=== PATIENT | female | born 1960 | race Caucasian/White ===

== ENCOUNTER 2019-02-13 13:19 | Outpatient (RCR) | payer MEDICARE, OTHER, SELFPAY ==
[2019-01-12 16:43] LABS: INR 2.1; Prothrombin Time 21.8 Seconds (9.64-11.0)
[2019-02-13 13:44] LABS: INR 2.6; Prothrombin Time 27.1 Seconds (9.64-11.0)
== END 2019-04-12 23:59 | disposition home or self-care (01) ==
LOC: CHSLAB 13:19
PROVIDERS: Visit Provider Family Medicine
DX: Z79.01 Long term (current) use of anticoagulants (principal)
CPT/HCPCS: 36415; 85610

== ENCOUNTER 2019-05-28 13:31 | Outpatient (RCR) | payer MEDICARE, SELFPAY ==
[2019-05-18 13:29] LABS: INR 1.9; Prothrombin Time 19.6 Seconds (9.64-11.0)
[2019-05-28 13:50] LABS: INR 2.2; Prothrombin Time 22.1 Seconds (9.64-11.0)
== END 2019-08-16 23:59 | disposition home or self-care (01) ==
LOC: CHSLAB 13:31
PROVIDERS: PCP Family Medicine; Visit Provider Family Medicine
DX: D68.69 Other thrombophilia (principal); Z79.01 Long term (current) use of anticoagulants
CPT/HCPCS: 36415; 85610

== ENCOUNTER 2019-07-31 11:07 | Outpatient (CLI) | payer MEDICARE, SELFPAY ==
[2019-07-31 11:19] LABS: Basophils Absolute Auto 0.07 K/mm3 (0.00-0.10); Eosinophils Absolute Auto 0.15 K/mm3 (0.02-0.50); Hematocrit 40.5 % (35.0-49.0); Hemoglobin 13.4 g/dL (12.0-15.0); Immature Granulocyte Absolute 0.02 K/mm3 (0.00-0.00); Immature Granulocyte Percent A 0.3 % (0.0-0.0); Lymphocytes Absolute Auto 2.46 K/mm3 (1.10-4.50); Lymphocytes Percent Auto 33.5 % (18.0-42.0); Mean Corpuscular HGB Conc 33.1 g/dL (32.0-36.0); Mean Corpuscular Hemoglobin 30.4 pg (27.0-31.0); Mean Corpuscular Volume 91.8 fL (78.0-102.0); Mean Platelet Volume 10.1 fl (9.2-11.8); Monocytes Absolute Auto 0.57 K/mm3 (0.10-0.90); Monocytes Percent Auto 7.8 % (2.0-11.0); Neutrophils Absolute Auto 4.1 K/mm3 (1.7-7.2); Neutrophils Percent Auto 55.4 % (50.0-70.0); Platelet Count Result 238 K/mm3 (150-420); Red Blood Count 4.41 M/mm3 (4.20-5.40); Red Cell Distribution Width 13.3 % (11.6-14.4); White Blood Count 7.4 K/mm3 (4.8-10.8)
[2019-07-31 11:30] LABS: INR 2.8; Prothrombin Time 28.2 Seconds (9.64-11.0)
[2019-07-31 13:11] LABS: Alanine Aminotransferase 43 U/L (14-59); Albumin Level 3.6 g/dL (3.4-5.0); Alkaline Phosphatase 58 U/L (46-116); Anion Gap 11.5 mmol/L (7-16); Aspartate Amino Transferase 24 U/L (15-37); Bilirubin,Total 0.4 mg/dL (0.00-1.00); Blood Urea Nitrogen 21 mg/dL (7-18); Calcium 8.9 mg/dL (8.5-10.1); Carbon Dioxide 31 mmol/L (21-32); Chloride 105 mmol/L (98-108); Estimated Glomerular Filt Rate 55; Glucose 110 mg/dL (70-99); Osmolality Calculated 300 mOsm/kg (285-295); Potassium 4.5 mmol/L (3.5-5.1); Sodium 143 mmol/L (136-145); Thyroid Stimulating Hormone 1.53 uIU/mL (0.36-3.74)
== END 2019-07-31 11:08 | disposition home or self-care (01) ==
PROVIDERS: PCP Family Medicine; Visit Provider Family Medicine
DX: I25.10 Atherosclerotic heart disease of native coronary artery without angina pectoris (principal); E11.9 Type 2 diabetes mellitus without complications; D68.69 Other thrombophilia; Z79.01 Long term (current) use of anticoagulants
CPT/HCPCS: 36415; 80053; 83036; 84443; 85025; 85610

== ENCOUNTER 2019-08-23 10:43 | Outpatient (CLI) | payer MEDICARE, MEDICAID, SELFPAY | END 2019-08-23 10:44 | disposition home or self-care (01) | PROVIDERS: PCP Family Medicine; Visit Provider Specialist | DX: I51.9 Heart disease, unspecified (principal) | CPT/HCPCS: 93306 ==

== ENCOUNTER 2020-01-04 14:53 | Outpatient (RCR) | payer MEDICARE, SELFPAY ==
[2019-10-09 08:03] LABS: INR 2.2; Prothrombin Time 22.1 Seconds (9.64-11.0)
[2019-11-27 15:28] LABS: Basophils Absolute Auto 0.08 K/mm3 (0.00-0.10); Eosinophils Absolute Auto 0.18 K/mm3 (0.02-0.50); Eosinophils Percent Auto 2.2 % (1.0-6.0); Hematocrit 44.2 % (35.0-49.0); Hemoglobin 13.8 g/dL (12.0-15.0); Immature Granulocyte Absolute 0.02 K/mm3 (0.00-0.00); Immature Granulocyte Percent A 0.2 % (0.0-0.0); Lymphocytes Absolute Auto 3.17 K/mm3 (1.10-4.50); Lymphocytes Percent Auto 38.6 % (18.0-42.0); Mean Corpuscular HGB Conc 31.2 g/dL (32.0-36.0); Mean Corpuscular Hemoglobin 29.1 pg (27.0-31.0); Mean Corpuscular Volume 93.1 fL (78.0-102.0); Mean Platelet Volume 10.1 fl (9.2-11.8); Monocytes Percent Auto 8.5 % (2.0-11.0); Neutrophils Absolute Auto 4.1 K/mm3 (1.7-7.2); Neutrophils Percent Auto 49.5 % (50.0-70.0); Platelet Count Result 284 K/mm3 (150-420); Red Blood Count 4.75 M/mm3 (4.20-5.40); Red Cell Distribution Width 13.3 % (11.6-14.4); White Blood Count 8.2 K/mm3 (4.8-10.8)
[2019-11-27 15:38] LABS: INR 1.9; Prothrombin Time 19.4 Seconds (9.64-11.0)
[2019-11-27 16:02] LABS: Hemoglobin A1C 6.3 % (<5.7)
[2019-11-27 16:11] LABS: Anion Gap 5 mmol/L (8-16); Blood Urea Nitrogen 28 mg/dL (7-18); Calcium 9.3 mg/dL (8.5-10.1); Carbon Dioxide 32 mmol/L (21-32); Chloride 104 mmol/L (98-108); Estimated Glomerular Filt Rate 58; Glucose 106 mg/dL (70-99); Osmolality Calculated 297 mOsm/kg (285-295); Potassium 4.3 mmol/L (3.5-5.1); Sodium 141 mmol/L (136-145)
[2019-12-19 11:20] LABS: INR 1.9; Prothrombin Time 19.5 Seconds (9.64-11.0)
[2020-01-04 15:32] LABS: INR 2.1; Prothrombin Time 20.7 Seconds (9.64-11.0)
== END 2020-01-07 23:59 | disposition home or self-care (01) ==
LOC: CHSLAB 14:53
PROVIDERS: PCP Family Medicine; Visit Provider Family Medicine
DX: D68.69 Other thrombophilia (principal); Z79.01 Long term (current) use of anticoagulants; E11.9 Type 2 diabetes mellitus without complications
CPT/HCPCS: 36415; 80048; 83036; 85025; 85610

== ENCOUNTER 2020-03-08 11:52 | Outpatient (CLI) | payer MEDICARE, SELFPAY ==
[2020-03-08 12:13] LABS: Basophils Absolute Auto 0.07 K/mm3 (0.00-0.10); Eosinophils Absolute Auto 0.17 K/mm3 (0.02-0.50); Eosinophils Percent Auto 2.3 % (1.0-6.0); Hematocrit 43.5 % (35.0-49.0); Hemoglobin 13.8 g/dL (12.0-15.0); Immature Granulocyte Absolute 0.03 K/mm3 (0.00-0.00); Immature Granulocyte Percent A 0.4 % (0.0-0.0); Lymphocytes Absolute Auto 2.63 K/mm3 (1.10-4.50); Lymphocytes Percent Auto 36.2 % (18.0-42.0); Mean Corpuscular HGB Conc 31.7 g/dL (32.0-36.0); Mean Corpuscular Hemoglobin 29.3 pg (27.0-31.0); Mean Corpuscular Volume 92.4 fL (78.0-102.0); Mean Platelet Volume 10.1 fl (9.2-11.8); Monocytes Absolute Auto 0.61 K/mm3 (0.10-0.90); Monocytes Percent Auto 8.4 % (2.0-11.0); Neutrophils Absolute Auto 3.8 K/mm3 (1.7-7.2); Neutrophils Percent Auto 51.7 % (50.0-70.0); Platelet Count Result 255 K/mm3 (150-420); Red Blood Count 4.71 M/mm3 (4.20-5.40); Red Cell Distribution Width 13.1 % (11.6-14.4); White Blood Count 7.3 K/mm3 (4.8-10.8)
[2020-03-08 12:31] LABS: Hemoglobin A1C 6.7 % (<5.7); INR 1.8; Prothrombin Time 18.8 Seconds (9.50-12.10)
[2020-03-08 13:22] LABS: Anion Gap 7 mmol/L (8-16); Blood Urea Nitrogen 27 mg/dL (7-18); Calcium 9.3 mg/dL (8.5-10.1); Carbon Dioxide 30 mmol/L (21-32); Chloride 100 mmol/L (98-108); Estimated Glomerular Filt Rate 43; Glucose 154 mg/dL (70-99); Osmolality Calculated 292 mOsm/kg (285-295); Potassium 4.3 mmol/L (3.5-5.1); Sodium 137 mmol/L (136-145)
== END 2020-03-08 11:53 | disposition home or self-care (01) ==
LOC: CHSLAB 11:54
PROVIDERS: PCP Family Medicine; Visit Provider Family Medicine
DX: Z79.01 Long term (current) use of anticoagulants (principal); E11.9 Type 2 diabetes mellitus without complications
CPT/HCPCS: 36415; 80048; 83036; 85025; 85610

== ENCOUNTER 2020-05-07 14:37 | Outpatient (CLI) | payer MEDICARE, SELFPAY ==
[2020-05-07 15:31] LABS: Influenza Control Valid (Valid); SARS-CoV-2 Ag Negative (Negative)
[2020-05-08 00:45] LABS: SARS-CoV-2 RNA PCR Negative
== END 2020-05-07 14:38 | disposition home or self-care (01) ==
LOC: CHSLAB 14:39
PROVIDERS: PCP Family Medicine; Visit Provider Family Medicine
DX: J00 Acute nasopharyngitis [common cold] (principal); Z20.822 Contact with and (suspected) exposure to COVID-19
CPT/HCPCS: 87081; 87426; 87804; 87880; C9803; U0003; U0005

== ENCOUNTER 2020-05-15 09:19 | Outpatient (RCR) | payer MEDICARE, SELFPAY ==
[2020-03-25 11:16] LABS: Prothrombin Time 21.2 Seconds (9.50-12.10)
[2020-05-15 09:59] LABS: INR 1.7; Prothrombin Time 17.3 Seconds (9.50-12.10)
== END 2020-06-23 23:59 | disposition home or self-care (01) ==
LOC: CHSLAB 09:19
PROVIDERS: PCP Family Medicine; Visit Provider Family Medicine
DX: Z79.01 Long term (current) use of anticoagulants (principal)
CPT/HCPCS: 36415; 85610

== ENCOUNTER 2020-05-31 09:52 | Outpatient (CLI) | payer MEDICARE, SELFPAY ==
[2020-05-31 10:21] LABS: INR 1.8; Prothrombin Time 19.1 Seconds (9.50-12.10)
== END 2020-05-31 09:53 | disposition home or self-care (01) ==
LOC: CHSLAB 09:55
PROVIDERS: PCP Family Medicine; Visit Provider Family Medicine
DX: Z79.01 Long term (current) use of anticoagulants (principal)
CPT/HCPCS: 36415; 85610

== ENCOUNTER 2020-06-23 08:39 | Outpatient (CLI) | payer MEDICARE, SELFPAY ==
[2020-06-23 08:54] LABS: Basophils Absolute Auto 0.07 K/mm3 (0.00-0.10); Basophils Percent Auto 0.9 % (0.0-1.0); Eosinophils Absolute Auto 0.16 K/mm3 (0.02-0.50); Eosinophils Percent Auto 2.2 % (1.0-6.0); Hematocrit 42.2 % (35.0-49.0); Hemoglobin 13.7 g/dL (12.0-15.0); Immature Granulocyte Absolute 0.03 K/mm3 (0.00-0.00); Immature Granulocyte Percent A 0.4 % (0.0-0.0); Lymphocytes Absolute Auto 2.46 K/mm3 (1.10-4.50); Lymphocytes Percent Auto 33.2 % (18.0-42.0); Mean Corpuscular HGB Conc 32.5 g/dL (32.0-36.0); Mean Corpuscular Hemoglobin 29.5 pg (27.0-31.0); Mean Corpuscular Volume 90.9 fL (78.0-102.0); Mean Platelet Volume 9.8 fl (9.2-11.8); Monocytes Absolute Auto 0.57 K/mm3 (0.10-0.90); Monocytes Percent Auto 7.7 % (2.0-11.0); Neutrophils Absolute Auto 4.1 K/mm3 (1.7-7.2); Neutrophils Percent Auto 55.6 % (50.0-70.0); Platelet Count Result 271 K/mm3 (150-420); Red Blood Count 4.64 M/mm3 (4.20-5.40); Red Cell Distribution Width 13.5 % (11.6-14.4); White Blood Count 7.4 K/mm3 (4.8-10.8)
[2020-06-23 09:07] LABS: INR 2.8; Prothrombin Time 28.5 Seconds (9.50-12.10)
[2020-06-23 09:41] LABS: Hemoglobin A1C 6.6 % (<5.7)
[2020-06-23 09:42] LABS: Creatinine Urine 88.38 mg/dL (40-278); MALB Creatinine Ratio 25.9 mg/g (0-30); Microalbumin Urine Random 22.9 mg/L
[2020-06-23 10:23] LABS: Anion Gap 8 mmol/L (8-16); Blood Urea Nitrogen 32 mg/dL (7-18); Calcium 8.9 mg/dL (8.5-10.1); Carbon Dioxide 27 mmol/L (21-32); Chloride 101 mmol/L (98-108); Estimated Glomerular Filt Rate 47; Glucose 157 mg/dL (70-99); Osmolality Calculated 291 mOsm/kg (285-295); Potassium 4.9 mmol/L (3.5-5.1); Sodium 136 mmol/L (136-145)
[2020-06-23 10:44] LABS: Thyroid Stimulating Hormone 1.36 uIU/mL (0.36-3.74)
== END 2020-06-23 08:40 | disposition home or self-care (01) ==
LOC: CHSLAB 08:41
PROVIDERS: PCP Family Medicine; Visit Provider Family Medicine
DX: E11.9 Type 2 diabetes mellitus without complications (principal); Z79.01 Long term (current) use of anticoagulants
CPT/HCPCS: 36415; 80048; 82043; 83036; 84443; 85025; 85610

== ENCOUNTER 2020-07-11 10:50 | Outpatient (CLI) | payer MEDICARE, SELFPAY ==
--- NOTE | ~2020-07-11 | XR_ITS ---
EXAMINATION: XR abdomen obstructive series DATE: 07/11/2020 11:27 INDICATION: Right upper quadrant abdominal pain TECHNIQUE: Upright and supine views of the abdomen were obtained. COMPARISON: None. FINDINGS: There is no free intraperitoneal gas or evidence of bowel obstruction. The bowel gas patter n is nonspecific. The lung bases are clear. Cardiomegaly is noted. There is a partially imaged single pacemaker lead in the right ventricle. Lumbar levoscoliosis is noted. There is also moderate lumbar spondylosis. IMPRESSION: 1. Nonobstructive bowel gas pattern. Reviewed, dictated and finalized at location A.
[2020-07-11 11:05] LABS: Basophils Absolute Auto 0.07 K/mm3 (0.00-0.10); Basophils Percent Auto 0.8 % (0.0-1.0); Eosinophils Absolute Auto 0.16 K/mm3 (0.02-0.50); Eosinophils Percent Auto 1.8 % (1.0-6.0); Hematocrit 43.5 % (35.0-49.0); Hemoglobin 14.2 g/dL (12.0-15.0); Immature Granulocyte Absolute 0.02 K/mm3 (0.00-0.00); Immature Granulocyte Percent A 0.2 % (0.0-0.0); Lymphocytes Absolute Auto 2.87 K/mm3 (1.10-4.50); Mean Corpuscular HGB Conc 32.6 g/dL (32.0-36.0); Mean Corpuscular Hemoglobin 29.5 pg (27.0-31.0); Mean Corpuscular Volume 90.4 fL (78.0-102.0); Mean Platelet Volume 10.2 fl (9.2-11.8); Monocytes Absolute Auto 0.58 K/mm3 (0.10-0.90); Monocytes Percent Auto 6.7 % (2.0-11.0); Neutrophils Percent Auto 57.5 % (50.0-70.0); Platelet Count Result 257 K/mm3 (150-420); Red Blood Count 4.81 M/mm3 (4.20-5.40); Red Cell Distribution Width 13.2 % (11.6-14.4); White Blood Count 8.7 K/mm3 (4.8-10.8)
[2020-07-11 11:09] LABS: Add Urine Microscopic? YES; Appearance Urine Clear (Clear); Bilirubin Urine Negative (Negative); Blood Urine 1+ (Negative); Color Urine Yellow (Yellow); Glucose Urine UA Negative (Negative); Ketones Urine Negative (Negative); Leukocyte Esterase Ur Negative LEU/UL (Negative); Nitrate Urine Negative (Negative); Protein Urine Negative (Negative); Specific Grav Ur >= 1.030 (1.010-1.020); Urobilinogen Urine 0.2 mg/dL (0.2-1.0); pH Urine 5.5 (5.0-8.0)
[2020-07-11 11:21] LABS: Bacteria Urine Trace /hpf; RBC Urine 0-2 /hpf (0-2); Squamous Epithelial Cell Urine Few /hpf (Few); WBC Urine 0-3 /hpf (0-3)
[2020-07-11 11:44] LABS: Alanine Aminotransferase 32 U/L (14-59); Albumin Level 3.6 g/dL (3.4-5.0); Alkaline Phosphatase 85 U/L (46-116); Amylase 81 U/L (25-115); Anion Gap 10 mmol/L (8-16); Aspartate Amino Transferase 14 U/L (15-37); Bilirubin,Total 0.4 mg/dL (0.00-1.00); Blood Urea Nitrogen 24 mg/dL (7-18); Carbon Dioxide 27 mmol/L (21-32); Chloride 102 mmol/L (98-108); Estimated Glomerular Filt Rate 48; Glucose 115 mg/dL (70-99); Lipase 668 U/L (73-393); Osmolality Calculated 293 mOsm/kg (285-295); Potassium 4.7 mmol/L (3.5-5.1); Sodium 139 mmol/L (136-145); Total Protein 7.3 g/dL (6.4-8.2)
[2020-07-11 12:00] LABS: Calcium 8.9 mg/dL (8.5-10.1)
== END 2020-07-11 10:51 | disposition home or self-care (01) ==
LOC: CHSLAB 10:54
PROVIDERS: PCP Family Medicine; Visit Provider Family Medicine
DX: R10.9 Unspecified abdominal pain (principal)
CPT/HCPCS: 36415; 74019; 80053; 81001; 82150; 83690; 85025

== ENCOUNTER 2020-07-14 09:59 | Outpatient (CLI) | payer MEDICARE, MEDICAID, SELFPAY ==
--- NOTE | ~2020-07-14 | CT_ITS ---
EXAMINATION: CT abdomen pelvis wo con DATE: 07/14/2020 10:23 INDICATION: Right abdominal pain. TECHNIQUE: Computed tomography (CT) of the abdomen and pelvis was performed without intravenous contr ast. Automated exposure control and iterative reconstruction technique were employed. The dose-length product was 1319.76 mGy-cm. COMPARISON: Chest CT 12/15/2018 FINDINGS: The visualized portions of the lung bases demonstrate mild atelectasis. No pleural effusion . The heart size is normal. There is a pacer wire in right ventricle. There are coronary artery calci fications. No pericardial effusion. The liver, gallbladder, spleen, and adrenal glands are normal. Th ere is mild fat stranding adjacent to the body of the pancreas, consistent with acute interstitial pa ncreatitis. The kidneys are normal. There are no dilated loops of bowel. The appendix is normal. Ther e are no pathologically enlarged lymph nodes. There is no free intraperitoneal fluid. There is a 3.2 cm cyst in left ovary. There is lumbar levoscoliosis and mild spondylosis. IMPRESSION: 1. Mild acute interstitial pancreatitis. 2. 3.2 cm cyst in left ovary, likely benign. Pelvis ultrasound is recommended. Reviewed, dictated and finalized at location B.
== END 2020-07-14 10:00 | disposition home or self-care (01) ==
LOC: CHSIMG 10:01
PROVIDERS: PCP Family Medicine; Visit Provider Family Medicine
DX: R10.9 Unspecified abdominal pain (principal); R74.8 Abnormal levels of other serum enzymes; R19.5 Other fecal abnormalities
CPT/HCPCS: 74176

== ENCOUNTER 2020-07-15 10:14 | Outpatient (CLI) | payer MEDICARE, SELFPAY ==
[2020-07-15 10:30] LABS: Basophils Absolute Auto 0.06 K/mm3 (0.00-0.10); Basophils Percent Auto 0.8 % (0.0-1.0); Eosinophils Absolute Auto 0.17 K/mm3 (0.02-0.50); Eosinophils Percent Auto 2.2 % (1.0-6.0); Hematocrit 44.8 % (35.0-49.0); Hemoglobin 14.7 g/dL (12.0-15.0); Immature Granulocyte Absolute 0.02 K/mm3 (0.00-0.00); Immature Granulocyte Percent A 0.3 % (0.0-0.0); Lymphocytes Absolute Auto 2.46 K/mm3 (1.10-4.50); Lymphocytes Percent Auto 32.3 % (18.0-42.0); Mean Corpuscular HGB Conc 32.8 g/dL (32.0-36.0); Mean Corpuscular Hemoglobin 29.5 pg (27.0-31.0); Mean Corpuscular Volume 89.8 fL (78.0-102.0); Mean Platelet Volume 10.1 fl (9.2-11.8); Monocytes Absolute Auto 0.52 K/mm3 (0.10-0.90); Monocytes Percent Auto 6.8 % (2.0-11.0); Neutrophils Absolute Auto 4.4 K/mm3 (1.7-7.2); Neutrophils Percent Auto 57.6 % (50.0-70.0); Platelet Count Result 256 K/mm3 (150-420); Red Blood Count 4.99 M/mm3 (4.20-5.40); Red Cell Distribution Width 13.3 % (11.6-14.4); White Blood Count 7.6 K/mm3 (4.8-10.8)
[2020-07-15 10:43] LABS: INR 2.6
[2020-07-15 10:49] LABS: Occult Blood Negative (Negative)
[2020-07-15 10:49] LABS: Occult Blood Negative (Negative)
[2020-07-15 11:08] LABS: Alanine Aminotransferase 28 U/L (14-59); Albumin Level 3.7 g/dL (3.4-5.0); Alkaline Phosphatase 89 U/L (46-116); Amylase 90 U/L (25-115); Anion Gap 8 mmol/L (8-16); Aspartate Amino Transferase 12 U/L (15-37); Bilirubin,Total 0.4 mg/dL (0.00-1.00); Blood Urea Nitrogen 25 mg/dL (7-18); Calcium 9.3 mg/dL (8.5-10.1); Carbon Dioxide 30 mmol/L (21-32); Chloride 100 mmol/L (98-108); Estimated Glomerular Filt Rate 48; Glucose 180 mg/dL (70-99); Lipase 638 U/L (73-393); Osmolality Calculated 295 mOsm/kg (285-295); Potassium 4.8 mmol/L (3.5-5.1); Sodium 138 mmol/L (136-145); Total Protein 7.6 g/dL (6.4-8.2)
== END 2020-07-15 10:15 | disposition home or self-care (01) ==
LOC: CHSLAB 10:18
PROVIDERS: PCP Family Medicine; Visit Provider Family Medicine
DX: R10.9 Unspecified abdominal pain (principal); R74.8 Abnormal levels of other serum enzymes; R19.5 Other fecal abnormalities; K85.90 Acute pancreatitis without necrosis or infection, unspecified; Z79.01 Long term (current) use of anticoagulants
CPT/HCPCS: 36415; 80053; 82150; 82272; 83690; 85025; 85610

== ENCOUNTER 2020-07-17 10:07 | Outpatient (CLI) | payer MEDICARE, MEDICAID, SELFPAY ==
--- NOTE | ~2020-07-17 | US_ITS ---
EXAMINATION: US pelvic complete w TV EXAM DATE: 07/17/2020 12:00 INDICATION: Ovarian cyst. TECHNIQUE: Pelvic transabdominal and transvaginal sonogram was performed. There are multiple graysca le and Doppler images available for interpretation. Correlation was made with CT abdomen pelvis 2020. FINDINGS: Reportedly patient has had hysterectomy. The vaginal cuff is unremarkable. There is no free pelvic fluid. Right adnexa: The ovary measures 1.0 x 1.6 x 1.5 cm and is morphologically normal. Ovarian vascular f low confirmed. Left adnexa: The ovary measures 3.7 x 2.8 x 2.4 cm, with a simple cystic lesion measuring 2.7 x 2.3 x 2.6 cm. Ovarian vascular flow confirmed. IMPRESSION: Left ovarian simple cystic lesion, could be cystic ovarian neoplasm in this postmenopausal patient, b ut would certainly favor benign histology. Consider 6-12 month follow-up pelvic sonogram. Reviewed, dictated and finalized at location A. IMPRESSION: Left ovarian simple cystic lesion, could be cystic ovarian neoplasm in this pos tmenopausal patient, but would certainly favor benign histology. Consider 6-12 month follow-up pelvic sonogram.
[2020-07-17 10:19] LABS: Eosinophils Absolute Auto 0.15 K/mm3 (0.02-0.50); Eosinophils Percent Auto 1.6 % (1.0-6.0); Hematocrit 42.6 % (35.0-49.0); Hemoglobin 13.9 g/dL (12.0-15.0); Immature Granulocyte Absolute 0.02 K/mm3 (0.00-0.00); Immature Granulocyte Percent A 0.2 % (0.0-0.0); Lymphocytes Absolute Auto 3.64 K/mm3 (1.10-4.50); Lymphocytes Percent Auto 37.7 % (18.0-42.0); Mean Corpuscular HGB Conc 32.6 g/dL (32.0-36.0); Mean Corpuscular Hemoglobin 29.6 pg (27.0-31.0); Mean Corpuscular Volume 90.8 fL (78.0-102.0); Mean Platelet Volume 9.9 fl (9.2-11.8); Monocytes Percent Auto 6.2 % (2.0-11.0); Neutrophils Absolute Auto 5.1 K/mm3 (1.7-7.2); Neutrophils Percent Auto 53.3 % (50.0-70.0); Platelet Count Result 249 K/mm3 (150-420); Red Blood Count 4.69 M/mm3 (4.20-5.40); Red Cell Distribution Width 13.2 % (11.6-14.4); White Blood Count 9.7 K/mm3 (4.8-10.8)
[2020-07-17 10:49] LABS: Alanine Aminotransferase 32 U/L (14-59); Albumin Level 3.5 g/dL (3.4-5.0); Alkaline Phosphatase 83 U/L (46-116); Amylase 101 U/L (25-115); Anion Gap 8 mmol/L (8-16); Aspartate Amino Transferase 17 U/L (15-37); Bilirubin,Total 0.3 mg/dL (0.00-1.00); Blood Urea Nitrogen 27 mg/dL (7-18); Calcium 8.8 mg/dL (8.5-10.1); Carbon Dioxide 26 mmol/L (21-32); Chloride 98 mmol/L (98-108); Estimated Glomerular Filt Rate 55; Glucose 168 mg/dL (70-99); Lipase 922 U/L (73-393); Osmolality Calculated 283 mOsm/kg (285-295); Potassium 4.5 mmol/L (3.5-5.1); Sodium 132 mmol/L (136-145); Total Protein 7.3 g/dL (6.4-8.2)
== END 2020-07-17 10:08 | disposition home or self-care (01) ==
PROVIDERS: PCP Family Medicine; Visit Provider Family Medicine
DX: N83.202 Unspecified ovarian cyst, left side (principal); K85.90 Acute pancreatitis without necrosis or infection, unspecified
CPT/HCPCS: 36415; 76830; 76856; 80053; 82150; 83690; 85025

== ENCOUNTER 2020-07-18 11:41 | Outpatient (CLI) | payer MEDICARE, MEDICAID, SELFPAY ==
--- NOTE | ~2020-07-18 | CT_ITS ---
EXAMINATION: CT pelvis wo con DATE: 07/18/2020 12:55 INDICATION: Pelvic pain. TECHNIQUE: Computed tomography (CT) of the pelvis was performed without intravenous contrast. Automat ed exposure control and iterative reconstruction technique were employed. The dose-length product was 816.38 mGy-cm. COMPARISON: CT abdomen and pelvis 07/14/2020, pelvis ultrasound 07/17/2020 FINDINGS: There are no dilated loops of bowel. The appendix is normal. There is a 3.0 cm cyst in left ovary. There is mild bilateral external iliac lymphadenopathy. For example, a left external iliac no de measures 1.2 x 1.7 cm. There is no free intraperitoneal fluid. There is moderate lumbar spondylosi s. IMPRESSION: 1. 3.0 cm left ovarian cyst, likely benign. Pelvis ultrasound is recommended in one year. 2. Mild bilateral external iliac lymphadenopathy, likely reactive. Reviewed, dictated and finalized at location B.
== END 2020-07-18 11:42 | disposition home or self-care (01) ==
LOC: CHSIMG 11:43
PROVIDERS: PCP Family Medicine; Visit Provider Family Medicine
DX: N83.202 Unspecified ovarian cyst, left side (principal)
CPT/HCPCS: 72192

== ENCOUNTER 2020-07-23 11:58 | Outpatient (CLI) | payer MEDICARE, MEDICAID, SELFPAY ==
[2020-07-23 12:13] LABS: Basophils Absolute Auto 0.08 K/mm3 (0.00-0.10); Basophils Percent Auto 0.8 % (0.0-1.0); Eosinophils Absolute Auto 0.18 K/mm3 (0.02-0.50); Eosinophils Percent Auto 1.8 % (1.0-6.0); Hematocrit 44.6 % (35.0-49.0); Hemoglobin 14.5 g/dL (12.0-15.0); Immature Granulocyte Absolute 0.03 K/mm3 (0.00-0.00); Immature Granulocyte Percent A 0.3 % (0.0-0.0); Lymphocytes Absolute Auto 3.11 K/mm3 (1.10-4.50); Lymphocytes Percent Auto 31.3 % (18.0-42.0); Mean Corpuscular HGB Conc 32.5 g/dL (32.0-36.0); Mean Corpuscular Hemoglobin 29.1 pg (27.0-31.0); Mean Corpuscular Volume 89.4 fL (78.0-102.0); Mean Platelet Volume 10.2 fl (9.2-11.8); Neutrophils Percent Auto 59.8 % (50.0-70.0); Platelet Count Result 278 K/mm3 (150-420); Red Blood Count 4.99 M/mm3 (4.20-5.40); Red Cell Distribution Width 13.1 % (11.6-14.4)
[2020-07-23 12:28] LABS: Alanine Aminotransferase 32 U/L (14-59); Albumin Level 3.7 g/dL (3.4-5.0); Alkaline Phosphatase 82 U/L (46-116); Amylase 72 U/L (25-115); Anion Gap 9 mmol/L (8-16); Aspartate Amino Transferase 15 U/L (15-37); Bilirubin,Total 0.4 mg/dL (0.00-1.00); Blood Urea Nitrogen 25 mg/dL (7-18); Carbon Dioxide 28 mmol/L (21-32); Chloride 99 mmol/L (98-108); Estimated Glomerular Filt Rate 45; Glucose 148 mg/dL (70-99); Lipase 441 U/L (73-393); Osmolality Calculated 289 mOsm/kg (285-295); Potassium 4.8 mmol/L (3.5-5.1); Sodium 136 mmol/L (136-145)
== END 2020-07-23 11:59 | disposition home or self-care (01) ==
LOC: CHSLAB 12:01
PROVIDERS: PCP Family Medicine; Visit Provider Family Medicine
DX: K85.00 Idiopathic acute pancreatitis without necrosis or infection (principal)
CPT/HCPCS: 36415; 80053; 82150; 83690; 85025

== ENCOUNTER 2020-07-31 13:25 | Outpatient (CLI) | payer MEDICARE, MEDICAID, SELFPAY ==
[2020-07-31 14:43] LABS: Amylase 60 U/L (25-115); Anion Gap 8 mmol/L (8-16); Blood Urea Nitrogen 23 mg/dL (7-18); Calcium 9.5 mg/dL (8.5-10.1); Carbon Dioxide 30 mmol/L (21-32); Chloride 100 mmol/L (98-108); Estimated Glomerular Filt Rate 46; Glucose 119 mg/dL (70-99); Lipase 360 U/L (73-393); Osmolality Calculated 290 mOsm/kg (285-295); Potassium 4.7 mmol/L (3.5-5.1); Sodium 138 mmol/L (136-145)
== END 2020-07-31 13:26 | disposition home or self-care (01) ==
LOC: CHSLAB 13:26
PROVIDERS: PCP Family Medicine; Visit Provider Family Medicine
DX: K85.00 Idiopathic acute pancreatitis without necrosis or infection (principal)
CPT/HCPCS: 36415; 80048; 82150; 83690

== ENCOUNTER 2020-08-25 09:42 | Outpatient (CLI) | payer MEDICARE, MEDICAID, SELFPAY ==
--- NOTE | ~2020-08-25 | XR_ITS ---
EXAMINATION: XR foot RT min 3V DATE: 08/25/2020 10:15 INDICATION: Right foot pain TECHNIQUE: Dorsoplantar, lateral, and 2 oblique views of the right foot were obtained. COMPARISON: 06/25/2014 FINDINGS: There is no fracture, dislocation, or subluxation. There is mild osteoarthritis of several interphalangeal joints. The soft tissues are unremarkable. IMPRESSION: 1. No acute osseous abnormality. Reviewed, dictated and finalized at location A.
[2020-08-25 09:53] LABS: Basophils Absolute Auto 0.06 K/mm3 (0.00-0.10); Basophils Percent Auto 0.5 % (0.0-1.0); Eosinophils Absolute Auto 0.17 K/mm3 (0.02-0.50); Eosinophils Percent Auto 1.5 % (1.0-6.0); Hematocrit 41.5 % (35.0-49.0); Hemoglobin 13.6 g/dL (12.0-15.0); Immature Granulocyte Absolute 0.04 K/mm3 (0.00-0.00); Immature Granulocyte Percent A 0.4 % (0.0-0.0); Lymphocytes Absolute Auto 2.75 K/mm3 (1.10-4.50); Lymphocytes Percent Auto 24.3 % (18.0-42.0); Mean Corpuscular HGB Conc 32.8 g/dL (32.0-36.0); Mean Corpuscular Hemoglobin 29.6 pg (27.0-31.0); Mean Corpuscular Volume 90.2 fL (78.0-102.0); Mean Platelet Volume 9.6 fl (9.2-11.8); Monocytes Absolute Auto 0.72 K/mm3 (0.10-0.90); Monocytes Percent Auto 6.4 % (2.0-11.0); Neutrophils Absolute Auto 7.6 K/mm3 (1.7-7.2); Neutrophils Percent Auto 66.9 % (50.0-70.0); Platelet Count Result 241 K/mm3 (150-420); Red Cell Distribution Width 13.8 % (11.6-14.4); White Blood Count 11.3 K/mm3 (4.8-10.8)
[2020-08-25 10:06] LABS: INR 2.5; Prothrombin Time 25.4 Seconds (9.50-12.10)
[2020-08-25 10:36] LABS: Anion Gap 11 mmol/L (8-16); Blood Urea Nitrogen 28 mg/dL (7-18); Calcium 9.1 mg/dL (8.5-10.1); Carbon Dioxide 26 mmol/L (21-32); Chloride 102 mmol/L (98-108); Estimated Glomerular Filt Rate 48; Glucose 178 mg/dL (70-99); Osmolality Calculated 297 mOsm/kg (285-295); Potassium 4.4 mmol/L (3.5-5.1); Sodium 139 mmol/L (136-145)
== END 2020-08-25 09:43 | disposition home or self-care (01) ==
LOC: CHSLAB 09:44
PROVIDERS: PCP Family Medicine; Visit Provider Family Medicine
DX: M79.671 Pain in right foot (principal); Z79.01 Long term (current) use of anticoagulants
CPT/HCPCS: 36415; 73630; 80048; 85025; 85610

== ENCOUNTER 2020-09-23 15:39 | Outpatient (CLI) | payer MEDICARE, SELFPAY ==
[2020-09-23 15:55] LABS: Basophils Absolute Auto 0.06 K/mm3 (0.00-0.10); Basophils Percent Auto 0.8 % (0.0-1.0); Eosinophils Absolute Auto 0.13 K/mm3 (0.02-0.50); Eosinophils Percent Auto 1.6 % (1.0-6.0); Hematocrit 39.2 % (35.0-49.0); Hemoglobin 12.5 g/dL (12.0-15.0); Immature Granulocyte Absolute 0.03 K/mm3 (0.00-0.00); Immature Granulocyte Percent A 0.4 % (0.0-0.0); Lymphocytes Absolute Auto 2.64 K/mm3 (1.10-4.50); Lymphocytes Percent Auto 33.2 % (18.0-42.0); Mean Corpuscular HGB Conc 31.9 g/dL (32.0-36.0); Mean Corpuscular Hemoglobin 28.8 pg (27.0-31.0); Mean Corpuscular Volume 90.3 fL (78.0-102.0); Monocytes Absolute Auto 0.59 K/mm3 (0.10-0.90); Monocytes Percent Auto 7.4 % (2.0-11.0); Neutrophils Absolute Auto 4.5 K/mm3 (1.7-7.2); Neutrophils Percent Auto 56.6 % (50.0-70.0); Platelet Count Result 236 K/mm3 (150-420); Red Blood Count 4.34 M/mm3 (4.20-5.40); Red Cell Distribution Width 14.2 % (11.6-14.4)
[2020-09-23 16:07] LABS: Hemoglobin A1C 7.7 % (<5.7)
[2020-09-23 16:08] LABS: INR 2.2; Prothrombin Time 22.8 Seconds (9.50-12.10)
[2020-09-23 16:40] LABS: Anion Gap 10 mmol/L (8-16); Blood Urea Nitrogen 30 mg/dL (7-18); Carbon Dioxide 28 mmol/L (21-32); Chloride 104 mmol/L (98-108); Estimated Glomerular Filt Rate 49; Glucose 167 mg/dL (70-99); Osmolality Calculated 304 mOsm/kg (285-295); Potassium 4.3 mmol/L (3.5-5.1); Sodium 142 mmol/L (136-145)
== END 2020-09-23 15:40 | disposition home or self-care (01) ==
PROVIDERS: PCP Family Medicine; Visit Provider Family Medicine
DX: E11.9 Type 2 diabetes mellitus without complications (principal); Z79.01 Long term (current) use of anticoagulants
CPT/HCPCS: 36415; 80048; 83036; 85025; 85610

== ENCOUNTER 2020-10-04 10:26 | Emergency (ER) | payer MEDICARE, MEDICAID, SELFPAY ==
--- NOTE | ~2020-10-04 | XR_ITS ---
EXAMINATION: XR foot RT 2V DATE: 10/04/2020 10:57 INDICATION: Pain and swelling at the medial left foot TECHNIQUE: Dorsoplantar, two oblique and lateral views of the left foot were obtained. COMPARISON: None. FINDINGS: Alignment is normal. No fracture. Minimal to mild osteoarthritis at a few tarsal metatarsal and proba genny distal interphalangeal joints. Moderate-sized plantar calcaneal spur. Small heterotopic ossicle n ear the tip of the medial malleolus. Anterior and medial predominant soft tissue swelling at the left mid and hindfoot. IMPRESSION: 1. No acute osseous abnormality. Reviewed, dictated and finalized at location A.
--- NOTE | 2020-10-04 10:51 | ED.WOUNDLAC ---
HPI - Wound/Laceration General Chief Complaint: Extremity Injury, Lower Stated Complaint: L foot injury Time Seen by Provider: 10/04/20 10:52 Source: patient Mode of arrival: ambulatory Limitations: no limitations History of Present Illness HPI narrative: Patient comes in after having a stick hit her right foot somewhat forcefully a 3 days ago. This caused a small laceration to the right lateral foot. She washed the wound and pulled the small flap back into place. Over the past 3 days the area has been getting increasingly red, and warm. this is now causing mild pain. no fever or chills or other associated signs of symptoms Onset (ago): day(s) Place: home Patient tetanus UTD: Yes Context: accidental Associated symptoms: pain Related Data Home Medications Medication Instructions Recorded Confirmed albuterol sulfate 2 inh INHALATION BID-TID PRN 10/04/20 10/04/20 aspirin [Baby Aspirin] 81 mg PO DAILY 10/04/20 10/04/20 fluticasone furoate [Arnuity 1 mcg INHALATION DAILY 10/04/20 10/04/20 Ellipta] furosemide 40 mg PO DAILY 10/04/20 10/04/20 lisinopril 10 mg PO DAILY 10/04/20 10/04/20 magnesium oxide 400 mg PO BID 10/04/20 10/04/20 metformin 1,000 mg PO BID 10/04/20 10/04/20 metoprolol succinate 50 mg PO BID 10/04/20 10/04/20 nitroglycerin See Rx Instructions .ROUTE .COMPLEX 10/04/20 10/04/20 omega 4-mgx-mhr-fish oil [Fish Oil] 1 cap PO DAILY 10/04/20 10/04/20 pravastatin 80 mg PO DAILY 10/04/20 10/04/20 Allergies Allergy/AdvReac Type Severity Reaction Status Date / Time No Known Allergies Allergy Verified 10/04/20 12:37 Review of Systems Constitutional: Constitutional: Reports no additional constitutional complaints Eyes: Eyes: Reports no additional eye complaints ENT: Reports system reviewed and no additional complaints, except as documented Cardiovascular: Cardiovascular: Reports no additional cardiovascular complaints Respiratory: Respiratory: Reports no additional respiratory complaints Gastrointestinal: Gastrointestinal: Reports no additional gastrointestinal complaints Genitourinary: Genitourinary: Reports no additional female genitourinary complaints Musculoskeletal: Musculoskeletal: Reports no additional musculoskeletal complaints Integumentary/Breasts: Skin/Breast: Reports system reviewed and no additional complaints, except as docu Neurologic: Reports system reviewed and no additional complaints, except as documented Psychiatric: Psychiatric: Reports no additional psychiatric complaints Endocrine: Endocrine: Reports no additional endocrine complaints Hematologic/Lymphatic: Hematologic/Lymphatic: Reports no additional hematologic/lymphatic complaints Allergic/Immunologic: Allergic/Immunologic: Reports no additional allergic/immunologic complaints PMFSH Past Medical History Medical History Cardiac defibrillator in place COPD (chronic obstructive pulmonary disease) Diabetes DVT (deep vein thrombosis) in HTN (hypertension) Hyperlipidemia Surgical History Surgical History H/O: hysterectomy Family History Family History (Updated 10/04/20 @ 12:52 by Oswaldo Morel MD) Father Heart disease Hypertension Mother Hypertension Heart disease Social History Social History (Updated 10/04/20 @ 12:53 by Oswaldo Morel MD) Smoking packs per day: 0.75 Smoking cigarettes per day: 15.0 Smoking status: Current every day smoker Tobacco type: cigarettes Alcohol intake: never Substance use: never Gender identity (if verbalized by the patient): Female Sexual Orientation (if Verbalized by the Patient): Straight or Heterosexual Exam Const: General: no acute distress Orientation/consciousness: patient oriented x3 HENMT: Head: normal to inspection Ears: external ears normal and TM's normal bilaterally General nose exam: Normal external nose present Mouth: Yes Normal
[2020-10-04 10:58] VITALS: BP 132/84; PULSE 73; RESP 20; TEMP 36.5; O2SAT 97
[2020-10-04 12:20] VITALS: BP 137/82; PULSE 72; RESP 20; TEMP 36.3; O2SAT 98
== END 2020-10-04 12:20 | disposition home or self-care (01) ==
PROVIDERS: Emergency Provider Emergency Medicine; PCP Family Medicine
DX: L03.115 Cellulitis of right lower limb (principal)
CPT/HCPCS: 73620; 96365; 99283; 99284; J0696

== ENCOUNTER 2020-10-14 11:41 | Outpatient (RCR) | payer MEDICARE, MEDICAID, SELFPAY ==
[2020-10-14 12:06] LABS: INR 2.4; Prothrombin Time 24.6 Seconds (9.50-12.10)
== END 2021-01-12 23:59 | disposition home or self-care (01) ==
LOC: CHSLAB 11:41
PROVIDERS: PCP Family Medicine; Visit Provider Family Medicine
DX: Z79.01 Long term (current) use of anticoagulants (principal)
CPT/HCPCS: 36415; 85610

== ENCOUNTER 2020-11-04 09:07 | Outpatient (CLI) | payer MEDICARE, SELFPAY ==
[2020-11-04 09:41] LABS: INR 1.7; Prothrombin Time 17.8 Seconds (9.50-12.10)
[2020-11-04 10:00] LABS: Anion Gap 8 mmol/L (8-16); Blood Urea Nitrogen 26 mg/dL (7-18); Carbon Dioxide 28 mmol/L (21-32); Chloride 105 mmol/L (98-108); Estimated Glomerular Filt Rate 56; Glucose 133 mg/dL (70-99); Osmolality Calculated 298 mOsm/kg (285-295); Potassium 4.7 mmol/L (3.5-5.1); Sodium 141 mmol/L (136-145)
== END 2020-11-04 09:08 | disposition home or self-care (01) ==
PROVIDERS: PCP Family Medicine; Visit Provider Family Medicine
DX: Z79.01 Long term (current) use of anticoagulants (principal)
CPT/HCPCS: 36415; 80048; 85610

== ENCOUNTER 2020-12-18 14:53 | Outpatient (CLI) | payer MEDICARE, MEDICAID, SELFPAY ==
--- NOTE | ~2020-12-18 | XR_ITS ---
EXAMINATION: XR lumbar spine 2-3V DATE: 12/18/2020 15:45 INDICATION: Low back pain. TECHNIQUE: 3 views of lumbar spine were obtained. COMPARISON: Lumbar spine radiographs 06/25/2014, CT abdomen and pelvis 07/14/2020 FINDINGS: There is 17 degrees levoscoliosis of thoracolumbar spine. Vertebral body heights are normal . There is mildly decreased disc height from L1-L2 through L4-L5. There is multilevel facet joint ost eoarthritis, severe bilaterally at L4-L5 and L5-S1 and on the right at L3-L4. IMPRESSION: 1. Mild lumbar spondylosis. 2. Thoracolumbar levoscoliosis. Reviewed, dictated and finalized at location A.
--- NOTE | ~2020-12-18 | XR_ITS ---
EXAMINATION: XR hip LT min 2V DATE: 12/18/2020 15:44 INDICATION: Left hip pain. TECHNIQUE: 2 views of left hip were obtained. COMPARISON: Pelvis radiograph 06/25/2014 FINDINGS: Bone alignment is normal. No fracture. There is mild left hip osteoarthritis. IMPRESSION: 1. Mild left hip osteoarthritis. Reviewed, dictated and finalized at location A.
[2020-12-18 15:13] LABS: Basophils Absolute Auto 0.07 K/mm3 (0.00-0.10); Basophils Percent Auto 0.8 % (0.0-1.0); Eosinophils Absolute Auto 0.11 K/mm3 (0.02-0.50); Eosinophils Percent Auto 1.3 % (1.0-6.0); Hematocrit 42.1 % (35.0-49.0); Immature Granulocyte Absolute 0.03 K/mm3 (0.00-0.00); Immature Granulocyte Percent A 0.4 % (0.0-0.0); Lymphocytes Percent Auto 28.6 % (18.0-42.0); Mean Corpuscular HGB Conc 33.3 g/dL (32.0-36.0); Mean Corpuscular Hemoglobin 30.2 pg (27.0-31.0); Mean Corpuscular Volume 90.7 fL (78.0-102.0); Monocytes Absolute Auto 0.56 K/mm3 (0.10-0.90); Monocytes Percent Auto 6.7 % (2.0-11.0); Neutrophils Absolute Auto 5.2 K/mm3 (1.7-7.2); Neutrophils Percent Auto 62.2 % (50.0-70.0); Platelet Count Result 250 K/mm3 (150-420); Red Blood Count 4.64 M/mm3 (4.20-5.40); Red Cell Distribution Width 13.5 % (11.6-14.4); White Blood Count 8.4 K/mm3 (4.8-10.8)
[2020-12-18 15:22] LABS: INR 2.2; Prothrombin Time 22.6 Seconds (9.50-12.10)
[2020-12-18 15:48] LABS: CRP < 0.5 mg/dL (0.0-0.9)
[2020-12-18 16:16] LABS: Erythrocyte Sedimentation Rate 16 mm/hr (0-20)
== END 2020-12-18 14:54 | disposition home or self-care (01) ==
PROVIDERS: PCP Family Medicine; Visit Provider Family Medicine
DX: M54.50 Low back pain, unspecified (principal); M25.552 Pain in left hip; Z79.01 Long term (current) use of anticoagulants
CPT/HCPCS: 36415; 72100; 73502; 85025; 85610; 85652; 86140

== ENCOUNTER 2021-01-20 09:37 | Outpatient (CLI) | payer MEDICARE, MEDICAID, SELFPAY ==
[2021-01-20 10:01] LABS: Basophils Absolute Auto 0.07 K/mm3 (0.00-0.10); Eosinophils Absolute Auto 0.15 K/mm3 (0.02-0.50); Eosinophils Percent Auto 2.1 % (1.0-6.0); Hematocrit 43.3 % (35.0-49.0); Immature Granulocyte Absolute 0.02 K/mm3 (0.00-0.00); Immature Granulocyte Percent A 0.3 % (0.0-0.0); Lymphocytes Absolute Auto 2.31 K/mm3 (1.10-4.50); Lymphocytes Percent Auto 31.8 % (18.0-42.0); Mean Corpuscular HGB Conc 32.3 g/dL (32.0-36.0); Mean Corpuscular Hemoglobin 29.6 pg (27.0-31.0); Mean Corpuscular Volume 91.5 fL (78.0-102.0); Mean Platelet Volume 9.9 fl (9.2-11.8); Monocytes Absolute Auto 0.61 K/mm3 (0.10-0.90); Monocytes Percent Auto 8.4 % (2.0-11.0); Neutrophils Absolute Auto 4.1 K/mm3 (1.7-7.2); Neutrophils Percent Auto 56.4 % (50.0-70.0); Platelet Count Result 244 K/mm3 (150-420); Red Blood Count 4.73 M/mm3 (4.20-5.40); Red Cell Distribution Width 13.3 % (11.6-14.4); White Blood Count 7.3 K/mm3 (4.8-10.8)
[2021-01-20 10:05] LABS: Appearance Urine Clear (Clear); Bilirubin Urine Negative (Negative); Color Urine Light Yellow (Yellow); Glucose Urine UA Negative (Negative); Ketones Urine Negative (Negative); Leukocyte Esterase Ur Negative (Negative); Nitrate Urine Negative (Negative); Protein Urine Negative (Negative); Specific Grav Ur 1.015 (1.010-1.020); Urobilinogen Urine 0.2 mg/dL (0.2-1.0); pH Urine 5.5 (5.0-8.0)
[2021-01-20 10:12] LABS: Add Urine Microscopic? YES; Bacteria Urine Trace /hpf; Blood Urine Trace-Intact (Negative); RBC Urine 0-2 /hpf (0-2); Squamous Epithelial Cell Urine Few /hpf (Few); WBC Urine None seen /hpf (0-3)
[2021-01-20 10:14] LABS: INR 3.1; Prothrombin Time 31.5 Seconds (9.50-12.10)
[2021-01-20 10:49] LABS: Creatinine Urine 17.95 mg/dL (40-278)
[2021-01-20 10:54] LABS: Anion Gap 10 mmol/L (8-16); Blood Urea Nitrogen 27 mg/dL (7-18); Calcium 8.9 mg/dL (8.5-10.1); Carbon Dioxide 27 mmol/L (21-32); Chloride 101 mmol/L (98-108); Estimated Glomerular Filt Rate 46; Glucose 161 mg/dL (70-99); Osmolality Calculated 294 mOsm/kg (285-295); Potassium 4.6 mmol/L (3.5-5.1); Sodium 138 mmol/L (136-145)
[2021-01-20 10:59] LABS: MALB Creatinine Ratio 72.4 mg/g (0-30); Microalbumin Urine Random < 13.0 mg/L
== END 2021-01-20 09:38 | disposition home or self-care (01) ==
LOC: CHSLAB 09:39
PROVIDERS: PCP Family Medicine; Visit Provider Family Medicine
DX: E11.9 Type 2 diabetes mellitus without complications (principal); Z79.01 Long term (current) use of anticoagulants
CPT/HCPCS: 36415; 80048; 81001; 82043; 83036; 85025; 85610

== ENCOUNTER 2021-04-17 11:49 | Outpatient (RCR) | payer MEDICARE, MEDICAID, SELFPAY ==
[2021-02-06 10:28] LABS: INR 2.8; Prothrombin Time 28.8 Seconds (9.50-12.10)
[2021-03-09 15:52] LABS: INR 1.9; Prothrombin Time 19.8 Seconds (9.50-12.10)
[2021-04-17 12:15] LABS: INR 2.5; Prothrombin Time 25.9 Seconds (9.50-12.10)
== END 2021-05-07 23:59 | disposition home or self-care (01) ==
LOC: CHSLAB 11:49
PROVIDERS: PCP Family Medicine; Visit Provider Family Medicine
DX: Z79.01 Long term (current) use of anticoagulants (principal)
CPT/HCPCS: 36415; 85610

== ENCOUNTER 2021-05-11 08:05 | Outpatient (CLI) | payer MEDICARE, SELFPAY ==
[2021-05-11 08:31] LABS: Basophils Absolute Auto 0.06 K/mm3 (0.00-0.10); Basophils Percent Auto 0.8 % (0.0-1.0); Eosinophils Absolute Auto 0.12 K/mm3 (0.02-0.50); Eosinophils Percent Auto 1.6 % (1.0-6.0); Hematocrit 42.5 % (35.0-49.0); Hemoglobin 13.6 g/dL (12.0-15.0); Immature Granulocyte Absolute 0.02 K/mm3 (0.00-0.00); Immature Granulocyte Percent A 0.3 % (0.0-0.0); Lymphocytes Absolute Auto 2.44 K/mm3 (1.10-4.50); Lymphocytes Percent Auto 31.9 % (18.0-42.0); Mean Corpuscular Hemoglobin 29.6 pg (27.0-31.0); Mean Corpuscular Volume 92.6 fL (78.0-102.0); Monocytes Absolute Auto 0.64 K/mm3 (0.10-0.90); Monocytes Percent Auto 8.4 % (2.0-11.0); Neutrophils Absolute Auto 4.4 K/mm3 (1.7-7.2); Platelet Count Result 251 K/mm3 (150-420); Red Blood Count 4.59 M/mm3 (4.20-5.40); Red Cell Distribution Width 13.7 % (11.6-14.4); White Blood Count 7.6 K/mm3 (4.8-10.8)
[2021-05-11 08:39] LABS: INR 2.5; Prothrombin Time 25.5 Seconds (9.50-12.10)
[2021-05-11 08:40] LABS: Hemoglobin A1C 6.6 % (<5.7)
[2021-05-11 09:38] LABS: Alanine Aminotransferase 25 U/L (14-59); Albumin Level 3.6 g/dL (3.4-5.0); Alkaline Phosphatase 70 U/L (46-116); Anion Gap 10 mmol/L (8-16); Aspartate Amino Transferase 15 U/L (15-37); Bilirubin,Total 0.3 mg/dL (0.00-1.00); Blood Urea Nitrogen 24 mg/dL (7-18); Calcium 8.9 mg/dL (8.5-10.1); Carbon Dioxide 28 mmol/L (21-32); Chloride 106 mmol/L (98-108); Cholesterol 156 mg/dL (0-200); Estimated Glomerular Filt Rate 52; Glucose 138 mg/dL (70-99); HDL Direct 49 mg/dL (40-60); LDL Cholesterol Calculated 71 mg/dL (<130); Osmolality Calculated 304 mOsm/kg (285-295); Potassium 5.3 mmol/L (3.5-5.1); Sodium 144 mmol/L (136-145); Thyroid Stimulating Hormone 1.06 uIU/mL (0.36-3.74); Total Protein 7.1 g/dL (6.4-8.2); Triglycerides 182 mg/dL (0-150)
== END 2021-05-11 08:06 | disposition home or self-care (01) ==
LOC: CHSLAB 08:07
PROVIDERS: PCP Family Medicine; Visit Provider Family Medicine
DX: E11.9 Type 2 diabetes mellitus without complications (principal); Z79.01 Long term (current) use of anticoagulants
CPT/HCPCS: 36415; 80053; 80061; 83036; 84443; 85025; 85610

== ENCOUNTER 2021-05-20 16:13 | Emergency (ER) | payer MEDICARE, MEDICAID, SELFPAY ==
--- NOTE | ~2021-05-20 | XR_ITS ---
EXAMINATION: XR foot RT 2V DATE: 05/20/2021 17:04 INDICATION: Right foot injury and pain. TECHNIQUE: 2 views of right foot were obtained. COMPARISON: Right foot radiographs 08/25/20 FINDINGS: Bone alignment is normal. No fracture. There is mild osteoarthritis of some of the midfoot joints and interphalangeal joints. There are enthesophytes at the posterior and plantar aspects of ca lcaneal tuberosity. IMPRESSION: 1. Mild polyarticular osteoarthritis. Reviewed, dictated and finalized at location A.
[2021-05-20 16:20] VITALS: BP 124/87; PULSE 67; RESP 20; TEMP 36.9; O2SAT 100
--- NOTE | 2021-05-20 16:46 | ED.LOWEXIN ---
HPI - Extremity Injury (Lower) General Chief Complaint: Extremity Injury, Lower Stated Complaint: FOOT INJURY Time Seen by Provider: 05/20/21 16:47 Source: patient History of Present Illness HPI Narrative: 60-year-old female a history of, COPD, diabetes mellitus, dyslipidemia, cardiomyopathy with an EF of 30-35% status post ICD presents to the ER with -- right forefoot pain and redness after she kicked furniture. complaint: foot injury Onset (ago): hour(s) ( 15 hours ago) Injury: Right: foot Type of Injury: blunt Place: home Severity: severe Severity scale (1-10): 7 Relieving factors: nothing Exacerbating factors: movement Context: direct blow Other symptoms: none Related Data Home Medications Medication Instructions Recorded Confirmed albuterol sulfate 2 inh INHALATION BID-TID PRN 10/04/20 05/20/21 aspirin [Baby Aspirin] 81 mg PO DAILY 10/04/20 05/20/21 fluticasone furoate [Arnuity 1 mcg INHALATION DAILY 10/04/20 05/20/21 Ellipta] furosemide 40 mg PO DAILY 10/04/20 05/20/21 lisinopril 10 mg PO DAILY 10/04/20 05/20/21 magnesium oxide 400 mg PO BID 10/04/20 05/20/21 metformin 1,000 mg PO BID 10/04/20 05/20/21 metoprolol succinate 50 mg PO BID 10/04/20 05/20/21 nitroglycerin See Rx Instructions .ROUTE .COMPLEX 10/04/20 05/20/21 omega 0-rgs-tao-fish oil [Fish Oil] 1 cap PO DAILY 10/04/20 05/20/21 pravastatin 80 mg PO DAILY 10/04/20 05/20/21 warfarin 3 mg PO DAILY 05/20/21 05/20/21 Allergies Allergy/AdvReac Type Severity Reaction Status Date / Time No Known Allergies Allergy Verified 10/04/20 12:37 Review of Systems Review of Systems: All systems reviewed & are unremarkable except as noted in HPI and below Constitutional: Constitutional: Reports as per HPI and Reports no additional constitutional complaints Eyes: Eyes: Reports as per HPI and Reports no additional eye complaints ENT: Reports system reviewed and no additional complaints, except as documented and Reports as per HPI Cardiovascular: Cardiovascular: Reports as per HPI and Reports no additional cardiovascular complaints Respiratory: Respiratory: Reports cough and Reports dyspnea on exertion Gastrointestinal: Gastrointestinal: Reports as per HPI, Reports no additional gastrointestinal complaints and Reports abdominal pain Genitourinary: Genitourinary: Reports no additional female genitourinary complaints and Reports as per HPI Musculoskeletal: Musculoskeletal: Reports no additional musculoskeletal complaints and Reports as per HPI Integumentary/Breasts: Skin/Breast: Reports system reviewed and no additional complaints, except as docu and Reports as per HPI Comments: the right foot does and the distal forefoot are red and swollen Neurologic: Reports system reviewed and no additional complaints, except as documented Psychiatric: Psychiatric: Reports no additional psychiatric complaints Endocrine: Endocrine: Reports no additional endocrine complaints Hematologic/Lymphatic: Hematologic/Lymphatic: Reports no additional hematologic/lymphatic complaints Allergic/Immunologic: Allergic/Immunologic: Reports no additional allergic/immunologic complaints [facility] Past Medical History Medical History Cardiac defibrillator in place COPD (chronic obstructive pulmonary disease) Diabetes DVT (deep vein thrombosis) in HTN (hypertension) Hyperlipidemia Surgical History Surgical History H/O: hysterectomy Family History Family History Father Heart disease Hypertension Mother Hypertension Heart disease Social History Social History Smoking packs per day: 0.75 Smoking cigarettes per day: 15.0 Smoking status: Current every day smoker Tobacco type: cigarettes Alcohol intake: never Substance use: never [place]
[2021-05-20 17:44] VITALS: BP 124/87; PULSE 67; RESP 20; TEMP 36.9; O2SAT 100
[2021-05-20] MEDS: HYDROcodone/acetaminophen (*CRX) 5-325 MG TABLET 1 TAB PO (17:45)
== END 2021-05-20 17:59 | disposition home or self-care (01) ==
PROVIDERS: Emergency Provider Internal Medicine Critical Care Medicine; PCP Family Medicine
DX: M79.671 Pain in right foot (principal); S90.31XA Contusion of right foot, initial encounter; W22.03XA Walked into furniture, initial encounter
CPT/HCPCS: 73620; 99283; A9270

== ENCOUNTER 2021-05-26 15:07 | Outpatient (CLI) | payer MEDICARE, MEDICAID, SELFPAY ==
[2021-05-26 15:24] LABS: Basophils Absolute Auto 0.05 K/mm3 (0.00-0.10); Basophils Percent Auto 0.7 % (0.0-1.0); Eosinophils Absolute Auto 0.14 K/mm3 (0.02-0.50); Hematocrit 40.2 % (35.0-49.0); Hemoglobin 12.8 g/dL (12.0-15.0); Immature Granulocyte Absolute 0.03 K/mm3 (0.00-0.00); Immature Granulocyte Percent A 0.4 % (0.0-0.0); Lymphocytes Absolute Auto 2.41 K/mm3 (1.10-4.50); Lymphocytes Percent Auto 33.8 % (18.0-42.0); Mean Corpuscular HGB Conc 31.8 g/dL (32.0-36.0); Mean Corpuscular Hemoglobin 29.8 pg (27.0-31.0); Mean Corpuscular Volume 93.7 fL (78.0-102.0); Mean Platelet Volume 9.7 fl (9.2-11.8); Monocytes Absolute Auto 0.61 K/mm3 (0.10-0.90); Monocytes Percent Auto 8.6 % (2.0-11.0); Neutrophils Absolute Auto 3.9 K/mm3 (1.7-7.2); Neutrophils Percent Auto 54.5 % (50.0-70.0); Platelet Count Result 257 K/mm3 (150-420); Red Blood Count 4.29 M/mm3 (4.20-5.40); Red Cell Distribution Width 13.5 % (11.6-14.4); White Blood Count 7.1 K/mm3 (4.8-10.8)
[2021-05-26 16:03] LABS: Alanine Aminotransferase 26 U/L (14-59); Albumin Level 3.7 g/dL (3.4-5.0); Alkaline Phosphatase 70 U/L (46-116); Anion Gap 6 mmol/L (8-16); Aspartate Amino Transferase 15 U/L (15-37); Bilirubin,Total 0.3 mg/dL (0.00-1.00); Blood Urea Nitrogen 26 mg/dL (7-18); CRP < 0.5 mg/dL (0.0-0.9); Calcium 9.4 mg/dL (8.5-10.1); Carbon Dioxide 31 mmol/L (21-32); Chloride 101 mmol/L (98-108); Estimated Glomerular Filt Rate 49; Glucose 115 mg/dL (70-99); Osmolality Calculated 291 mOsm/kg (285-295); Potassium 4.7 mmol/L (3.5-5.1); Sodium 138 mmol/L (136-145); Total Protein 7.2 g/dL (6.4-8.2); Uric Acid 8.2 mg/dL (2.6-6.0)
== END 2021-05-26 15:08 | disposition home or self-care (01) ==
LOC: CHSLAB 15:11
PROVIDERS: PCP Family Medicine; Visit Provider Nurse Practitioner Family
DX: M79.671 Pain in right foot (principal)
CPT/HCPCS: 36415; 80053; 84550; 85025; 86140

== ENCOUNTER 2021-06-12 10:49 | Outpatient (CLI) | payer MEDICARE, SELFPAY ==
[2021-06-12 11:22] LABS: Basophils Absolute Auto 0.08 K/mm3 (0.00-0.10); Eosinophils Absolute Auto 0.19 K/mm3 (0.02-0.50); Eosinophils Percent Auto 2.4 % (1.0-6.0); Hematocrit 43.5 % (35.0-49.0); Hemoglobin 13.9 g/dL (12.0-15.0); Immature Granulocyte Absolute 0.02 K/mm3 (0.00-0.00); Immature Granulocyte Percent A 0.2 % (0.0-0.0); Lymphocytes Absolute Auto 3.04 K/mm3 (1.10-4.50); Mean Corpuscular Hemoglobin 29.6 pg (27.0-31.0); Mean Corpuscular Volume 92.8 fL (78.0-102.0); Mean Platelet Volume 10.7 fl (9.2-11.8); Monocytes Absolute Auto 0.62 K/mm3 (0.10-0.90); Monocytes Percent Auto 7.7 % (2.0-11.0); Neutrophils Absolute Auto 4.1 K/mm3 (1.7-7.2); Neutrophils Percent Auto 50.7 % (50.0-70.0); Platelet Count Result 242 K/mm3 (150-420); Red Blood Count 4.69 M/mm3 (4.20-5.40); Red Cell Distribution Width 13.4 % (11.6-14.4)
[2021-06-12 12:02] LABS: Alanine Aminotransferase 44 U/L (14-59); Albumin Level 3.9 g/dL (3.4-5.0); Alkaline Phosphatase 77 U/L (46-116); Anion Gap 5 mmol/L (8-16); Aspartate Amino Transferase 23 U/L (15-37); Bilirubin,Total 0.4 mg/dL (0.00-1.00); Blood Urea Nitrogen 22 mg/dL (7-18); Calcium 9.3 mg/dL (8.5-10.1); Carbon Dioxide 30 mmol/L (21-32); Chloride 103 mmol/L (98-108); Estimated Glomerular Filt Rate 49; Glucose 124 mg/dL (70-99); Osmolality Calculated 290 mOsm/kg (285-295); Potassium 4.9 mmol/L (3.5-5.1); Sodium 138 mmol/L (136-145); Total Protein 7.3 g/dL (6.4-8.2); Uric Acid 7.4 mg/dL (2.6-6.0)
[2021-06-16 12:44] LABS: CRP, High Sensitivity 1.2 mg/L (***)
== END 2021-06-12 10:50 | disposition home or self-care (01) ==
PROVIDERS: PCP Family Medicine; Visit Provider Nurse Practitioner Family
DX: M79.671 Pain in right foot (principal)
CPT/HCPCS: 36415; 80053; 84550; 85025; 86141

== ENCOUNTER 2021-06-22 09:54 | Outpatient (CLI) | payer MEDICARE, MEDICAID, SELFPAY ==
--- NOTE | ~2021-06-22 | NM_ITS ---
EXAMINATION: NM bone 3 phase DATE: 06/22/2021 13:42 INDICATION: Right foot pain. TECHNIQUE: 25.6 mCi Tc-99m HDP was administered intravenously. Scintigrams of the feet and ankles wer e obtained in angiographic, blood pool, and delayed phases. COMPARISON: Right foot radiographs 05/20/2021 FINDINGS: On delayed images, there is focal increased activity in the right forefoot in the area of s econd proximal phalanx. IMPRESSION: 1. Focal increased activity in right forefoot in the area of second proximal phalanx without abnorma l correlate on radiographs. This finding could be from a fracture or arthritis. Consider repeat foot radiographs if this is the area of the patient's symptoms. Reviewed, dictated and finalized at location B. IMPRESSION: 1. Focal increased activity in right forefoot in the area of second proximal p halanx without abnormal correlate on radiographs. This finding could be from a fracture or arthritis. Consider repeat foot radiographs if this is the area of the patient's symptoms.
== END 2021-06-22 09:55 | disposition home or self-care (01) ==
LOC: CHSIMG 09:54
PROVIDERS: PCP Family Medicine; Visit Provider Family Medicine
DX: M79.671 Pain in right foot (principal)
CPT/HCPCS: 78315; A9561

== ENCOUNTER 2021-06-23 10:38 | Outpatient (CLI) | payer MEDICARE, MEDICAID, SELFPAY ==
--- NOTE | ~2021-06-23 | XR_ITS ---
EXAMINATION: XR foot RT min 3V DATE: 06/23/2021 10:59 INDICATION: Pain, swelling and bruising at the dorsum of the right foot. Abnormal bone scan. TECHNIQUE: Dorsoplantar, two oblique and lateral views of the right foot were obtained. COMPARISON: 05/20/2021 and 08/25/2020 FINDINGS: Bone alignment is normal. No fracture. Again seen is minimal to mild polyarticular osteoarthritis at the first metatarsophalangeal and a few of the tarsometatarsal and interphalangeal joints. Unchanged small chronic heterotopic ossicle along the lateral aspect of the second metatarsophalangeal joint wh ich could represent sequela of old trauma. No erosions or periosteal reaction. Small Achilles and getachew ntar calcaneal spurs. Soft tissues are unremarkable. IMPRESSION: 1. Minimal to mild polyarticular osteoarthritis in the mid and forefoot. Reviewed, dictated and finalized at location A.
== END 2021-06-23 10:39 | disposition home or self-care (01) ==
LOC: CHSIMG 10:43
PROVIDERS: PCP Family Medicine; Visit Provider Family Medicine
DX: R94.8 Abnormal results of function studies of other organs and systems (principal)
CPT/HCPCS: 73630

== ENCOUNTER 2021-07-28 10:38 | Outpatient (CLI) | payer MEDICARE, MEDICAID, SELFPAY ==
[2021-07-28 11:17] LABS: INR 1.8; Prothrombin Time 18.5 Seconds (9.50-12.10)
[2021-07-28 11:22] LABS: Anion Gap 7 mmol/L (8-16); Blood Urea Nitrogen 30 mg/dL (7-18); Calcium 9.3 mg/dL (8.5-10.1); Carbon Dioxide 27 mmol/L (21-32); Chloride 101 mmol/L (98-108); Cholesterol 157 mg/dL (0-200); Estimated Glomerular Filt Rate 44; Glucose 130 mg/dL (70-99); HDL Direct 46 mg/dL (40-60); LDL Cholesterol Calculated 72 mg/dL (<130); Osmolality Calculated 288 mOsm/kg (285-295); Sodium 135 mmol/L (136-145); Triglycerides 197 mg/dL (0-150); Uric Acid 6.8 mg/dL (2.6-6.0)
== END 2021-07-28 10:39 | disposition home or self-care (01) ==
LOC: CHSLAB 10:43
PROVIDERS: PCP Family Medicine; Visit Provider Internal Medicine Cardiovascular Disease
DX: E78.5 Hyperlipidemia, unspecified (principal); M25.562 Pain in left knee; Z79.01 Long term (current) use of anticoagulants
CPT/HCPCS: 36415; 80048; 80061; 84550; 85610

== ENCOUNTER 2021-08-22 07:06 | Outpatient (CLI) | payer MEDICARE, SELFPAY ==
[2021-08-22 07:22] LABS: Basophils Absolute Auto 0.09 K/mm3 (0.00-0.10); Basophils Percent Auto 0.9 % (0.0-1.0); Eosinophils Absolute Auto 0.21 K/mm3 (0.02-0.50); Eosinophils Percent Auto 2.1 % (1.0-6.0); Hematocrit 38.6 % (35.0-49.0); Hemoglobin 12.5 g/dL (12.0-15.0); Immature Granulocyte Absolute 0.04 K/mm3 (0.00-0.00); Immature Granulocyte Percent A 0.4 % (0.0-0.0); Lymphocytes Absolute Auto 2.99 K/mm3 (1.10-4.50); Lymphocytes Percent Auto 29.4 % (18.0-42.0); Mean Corpuscular HGB Conc 32.4 g/dL (32.0-36.0); Mean Corpuscular Hemoglobin 29.9 pg (27.0-31.0); Mean Corpuscular Volume 92.3 fL (78.0-102.0); Mean Platelet Volume 10.2 fl (9.2-11.8); Monocytes Absolute Auto 0.77 K/mm3 (0.10-0.90); Monocytes Percent Auto 7.6 % (2.0-11.0); Neutrophils Absolute Auto 6.1 K/mm3 (1.7-7.2); Neutrophils Percent Auto 59.6 % (50.0-70.0); Platelet Count Result 238 K/mm3 (150-420); Red Blood Count 4.18 M/mm3 (4.20-5.40); Red Cell Distribution Width 14.6 % (11.6-14.4); White Blood Count 10.2 K/mm3 (4.8-10.8)
[2021-08-22 07:36] LABS: Alanine Aminotransferase 29 U/L (14-59); Albumin Level 3.5 g/dL (3.4-5.0); Alkaline Phosphatase 77 U/L (46-116); Anion Gap 6 mmol/L (8-16); Aspartate Amino Transferase 25 U/L (15-37); Bilirubin,Total 0.3 mg/dL (0.00-1.00); Blood Urea Nitrogen 29 mg/dL (7-18); Calcium 8.6 mg/dL (8.5-10.1); Carbon Dioxide 28 mmol/L (21-32); Chloride 105 mmol/L (98-108); Estimated Glomerular Filt Rate 43; Glucose 146 mg/dL (70-99); Osmolality Calculated 296 mOsm/kg (285-295); Potassium 4.2 mmol/L (3.5-5.1); Sodium 139 mmol/L (136-145); Total Protein 7.3 g/dL (6.4-8.2)
== END 2021-08-22 07:07 | disposition home or self-care (01) ==
LOC: CHSLAB 07:07
PROVIDERS: PCP Family Medicine; Visit Provider Family Medicine
DX: E11.9 Type 2 diabetes mellitus without complications (principal)
CPT/HCPCS: 80053; 83036; 85025

== ENCOUNTER 2021-09-02 19:57 | Outpatient (CLI) | payer MEDICARE, MEDICAID, SELFPAY ==
--- NOTE | 2021-09-16 10:18 | WPDSLEEPSTUD ---
Sleep Study Date of Study: 09/02/21 Ordering Provider: Rei Alcaraz MD Interpreting Physician: Sharonda Montejo MD Sleep Study Type: Split Polysomnogram Height: 1.57 m Weight: 88.451 kg Body Mass Index: 35.6 Neck Circumference (inches): 16 [place]: 17 Reason for Sleep Study Hypersomnolence; poor sleep, waking during the night Sleep History Maria Alejandra Hein is a 61-year-old female with complaints of not being able to sleep well at night. She wakes up and tries to go back to sleep multiple times. She is tired during the day. She falls asleep inadvertently during the day. She has family members who use CPAP so there is a family history of sleep disorders. She rarely awakens from sleep feeling short of breath. She rarely awakens at night with heartburn, belching or coughing. She constantly snores loudly enough that others complain about it. She constantly has trouble sleeping with a cold. She does not wake up gasping for breath at night or have breathing problems at night observed by others. She frequently sweats excessively at night. She occasionally notices her heart pounding or beating irregularly at night. She frequently falls asleep during the day, involuntarily, but never falls asleep while driving. She does not have loss of muscle tone with strong emotion. She does not have daytime difficulties due to excessive sleepiness. She does not feel paralyzed on waking or falling asleep and does not have vivid dreamlike scenes upon awakening or falling asleep. She does not feel afraid to go to sleep. She denies having nightmares. She rarely remembers her dreams. She rarely has racing thoughts. She does not feel sad or depressed. She denies having anxiety. She does not have muscular tension. She occasionally notices parts of her body jerking. She does not kick at night. She occasionally has crawling and aching feelings in her legs. She occasionally has leg pain at night. She does not have morning jaw pain. She does not grind her teeth during sleep. She occasionally is bothered by pain during the day and occasionally is awakened by pain during the night. She occasionally wakes up feeling stiff in the morning. She does not wake up with sore achy muscles. She occasionally wakes up with pain in the neck and spine. She has fatigue and tremors. Normal bedtime is midnight to 1:00 a.m. taking 1/2 hour to an hour to fall asleep. She wakes up 3 or 4 times during the night to go to the bathroom. She may be able to return to sleep within 30 minutes. She wakes in the morning between 5 and 6:00 a.m.. Her weekend schedule is the same. She takes naps in the afternoon or evening. A short nap is not refreshing. She is drowsy in the morning for 3 hours or longer. Habits: Tobacco 1 pack per day. Caffeine 2 cups per day. No alcohol or recreational drugs. [facility] Past Medical History Medical History (Updated 09/16/21 @ 11:10 by Sharonda Montejo MD) Cardiac defibrillator in place COPD (chronic obstructive pulmonary disease) Diabetes DVT (deep vein thrombosis) in HTN (hypertension) Hyperlipidemia Mixed hyperlipidemia Surgical History Surgical History H/O: hysterectomy Family History Family History Father Heart disease Hypertension Mother Hypertension Heart disease Social History Social History Smoking packs per day: 0.75 Smoking cigarettes per day: 15.0 Smoking status: Current every day smoker Tobacco type: cigarettes Alcohol intake: never Substance use: never Gender identity (if verbalized by the patient): Female Sexual Orientation (if Verbalized by the Patient): Straight or Heterosexual Medications Home Medications Medication Instructions Recorded Confirmed Type albuterol sulfate 90 mcg/actuation 2 inh inhalation
[2021-09-16 11:11] VITALS: BMI 35.6
== END 2021-09-03 05:16 | disposition home or self-care (01) ==
LOC: CHSCSM 19:59
PROVIDERS: PCP Family Medicine; Visit Provider Family Medicine
DX: G47.30 Sleep apnea, unspecified (principal)
CPT/HCPCS: 95811

== ENCOUNTER 2021-09-09 14:20 | Outpatient (RCR) | payer MEDICARE, SELFPAY ==
[2021-06-30 11:08] LABS: INR 3.3; Prothrombin Time 33.1 Seconds (9.50-12.10)
[2021-07-14 08:29] LABS: INR 1.8; Prothrombin Time 18.2 Seconds (9.50-12.10)
[2021-08-22 07:37] LABS: INR 1.8; Prothrombin Time 18.6 Seconds (9.50-12.10)
[2021-09-09 14:42] LABS: INR 2.3
== END 2021-09-28 23:59 | disposition home or self-care (01) ==
LOC: CHSLAB 14:20
PROVIDERS: PCP Family Medicine; Visit Provider Family Medicine
DX: Z79.01 Long term (current) use of anticoagulants (principal)
CPT/HCPCS: 36415; 85610

== ENCOUNTER 2021-09-22 08:11 | Outpatient (CLI) | payer MEDICARE, MEDICAID, SELFPAY ==
--- NOTE | ~2021-09-22 | DEXA_ITS ---
Bone Density Report Name: MIKE ESCOBAR Age: 61 Sex: Female Ethnicity: White Date of : 1960 Indication: postmenopausal; screening for osteoporosis; hysterectomy; rheumatoid arthritis; Referring Provider: Rei Alcaraz Study: Bone densitometry was performed. Exam Date: September 22, 2021 Accession number: [id number] Bone Density: Region BMD T-score Z-score Classification AP Spine(L1, L2, L3) 0.987 -0.3 1.0 Normal Femoral Neck (Left) 0.597 -2.3 -1.0 Osteopenia Total Hip (Left) 0.888 -0.4 0.5 Normal Femoral Neck (Right) 0.619 -2.1 -0.8 Osteopenia Total Hip (Right) 0.925 -0.1 0.8 Normal Femoral Neck Mean 0.608 -2.2 -0.9 Osteopenia Total Hip Mean 0.907 -0.3 0.6 Normal World Health Organization criteria for BMD impression classify patients as: Normal (T-score at or above -1.0), Osteopenia (T-score between -1.0 and -2.5), or Osteoporosis (T-score at or below -2.5). 10-year Fracture Risk(1): Major Osteoporotic Fracture 13% Hip Fracture 3.1% Reported Risk Factors: [place] (), Neck BMD=0.597, BMI=36.4, smoking, rheumatoid arthritis (1) FRAX(R) Version 3.08. Fracture probability calculated for an untreated patient. Fracture probability may be lower if the patient has received treatment. Clinical Information Provided by Patient: Smokes Has rheumatoid arthritis Has the following medical conditions: Hysterectomy Patient maximum height was 62 Menopause Age: 52 No regular weight bearing exercise Drinks caffeinated beverages Onset of menses at age 15 Number of children 3 Impression: The patient has low bone mass, based on the Left Femoral Neck T-score. The patient has risk factors, including: smoking. Discussion: BONE DENSITY IS LOW AT ONE OR MORE SKELETAL SITES. This patient's lowest T-score is low at one or more skeletal sites. It meets the World Health Organization's (WHO) criteria for ?low bone mass? (T-score between -1.0 and -2.5). The patient's 10-year risk of fracture as calculated by FRAX is less than the threshold where pharmacological therapy is recommended by the National Osteoporosis Foundation (NOF). However, all treatment decisions require clinical judgment and consideration of individual patient factors, including patient preferences, comorbidities, previous drug use, risk factors not captured in the FRAX model (e.g., frailty, falls, vitamin D deficiency, increased bone turnover, interval significant decline in bone density) and possible under or overestimation of fracture risk by FRAX. The patient should follow a healthful lifestyle (good nutrition with adequate calcium and vitamin D, and appropriate weight-bearing exercise). Follow-Up: Consider repeating this study in 2 to 3 years to reassess this patient's status, or sooner if there is
--- NOTE | ~2021-09-22 | MM_ITS ---
EXAMINATION: MM screening [facility] BI w ricki HISTORY: Screening TECHNIQUE: Craniocaudal and mediolateral oblique 3-D tomosynthesis images were obtained and synthetic 2-D images were generated. CAD analysis was submitted and interpreted. COMPARISON: Comparison to multiple prior studies sequentially, with oldest reviewed study dated 04/2013. BREAST PARENCHYMAL COMPOSITION: There are scattered areas of fibroglandular density. FINDINGS: There is no evidence of suspicious mass, calcification, or architectural distortion to sugg est malignancy in either breast. There has been no suspicious interval change. IMPRESSION: 1. No mammographic evidence of malignancy. 2. Recommend routine screening mammography in one year. BI-RADS Category 1: Negative Reviewed, dictated and finalized at location A.
--- NOTE | ~2021-09-22 | US_ITS ---
EXAMINATION: US arterial ankle brachial ind DATE: 09/22/2021 09:58 INDICATION: Peripheral vascular disease TECHNIQUE: Segmental pressures and plethysmographic and Doppler waveforms of the brachial and lower e xtremity arteries were obtained. COMPARISON: 09/26/2018 ultrasound ankle brachial indices FINDINGS: Right and left brachial artery pressures of 121 mm Hg and 118 mm Hg, respectively, are concordant (no rmal difference <= 30 mmHg). The right ankle-brachial index (TOMMY) is 1.08 (normal >= 0.9-1.0). The right great toe-brachial index (TBI) is 0.58 (normal >= 0.65). Arterial Doppler waveforms are biphasic. The left TOMMY is 1.09. The left TBI is 0.65. Arterial Doppler waveforms are triphasic at the left femo ral artery and biphasic distally.. IMPRESSION: Bilateral normal TOMMY Normal left TBI of 0.65 Diminished right TBI of 0.58 Reviewed, dictated and finalized at Location [facility]. Reviewed, dictated and finalized at location B.
[2021-09-22 08:59] LABS: Ferritin 157 ng/mL (8-252)
== END 2021-09-22 08:12 | disposition home or self-care (01) ==
PROVIDERS: PCP Family Medicine; Visit Provider Family Medicine
DX: I73.9 Peripheral vascular disease, unspecified (principal); E11.9 Type 2 diabetes mellitus without complications; G25.81 Restless legs syndrome; Z78.0 Asymptomatic menopausal state; Z12.31 Encounter for screening mammogram for malignant neoplasm of breast
CPT/HCPCS: 36415; 77063; 77067; 77080; 82728; 93922

== ENCOUNTER 2021-10-30 13:46 | Outpatient (CLI) | payer MEDICARE, SELFPAY ==
[2021-10-30 14:40] LABS: SARS-CoV-2 RNA PCR Negative (Negative)
== END 2021-10-30 13:47 | disposition home or self-care (01) ==
LOC: CHSLAB 13:48
PROVIDERS: PCP Family Medicine; Visit Provider Family Medicine
DX: R05.1 Acute cough (principal)
CPT/HCPCS: C9803; U0003; U0005

== ENCOUNTER 2021-12-04 07:32 | Outpatient (CLI) | payer MEDICARE, MEDICAID, SELFPAY ==
[2021-12-04 07:50] LABS: Basophils Absolute Auto 0.04 K/mm3 (0.00-0.10); Basophils Percent Auto 0.6 % (0.0-1.0); Eosinophils Absolute Auto 0.18 K/mm3 (0.02-0.50); Eosinophils Percent Auto 2.7 % (1.0-6.0); Hematocrit 39.4 % (35.0-49.0); Hemoglobin 12.7 g/dL (12.0-15.0); Immature Granulocyte Absolute 0.03 K/mm3 (0.00-0.00); Immature Granulocyte Percent A 0.4 % (0.0-0.0); Lymphocytes Absolute Auto 2.57 K/mm3 (1.10-4.50); Lymphocytes Percent Auto 37.8 % (18.0-42.0); Mean Corpuscular HGB Conc 32.2 g/dL (32.0-36.0); Mean Corpuscular Hemoglobin 29.8 pg (27.0-31.0); Mean Corpuscular Volume 92.5 fL (78.0-102.0); Mean Platelet Volume 10.2 fl (9.2-11.8); Monocytes Percent Auto 7.4 % (2.0-11.0); Neutrophils Absolute Auto 3.5 K/mm3 (1.7-7.2); Neutrophils Percent Auto 51.1 % (50.0-70.0); Platelet Count Result 230 K/mm3 (150-420); Red Blood Count 4.26 M/mm3 (4.20-5.40); Red Cell Distribution Width 13.5 % (11.6-14.4); White Blood Count 6.8 K/mm3 (4.8-10.8)
[2021-12-04 08:00] LABS: Hemoglobin A1C 6.6 % (<5.7)
[2021-12-04 08:19] LABS: Alanine Aminotransferase 31 U/L (14-59); Albumin Level 3.6 g/dL (3.4-5.0); Alkaline Phosphatase 70 U/L (46-116); Anion Gap 6 mmol/L (8-16); Aspartate Amino Transferase 17 U/L (15-37); Bilirubin,Total 0.2 mg/dL (0.00-1.00); Blood Urea Nitrogen 32 mg/dL (7-18); Calcium 8.6 mg/dL (8.5-10.1); Carbon Dioxide 29 mmol/L (21-32); Chloride 106 mmol/L (98-108); Estimated Glomerular Filt Rate 45; Glucose 140 mg/dL (70-99); Osmolality Calculated 300 mOsm/kg (285-295); Potassium 4.8 mmol/L (3.5-5.1); Sodium 141 mmol/L (136-145); Total Protein 7.3 g/dL (6.4-8.2); Uric Acid 5.9 mg/dL (2.6-6.0)
== END 2021-12-04 07:33 | disposition home or self-care (01) ==
LOC: CHSLAB 07:35
PROVIDERS: PCP Family Medicine; Visit Provider Family Medicine
DX: M10.00 Idiopathic gout, unspecified site (principal); E11.9 Type 2 diabetes mellitus without complications
CPT/HCPCS: 36415; 80053; 83036; 84550; 85025

== ENCOUNTER 2021-12-15 09:40 | Outpatient (RCR) | payer MEDICARE, SELFPAY ==
[2021-10-12 11:33] LABS: INR 2.6
[2021-11-21 10:53] LABS: INR 3.7; Prothrombin Time 36.1 Seconds (9.50-12.10)
[2021-11-25 13:59] LABS: INR 1.9; Prothrombin Time 19.9 Seconds (9.50-12.10)
[2021-12-15 10:04] LABS: INR 2.4; Prothrombin Time 24.4 Seconds (9.50-12.10)
== END 2022-01-10 23:59 | disposition home or self-care (01) ==
LOC: CHSLAB 09:40
PROVIDERS: PCP Family Medicine; Visit Provider Family Medicine
DX: Z79.01 Long term (current) use of anticoagulants (principal)
CPT/HCPCS: 36415; 85610

== ENCOUNTER 2022-02-03 13:27 | Outpatient (CLI) | payer MEDICARE, MEDICAID, SELFPAY ==
[2022-02-03 14:23] LABS: Influenza A QL RT-PCR Positive (Negative); Influenza B QL RT-PCR Negative (Negative); SARS-CoV-2 RNA PCR Negative (Negative)
== END 2022-02-03 13:28 | disposition home or self-care (01) ==
LOC: CHSLAB 13:30
PROVIDERS: PCP Family Medicine; Visit Provider Family Medicine
DX: J01.90 Acute sinusitis, unspecified (principal); Z20.822 Contact with and (suspected) exposure to COVID-19
CPT/HCPCS: 87636

== ENCOUNTER 2022-03-17 07:41 | Outpatient (CLI) | payer MEDICARE, MEDICAID, SELFPAY ==
[2022-03-17 08:13] LABS: Basophils Absolute Auto 0.06 K/mm3 (0.00-0.10); Basophils Percent Auto 0.7 % (0.0-1.0); Eosinophils Absolute Auto 0.21 K/mm3 (0.02-0.50); Eosinophils Percent Auto 2.4 % (1.0-6.0); Hematocrit 38.1 % (35.0-49.0); Hemoglobin 12.3 g/dL (12.0-15.0); Immature Granulocyte Absolute 0.02 K/mm3 (0.00-0.00); Immature Granulocyte Percent A 0.2 % (0.0-0.0); Lymphocytes Absolute Auto 3.12 K/mm3 (1.10-4.50); Lymphocytes Percent Auto 35.6 % (18.0-42.0); Mean Corpuscular HGB Conc 32.3 g/dL (32.0-36.0); Mean Corpuscular Hemoglobin 29.7 pg (27.0-31.0); Mean Platelet Volume 10.2 fl (9.2-11.8); Monocytes Absolute Auto 0.63 K/mm3 (0.10-0.90); Monocytes Percent Auto 7.2 % (2.0-11.0); Neutrophils Absolute Auto 4.7 K/mm3 (1.7-7.2); Neutrophils Percent Auto 53.9 % (50.0-70.0); Platelet Count Result 255 K/mm3 (150-420); Red Blood Count 4.14 M/mm3 (4.20-5.40); Red Cell Distribution Width 14.1 % (11.6-14.4); White Blood Count 8.8 K/mm3 (4.8-10.8)
[2022-03-17 08:18] LABS: Hemoglobin A1C 7.1 % (<5.7)
[2022-03-17 08:50] LABS: Anion Gap 7 mmol/L (8-16); Blood Urea Nitrogen 35 mg/dL (7-18); Calcium 8.5 mg/dL (8.5-10.1); Carbon Dioxide 28 mmol/L (21-32); Chloride 101 mmol/L (98-108); Estimated Glomerular Filt Rate 38; Glucose 167 mg/dL (70-99); Osmolality Calculated 294 mOsm/kg (285-295); Potassium 4.9 mmol/L (3.5-5.1); Sodium 136 mmol/L (136-145)
== END 2022-03-17 07:42 | disposition home or self-care (01) ==
LOC: CHSLAB 07:44
PROVIDERS: PCP Family Medicine; Visit Provider Family Medicine
DX: E11.9 Type 2 diabetes mellitus without complications (principal)
CPT/HCPCS: 36415; 80048; 83036; 85025

== ENCOUNTER 2022-06-01 08:56 | Outpatient (RCR) | payer MEDICARE, MEDICAID, SELFPAY ==
[2022-03-10 11:40] LABS: INR 2.5; Prothrombin Time 25.8 Seconds (9.50-12.10)
[2022-04-19 10:09] LABS: INR 1.8
[2022-06-01 09:18] LABS: Prothrombin Time 30.1 Seconds (9.50-12.10)
== END 2022-06-08 23:59 | disposition home or self-care (01) ==
LOC: CHSLAB 08:56
PROVIDERS: PCP Family Medicine; Visit Provider Family Medicine
DX: Z51.81 Encounter for therapeutic drug level monitoring (principal); Z79.01 Long term (current) use of anticoagulants
CPT/HCPCS: 36415; 85610

== ENCOUNTER 2022-06-21 10:27 | Outpatient (CLI) | payer MEDICARE, MEDICAID, SELFPAY ==
[2022-06-21 10:46] LABS: Basophils Absolute Auto 0.06 K/mm3 (0.00-0.10); Basophils Percent Auto 0.8 % (0.0-1.0); Eosinophils Absolute Auto 0.18 K/mm3 (0.02-0.50); Eosinophils Percent Auto 2.3 % (1.0-6.0); Hematocrit 38.6 % (35.0-49.0); Hemoglobin 12.7 g/dL (12.0-15.0); Immature Granulocyte Absolute 0.02 K/mm3 (0.00-0.00); Immature Granulocyte Percent A 0.3 % (0.0-0.0); Lymphocytes Absolute Auto 2.51 K/mm3 (1.10-4.50); Lymphocytes Percent Auto 31.5 % (18.0-42.0); Mean Corpuscular HGB Conc 32.9 g/dL (32.0-36.0); Mean Corpuscular Volume 94.1 fL (78.0-102.0); Mean Platelet Volume 10.1 fl (9.2-11.8); Monocytes Absolute Auto 0.61 K/mm3 (0.10-0.90); Monocytes Percent Auto 7.7 % (2.0-11.0); Neutrophils Absolute Auto 4.6 K/mm3 (1.7-7.2); Neutrophils Percent Auto 57.4 % (50.0-70.0); Platelet Count Result 225 K/mm3 (150-420); Red Cell Distribution Width 13.7 % (11.6-14.4)
[2022-06-21 11:18] LABS: Hemoglobin A1C 7.3 % (<5.7)
[2022-06-21 11:20] LABS: Anion Gap 7 mmol/L (8-16); Blood Urea Nitrogen 29 mg/dL (7-18); Calcium 8.8 mg/dL (8.5-10.1); Carbon Dioxide 30 mmol/L (21-32); Chloride 102 mmol/L (98-108); Estimated Glomerular Filt Rate 42; Glucose 181 mg/dL (70-99); Osmolality Calculated 298 mOsm/kg (285-295); Potassium 4.8 mmol/L (3.5-5.1); Sodium 139 mmol/L (136-145); Thyroid Stimulating Hormone 1.87 uIU/mL (0.36-3.74)
== END 2022-06-21 10:28 | disposition home or self-care (01) ==
LOC: CHSLAB 10:28
PROVIDERS: PCP Family Medicine; Visit Provider Family Medicine
DX: E11.9 Type 2 diabetes mellitus without complications (principal)
CPT/HCPCS: 36415; 80048; 83036; 84443; 85025

== ENCOUNTER 2022-09-13 10:57 | Outpatient (RCR) | payer MEDICARE, MEDICAID, SELFPAY ==
[2022-06-17 10:36] LABS: INR 4.1; Prothrombin Time 39.8 Seconds (9.50-12.10)
[2022-06-28 08:56] LABS: INR 1.7; Prothrombin Time 17.7 Seconds (9.50-12.10)
[2022-07-12 11:56] LABS: INR 1.4; Prothrombin Time 15.2 Seconds (9.50-12.10)
[2022-07-23 10:28] LABS: INR 2.3; Prothrombin Time 24.2 Seconds (9.50-12.10)
[2022-08-24 09:42] LABS: INR 1.6; Prothrombin Time 16.8 Seconds (9.50-12.10)
[2022-09-13 11:35] LABS: INR 4.1; Prothrombin Time 40.5 Seconds (9.50-12.10)
== END 2022-09-15 23:59 | disposition home or self-care (01) ==
LOC: CHSLAB 10:57
PROVIDERS: PCP Family Medicine; Visit Provider Family Medicine
DX: Z51.81 Encounter for therapeutic drug level monitoring (principal); Z79.01 Long term (current) use of anticoagulants
CPT/HCPCS: 36415; 85610

== ENCOUNTER 2022-09-28 08:20 | Outpatient (CLI) | payer MEDICARE, MEDICAID, SELFPAY ==
[2022-09-28 08:39] LABS: Basophils Absolute Auto 0.06 K/mm3 (0.00-0.10); Basophils Percent Auto 0.8 % (0.0-1.0); Eosinophils Absolute Auto 0.13 K/mm3 (0.02-0.50); Eosinophils Percent Auto 1.8 % (1.0-6.0); Hematocrit 40.1 % (35.0-49.0); Hemoglobin 12.9 g/dL (12.0-15.0); Immature Granulocyte Absolute 0.02 K/mm3 (0.00-0.00); Immature Granulocyte Percent A 0.3 % (0.0-0.0); Lymphocytes Absolute Auto 2.28 K/mm3 (1.10-4.50); Lymphocytes Percent Auto 31.9 % (18.0-42.0); Mean Corpuscular HGB Conc 32.2 g/dL (32.0-36.0); Mean Corpuscular Hemoglobin 30.2 pg (27.0-31.0); Mean Corpuscular Volume 93.9 fL (78.0-102.0); Mean Platelet Volume 10.1 fl (9.2-11.8); Monocytes Absolute Auto 0.56 K/mm3 (0.10-0.90); Monocytes Percent Auto 7.8 % (2.0-11.0); Neutrophils Absolute Auto 4.1 K/mm3 (1.7-7.2); Neutrophils Percent Auto 57.4 % (50.0-70.0); Platelet Count Result 215 K/mm3 (150-420); Red Blood Count 4.27 M/mm3 (4.20-5.40); Red Cell Distribution Width 13.7 % (11.6-14.4); White Blood Count 7.1 K/mm3 (4.8-10.8)
[2022-09-28 08:41] LABS: Appearance Urine Clear (Clear); Bilirubin Urine Negative (Negative); Blood Urine 1+ (Negative); Color Urine Light Yellow (Yellow); Glucose Urine UA Negative (Negative); Ketones Urine Negative (Negative); Leukocyte Esterase Ur Negative (Negative); Nitrate Urine Negative (Negative); Protein Urine Negative (Negative); Specific Grav Ur 1.015 (1.010-1.020); Urobilinogen Urine 0.2 mg/dL (0.2-1.0)
[2022-09-28 08:44] LABS: Add Urine Microscopic? YES; Bacteria Urine Rare /hpf; RBC Urine 0-2 /hpf (0-2); Squamous Epithelial Cell Urine Rare /hpf (Few); WBC Urine None seen /hpf (0-3)
[2022-09-28 08:46] LABS: INR 3.7; Prothrombin Time 37.1 Seconds (9.50-12.10)
[2022-09-28 08:54] LABS: Creatinine Urine 90.54 mg/dL (40-278); MALB Creatinine Ratio 17.2 mg/g (0-30); Microalbumin Urine Random 15.6 mg/L
[2022-09-28 08:57] LABS: Hemoglobin A1C 6.9 % (<5.7)
[2022-09-28 09:26] LABS: Alanine Aminotransferase 31 U/L (14-59); Albumin Level 3.6 g/dL (3.4-5.0); Alkaline Phosphatase 78 U/L (46-116); Anion Gap 8 mmol/L (8-16); Aspartate Amino Transferase 16 U/L (15-37); Bilirubin,Total 0.2 mg/dL (0.00-1.00); Blood Urea Nitrogen 34 mg/dL (7-18); Calcium 8.7 mg/dL (8.5-10.1); Carbon Dioxide 27 mmol/L (21-32); Chloride 106 mmol/L (98-108); Cholesterol 162 mg/dL (0-200); Estimated Glomerular Filt Rate 33; Glucose 129 mg/dL (70-99); HDL Direct 47 mg/dL (40-60); LDL Cholesterol Calculated 59 mg/dL (<130); Osmolality Calculated 301 mOsm/kg (285-295); Potassium 4.9 mmol/L (3.5-5.1); Sodium 141 mmol/L (136-145); Total Protein 6.8 g/dL (6.4-8.2); Triglycerides 281 mg/dL (0-150); Uric Acid 6.6 mg/dL (2.6-6.0)
== END 2022-09-28 08:21 | disposition home or self-care (01) ==
LOC: CHSLAB 08:23
PROVIDERS: PCP Family Medicine; Visit Provider Family Medicine
DX: E11.9 Type 2 diabetes mellitus without complications (principal); I10 Essential (primary) hypertension; E78.2 Mixed hyperlipidemia; M10.00 Idiopathic gout, unspecified site; Z79.01 Long term (current) use of anticoagulants
CPT/HCPCS: 36415; 80053; 80061; 81001; 82043; 83036; 84550; 85025; 85610

== ENCOUNTER 2022-11-18 10:02 | Outpatient (RCR) | payer MEDICARE, MEDICAID, SELFPAY ==
[2022-10-08 11:45] LABS: INR 2.2; Prothrombin Time 22.9 Seconds (9.50-12.10)
[2022-11-09 10:24] LABS: INR 3.1; Prothrombin Time 31.4 Seconds (9.50-12.10)
[2022-11-18 10:25] LABS: INR 2.2; Prothrombin Time 23.2 Seconds (9.50-12.10)
== END 2023-01-06 23:59 | disposition home or self-care (01) ==
LOC: CHSLAB 10:02
PROVIDERS: PCP Family Medicine; Visit Provider Family Medicine
DX: Z51.81 Encounter for therapeutic drug level monitoring (principal); Z79.01 Long term (current) use of anticoagulants
CPT/HCPCS: 36415; 85610

== ENCOUNTER 2022-12-31 08:14 | Outpatient (CLI) | payer MEDICARE, SELFPAY ==
[2022-12-31 08:48] LABS: Basophils Absolute Auto 0.07 K/mm3 (0.00-0.10); Basophils Percent Auto 0.9 % (0.0-1.0); Eosinophils Absolute Auto 0.21 K/mm3 (0.02-0.50); Eosinophils Percent Auto 2.8 % (1.0-6.0); Hematocrit 40.6 % (35.0-49.0); Hemoglobin 13.2 g/dL (12.0-15.0); Immature Granulocyte Absolute 0.02 K/mm3 (0.00-0.00); Immature Granulocyte Percent A 0.3 % (0.0-0.0); Lymphocytes Absolute Auto 2.26 K/mm3 (1.10-4.50); Lymphocytes Percent Auto 29.6 % (18.0-42.0); Mean Corpuscular HGB Conc 32.5 g/dL (32.0-36.0); Mean Corpuscular Hemoglobin 31.1 pg (27.0-31.0); Mean Corpuscular Volume 95.5 fL (78.0-102.0); Monocytes Absolute Auto 0.64 K/mm3 (0.10-0.90); Monocytes Percent Auto 8.4 % (2.0-11.0); Neutrophils Absolute Auto 4.4 K/mm3 (1.7-7.2); Platelet Count Result 237 K/mm3 (150-420); Red Blood Count 4.25 M/mm3 (4.20-5.40); Red Cell Distribution Width 13.3 % (11.6-14.4); White Blood Count 7.6 K/mm3 (4.8-10.8)
[2022-12-31 09:00] LABS: INR 2.4; Prothrombin Time 24.5 Seconds (9.50-12.10)
[2022-12-31 09:10] LABS: Hemoglobin A1C 6.9 % (<5.7)
[2022-12-31 09:38] LABS: Alanine Aminotransferase 33 U/L (14-59); Albumin Level 3.5 g/dL (3.4-5.0); Alkaline Phosphatase 83 U/L (46-116); Anion Gap 9 mmol/L (8-16); Aspartate Amino Transferase 16 U/L (15-37); Bilirubin,Total 0.4 mg/dL (0.00-1.00); Blood Urea Nitrogen 28 mg/dL (7-18); Calcium 9.2 mg/dL (8.5-10.1); Carbon Dioxide 28 mmol/L (21-32); Chloride 104 mmol/L (98-108); Estimated Glomerular Filt Rate 45; Glucose 141 mg/dL (70-99); Osmolality Calculated 299 mOsm/kg (285-295); Potassium 5.1 mmol/L (3.5-5.1); Sodium 141 mmol/L (136-145); Total Protein 6.9 g/dL (6.4-8.2)
== END 2022-12-31 08:15 | disposition home or self-care (01) ==
PROVIDERS: PCP Family Medicine; Visit Provider Family Medicine
DX: E11.9 Type 2 diabetes mellitus without complications (principal); Z79.01 Long term (current) use of anticoagulants
CPT/HCPCS: 36415; 80053; 83036; 85025; 85610

== ENCOUNTER 2023-03-05 12:07 | Outpatient (RCR) | payer MEDICARE, SELFPAY ==
[2022-12-06 12:08] LABS: INR 2.6; Prothrombin Time 26.4 Seconds (9.50-12.10)
[2023-01-24 12:04] LABS: INR 2.2
[2023-03-05 12:32] LABS: INR 3.4; Prothrombin Time 34.3 Seconds (9.50-12.10)
== END 2023-03-06 23:59 | disposition home or self-care (01) ==
LOC: CHSLAB 12:07
PROVIDERS: PCP Family Medicine; Visit Provider Family Medicine
DX: Z51.81 Encounter for therapeutic drug level monitoring (principal); Z79.01 Long term (current) use of anticoagulants
CPT/HCPCS: 36415; 85610

== ENCOUNTER 2023-04-08 09:47 | Outpatient (RCR) | payer MEDICARE, SELFPAY ==
[2023-03-15 11:25] LABS: INR 2.5; Prothrombin Time 26.1 Seconds (9.50-12.10)
[2023-04-08 10:19] LABS: INR 2.4; Prothrombin Time 25.1 Seconds (9.50-12.10)
== END 2023-06-13 23:59 | disposition home or self-care (01) ==
LOC: CHSLAB 09:47
PROVIDERS: PCP Family Medicine; Visit Provider Family Medicine
DX: Z51.81 Encounter for therapeutic drug level monitoring (principal); Z79.01 Long term (current) use of anticoagulants
CPT/HCPCS: 36415; 85610

== ENCOUNTER 2023-04-28 14:01 | Outpatient (CLI) | payer MEDICARE, SELFPAY ==
[2023-04-28 14:57] LABS: SARS-CoV-2 RNA PCR Negative (Negative)
[2023-04-28 15:07] LABS: Influenza A QL RT-PCR Negative (Negative); Influenza B QL RT-PCR Negative (Negative); Strep Group A RT-PCR NOT DETECTED (Negative)
== END 2023-04-28 14:02 | disposition home or self-care (01) ==
LOC: CHSLAB 14:02
PROVIDERS: PCP Family Medicine; Visit Provider Family Medicine
DX: J06.9 Acute upper respiratory infection, unspecified (principal); Z20.822 Contact with and (suspected) exposure to COVID-19
CPT/HCPCS: 87636; 87651

== ENCOUNTER 2023-05-10 08:18 | Outpatient (CLI) | payer MEDICARE, SELFPAY ==
[2023-05-10 08:39] LABS: Basophils Absolute Auto 0.08 K/mm3 (0.00-0.10); Basophils Percent Auto 1.2 % (0.0-1.0); Eosinophils Absolute Auto 0.17 K/mm3 (0.02-0.50); Eosinophils Percent Auto 2.5 % (1.0-6.0); Hematocrit 39.2 % (35.0-49.0); Hemoglobin 12.8 g/dL (12.0-15.0); Immature Granulocyte Absolute 0.03 K/mm3 (0.00-0.00); Immature Granulocyte Percent A 0.4 % (0.0-0.0); Lymphocytes Absolute Auto 1.98 K/mm3 (1.10-4.50); Lymphocytes Percent Auto 28.9 % (18.0-42.0); Mean Corpuscular HGB Conc 32.7 g/dL (32.0-36.0); Mean Corpuscular Hemoglobin 29.9 pg (27.0-31.0); Mean Corpuscular Volume 91.6 fL (78.0-102.0); Mean Platelet Volume 10.1 fl (9.2-11.8); Monocytes Absolute Auto 0.59 K/mm3 (0.10-0.90); Monocytes Percent Auto 8.6 % (2.0-11.0); Neutrophils Percent Auto 58.4 % (50.0-70.0); Platelet Count Result 221 K/mm3 (150-420); Red Blood Count 4.28 M/mm3 (4.20-5.40); Red Cell Distribution Width 13.9 % (11.6-14.4); White Blood Count 6.8 K/mm3 (4.8-10.8)
[2023-05-10 08:51] LABS: INR 1.8; Prothrombin Time 19.1 Seconds (9.50-12.10)
[2023-05-10 08:52] LABS: Hemoglobin A1C 7.5 % (<5.7)
[2023-05-10 09:25] LABS: Alanine Aminotransferase 36 U/L (14-59); Albumin Level 3.7 g/dL (3.4-5.0); Alkaline Phosphatase 69 U/L (46-116); Anion Gap 7 mmol/L (8-16); Aspartate Amino Transferase 20 U/L (15-37); Bilirubin,Total 0.3 mg/dL (0.00-1.00); Blood Urea Nitrogen 39 mg/dL (7-18); Calcium 8.7 mg/dL (8.5-10.1); Carbon Dioxide 30 mmol/L (21-32); Chloride 100 mmol/L (98-108); Estimated Glomerular Filt Rate 41; Glucose 199 mg/dL (70-99); Osmolality Calculated 299 mOsm/kg (285-295); Potassium 5.2 mmol/L (3.5-5.1); Sodium 137 mmol/L (136-145); Thyroid Stimulating Hormone 1.32 uIU/mL (0.36-3.74); Total Protein 6.9 g/dL (6.4-8.2)
== END 2023-05-10 08:19 | disposition home or self-care (01) ==
LOC: CHSLAB 08:20
PROVIDERS: PCP Family Medicine; Visit Provider Family Medicine
DX: E11.9 Type 2 diabetes mellitus without complications (principal); Z79.01 Long term (current) use of anticoagulants
CPT/HCPCS: 36415; 80053; 83036; 84443; 85025; 85610

== ENCOUNTER 2023-08-04 13:53 | Outpatient (CLI) | payer MEDICARE, MEDICAID, SELFPAY ==
[2023-08-04 14:45] LABS: Anion Gap 8 mmol/L (4-12); Blood Urea Nitrogen 39 mg/dL (7-18); Calcium 8.9 mg/dL (8.5-10.1); Carbon Dioxide 31 mmol/L (21-32); Chloride 103 mmol/L (98-108); Estimated Glomerular Filt Rate 36; Osmolality Calculated 305 mOsm/kg (285-295); Potassium 4.9 mmol/L (3.5-5.1); Sodium 142 mmol/L (136-145)
[2023-08-04 14:53] LABS: Glucose 142 mg/dL (70-99)
== END 2023-08-04 13:54 | disposition home or self-care (01) ==
LOC: CHSLAB 13:58
PROVIDERS: PCP Family Medicine
DX: I25.5 Ischemic cardiomyopathy (principal); I50.22 Chronic systolic (congestive) heart failure
CPT/HCPCS: 36415; 80048

== ENCOUNTER 2023-08-25 16:45 | Outpatient (CLI) | payer MEDICARE, MEDICAID, SELFPAY ==
[2023-08-25 17:06] LABS: Basophils Absolute Auto 0.08 K/mm3 (0.00-0.10); Basophils Percent Auto 0.9 % (0.0-1.0); Eosinophils Absolute Auto 0.18 K/mm3 (0.02-0.50); Eosinophils Percent Auto 2.1 % (1.0-6.0); Hematocrit 39.8 % (35.0-49.0); Hemoglobin 13.2 g/dL (12.0-15.0); Immature Granulocyte Absolute 0.03 K/mm3 (0.00-0.00); Immature Granulocyte Percent A 0.3 % (0.0-0.0); Lymphocytes Absolute Auto 2.81 K/mm3 (1.10-4.50); Lymphocytes Percent Auto 32.5 % (18.0-42.0); Mean Corpuscular HGB Conc 33.2 g/dL (32-36); Mean Corpuscular Hemoglobin 30.1 pg (27.0-31.0); Mean Corpuscular Volume 90.9 fL (78.0-102.0); Mean Platelet Volume 10.1 fl (9.2-11.8); Monocytes Absolute Auto 0.66 K/mm3 (0.10-0.90); Monocytes Percent Auto 7.6 % (2.0-11.0); Neutrophils Absolute Auto 4.89 K/mm3 (1.70-7.20); Neutrophils Percent Auto 56.6 % (50.0-70.0); Platelet Count Result 221 K/mm3 (150-420); Red Blood Count 4.38 M/mm3 (4.20-5.40); Red Cell Distribution Width 13.5 % (11.6-14.4); White Blood Count 8.7 K/mm3 (4.8-10.8)
[2023-08-25 17:18] LABS: INR 1.7; Prothrombin Time 17.8 Seconds (9.50-12.1)
[2023-08-25 17:27] LABS: Hemoglobin A1C 7.8 % (<5.7)
[2023-08-25 17:33] LABS: Alanine Aminotransferase 50 U/L (14-59); Albumin Level 3.6 g/dL (3.4-5.0); Alkaline Phosphatase 70 U/L (46-116); Anion Gap 6 mmol/L (4-12); Aspartate Amino Transferase 31 U/L (15-37); Bilirubin,Total 0.4 mg/dL (0.00-1.00); Blood Urea Nitrogen 26 mg/dL (7-18); Calcium 9.1 mg/dL (8.5-10.1); Carbon Dioxide 30 mmol/L (21-32); Chloride 102 mmol/L (98-108); Estimated Glomerular Filt Rate 39; Glucose 132 mg/dL (70-99); Osmolality Calculated 292 mOsm/kg (285-295); Potassium 4.3 mmol/L (3.5-5.1); Sodium 138 mmol/L (136-145); Total Protein 6.8 g/dL (6.4-8.2)
== END 2023-08-25 16:46 | disposition home or self-care (01) ==
LOC: CHSLAB 16:49
PROVIDERS: PCP Family Medicine; Visit Provider Family Medicine
DX: E11.9 Type 2 diabetes mellitus without complications (principal); Z79.01 Long term (current) use of anticoagulants
CPT/HCPCS: 36415; 80053; 83036; 85025; 85610

== ENCOUNTER 2023-09-02 10:12 | Outpatient (CLI) | payer MEDICARE, MEDICAID, SELFPAY ==
[2023-09-02 10:43] LABS: INR 1.8
== END 2023-09-02 10:13 | disposition home or self-care (01) ==
LOC: CHSLAB 10:15
PROVIDERS: PCP Family Medicine; Visit Provider Family Medicine
DX: Z79.01 Long term (current) use of anticoagulants (principal)
CPT/HCPCS: 36415; 85610

== ENCOUNTER 2023-09-22 09:29 | Outpatient (RCR) | payer MEDICARE, MEDICAID, SELFPAY ==
[2023-07-12 09:16] LABS: INR 2.5; Prothrombin Time 26.1 Seconds (9.50-12.1)
[2023-09-22 10:32] LABS: INR 2.8; Prothrombin Time 28.5 Seconds (9.50-12.1)
== END 2023-10-10 23:59 | disposition home or self-care (01) ==
LOC: CHSLAB 09:29
PROVIDERS: PCP Family Medicine; Visit Provider Family Medicine
DX: Z51.81 Encounter for therapeutic drug level monitoring (principal); Z79.01 Long term (current) use of anticoagulants
CPT/HCPCS: 36415; 85610

== ENCOUNTER 2023-11-26 14:44 | Outpatient (CLI) | payer MEDICARE, MEDICAID, SELFPAY ==
[2023-11-26 15:52] LABS: Basophils Absolute Auto 0.06 K/mm3 (0.00-0.10); Basophils Percent Auto 0.7 % (0.0-1.0); Eosinophils Absolute Auto 0.17 K/mm3 (0.02-0.50); Eosinophils Percent Auto 2.1 % (1.0-6.0); Hematocrit 38.6 % (35.0-49.0); Hemoglobin 12.7 g/dL (12.0-15.0); Immature Granulocyte Absolute 0.03 K/mm3 (0.00-0.00); Immature Granulocyte Percent A 0.4 % (0.0-0.0); Lymphocytes Absolute Auto 2.69 K/mm3 (1.10-4.50); Lymphocytes Percent Auto 32.5 % (18.0-42.0); Mean Corpuscular HGB Conc 32.9 g/dL (32-36); Mean Corpuscular Hemoglobin 29.9 pg (27.0-31.0); Mean Corpuscular Volume 90.8 fL (78.0-102.0); Mean Platelet Volume 10.5 fl (9.2-11.8); Monocytes Absolute Auto 0.59 K/mm3 (0.10-0.90); Monocytes Percent Auto 7.1 % (2.0-11.0); Neutrophils Absolute Auto 4.73 K/mm3 (1.70-7.20); Neutrophils Percent Auto 57.2 % (50.0-70.0); Platelet Count Result 225 K/mm3 (150-420); Red Blood Count 4.25 M/mm3 (4.20-5.40); Red Cell Distribution Width 13.6 % (11.6-14.4); White Blood Count 8.3 K/mm3 (4.8-10.8)
[2023-11-26 15:58] LABS: INR 3.1; Prothrombin Time 31.6 Seconds (9.50-12.1)
[2023-11-26 16:01] LABS: Add Urine Microscopic? YES; Bilirubin Urine Negative (Negative); Blood Urine 2+ (Negative); Color Urine Light Yellow (Yellow); Glucose Urine UA Negative (Negative); Ketones Urine Negative (Negative); Leukocyte Esterase Ur Negative (Negative); Nitrate Urine Negative (Negative); Protein Urine 2+ (Negative); Specific Grav Ur 1.025 (1.010-1.020); Urobilinogen Urine 0.2 mg/dL (0.2-1.0); pH Urine 5.5 (5.0-8.0)
[2023-11-26 16:02] LABS: Anion Gap 8 mmol/L (4-12); Blood Urea Nitrogen 40 mg/dL (7-18); Calcium 8.8 mg/dL (8.5-10.1); Carbon Dioxide 27 mmol/L (21-32); Chloride 100 mmol/L (98-108); Estimated Glomerular Filt Rate 25; Glucose 131 mg/dL (70-99); Osmolality Calculated 291 mOsm/kg (285-295); Potassium 4.3 mmol/L (3.5-5.1); Sodium 135 mmol/L (136-145); Uric Acid 5.4 mg/dL (2.6-6.0)
[2023-11-26 16:06] LABS: Hemoglobin A1C 7.4 % (<5.7)
[2023-11-26 16:10] LABS: Creatinine Urine 113.05 mg/dL (40-278)
[2023-11-26 18:08] LABS: MALB Creatinine Ratio 260.8 mg/g (0-30); Microalbumin Urine Random 294.9 mg/L
[2023-11-26 18:14] LABS: Appearance Urine Sl Cloudy (Clear); RBC Urine 0-2 /hpf (0-2); Squamous Epithelial Cell Urine Few /hpf (Few)
[2023-11-26 18:15] LABS: Amorphous Sediment Urine Moderate; Granular Casts Urine 15-19 /lpf
== END 2023-11-26 14:45 | disposition home or self-care (01) ==
PROVIDERS: PCP Family Medicine; Visit Provider Family Medicine
DX: E11.9 Type 2 diabetes mellitus without complications (principal); M10.00 Idiopathic gout, unspecified site; Z79.01 Long term (current) use of anticoagulants
CPT/HCPCS: 36415; 80048; 81001; 82043; 83036; 84550; 85025; 85610

== ENCOUNTER 2023-12-22 08:09 | Outpatient (CLI) | payer MEDICARE, MEDICAID, SELFPAY ==
[2023-12-22 09:08] LABS: Anion Gap 6 mmol/L (4-12); Blood Urea Nitrogen 39 mg/dL (7-18); Calcium 9.4 mg/dL (8.5-10.1); Carbon Dioxide 31 mmol/L (21-32); Chloride 101 mmol/L (98-108); Estimated Glomerular Filt Rate 29; Glucose 231 mg/dL (70-99); Osmolality Calculated 302 mOsm/kg (285-295); Potassium 4.8 mmol/L (3.5-5.1); Sodium 138 mmol/L (136-145)
== END 2023-12-22 08:10 | disposition home or self-care (01) ==
LOC: CHSLAB 08:13
PROVIDERS: PCP Family Medicine; Visit Provider Family Medicine
DX: R79.89 Other specified abnormal findings of blood chemistry (principal)
CPT/HCPCS: 36415; 80048

== ENCOUNTER 2023-12-29 11:14 | Emergency (ER) | payer MEDICARE, MEDICAID, SELFPAY ==
[2023-12-29 11:25] VITALS: BP 120/63; PULSE 70; RESP 18; TEMP 36.4; O2SAT 99
--- NOTE | 2023-12-29 11:31 | PC.NURSE ---
antiseptic soap and water mixture placed to soak wound
--- NOTE | 2023-12-29 11:55 | ED.WOUNDLAC ---
HPI - Wound/Laceration General Chief Complaint: Wound/Laceration Stated Complaint: finger injury Time Seen by Provider: 12/29/23 11:16 Source: patient Mode of arrival: ambulatory Limitations: no limitations History of Present Illness HPI narrative: this is a 63-year-old female presents with a laceration to the webbing of her left hand between her 3rd and 4th digit well-approximated non gaping no numbness or tingling normal sensation in her fingers cut it on a clean metal surface and will update patient with her tetanus otherwise no other injuries noted. Onset (ago): hour(s) Extremity Location: Left: hand ( laceration between 3rd and 4th digit the webbing) Place: home Patient tetanus UTD: No Context: accidental Associated symptoms: none Related Data Home Medications Medication Instructions Recorded Confirmed albuterol sulfate 90 mcg/actuation 2 inh inhalation BID-TID PRN 10/04/20 12/29/23 aerosol inhaler Shortness Of Breath aspirin 81 mg chewable tablet 81 mg PO DAILY 10/04/20 12/29/23 fluticasone furoate 100 1 mcg inhalation DAILY 10/04/20 12/29/23 mcg/actuation blister powder for inhalation (Arnuity Ellipta) lisinopril 10 mg tablet 10 mg PO DAILY 10/04/20 12/29/23 magnesium oxide 400 mg PO BID 10/04/20 12/29/23 metformin 1,000 mg tablet 1,000 mg PO BID 10/04/20 12/29/23 metoprolol succinate 50 mg 50 mg PO BID 10/04/20 12/29/23 tablet,extended release 24 hr nitroglycerin 0.4 mg sublingual See Rx Instructions .Route .COMPLEX 10/04/20 12/29/23 tablet omega 9-luy-ada-fish oil 1,000 mg 1 cap PO DAILY 10/04/20 12/29/23 (120 mg-180 mg) capsule (Fish Oil) pravastatin 80 mg tablet 80 mg PO DAILY 10/04/20 12/29/23 allopurinol 100 mg tablet 100 mg PO DAILY 12/29/23 12/29/23 ropinirole 0.25 mg tablet 0.25 mg PO DAILY 12/29/23 12/29/23 rosuvastatin 40 mg tablet 40 mg PO DAILY 12/29/23 12/29/23 sitagliptin phosphate 25 mg tablet 25 mg PO DAILY 12/29/23 12/29/23 (Januvia) warfarin 3 mg tablet 3 mg PO DAILY 12/29/23 12/29/23 Allergies Allergy/AdvReac Type Severity Reaction Status Date / Time No Known Allergies Allergy Verified 12/29/23 11:26 Review of Systems Review of Systems: All systems reviewed & are unremarkable except as noted in HPI and below PMFSH Past Medical History Medical History Cardiac defibrillator in place COPD (chronic obstructive pulmonary disease) Diabetes DVT (deep vein thrombosis) in HTN (hypertension) Hyperlipidemia Mixed hyperlipidemia Surgical History Surgical History H/O: hysterectomy Family History Family History Father Heart disease Hypertension Mother Hypertension Heart disease Social History Social History Smoking packs per day: 0.75 Smoking cigarettes per day: 15.0 Smoking status: Current every day smoker Tobacco type: cigarettes Alcohol intake: never Substance use: never Gender identity (if verbalized by the patient): Female Sexual Orientation (if Verbalized by the Patient): Straight or Heterosexual Exam Const: General: healthy appearing and no acute distress Nutritional Appearance: well nourished Orientation/consciousness: patient oriented x3 Limitations: no limitations Neck: Neck: normal visual inspection Chest: Chest palpation & inspection: normal inspection of the chest Cardio: Rate: regular rate Rhythm: regular rhythm GI: GI Palp: Yes Soft to palpation Auscultation: normal bowel sounds Urinary Catheter: Urinary Catheter: patent and draining Skin: Wounds: wounds noted Neuro: General: patient oriented x3, moves all extremities and no meningeal signs Extrem: General: normal to inspection Course Course Emergency Course: Dermabond applied to laceration and patient was updated with her te
[2023-12-29] MEDS: TETANUS,DIPHTHERIA,AC PERTUSSIS ADULT 0.5 ML (ADACEL) IM (12:00)
== END 2023-12-29 12:11 | disposition home or self-care (01) ==
PROVIDERS: Emergency Provider Emergency Medicine; PCP Family Medicine
DX: S61.412A Laceration without foreign body of left hand, initial encounter (principal); J44.9 Chronic obstructive pulmonary disease, unspecified; E11.9 Type 2 diabetes mellitus without complications; E78.5 Hyperlipidemia, unspecified; I10 Essential (primary) hypertension; Z79.899 Other long term (current) drug therapy; Z79.84 Long term (current) use of oral hypoglycemic drugs; Z79.01 Long term (current) use of anticoagulants; Z23 Encounter for immunization; W45.8XXA Other foreign body or object entering through skin, initial encounter
CPT/HCPCS: 12001; 90471; 90715; 99282

== ENCOUNTER 2024-03-09 09:32 | Outpatient (RCR) | payer MEDICARE, MEDICAID, SELFPAY ==
[2023-12-12 08:05] LABS: INR 2.9; Prothrombin Time 29.8 Seconds (9.50-12.1)
[2024-01-19 10:51] LABS: INR 1.6; Prothrombin Time 16.9 Seconds (9.50-12.1)
[2024-02-01 14:03] LABS: INR 2.9; Prothrombin Time 28.8 Seconds (9.50-12.1)
[2024-03-09 10:10] LABS: INR 4.3; Prothrombin Time 41.3 Seconds (9.50-12.1)
== END 2024-03-11 23:59 | disposition home or self-care (01) ==
LOC: CHSLAB 09:32
PROVIDERS: PCP Family Medicine; Visit Provider Family Medicine
DX: Z51.81 Encounter for therapeutic drug level monitoring (principal); Z79.01 Long term (current) use of anticoagulants
CPT/HCPCS: 36415; 85610

== ENCOUNTER 2024-04-19 12:46 | Outpatient (CLI) | payer MEDICARE, MEDICAID, SELFPAY ==
--- NOTE | ~2024-04-19 | DEXA_ITS ---
Bone Density Report Name: MIKE ESCOBAR Age: 63 Sex: Female Ethnicity: White Date of : 1960 Indication: postmenopausal; screening for osteoporosis; hysterectomy; Referring Provider: Rei Alcaraz Study: Bone densitometry was performed. Exam Date: April 19, 2024 Accession number: [id number] Bone Density: Region BMD T-score Z-score Classification AP Spine(L1, L2, L3) 0.984 -0.3 1.2 Normal Femoral Neck (Left) 0.493 -3.2 -1.8 Osteoporosis Total Hip (Left) 0.911 -0.3 0.8 Normal Femoral Neck (Right) 0.599 -2.3 -0.9 Osteopenia Total Hip (Right) 1.050 0.9 1.9 Normal Femoral Neck Mean 0.546 -2.7 -1.4 Osteoporosis Total Hip Mean 0.981 0.3 1.4 Normal World Health Organization criteria for BMD impression classify patients as: Normal (T-score at or above -1.0), Osteopenia (T-score between -1.0 and -2.5), or Osteoporosis (T-score at or below -2.5). 10-year Fracture Risk: FRAX not reported because: Some T-score for Spine Total or Hip Total or Femoral Neck at or below -2.5 Previous Exams: Region Exam Age BMD T-score BMD Change BMD Change Date g/cm2 vs Baseline vs Previous AP Spine (L1-L3) 04/19/2024 63 0.984 -0.3 -0.002 (-0.2%) -0.002 (-0.2%) 09/22/2021 61 0.987 -0.3 Total Hip(Left) 04/19/2024 63 0.911 -0.3 0.023 (2.6%)# 0.023 (2.6%)# 09/22/2021 61 0.888 -0.4 Total Hip(Right) 04/19/2024 63 1.050 0.9 0.125 (13.5%)# 0.125 (13.5%)# 09/22/2021 61 0.925 -0.1 *Denotes significance at 95% confidence level, LSC for AP Spine = 0.022 g/cm2, LSC for Total Hip = 0.027 g/cm2 # Denotes dissimilar scan types or analysis methods Clinical Information Provided by Patient: Smokes Has the following medical conditions: Hysterectomy Patient maximum height was 62 Menopause Age: 52 No regular weight bearing exercise Does not regularly consume dairy products Drinks caffeinated beverages Onset of menses at age 16 Number of children 2 Impression: The patient has osteoporosis, based on the Left Femoral Neck T-score. The patient has risk factors, including: smoking. No significant bone loss was observed. Discussion: INCREASED RISK OF FRACTURE. BONE DENSITY IS UNDESIRABLY LOW AT ONE OR MORE SKELETAL SITES, CONSISTENT WITH POSTMENOPAUSAL OSTEOPOROSIS. This patient's lowest T-score meets the World Health Organization's (WHO) criteria for osteoporosis at one or more sites (T-score -2.5 or below). In untreated patients, the risk of osteoporotic fracture increases approximately two-fold for each 1.0 SD decrease in T-score. Low bone density is not the only risk factor for fracture; also consider factors such as patient's age, frailty or poor health, risk of falling, risk of injury, previous osteoporotic fracture, family history of osteoporosis, cigarette smoking, low body weight, etc. Not everyone with low bone mineral density has osteoporosis; osteomalacia and other metabolic bone disorders should also be considered. Patients who have osteoporosis should be evaluated for specific diseases and conditions (secondary causes) that may cause or contribute to bone loss. The [place] [employer] Clinical Endocrinologists (AACE) and National Osteoporosis Foundation (NOF) recommend pharmacologic intervention for all postmenopausal women whose T-score is in this range. The patient should follow a healthful lifestyle (good nutrition with adequate calcium and vitamin D, and appropriate weight-bearing exercise). Follow-Up: Consider a repeat BMD and Vertebral Fracture Assessment (VFA) exam in 2 years or sooner if medically necessary, to reassess this patient's status. Reported by: KARTIK on 04/19/2024 1:23:00 PM. Reviewed, dictated and finalized at location A.
--- NOTE | ~2024-04-19 | MM_ITS ---
EXAMINATION: MM screening dragan BI w ricki HISTORY: Screening TECHNIQUE: Craniocaudal and mediolateral oblique 3-D tomosynthesis images were obtained and synthetic 2-D images were generated. CAD analysis was submitted and interpreted. COMPARISON: Comparison to multiple prior studies sequentially, with oldest reviewed study dated 07/26. BREAST PARENCHYMAL COMPOSITION: Not Dense: The breasts are almost entirely fatty. FINDINGS: There is no evidence of suspicious mass, calcification, or architectural distortion to sugg est malignancy in either breast. There has been no suspicious interval change. IMPRESSION: 1. No mammographic evidence of malignancy. 2. Recommend routine screening mammography in one year. BI-RADS Category 1: Negative Reviewed, dictated and finalized at location B. SSRS DEVELOPER
--- OUTSIDE RECORDS SUMMARY | 2024-04-19 12:50 | XMS_ITS | Encounter Summary ---
Author Organization [facility] Address [facility] [place] [address] Care Team Providers Care Asset Liability Analyst Name Role Phone Rei Alcaraz MD Primary Care Provider [phone] Edgar Schilling MD Unavailable UnavailJim Zuniga MD Unavailable Unavailable Dominguez Locke PA-C Unavailable [phone] Consuelo Boland MD Unavailable Encounter Details Date Type Department Care Team (Late st Contact Info) Description 01/11/2018 Abstract [facility] [address] [place] [phone] Abstract, Doc [facility] Social History Tobacco Use Types Packs/Day Years Used Date Smoking Tobacco: Every Day Cigarettes 0.5 44.1 Started: 1980 Smokeless Tobacco: Never Alcohol Use Standard Drinks/Week Comments Yes 0 (1 standard drink = 0.6 oz pur e alcohol) Comments Unknown Sex and Gender Information Value Date Recorded Sex Assigned at Female 03/30/2024 9:49 AM HOUSE CARPENTER Legal Sex Female 1:02 PM CDT Gender Identity Not on file Sexual Orientation Not on file 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 Not on file documented as of this encounter Plan of Treatment Upcoming Encounters Date Type Department Care Team (Latest Contact Info) Description 05/09/2024 1:30 AM HOUSE CARPENTER [facility] [address] [place] [phone] Carlos Wright MD [address] [place] [address] 07/13/2024 11:00 AM CDT Office Visit [facility] [address] [place] [address] Carlos Wright MD [address] [place] [address] 07/13/2024 11:00 AM CDT Allied Health/Nurse Visit [facility] [address] [place] [phone] Carlos Wright MD [address] [place] [address] 09/04/2024 12:30 PM CDT Appointment [facility] [address] [place] [address] Consuelo Boland MD [address] [place] [address] 09/17/2024 11:45 AM CDT Office Visit [facility] [address] [place] [address] Consuelo Boland MD [address] [place] [address] documented as of this encounter Procedures Procedure Name Priority Date/Time Associated Diagnosis Comments PROTIME (OUTSIDE LAB) Routine 01/09/2018 documented in this encounter Results * PROTIME (OUTSIDE LAB) (01/09/2018) PROTIME 37 INR 3.53 01/09/2018 us Doc [facility] Abstract LAB-OUTSIDE/ABSTRACTED Final Result documented in this encounter Visit Diagnoses Not on filedocumented in this encounter Additional Health Concerns Infection Onset Date Last Indicated Resolved Time COVID-19 Rule Out 11/03/2019 11/03/2019 11/04/2019 3:36 PM CDT documented as of this encounter Care Teams Asset Liability Analyst Relationship Specialty Start Date End Date Rei Alcaraz MD [address] [place] [address] PCP - General FAMILY PRACTICE 08/25/16 Edgar Schilling MD [address] [place] [address] Gladwin Ribbon Cutter CARDIOVASCULAR DISEASE 08/25/16 09/03/23 Jim Lugo MD [address] [place] [address] Consulting Physician CLINICAL CARDIAC ELECTROPHYSIOLOGY 05/27/22 09/03/23 Dominguez Locke PA-C [address] [place] [address] PHYSICIAN SQL PROGRAMMER ANALYST 05/27/22 Consuelo Boland MD [address] [place] [address] Consulting Physician CARDIOVASCULAR DISEASE 09/04/23 documented as of this encounter
--- OUTSIDE RECORDS SUMMARY | 2024-04-19 12:50 | XMS_ITS | Encounter Summary ---
Author Organization [facility] Address [facility] [place] [address] Care Team Providers Care Metal Expediter Name Role Phone Rei Alcaraz MD Primary Care Provider [phone] Edgar Schilling MD Unavailable Unavailabl Jim Morales MD Unavailable Unavailable Dominguez Locke PA-C Unavailable [phone] Consuelo Boland MD Unavailable Encounter Details Date Type Department Care Team (Late st Contact Info) Description 12/29/2017 Abstract [facility] [address] [place] [phone] Edgar Schilling MD Social History Tobacco Use Types Packs/Day Years Used Date Smoking Tobacco: Every Day Cigarettes 0.5 44.1 Started: 1980 Smokeless Tobacco: Never Alcohol Use Standard Drinks/Week Comments Yes 0 (1 standard drink = 0.6 oz pur e alcohol) Comments Unknown Sex and Gender Information Value Date Recorded Sex Assigned at Female 03/30/2024 9:49 AM CURRICULUM ADVISORY TEACHER Legal Sex Female 1:02 PM CDT Gender Identity Not on file Sexual Orientation Not on file 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 Not on file documented as of this encounter Plan of Treatment Upcoming Encounters Date Type Department Care Team (Latest Contact Info) Description 05/09/2024 1:30 AM CURRICULUM ADVISORY TEACHER [facility] [address] [place] [address] Carlos Wright MD [address] [place] [address] 07/13/2024 11:00 AM CDT Office Visit [facility] [address] [place] [address] Carlos Wright MD [address] [place] [address] 07/13/2024 11:00 AM CDT Allied Health/Nurse Visit [address] [address] Carlos Wright MD [address] [place] [address] 09/04/2024 12:30 PM CDT Appointment [facility] [address] [place] [address] Consuelo Boland MD [address] [place] [address] 09/17/2024 11:45 AM CDT Office Visit [facility] [address] [place] [address] Consuelo Boland MD [address] [place] [address] documented as of this encounter Procedures Procedure Name Priority Date/Time Associated Diagnosis Comments PROTHROMBIN TIME, VENOUS Routine 12/28/2017 BASIC METABOLIC PANEL Routine 12/28/2017 documented in this encounter Results * PROTIME/INR, VENOUS (12/28/2017) PROTIME WHOLE BLOOD 18.7 INR WHOLE BLOOD 1.70 12/28/2017 us Doc [facility] Abstract LABORATORY Final Result * (ABNORMAL) BASIC METABOLIC PANEL (12/28/2017) Pathologist [facility] SODIUM S/P/B 139 POTASSIUM S/P/B 4.4 CO2 28 CHLORIDE S/P/B 104 GLUCOSE 112 mg/dL CALCIUM S/P/B 8.5 BUN 30 CREATININE S/P/B 1.06(A) 0.5 - 1.0 12/28/2017 us Doc [facility] Abstract LABORATORY Final Result documented in this encounter Visit Diagnoses Not on filedocumented in this encounter Additional Health Concerns Infection Onset Date Last Indicated Resolved Time COVID-19 Rule Out 11/03/2019 11/03/2019 11/04/2019 3:36 PM CDT documented as of this encounter Care Teams Metal Expediter Relationship Specialty Start Date End Date Rei Alcaraz MD [address] [place] [phone] PCP - General FAMILY PRACTICE 08/25/16 Edgar Schilling MD [address] Analysis Evaluator CARDIOVASCULAR DISEASE 08/25/16 09/03/23 Jim Lugo MD [address] [place] [address] Consulting Physician CLINICAL CARDIAC ELECTROPHYSIOLOGY 05/27/22 09/03/23 Dominguez Locke PA-C [address] [place] [phone] PHYSICIAN SPLITTER OPERATOR 05/27/22 Consuelo Boland MD [address] [place] [address] Consulting Physician CARDIOVASCULAR DISEASE 09/04/23 documented as of this encounter
--- OUTSIDE RECORDS SUMMARY | 2024-04-19 12:50 | XMS_ITS | Encounter Summary ---
Author Organization [facility] Address [facility] [place] [address] Care Team Providers Care Continuous Mining Machine Company Miner Name Role Phone Rei Alcaraz MD Primary Care Provider [phone] Edgar Schilling MD Unavailable Unavailabl Jim Morales MD Unavailable Unavailable Dominguez Locke PA-C Unavailable [phone] Consuelo Boland MD Unavailable Encounter Details Date Type Department Care Team (Late st Contact Info) Description 04/28/2017 Abstract [facility] [address] [place] [phone] Edgar Schilling MD Social History Tobacco Use Types Packs/Day Years Used Date Smoking Tobacco: Every Day Cigarettes 0.5 44.1 Started: 1980 Smokeless Tobacco: Never Alcohol Use Standard Drinks/Week Comments Yes 0 (1 standard drink = 0.6 oz pur e alcohol) Comments Unknown Sex and Gender Information Value Date Recorded Sex Assigned at Female 03/30/2024 9:49 AM GREASE PACKER Legal Sex Female 1:02 PM CDT Gender Identity Not on file Sexual Orientation Not on file 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 Not on file documented as of this encounter Plan of Treatment Upcoming Encounters Date Type Department Care Team (Latest Contact Info) Description 05/09/2024 1:30 AM GREASE PACKER [facility] [address] [place] [address] Carlos Wright MD [address] [place] [address] 07/13/2024 11:00 AM CDT [facility] [address] [place] [address] Carlos Wright MD [address] [place] [address] 07/13/2024 11:00 AM CDT Allied Health/Nurse Visit [address] [address] Carlos Wright MD [address] [place] [address] 09/04/2024 12:30 PM CDT Appointment [facility] [address] [place] [address] Consuelo Boland MD [address] [place] [address] 09/17/2024 11:45 AM CDT Office Visit [facility] [address] [place] [address] Consuelo Boland MD [address] [place] [address] documented as of this encounter Procedures Procedure Name Priority Date/Time Associated Diagnosis Comments LIPID PANEL Routine 04/20/2017 documented in this encounter Results * LIPID PANEL (04/20/2017) CHOLESTEROL 186 HDL 57 TRIGLYCERIDES 261 CHOL/HDL RATIO 3.3 LDL (CALCULATED) 77 GPT/ALT 35 04/20/2017 us Doc [facility] Abstract LABORATORY Final Result documented in this encounter Visit Diagnoses Not on filedocumented in this encounter Additional Health Concerns Infection Onset Date Last Indicated Resolved Time COVID-19 Rule Out 11/03/2019 11/03/2019 11/04/2019 3:36 PM CDT documented as of this encounter Care Teams Continuous Mining Machine Company Miner Relationship Specialty Start Date End Date Rei Alcaraz MD [address] [place] [address] PCP - General FAMILY PRACTICE 08/25/16 Edgar Schilling MD [address] [place] [address] Vandemere Meterman CARDIOVASCULAR DISEASE 08/25/16 09/03/23 Jim Lugo MD [address] [place] [address] Consulting Physician CLINICAL CARDIAC ELECTROPHYSIOLOGY 05/27/22 09/03/23 Dominguez Locke PA-C [address] [place] [address] PHYSICIAN CREAM SEPARATOR OPERATOR 05/27/22 Consuelo Boland MD [address] [place] [address] Consulting Physician CARDIOVASCULAR DISEASE 09/04/23 documented as of this encounter
--- OUTSIDE RECORDS SUMMARY | 2024-04-19 12:50 | XMS_ITS | Encounter Summary ---
Author Organization [facility] Address [facility] [place] [address] Care Team Providers Care Librarian Special Collections Name Role Phone Rei Alcaraz MD Primary Care Provider [phone] Edgar Schilling MD Unavailable Unavailabl Jim Morales MD Unavailable Unavailable Dominguez Locke PA-C Unavailable [phone] Consuelo Boland MD Unavailable Encounter Details Date Type Department Care Team (Late st Contact Info) Description 11/08/2017 Abstract [facility] [address] [place] [address] Sahra Bradley APRN, PANTOGRAPH MACHINE OPERATOR-C [address] [facility] [address] [place] [address] Social History Tobacco Use Types Packs/Day Years Used Date Smoking Tobacco: Every Day Cigarettes 0.5 44.1 Started: 1980 Smokeless Tobacco: Never Alcohol Use Standard Drinks/Week Comments Yes 0 (1 standard drink = 0.6 oz pur e alcohol) Comments Unknown Sex and Gender Information Value Date Recorded Sex Assigned at Female 03/30/2024 9:49 AM CHAIN MAKER LOOM CONTROL Legal Sex Female 1:02 PM CDT Gender Identity Not on file Sexual Orientation Not on file 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 Not on file documented as of this encounter Plan of Treatment Upcoming Encounters Date Type Department Care Team (Latest Contact Info) Description 05/09/2024 1:30 AM CHAIN MAKER LOOM CONTROL Allied Health/Nurse Visit [facility] [address] [place] [address] Carlos Wright MD [address] [place] [address] 07/13/2024 11:00 AM CDT Office Visit [facility] [address] [place] [address] Carlos Wright MD [address] [place] [address] 07/13/2024 11:00 AM CDT Allied Health/Nurse Visit [facility] [address] [place] [address] Carlos Wright MD [address] [place] [address] 09/04/2024 12:30 PM CDT Appointment [facility] [address] [place] [address] Consuelo Boland MD [address] [place] [address] 09/17/2024 11:45 AM CDT Office Visit [facility] [address] [place] [address] Consuelo Boland MD [address] [place] [address] documented as of this encounter Procedures Procedure Name Priority Date/Time Associated Diagnosis Comments BASIC METABOLIC PANEL Routine 11/03/2017 documented in this encounter Results * (ABNORMAL) BASIC METABOLIC PANEL (11/03/2017) SODIUM S/P/B 138 POTASSIUM S/P/B 5.1 CO2 28 CHLORIDE S/P/B 102 GLUCOSE 106 mg/dL CALCIUM S/P/B 9.4 BUN 27 CREATININE S/P/B 1.3(A) 0.5 - 1.0 EGFR NON-AFR. AMER. 45 <=90 11/03/2017 us Doc [facility] Abstract LABORATORY Final Result documented in this encounter Visit Diagnoses Not on filedocumented in this encounter Additional Health Concerns Infection Onset Date Last Indicated Resolved Time COVID-19 Rule Out 11/03/2019 11/03/2019 11/04/2019 3:36 PM CDT documented as of this encounter Care Teams Librarian Special Collections Relationship Specialty Start Date End Date Rei Alcaraz MD [address] [phone] PCP - General FAMILY PRACTICE 08/25/16 Edgar Schilling MD [address] [place] [place] [phone] [place] Battery Filler CARDIOVASCULAR DISEASE 08/25/16 09/03/23 Jim Lugo MD [address] [place] [address] Consulting Physician CLINICAL CARDIAC ELECTROPHYSIOLOGY 05/27/22 09/03/23 Dominguez Locke PA-C [address] [place] [phone] PHYSICIAN DIGITAL DESIGNER 05/27/22 Consuelo Boland MD [address] [place] [address] Consulting Physician CARDIOVASCULAR DISEASE 09/04/23 documented as of this encounter
--- OUTSIDE RECORDS SUMMARY | 2024-04-19 12:51 | XMS_ITS | Encounter Summary ---
Author Organization [facility] Address [facility] [place] [address] Care Team Providers Care Geosciences Faculty Member Name Role Phone Rei Alcaraz MD Primary Care Provider [phone] Edgar Schilling MD Unavailable Unavailabl Jim Morales MD Unavailable Unavailable Dominguez Locke PA-C Unavailable [phone] Consuelo Boland MD Unavailable Encounter Details Date Type Department Care Team (Late st Contact Info) Description 10/04/2016 Abstract [facility] [address] [place] [phone] Edgar Schilling MD Social History Tobacco Use Types Packs/Day Years Used Date Smoking Tobacco: Every Day Cigarettes 0.5 44.1 Started: 1980 Comments Unknown Sex and Gender Information Value Date Recorded Sex Assigned at Female 03/30/2024 9:49 AM AUTO AIR CONDITIONING MECHANIC Legal Sex Female 1:02 PM CDT Gender Identity Not on file Sexual Orientation Not on file documented as of this encounter Plan of Treatment Upcoming Encounters Date Type Department Care Team (Latest Contact Info) Description 05/09/2024 1:30 AM AUTO AIR CONDITIONING MECHANIC [facility] [address] [place] [phone] Carlos Wright MD [address] [facility] [address] [address] 07/13/2024 11:00 AM CDT Office Visit [facility] [address] [place] [address] Carlos Wright MD [address] [address] 07/13/2024 11:00 AM CDT Allied Health/Nurse Visit [facility] [address] [place] [address] Carlos Wright MD [address] [address] 09/04/2024 12:30 PM CDT Appointment [address] [place] [address] Consuelo Boland MD [address] [place] [address] 09/17/2024 11:45 AM CDT Office Visit [facility] [place] [address] Consuelo Boland MD [address] [place] [address] documented as of this encounter Visit Diagnoses Not on filedocumented in this encounter Additional Health Concerns Infection Onset Date Last Indicated Resolved Time COVID-19 Rule Out 11/03/2019 11/03/2019 11/04/2019 3:36 PM CDT documented as of this encounter Care Teams Geosciences Faculty Member Relationship Specialty Start Date End Date Rei Alcaraz MD [address] [place] [address] PCP - General FAMILY PRACTICE 08/25/16 Edgar Schilling MD [address] [place] [address] [place] Paper Novelty Maker CARDIOVASCULAR DISEASE 08/25/16 09/03/23 Jim Lugo MD [address] [place] [address] Consulting Physician CLINICAL CARDIAC ELECTROPHYSIOLOGY 05/27/22 09/03/23 Dominguez Locke PA-C [address] [place] [address] PHYSICIAN DIRECTOR OF EDUCATION AND TRAINING 05/27/22 Consuelo Boland MD [address] [place] [address] Consulting Physician CARDIOVASCULAR DISEASE 09/04/23 documented as of this encounter
--- OUTSIDE RECORDS SUMMARY | 2024-04-19 12:51 | XMS_ITS | Encounter Summary ---
Author Organization [facility] Address [facility] [place] [address] Care Team Providers Care Cook Italian Style Food Name Role Phone Rei Alcaraz MD Primary Care Provider [phone] Edgar Schilling MD Unavailable Unavailabl Jim Morales MD Unavailable Unavailable Dominguez Locke PA-C Unavailable [phone] Consuelo Boland MD Unavailable Encounter Details Date Type Department Care Team (Late st Contact Info) Description 09/24/2016 [facility] [address] [place] [address] Edgar Schilling MD Social History Tobacco Use Types Packs/Day Years Used Date Smoking Tobacco: Every Day Comments Unknown Sex and Gender Information Value Date Recorded Sex Assigned at Female 03/30/2024 9:49 AM LIABILITY CLAIMS EXAMINER Legal Sex Female 1:02 PM CDT Gender Identity Not on file Sexual Orientation Not on file documented as of this encounter Plan of Treatment Upcoming Encounters Date Type Department Care Team (Latest Contact Info) Description 05/09/2024 1:30 AM LIABILITY CLAIMS EXAMINER [facility] [address] [place] [address] Carlos Wright MD [address] [facility] [address] [address] 07/13/2024 11:00 AM CDT Office Visit [facility] [address] [place] [address] [phone] Carlos Wright MD [address] [place] [address] 07/13/2024 11:00 AM CDT Allied Health/Nurse Visit [facility] [address] [place] [address] Carlos Wright MD [address] [place] [phone] 09/04/2024 12:30 PM CDT Appointment [address] [place] [address] Consuelo Boland MD [address] [place] [phone] 09/17/2024 11:45 AM CDT Office Visit [place] [facility] [address] [place] [id number] Consuelo Boland MD [address] [place] [phone] documented as of this encounter Visit Diagnoses Not on filedocumented in this encounter Additional Health Concerns Infection Onset Date Last Indicated Resolved Time COVID-19 Rule Out 11/03/2019 11/03/2019 11/04/2019 3:36 PM CDT documented as of this encounter Care Teams Cook Italian Style Food Relationship Specialty Start Date End Date Rei Alcaraz MD [address] [place] [id number] PCP - General FAMILY PRACTICE 08/25/16 Edgar Schilling MD [address] [place] [address] [address] Loading Machine Operator CARDIOVASCULAR DISEASE 08/25/16 09/03/23 Jim Lugo MD [address] [place] [address] Consulting Physician CLINICAL CARDIAC ELECTROPHYSIOLOGY 05/27/22 09/03/23 Dominguez Locke PA-C [address] [place] [address] PHYSICIAN DIRECTOR OF RESEARCH CENTER 05/27/22 Consuelo Boland MD [address] [place] [address] Consulting Physician CARDIOVASCULAR DISEASE 09/04/23 documented as of this encounter
--- OUTSIDE RECORDS SUMMARY | 2024-04-19 12:51 | XMS_ITS | Encounter Summary ---
Author Organization [facility] Address [facility] [place] [address] Care Team Providers Care Certified Phlebotomy Technician Name Role Phone Rie Alcaraz MD Primary Care Provider [phone] Edgar Schilling MD Unavailable Unavailabl Jim Morales MD Unavailable Unavailable Dominguez Locke PA-C Unavailable [phone] Consuelo Boland MD Unavailable Encounter Details Date Type Department Care Team (Late st Contact Info) Description 09/03/2016 Abstract [facility] [address] [place] [address] Edgar Schilling MD Social History Tobacco Use Types Packs/Day Years Used Date Smoking Tobacco: Every Day Comments Unknown Sex and Gender Information Value Date Recorded Sex Assigned at Female 03/30/2024 9:49 AM 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 [address] [address] 07/13/2024 11:00 AM CDT Office Visit [facility] [address] [place] [address] [phone] Carlos Wright MD [address] [place] [phone] 07/13/2024 11:00 AM CDT Allied Health/Nurse Visit [facility] [address] [place] [address] Carlos Wright MD [address] [place] [phone] 09/04/2024 12:30 PM CDT Appointment [facility] [address] [place] [address] Consuelo Boland MD [address] [place] [phone] 09/17/2024 11:45 AM CDT Office Visit [place] [facility] [address] [place] [phone] Consuelo Boland MD [address] [place] [phone] documented as of this encounter Procedures Procedure Name Priority Date/Time Associated Diagnosis Comments PROTHROMBIN TIME, VENOUS Routine 09/03/2016 documented in this encounter Results * PROTIME/INR, VENOUS (09/03/2016) PROTIME WHOLE BLOOD 25.6 INR WHOLE BLOOD 2.20 09/03/2016 us [facility] Final Result documented in this encounter Visit Diagnoses Not on filedocumented in this encounter Additional Health Concerns Infection Onset Date Last Indicated Resolved Time COVID-19 Rule Out 11/03/2019 11/03/2019 11/04/2019 3:36 PM CDT documented as of this encounter Care Teams Certified Phlebotomy Technician Relationship Specialty Start Date End Date Rei Alcaraz MD [address] [place] [address] PCP - General FAMILY PRACTICE 08/25/16 Edgar Schilling MD [address] [place] [address] [place] Machine Stoppage Frequency Checker CARDIOVASCULAR DISEASE 08/25/16 09/03/23 Jim Lugo MD [address] [place] [address] Consulting Physician CLINICAL CARDIAC ELECTROPHYSIOLOGY 05/27/22 09/03/23 Dominguez Locke PA-C [address] [place] [address] PHYSICIAN MANAGER CATH LAB 05/27/22 Consuelo Boland MD [address] [place] [address] Consulting Physician CARDIOVASCULAR DISEASE 09/04/23 documented as of this encounter
--- OUTSIDE RECORDS SUMMARY | 2024-04-19 12:51 | XMS_ITS | Data Portability ---
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 -Social history-Patient is disabled, Continues to smoke-1 pack/day for more than 20 years, , Denies smoking alcohol, lives at home. -Chronic kidney disease stage IV with a baseline serum creatinine ranging between 1.7-2.0 likely secondary to chronic NSAID usage Serum creatinine trend 10 10/07/2023 serum creatinine level of 2.0 12/22/2023 serum creatinine level of 1.79 01/20/2024 serum creatinine level of 2.0 She denies having any nausea, vomiting or diarrhea Denies having any lightheadedness or dizziness Etiology of CKD likely secondary to chronic NSAID usage Patient was advised to stop taking NSAIDs She is currently off metformin as well as Entresto which were discontinued in December 2023 The patient was started on Jardiance in January 2024 Denies having any nausea, vomiting or diarrhea -CKD/MBD-calcium and phosphorus levels Will be checked today -Hypertension Blood pressure in the office today is at 140/86 however home blood pressure readings have been ranging between 120-130 systolic, denies having any nausea, vomiting or diarrhea Denies having any lightheadedness or dizziness We will continue patient on current medications She is currently on metoprolol 50 mg p.o. twice daily along with the Jardiance and furosemide KDIGO recommendations to prevent CKD progression -Advised to undertake moderate-intensity physical activity for a cumulative duration of at least 150 minutes per week, or to a level compatible with their cardiovascular and physical tolerance -Patients should consume a balanced, healthy diet that is high in vegetables, , plant-based proteins, unsaturated fats, and lower in processed meats, refined carbohydrates, and sweetened beverages. -Sodium (<2 g/day) and protein intake (0.8 g/kg/day) in accordance with recommendations for the general population. - Suggest NOT to prescribe bisphosphonate treatment in people with GFR <30 ml/min/1.73 m2 (GFR categories G4-G5) without a strong clinical rationale. -Individualize Hba1c target goal of 6.5 to 8 % based on underlying comorbidities -Cessation of tobacco -Avoid Nephrotoxic agents -such as NSAIDS -renal dosage of all medications to the appropriate GFR james Not available 02/20/2024 11:35:19 Plan of Treatment Reminders Order Date Submit Date Provider Last Modified By Organization Details Last Modified Time Details Appointments Establish ed Patient 15.EST 2024 10:45A M Yamile Mike Not available Not available Not available Lab None recorded. Referral None recorded. Procedures None recorded. Surgeries None recorded. Imaging None recorded. Medication Orders None recorded. Patient TargetsNo targets recorded. Patient InstructionsNo instructions recorded. Reason for Referral None Reported. Results Created Date Observation Date Name Description Value Unit Range Abnormal Flag Note LastModifiedBy Organization Detail LastModifiedTime 02/20/2002/20/2024 CBC CBC Not Available [facility] [address], [id number], 02/20/2024 17:13:57 02/20/20 24 02/20/2024 CBC WBC 8.2 K/uL 3.8-11 .2 Not Available [facility] [address], [id number], 02/20/2024 17:13:57 02/20/20 24 02/20/2024 CBC RBC 5.22 M/uL 3.92-5 .10 high Not Available [facility] [address] [place] [address], [id number], 02/20/2024 17:13:57 02/20/20 24 02/20/2024 CBC HGB 15.5 g/dL 11.8-1 5.3 high Not Available [facility] [address] [place] [address], [id number], 02/20/2024 17:13:57 02/20/20 24 02/20/2024 CBC HCT 45.9 % 36.5-4 4.8 high Not Available [facility] [address] [place] [address], [id number], 02/20/2024 17:13:57 02/20/20 24 02/20/2024 CBC MCV 87.9 fL 80.0-9 9.0 Not Available [facility] [address] [place] [address], [id number], 02/20/2024 17:13:57 02/20/20 24 02/20/2024 CBC MCH 29.7 pg 25.5-3 3.6 Not Available [facility] [address] [place] [address], [id number], 02/20/2024 17:13:57 02/20/20 24 02/20/2024 CBC MCHC 33.8 g/dL 32.0-3 6.0 Not Available [facility] [address] [place] [address], [id number], 02/20/2024 17:13:57 02/20/20 24 02/20/2024 CBC RDW-SD 41.9 fL 35.1 - 46.3 Not Available [facility] [address] [place] [address], [id number], 02/20/2024 17:13:57 02/20/20 24 02/20/2024 CBC plt 264 K/uL 130-40 0 Not Available [facility] [address] [place] [address], [id number], 02/20/2024 17:13:57 02/20/20 24 02/20/2024 CBC MPV 10.7 fL 9.3-12 .8 Not Available [facility] [address] [place] [address], [id number], 02/20/2024 17:13:57 02/20/20 24 02/20/2024 urina lysis , compl ete urinalysis, complete LOW LEVEL S OF HEMOG LOBIN IN ABSEN CE OF HEMAT URIA MAY NOT BE CLINI LUIS SIGNI FICAN T. Not Available [facility] [address] [place] [address], [id number], 02/20/2024 17:23:09 02/20/20 24 02/20/2024 urina lysis , compl ete color YELLOW Not Available [facility] [address] [place] [address], [id number], 02/20/2024 17:23:09 02/20/20 24 02/20/2024 urina lysis , compl ete clarity CLEAR Not Available [facility] [address] [place] [address], [id number], 02/20/2024 17:23:09 02/20/20 24 02/20/2024 urina lysis , compl ete pH 5.5 5.0-7. 5 Not Available [facility] [address] [place] [address], [id number], 02/20/2024 17:23:09 02/20/20 24 02/20/2024 urina lysis , compl ete specific gravity 1.019 1.000- 1.030 Not Available [facility] [address] [place] [address], [id number], 02/20/2024 17:23:09 02/20/20 24 02/20/2024 urina lysis , compl ete blood NEGATI VE negati ve Not Available [facility] [address] [place] [address], [id number], 02/20/2024 17:23:09 02/20/20 24 02/20/2024 urina lysis , compl ete bilirubin NEGATI VE negati ve Not Available [facility] [address] [place] [address], [id number], 02/20/2024 17:23:09 02/20/20 24 02/20/2024 urina lysis , compl ete urobilinogen 0.2 0.2-1. 0 Not Available [facility] [address] [place] [address], [id number], 02/20/2024 17:23:09 02/20/20 24 02/20/2024 urina lysis , compl ete ketone NEGATI VE negati ve Not Available [facility] [address] [place] [address], [id number], 02/20/2024 17:23:09 02/20/20 24 02/20/2024 urina lysis , compl ete glucose 3+ negati ve abnormal Not Available [facility] [address] [place] [address], [id number], 02/20/2024 17:23:09 02/20/20 24 02/20/2024 urina lysis , compl ete protein TRACE negati ve abnormal Not Available [facility] [address] [place] [address], [id number], 02/20/2024 17:23:09 02/20/20 24 02/20/2024 urina lysis , compl ete nitrite NEGATI VE negati ve Not Available [facility] [address] [place] [address], [id number], 02/20/2024 17:23:09 02/20/20 24 02/20/2024 urina lysis , compl ete leukocytes NEGATI VE negati ve Not Available [facility] [address] [place] [address], [id number], 02/20/2024 17:23:09 02/20/20 24 02/20/2024 urina lysis , compl ete RBC 0-2 0-2/hp f Not Available [facility] [address] [place] [address], [id number], 02/20/2024 17:23:09 02/20/20 24 02/20/2024 urina lysis , compl ete WBC 0-5 0-5/hp f Not Available [facility] [address] [place] [address], [id number], 02/20/2024 17:23:09 02/20/20 24 02/20/2024 urina lysis , compl ete squamous epithelial 0-2 0-10/h pf Not Available [facility] [address] [place] [address], [id number], 02/20/2024 17:23:09 02/20/20 24 02/20/2024 urina lysis , compl ete bacteria NONE SEEN none Not Available [facility] [address] [place] [address], [id number], 02/20/2024 17:23:09 02/20/20 24 02/20/2024 urina lysis , compl ete hyaline cast 0-2 0-2/lp f Not Available [facility] [address] [place] [address], [id number], 02/20/2024 17:23:09 02/20/20 24 02/20/2024 renal funct ion panel , serum renal function panel Not Available [facility] [address] [place] [address], [id number], 02/20/2024 18:05:49 02/20/20 24 02/20/2024 renal funct ion panel , serum sodium 136 mmol/ L 136-14 6 Not Available [facility] [address] [place] [address], [id number], 02/20/2024 18:05:49 02/20/20 24 02/20/2024 renal funct ion panel , serum potassium 4.2 mmol/ L 3.5-5. 1 Not Available [facility] [address] [place] [address], [id number], 02/20/2024 18:05:49 02/20/20 24 02/20/2024 renal funct ion panel , serum chloride 101 mmol/ L 98-110 Not Available [facility] [address] [place] [address], [id number], 02/20/2024 18:05:49 02/20/20 24 02/20/2024 renal funct ion panel , serum CO2 29 mEq/L 20-32 Not Available [facility] [address] [place] [address], [id number], 02/20/2024 18:05:49 02/20/20 24 02/20/2024 renal funct ion panel , serum anion gap 10 mmol/ L 10-22 Not Available [facility] [address] [place] [address], [id number], 02/20/2024 18:05:49 02/20/20 24 02/20/2024 renal funct ion panel , serum glucose 294 mg/dL 70-100 high Not Available [facility] [address] [place] [address], [id number], 02/20/2024 18:05:49 02/20/20 24 02/20/2024 renal funct ion panel , serum calcium 10.1 mg/dL 8.4-10 .4 Not Available [facility] [address] [place] [address], [id number], 02/20/2024 18:05:49 02/20/20 24 02/20/2024 renal funct ion panel , serum albumin 4.9 g/dL 3.5-5. 3 Not Available [facility] [address] [place] [address], [id number], 02/20/2024 18:05:49 12/16/20 24 02/20/2024 renal funct ion panel , serum phosphorus 3.4 mg/dL 2.7-4. 5 Not Available [facility] [address] [place] [address], [id number], 02/20/2024 18:05:49 02/20/20 24 02/20/2024 renal funct ion panel , serum BUN 30 mg/dL 7-21 high Not Available [facility] [address] [place] [address], [id number], 02/20/2024 18:05:49 02/20/20 24 02/20/2024 renal funct ion panel , serum creatinine 1.9 mg/dL 0.7-1. 3 high Not Available [facility] [address] [place] [address], [id number], 02/20/2024 18:05:49 02/20/20 24 02/20/2024 renal funct ion panel , serum GFR(non-afri can angolan) 29 Not Available [facility] [address] [place] [address], [id number], 02/20/2024 18:05:49 02/20/20 24 02/20/2024 renal funct ion panel , serum GFR() 35 (POULTRY FARM[employer] MEAT DARIA KIDNE Y DISEA SE HAS A GFR LESS THAN 60 ML/FL N/1.7 3 MM FOR A PERIO D OF THREE MONTH S OR MORE. ) Not Available [facility] [address] [place] [address], [id number], 02/20/2024 18:05:49 02/20/20 24 02/20/2024 micro album in, urine microalbumin ,random panel Not Available [facility] [address] [place] [address], [id number], 02/20/2024 18:26:56 02/20/20 24 02/20/2024 micro album in, urine microalbumin random 5.1 mg/dL Not Available [facility] [address] [place] [address], [id number], 02/20/2024 18:26:56 02/20/20 24 02/20/2024 micro album in, urine creatinine, urine random 30 mg/dL Refer ence range not estab lishe d for other than 24 hour colle ction . Not Available [facility] [address] [place] [address], [id number], 02/20/2024 18:26:56 02/20/20 24 02/20/2024 micro album in, urine microalb/cre at ratio 170 ug/mg (Micr oalbu min/C reati nine Ratio : Shruti l: <30 UG/MG Creat Micro album inuri a: 30-30 0 UG/MG Creat Clini sandra Album inuri a: >300 UG/MG Creat The class ifica tion of a patie nt's prote inuri a shoul d be based upon at least 2 or 3 abnor mal resul ts colle cted withi n a 3 to 6 month time frame . *No shruti l range s have been estab lishe d for rando m Micro album in or Creat inine .) Not Available [facility] [address] [place] [address], [id number], 02/20/2024 18:26:56 02/20/20 24 02/21/2024 C3 (comp lemen t), serum or plasm a complement C3 173 mg/dL 82-167 high Not Available [facility] [address] [place] [address], [id number], 02/21/2024 07:40:50 02/20/20 24 02/21/2024 C4 (comp lemen t), serum or plasm a complement C4 28 mg/dL 12-38 Not Available [facility] [address] [place] [address], [id number], 02/21/2024 07:40:51 02/20/20 24 02/22/2024 immun ofixa tion, serum immunofixati on, serum No monoc lonal ity detec christina. Not Available [facility] [address] [place] [address], [id number], 02/22/2024 15:38:07 02/20/20 24 02/22/2024 immun ofixa tion, serum IgG quantitative 1473 mg/dL 586-16 02 Not Available [facility] [address] [place] [address], [id number], 02/22/2024 15:38:07 02/20/20 24 02/22/2024 immun ofixa tion, serum IgA quantitative 252 mg/dL 87-352 Not Available [facility] [address] [place] [address], [id number], 02/22/2024 15:38:07 02/20/20 24 02/22/2024 immun ofixa tion, serum IgM quantitative 65 mg/dL 26-217 Not Available [facility] [address] [place] [address], [id number], 02/22/2024 15:38:07 02/20/20 24 02/22/2024 anca panel , serum anca, complete Not Available [facility] [address] [place] [address], [id number], 02/22/2024 19:37:12 02/20/20 24 02/22/2024 anca panel , serum myeloperoxid ase Ab <0.2 units 0.0-0. 9 Not Available [facility] [address] [place] [address], [id number], 02/22/2024 19:37:12 02/20/20 24 02/22/2024 anca panel , serum proteinase-3 Ab, anca <0.2 units 0.0-0. 9 Not Available [facility] [address] [place] [address], [id number], 02/22/2024 19:37:12 02/20/20 24 02/22/2024 anca panel , serum C-anca titer <1:20 titer neg:<1 :20 Not Available [facility] [address] [place] [address], [id number], 02/22/2024 19:37:12 02/20/20 24 02/22/2024 anca panel , serum P-anca titer <1:20 titer neg:<1 :20 The prese nce of posit justina fluor escen ce exhib iting P-ANC A or C-ANC A patte rns alone is not speci fic for the diagn osis of Wegen er's Granu lomat osis (WG) or micro scopi c polya ngiit is. Decis ions about treat ment shoul d not be based solel y on ANCA IFA resul ts. The Inter natio nal [employer] nsus recom mends follo w up testi ng of posit justina sera with both ME-3 and MPO-A NCA enzym e immun oassa ys. As many as 5% serum sampl es are posit justina only by EIA. Ref. AM J Clin Patho l 1999; 111:5 07-51 3. Not Available [facility] [address] [place] [address], [id number], 02/22/2024 19:37:12 02/20/20 24 02/22/2024 anca panel , serum atypical P anca titer <1:20 titer neg:<1 :20 The atypi sandra pANCA patte rn has been obser reyna in a signi fican t perce ntage of patie nts with ulcer ative colit is, prima ry scler osing chola ngiti s and autoi mmune hepat itis. Not Available [facility] [address] [place] [address], [id number], 02/22/2024 19:37:12 02/20/20 24 02/23/2024 CHACHA (anti nucle ar antib odies ) scree n, serum CHACHA screen POSITI VE negati ve abnormal Titer to follo w Perfo rmed by Bio-R ad enzym e immun oassa y Not Available [facility] [address], [address], 02/23/2024 12:03:06 02/20/20 24 02/23/2024 CHACHA (anti nucle ar antib odies ) titer + robyn rn, ifa, serum CHACHA titer <1:80 <=1:16 0 (CHACHA INTER PRETA TION: <1:16 0 PROBA JACEK NOT SIGNI FICAN T. 1:160 BORDE RLINE ;POSS IBLY SIGNI FIC. REPEA T IN 30 DAYS IF CLINI LUIS INDIC ATED. 1:320 - 1:640 PROBA JACEK SIGNI FICAN T. CORRE LATIO N W/ CHACHA SEROL OGIC PROFI LE AND CLINI SANDRA FINDI NGS ORDER RENETTA AND DNA.) Perfo rmed by indir ect fluor escen t antib rosa using HEp-2 cell line Not Available [facility] [address] [place] [address], [id number], 02/23/2024 15:30:51 02/20/20 24 02/20/2024 UE urine eosinophils NEGATI VE Not Available [facility] [address] [facility], [place], [address], 02/20/2024 23:05:20 03/09/19 25 03/06/2024 US, gisele y No observ ation record ed. [email or web address] Not Available 2024 13:05:28 Result Notes None recorded. Problems Name Problem SNOMED Code Status Onset Date Resolution Date Notes Provider Name and Address Organization Details Recorded Time Chronic kidney disease stage 4 787381534 Active 2023 Yisel castillo, [facility] 4 16:12:35 Coronary arteriosclero sis 50705520 Active 2023 Yisel castillo, [facility] 4 16:13:14 Chronic systolic heart failure 572432436 Active 2023 Yisel castillo, [facility] 4 16:13:49 Chronic obstructive pulmonary disease 10759608 Active 2023 Yisel Flavio [facility] 4 16:14:05 Benign essential hypertension 4206908 Active 2023 Yisel Muniz [facility] 4 16:14:12 Hyperkalemia 11787978 Active 2023 Yisel Muniz [facility] 4 16:14:21 Type 2 diabetes mellitus 48801439 Active 2023 Yisel Muniz [facility] 4 16:15:09 History of pulmonary embolus 479949434 Active 2023 Yisel Muniz [facility] 4 16:15:55 Proteinuria 95301544 Active 2023 Ana Cristina Griffith [facility] 14:57:56 Urinary incontinence 885250313 Active 2024 Yisel Muniz [facility] 5 13:03:26 Problem Notes None recorded. Procedures Surgical History None recorded. Imaging Results Imaging Date Name Status LastModified by Organiz ation Details LastModified Time 03/06/2024 US, kidney completed [email or web address] Information no t available 03/12/2024 13:05:28 Procedure Notes None recorded. Medical Equipment None Reported. Allergies No known drug allergies Medications Name Sig Start Date Stop Date Status Note LastModified by Organization Details LastModified Time furosemide 40 mg tablet Take 1 tablet every day by oral route. active Not Available Not Available No t Available allopurinol 100 mg tablet Take 1 tablet every day by oral route. active Not Available Not Available No t Available aspirin 81 mg tablet,tommie yed release Take 1 tablet every day by oral route. active Not Available Not Available No t Available ropinirole 0.25 mg tablet Take 2 tablets every day by oral route at bedtime. active Not Available Not Available No t Available metoprolol tartrate 50 mg tablet Take 1 tablet twice a day by oral route. active Not Available Not Available No t Available nitroglycer in 0.[address] by sublingua l route as directed. active Not Available Not Available No t Available oxybutynin chloride ER 5 mg tablet,exte nded release 24 hr Take 1 tablet every day by oral route. 2024 active Not Available Not Available Not Avai lable oxybutynin chloride 5 mg tablet Take 1 tablet every day by oral route for 30 days. 03/12 completed Not Available Not Available Not Available rosuvastati n 40 mg tablet Take 1 tablet every day by oral route. active Not Available Not Available No t Available warfarin PT/INR DEPENDANT active Not Available Not Available No t Available Januvia 100 mg tablet Take 1 tablet every day by oral route. 02/19 completed Not Available Not Available Not Available CoQ-10 DIRECTED active Not Available Not Available No t Available magnesium 400 mg (as magnesium oxide) capsule Take 1 mg by oral route. active Not Available Not Available No t Available Jardiance 10 mg tablet Take 1 tablet every day by oral route. active Not Available Not Available No t Available Jardiance 25 mg tablet Take 1 tablet every day by oral route for 90 days. 2023 active Not Available Not Available Not Avai lable Arnuity Ellipta 100 mcg/actuati on powder for inhalation Inhale 1 puff every day by inhalatio n route. active Not Available Not Available No t Available Flonase Allergy Relief 50 mcg/actuati on nasal spray,suspe nsion [place] 1 spray every day by intranasa l route as needed. active Not Available Not Available No t Available albuterol 90 mcg-budeson allan 80 mcg/actuati on HFA aerosol inhaler Inhale by inhalatio n route as directed. active Not Available Not Available No t Available Vitals Date Recorded Body weight Systolic blood pressure Diastolic blood pressure Provider Name and Address Organization Details Last Updated DateTime 02/20/2024 04079.66 g 140 mm[Hg] 86 mm[Hg] Ana Cristina Griffith [facility] 02/20/2024 10:32:57 Social History Question Answer Notes LastModified by Organizat ion Details LastModified Time Tobacco Smoking Status Current Every Day Smoker Yisel castillo, [facility] 02/13/2024 16:29:11 Do You Use Any Illicit Or Recreational Drugs? No [email or web address] Information not available 02/13/2024 Sex: Unknown Functional Status None recorded. Mental Status None recorded. Family History Nothing Reported. Medical History Condition Response Anemia N Cancer N Gynecological HistoryNo gynecological history recorded. Obstetrics History GPAL:G 0 P 0 0 0 0 Past Encounters Encounter ID Performer Location Encounter Start Date Encounter Closed Date Diagnosis/Indication Diagnosis SNOMED-CT Code Diagnosis ICD10 Code Diagnosis Note [id number] Yuli Montez MD [facility] ([place]) [address] [place] [address] 02/20/2024 10:16:52 02/20/2024 11:24:02 Chronic kidney disease stage 4 996978990 N18.4 Benign ess ential hypertension 6337160 I10 Hyperkalemia 50114191 E8 7.5 Health Concerns Section Related Observation LastModified by Organization Detai ls LastModified Time None Recorded Concern Status LastModified by Organization Details LastModified Time None Recorded Advance Directives Directive None Recorded Payers Encounter Date Sequence Insurance Name Policy Number Policy Mclean Covered Member ID Mclean Member ID Guarantor Name 02/20/2024 1 [facility] (MEDICARE REPLACEMENT/A DVANTAGE - PPO) [id number] Maria Alejandra Hein [id number] Maria Alejandra Hein Notes Date Note Type Note Provider Name and Address Organization Details Recorded Time 02/20/2024 text/html 63-year-old fema daniel with a past medical history significant for HTN, HLD, DM type II with microvascular and macrovascular complications since 2016, history of pancreatitis ,right osteoarthritis of the right shoulder, history of CHF, history of defibrillator placement in 2020 is here for further evaluation of chronic kidney disease She denies having any chest pain, shortness breath or palpitation Denies having any dysuria, hematuria or symptoms of UTI Blood pressure in the office today is under good control She has been compliant with her medications as well as low-sodium dietDenies having any lightheadedness or dizziness no worsening lower extremity edema Yuli Montez MD [address] [place] [address], [id number], [facility] 02/20/2024 11:36:34 OBGyn Episode No OBEpisode recorded.
--- OUTSIDE RECORDS SUMMARY | 2024-04-19 12:51 | XMS_ITS | Encounter Summary ---
Author Organization [facility] Address Formerly [facility] [place] [address] Care Team Providers Care Anatomy And Physiology Instructor Name Role Phone Rei Alcaraz MD Primary Care Provider [phone] Edgar Schilling MD Unavailable Unavailabl Jim Morales MD Unavailable Unavailable Dominguez Locke PA-C Unavailable [phone] Consuelo Boland MD Unavailable Encounter Details Date Type Department Care Team (Late st Contact Info) Description 10/19/2017 Abstract [facility] [address] [place] [phone] Edgar Schilling MD Social History Tobacco Use Types Packs/Day Years Used Date Smoking Tobacco: Every Day Cigarettes 0.5 44.1 Started: 1980 Smokeless Tobacco: Never Alcohol Use Standard Drinks/Week Comments Yes 0 (1 standard drink = 0.6 oz pur e alcohol) Comments Unknown Sex and Gender Information Value Date Recorded Sex Assigned at Female 03/30/2024 9:49 AM 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 OPERATOR Legal Sex Female 1:02 PM CDT Gender Identity Not on file Sexual Orientation Not on file 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 Not on file documented as of this encounter Plan of Treatment Upcoming Encounters Date Type Department Care Team (Latest Contact Info) Description 05/09/2024 1:30 AM 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 OPERATOR [facility] Health[facility] [address] [place] [address] Carlos Wright MD [address] [place] [address] 07/13/2024 11:00 AM CDT Office Visit [address] [address] Carlos Wright MD [address] [place] [address] 07/13/2024 11:00 AM CDT Allied Health/Nurse Visit [address] [address] Carlos Wright MD [address] [place] [address] 09/04/2024 12:30 PM CDT Appointment [facility] [address] [place] [address] Consuelo Boland MD [address] [place] [address] 09/17/2024 11:45 AM CDT Office Visit [facility] [address] [place] [address] Consuelo Boland MD [address] [place] [address] documented as of this encounter Procedures Procedure Name Priority Date/Time Associated Diagnosis Comments BASIC METABOLIC PANEL Routine 10/18/2017 documented in this encounter Results * (ABNORMAL) BASIC METABOLIC PANEL (10/18/2017) SODIUM S/P/B 138 POTASSIUM S/P/B 5.0 CO2 28 CHLORIDE S/P/B 102 GLUCOSE 111 mg/dL CALCIUM S/P/B 9.4 BUN 32 CREATININE S/P/B 1.3(A) 0.5 - 1.0 10/18/2017 us Doc [facility]ORATORY Final Result documented in this encounter Visit Diagnoses Not on filedocumented in this encounter Additional Health Concerns Infection Onset Date Last Indicated Resolved Time COVID-19 Rule Out 11/03/2019 11/03/2019 11/04/2019 3:36 PM CDT documented as of this encounter Care Teams Anatomy And Physiology Instructor Relationship Specialty Start Date End Date Rei Alcaraz MD [address] [place] [address] PCP - General FAMILY PRACTICE 08/25/16 Edgar Schilling MD [address] [phone] [place] Pow[employer] Carrier CARDIOVASCULAR DISEASE 08/25/16 09/03/23 Jim Lugo MD [address] [place] [address] Consulting Physician CLINICAL CARDIAC ELECTROPHYSIOLOGY 05/27/22 09/03/23 Domniguez Locke PA-C [address] [place] [address] PHYSICIAN FRUIT THINNER 05/27/22 Consuelo Boland MD [address] [place] [address] Consulting Physician CARDIOVASCULAR DISEASE 09/04/23 documented as of this encounter
--- OUTSIDE RECORDS SUMMARY | 2024-04-19 12:51 | XMS_ITS | Encounter Summary ---
Author Organization [facility] Address [facility] access hospital[address] [place] [address] Care Team Providers Care Consumer Loan Underwriter Name Role Phone Rei Alcaraz MD Primary Care Provider [phone] Edgar Schilling MD Unavailable Unavailabl Jim Morales MD Unavailable Unavailable Dominguez Locke PA-C Unavailable [phone] Consuelo Boland MD Unavailable Encounter Details Date Type Department Care Team (Late st Contact Info) Description 09/22/2017 Abstract [facility] [address] [place] [phone] Edgar Schilling MD Social History Tobacco Use Types Packs/Day Years Used Date Smoking Tobacco: Every Day Cigarettes 0.5 44.1 Started: 1980 Smokeless Tobacco: Never Alcohol Use Standard Drinks/Week Comments Yes 0 (1 standard drink = 0.6 oz pur e alcohol) Comments Unknown Sex and Gender Information Value Date Recorded Sex Assigned at Female 03/30/2024 9:49 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 Legal Sex Female 1:02 PM CDT Gender Identity Not on file Sexual Orientation Not on file 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 Not on file documented as of this encounter Plan of Treatment Upcoming Encounters Date Type Department Care Team (Latest Contact Info) Description 05/09/2024 1:30 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 [facility] [address] [place] [address] Carlos Wright MD [address] [place] [address] 07/13/2024 11:00 AM CDT Office Visit [address] [address] Carlos Wright MD [address] [place] [address] 07/13/2024 11:00 AM CDT Allied Health/Nurse Visit [address] [address] Carlos Wright MD [address] [place] [address] 09/04/2024 12:30 PM CDT Appointment [facility] [address] [place] [address] Consuelo Boland MD [address] [place] [address] 09/17/2024 11:45 AM CDT Office Visit [facility] [address] [place] [address] Consuelo Boland MD [address] [place] [address] documented as of this encounter Procedures Procedure Name Priority Date/Time Associated Diagnosis Comments BASIC METABOLIC PANEL Routine 09/20/2017 documented in this encounter Results * (ABNORMAL) BASIC METABOLIC PANEL (09/20/2017) SODIUM S/P/B 136 POTASSIUM S/P/B 4.7 CO2 30 CHLORIDE S/P/B 101 GLUCOSE 110 mg/dL CALCIUM S/P/B 9.6 BUN 19 CREATININE S/P/B 1.24(A) 0.5 - 1.0 MAGNESIUM 1.9 B TYPE NATRIURETIC PEPTIDE 187 09/20/2017 us Doc [facility] Abstract LABORATORY Final Result documented in this encounter Visit Diagnoses Not on filedocumented in this encounter Additional Health Concerns Infection Onset Date Last Indicated Resolved Time COVID-19 Rule Out 11/03/2019 11/03/2019 11/04/2019 3:36 PM CDT documented as of this encounter Care Teams Consumer Loan Underwriter Relationship Specialty Start Date End Date Rei Alcaraz MD [address] [place] [address] PCP - General FAMILY PRACTICE 08/25/16 Edgar Schilling MD [address] [phone] [place] Completions Manager CARDIOVASCULAR DISEASE 08/25/16 09/03/23 Jim Lugo MD [address] [place] [address] Consulting Physician CLINICAL CARDIAC ELECTROPHYSIOLOGY 05/27/22 09/03/23 Dominguez Locke PA-C [address] [place] [address] PHYSICIAN SPD TECH 05/27/22 Consuelo Boland MD [address] [place] [address] Consulting Physician CARDIOVASCULAR DISEASE 09/04/23 documented as of this encounter
--- OUTSIDE RECORDS SUMMARY | 2024-04-19 12:51 | XMS_ITS | Encounter Summary ---
Author Organization [facility] Address [facility] [place] [address] Care Team Providers Care Tobacco Feeder Catcher Name Role Phone Rei Alcaraz MD Primary Care Provider [phone] Edgar Schilling MD Unavailable Unavailabl Jim Morales MD Unavailable Unavailable Dominguez Locke PA-C Unavailable [phone] Consuelo Boland MD Unavailable Encounter Details Date Type Department Care Team (Late st Contact Info) Description 09/24/2016 Abstract [facility] [address] [place] [address] Edgar Schilling MD Social History Tobacco Use Types Packs/Day Years Used Date Smoking Tobacco: Every Day Comments Unknown Sex and Gender Information Value Date Recorded Sex Assigned at Female 03/30/2024 9:49 AM DIRECTOR 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 Legal Sex Female 1:02 PM CDT Gender Identity Not on file Sexual Orientation Not on file documented as of this encounter Plan of Treatment Upcoming Encounters Date Type Department Care Team (Latest Contact Info) Description 05/09/2024 1:30 AM DIRECTOR PEOPLESOFT Allied Health[facility] [address] [place] [address] Carlos Wright MD [address] [facility] [address] [address] 07/13/2024 11:00 AM CDT Office Visit [facility] [address] [place] [address] [phone] Carlos Wright MD [address] [place] [address] 07/13/2024 11:00 AM CDT Allied Health/Nurse Visit [facility] [address] [place] [address] Carlos Wright MD [address] [place] [address] 09/04/2024 12:30 PM CDT Appointment [address] [place] [address] Consuelo Boland MD [address] [place] [phone] 09/17/2024 11:45 AM CDT Office Visit [place] [facility] [address] [place] [phone] Consuelo Boland MD [address] [place] [phone] documented as of this encounter Visit Diagnoses Not on filedocumented in this encounter Additional Health Concerns Infection Onset Date Last Indicated Resolved Time COVID-19 Rule Out 11/03/2019 11/03/2019 11/04/2019 3:36 PM CDT documented as of this encounter Care Teams Tobacco Feeder Catcher Relationship Specialty Start Date End Date Rei Alcaraz MD [address] [place] [address] PCP - General FAMILY PRACTICE 08/25/16 Edgar Schilling MD [address] [place] [address] [place] Coupon Collection Clerk CARDIOVASCULAR DISEASE 08/25/16 09/03/23 Jim Lugo MD [address] [place] [address] Consulting Physician CLINICAL CARDIAC ELECTROPHYSIOLOGY 05/27/22 09/03/23 Dominguez Locke PA-C [address] [place] [address] PHYSICIAN SENIOR PLANNING MANAGER 05/27/22 Consuelo Boland MD [address] [place] [address] Consulting Physician CARDIOVASCULAR DISEASE 09/04/23 documented as of this encounter
--- OUTSIDE RECORDS SUMMARY | 2024-04-19 12:51 | XMS_ITS | Clinical Summary ---
Author Organization [facility] Address [address] [place] [address] Care Team Providers Care Insurance Healthcare Representative Name Role Phone Rei Alcaraz MD Primary Care Provider [phone] Dominguez Locke PA-C Unavailable [phone] Melisas Regan MD Unavailable Allergies No known active allergies Medications magnesium oxide 400 MG tablet Take 1 tablet (400 mg total) by mouth daily. Active aspirin EC (ECOTRIN) 81 MG tablet Take 1 tablet (81 mg total) by mouth daily. Active Co-Enzyme Q-10 100 MG Cap Take 100 mg by mouth daily. 90 capsule 3 09/22/19 19 Active albuterol sulfate HFA 108 (90 Base) MCG/ACT inhaler Inhale 2 puffs into the lungs every 6 (six) hours as needed. 06/14/19 20 Active ARNUITY ELLIPTA 100 MCG/ACT AEROSOL POWDER, BREATH ACTIVATED Inhale 1 puff into the lungs daily. 07/13/19 20 Active allopurinol (ZYLOPRIM) 100 MG tablet Take 1 tablet (100 mg total) by mouth daily. 05/20/19 23 Active rOPINIRole (REQUIP) 0.25 MG tablet Take 2 tablets (0.5 mg total) by mouth nightly at bedtime. 04/12/19 23 Active Krill Oil 1000 MG Cap Active warfarin (COUMADIN) 2.5 MG tablet see administration instructions. 04/30/19 24 Active furosemide (LASIX) 40 MG tablet Take 1 tablet (40 mg total) by mouth daily. Active rosuvastatin (CRESTOR) 40 MG tablet Take 1 tablet (40 mg total) by mouth nightly at bedtime. 90 tablet 3 01/18/20 24 Active metoprolol succinate ER (TOPROL-XL) 50 MG 24 hr tablet TAKE 1 TABLET BY MOUTH TWICE DAILY 200 tablet 2 02/13/20 24 Active tirzepatide (MOUNJARO) 10 MG/0.5ML injection Active nitroglycerin (NITROSTAT) 0.4 MG SL tabletIndicati ons:Coronary artery disease involving kotlik coronary artery of kotlik heart without angina pectoris Place 1 tablet (0.4 mg total) under the tongue every 5 (five) minutes as needed for Chest Pain. 25 tablet 03/30/19 25 Active JANUVIA 25 MG Tab Take 1 tablet (25 mg total) by mouth daily. 05/20/19 22 025 Discontinu ed(Discont inued by another clinician) nitroglycerin 0.4 MG SL tabletIndicati ons:Coronary artery disease involving kotlik coronary artery of kotlik heart without angina pectoris Place 1 tablet (0.4 mg total) under the tongue every 5 (five) minutes as needed for Chest Pain. 25 tablet 06/17/19 22 025 Discontinu ed(Reorder ) Active Problems Problem Noted Date Diagnosed Date Presence of cardioverter defibrillator 4 Contusion of right ankle 08/05/2021 Mixed hyperlipidemia 09/21/2019 Ischemic cardiomyopathy 02/20/2017 Other pulmonary embolism wit hout acute cor pulmonale ([facility]) 02/20/2017 LV dysfunction 01/26/2017 Pulmonary hypertension ([facility]) 017 LV (left ventricular) mural thrombus without NC ([facility]) Dyspnea Tobacco abuse Chronic systolic heart failure ([facility] COPD (chronic obstructive pu lmonary disease) ([facility]) Diabetes ([facility]) CAD (coronary artery disease) Encounters Date Type Department Care Team Description 03/30/2024 10:15 AM CYBER REVERSE ENGINEER Office Visit [facility] [place] [address] Melissa Regan MD Heart Problem 03/30/2024 9:49 AM CYBER REVERSE ENGINEER - 03/30/2024 11:59 PM CYBER REVERSE ENGINEER Hospital Encounter [facility] [address] [place] [address] Melissa Regan MD Discharge Disposition: Home or Self Care (Routine Discharge) 03/30/2024 Travel 03/28/2024 Orders Only [facility] [address] [place] [address] Melissa Regan MD 02/28/2024 9:23 AM CYBER REVERSE ENGINEER - 02/28/2024 11:59 PM CYBER REVERSE ENGINEER Hospital Encounter [facility] [address] [place] [address] Yuli Lin MD Discharge Disposition: Home or Self Care (Routine Discharge) 02/28/2024 Travel 01/26/2024 Telephone [facility] [address] [place] [address] Melissa Regan MD Lab Results 01/20/2024 12:00 PM CYBER REVERSE ENGINEER Allied Health/Nurse Visit [facility] [address] [place] [address] Carlos Wright MD 01/20/2024 11:44 AM CYBER REVERSE ENGINEER - 01/20/2024 11:59 PM CYBER REVERSE ENGINEER Hospital Encounter [facility] [address] [place] [address] Melissa Regan MD Discharge Disposition: Home or Self Care (Routine Discharge) 01/20/2024 Travel 01/18/2024 Orders Only [facility] [address] [place] [address] Melissa Regan MD from Last 3 Months Family History Medical History Relation Comments Hypertension Brother Miscarriages / Stillbirths Daughter Cancer Father Prostate,skin Heart Disease Father Hypertension Father NC Father Heart Disease Maternal Aunt Heart Disease Maternal Grandfather Arthritis Maternal Grandmother In her hand s Heart Disease Maternal Uncle Stroke Maternal Uncle Heart Disease Mother Hypertension Mother NC Mother Heart Disease Paternal Grandfather Heart Disease Paternal Grandmother Atherosclerosis Sister Heart Disease Sister Hypertension Sister Relation Status Comments Brother Daughter Father Maternal Aunt Maternal Grandfather Maternal Grandmother Maternal Uncle Mother Paternal Grandfather Paternal Grandmother Sister Alive Social History Tobacco Use Types Packs/Day Years Used Date Smoking Tobacco: Every Day Cigarettes 1 44.1 Started: 1980 Smokeless Tobacco: Never Comments:Smoked since 1980 Alcohol Use Standard Drinks/Week Comments Not Currently 0 (1 standard drink = 0.6 oz pur e alcohol) Comments Unknown Sex and Gender Information Value Date Recorded Sex Assigned at Female 03/30/2024 9:49 AM CYBER REVERSE ENGINEER Legal Sex Female 1:02 PM CDT Gender Identity Not on file Sexual Orientation Not on file 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 Not on file Last Filed Vital Signs Vital Sign Reading Time Taken Comments Blood Pressure 114/64 03/30/2024 1:49 PM CYBER REVERSE ENGINEER Pulse 74 03/30/2024 1:49 PM CYBER REVERSE ENGINEER Temperature 36.2 C (97.2 F) 11/06/2019 11:00 AM CDT Respiratory Rate 20 03/30/2024 1:49 PM CYBER REVERSE ENGINEER Oxygen Saturation 97% 03/30/2024 1:49 PM CYBER REVERSE ENGINEER Inhaled Oxygen Concentration - - Weight 87.1 kg (192 lb) 03/30/2024 1:49 PM CYBER REVERSE ENGINEER Height 157.5 cm (5' 2 ) 03/30/2024 1:49 PM CYBER REVERSE ENGINEER Body Mass Index 35.12 03/30/2024 1:49 PM CYBER REVERSE ENGINEER Plan of Treatment Upcoming Encounters Date Type Department Care Team (Latest Contact Info) Description 05/09/2024 1:30 AM CYBER REVERSE ENGINEER [facility] [address] [place] [address] Carlos Wright MD [address] [place] [phone] 07/13/2024 11:00 AM CDT [facility] [address] [place] [address] Carlos Wright MD [address] [place] [address] [phone] 07/13/2024 11:00 AM CDT Allied Health/Nurse Visit [facility] [address] [place] [address] Carlos Wright MD [address] [facility] [address] [place], [place] [address] 09/04/2024 12:30 PM CDT Appointment [address] [place] [address] Melissa Regan MD [address] [place] [address] [phone] 09/17/2024 11:45 AM CDT Office Visit [facility] [place] [address] Melissa Regan MD [address] [place] [address] [phone] Health Maintenance Due Date Last Done Comments Colorectal Cancer Screening Colonoscopy (10 Years) 1960 Kidney Health Evaluation 1962 Annual Physical 1965 Pneumococcal Vaccine: Pediatrics (0 to 5 Years) and At-Risk Patients (6 to 64 Years) (1 of 2 - PCV) 1968 Diabetes: Retinopathy Eye Exam 1980 Hepatitis C 1980 DTaP, Tdap and Td Vaccines (1 - Tdap) 1981 Mammogram Screening 2002 Lung Cancer Screening 2012 Zoster Vaccines (1 of 2) 2012 Hemoglobin A1C 03/03/2017 09/01/2016 RSV Immunization or 60+ Years (1 - Risk 60-74 years 1-dose series) 2022 COVID-19 Vaccine (1 - season) 2023 Influenza Adult (#1) 2023 Lipid Panel 12/12/2024 12/13/2023, 05/2 06/2021, 05/11/2021, Additional history exists Meningococcal B Vaccine Aged Out No l onger eligible based on patient's age to complete this topic Meningococcal Vaccine Aged Out No ying rosalino eligible based on patient's age to complete this topic RSV Immunizations Under 20 Months Aged Out No longer eligible based on patient's age to complete this topic Medical Devices Implanted Type Area Sole Dyer Device Identifier Shelf Expiration Date Model / Serial / Lot Ep-Sjm Ellipse Vr Icd-11/06/2019 Implanted:Qt y: 1 on 11/06/2019 by Jim Lugo MD ICD [facility] 04/06/2021 [id number] / [id number] / Description:SJM Ellipse VR I CD Ep-Optisure Icd Lead- 0 Implanted:Qt y: 1 on 11/06/2019 by Jim Lugo MD Lead Implant Right: Ventricle [facility] [facility] 07/04/2021 [id number] / [id number] / Description:SJM Optisure 58c m Lead Procedures Procedure Name Priority Date/Time Associated Diagnosis Comments ECG 12-LEAD Routine 03/30/2024 10:01 AM CYBER REVERSE ENGINEER Coronary artery disease involving kotlik coronary artery of kotlik heart without angina pectoris US RETROPERITONEAL COMP Routine 02/28/20 10:15 AM CYBER REVERSE ENGINEER CKD (chronic kidney disease) stage 4, GFR 15-29 ml/min ([facility]) COMPREHENSIVE METABOLIC PANEL Routine 01/20/2024 11:54 AM CYBER REVERSE ENGINEER Encounter for long-term current use of medication LIPID PANEL Routine 12/13/2023 11:10 AM CDT Hyperlipidemia, mixed Essential (primary) hypertension HEMOGLOBIN, GLYCOSYLATED TIMED 09/01/2016 4:36 AM CDT from Last 3 Months or Most Recently Relevant to Health Maintenance Results * ECG 12 lead (HOSPITAL PERFORMED ONLY) (03/30/2024 10:01 AM CYBER REVERSE ENGINEER) 03/30/2024 10:0 1 AM CYBER REVERSE ENGINEER Narrative [facility] - 03/30/2024 6:24 PM CYBER REVERSE ENGINEER [address] [place] [address] Test Date: 2024-03-30 Pat Name: MIKE ESCOBAR Department: 3 Room: Gender: Female Logistics Solution Manager: : 1960 Requested By: MELISSA REGAN Order Number: [id number] Reading MD: Melissa Regan Measurements Intervals [place] Rate: 73 P: 46 TN: 146 QRS: 105 QRSD: 93 T: 100 QT: 393 QTc: 435 Interpretive Statements SINUS RHYTHM LOW QRS VOLTAGE IN PRECORDIAL LEADS [QRS DEFLECTION < 1.0 mV IN CHEST LEADS] LATERAL MYOCARDIAL INFARCTION , OF INDETERMINATE AGE [40+ ms Q WAVE AND/OR ST/T ABNORMALITY IN I/aVL/V5/V6] R REVERSE ENGINEER Procedure Note Melissa Regan MD - 03/30/[address] [place] [address] Test Date: 2024-03-30 Pat Name: MIKE ESCOBAR Department: 3 Room: Gender: Female Logistics Solution Manager: : 1960 Requested By: MELISSA REGAN Order Number: [id number] Reading MD: Melissa Regan Measurements Intervals [place] Rate: 73 P: 46 TN: 146 QRS: 105 QRSD: 93 T: 100 QT: 393 QTc: 435 Interpretive Statements SINUS RHYTHM LOW QRS VOLTAGE IN PRECORDIAL LEADS [QRS DEFLECTION < 1.0 mV IN CHESTLEADS] LATERAL MYOCARDIAL INFARCTION , OF INDETERMINATE AGE [40+ ms Q WAVEAND/OR ST/T ABNORMALITY IN I/aVL/V5/V6] R REVERSE ENGINEER us Melissa Regan MD ECG ORDERABLES Final Result [facility] * US RETROPERITONEAL COMP (02/28/2024 10:15 AM CYBER REVERSE ENGINEER) Anatomical Region Laterality Modality Abdomen Ultrasound 02/28/2024 3:55 PM CYBER REVERSE ENGINEER Impressions 02/28/2024 3:58 PM CYBER REVERSE ENGINEER IMPRESSION: 1. Unremarkable sonographic appearance of each kidney and urinary bladder. 2. 3.3 cm left adnexal cyst most likely of left ovarian origin. Ordered By: YULI LIN Interpreted By: Bull Brady MD, 02/28/2024 3:55 PM Narrative 02/28/2024 3:58 PM CYBER REVERSE ENGINEER [address] [place] [address] Examination: US RETROPERITONEAL COMP Exam time: 02/28/2024 9:30 AM Clinical history: Chronic kidney disease Comparison: No prior exam Findings: Right kidney measures 9.2 cm in length and the left measures 10.7 cm. No evidence of focal renal parenchymal defects or scarring bilaterally. Renal parenchymal echogenicity is within normal limits bilaterally. No sonographic evidence of focal cystic or solid renal lesions. No evidence of hydronephrosis. No evidence of focal or diffuse urinary bladder wall thickening. No evidence of abnormal intraluminal echogenicity. Left urine Doppler jet was visualized. Right urine Doppler jet was not visualized. No evidence of postvoid residual volume. 3.3 cm left adnexal cyst visualized most likely of left ovarian origin. Follow- up pelvic ultrasound could be considered in 6-8 weeks to evaluate stability. Procedure Note Bull Brady MD - 02/28/[address] [place] [address] Examination: US RETROPERITONEAL COMP Exam time: 02/28/2024 9:30 AM Clinical history: Chronic kidney disease Comparison: No prior exam Findings: Right kidney measures 9.2 cm in length and the left zmoqxupd07.7 cm. No evidence of focal renal parenchymal defects or scarringbilaterally. Renal parenchymal echogenicity is within normal limitsbilaterally. No sonographic evidence of focal cystic or solid renallesions. No evidence of hydronephrosis. No evidence of focal or diffuse urinary bladder wall thickening. Noevidence of abnormal intraluminal echogenicity. Left urine Doppler jet wasvisualized. Right urine Doppler jet was not visualized. No evidence ofpostvoid residual volume. 3.3 cm left adnexal cyst visualized most likely of left ovarian origin.Follow-up pelvic ultrasound could be considered in 6-8 weeks to evaluatestability. IMPRESSION: 1. Unremarkable sonographic appearance of each kidney and urinarybladder. 2. 3.3 cm left adnexal cyst most likely of left ovarian origin. Ordered By: YULI LIN Interpreted By: Bull Brady MD, 02/28/2024 3:55 PM us Yuli Lin MD ULTRASOUND Final Resu lt * (ABNORMAL) COMPREHENSIVE METABOLIC PANEL (01/20/2024 11:54 AM CYBER REVERSE ENGINEER) SODIUM S/P/B 134(L) 136 - 145 MMOL/L 01/20/2024 12:18 PM [facility] POTASSIUM S/P/B 4.3 3.5 - 5.1 MMOL/L 01/20/2024 12:18 PM [facility] CHLORIDE S/P/B 98 98 - 107 MMOL/L 01/20/2024 12:18 PM [facility] CO2 27.6 21.0 - 32.0 MMOL/L 01/20/2024 12:18 PM [facility] GLUCOSE 428(H) 70 - 99 MG/DL 01/20/2024 12:18 PM [facility] Comment: FASTING GLUCOSE 100 TO 125 MG/DL IS CONSISTENT WITH IMPAIRED FASTING GLUCOSE. FASTING GLUCOSE >125 MG/DL IS CONSISTENT WITH DIABETES. RANDOM GLUCOSE >200 MG/DL WITH HYPERGLYCEMIC SYMPTOMS IS CONSISTENT WITH DIABETES. PER ADA GUIDELINES BUN 35(H) 6 - 24 MG/DL 01/20/2024 12:18 PM [facility] CREATININE S/P/B 2.01(H) 0.55 - 1.02 MG/DL 01/20/2024 12:18 PM [facility] CALCIUM S/P/B 9.1 8.4 - 10.5 MG/DL 01/20/2024 12:18 PM [facility] BILIRUBIN TOTAL S/P/B 0.5 0.2 - 1.0 MG/DL 01/20/2024 12:18 PM [facility] Comment: THIS ASSAY IS NOT RECOMMENDED FOR PATIENTS UNDERGOING TREATMENT WITH ELTROMBOPAG DUE TO THE POTENTIAL FOR FALSELY ELEVATED RESULTS. ALKALINE PHOSPHATASE S/P/B 101 50 - 130 U/L 01/20/2024 12:18 PM [facility] AST 18 15 - 37 U/L 01/20/2024 12:18 PM [facility] ALT 34 14 - 59 U/L 01/20/2024 12:18 PM [facility] TOTAL PROTEIN S/P/B 7.7 6.4 - 8.2 G/DL 01/20/2024 12:18 PM [facility] ALBUMIN S/P/B 3.6 3.4 - 5.0 G/DL 01/20/2024 12:18 PM [facility] ANION GAP 8.4 5.0 - 15.0 MMOL/L 01/20/2024 12:18 PM [facility] OSMOLALITY (CALC) 304 MOSM/KG 024 12:18 PM [facility] Comment:REFERENCE RANGE NOT ESTABLISHED GFR ESTIMATE 28(L) >89 ML/MIN/1. 73 M2 01/20/2024 12:18 PM [facility] GFR NOTES GFR REFERENCE S: 01/20/2024 12:18 PM [facility] Comment: THE ESTIMATED GFR IS CALCULATED USING THE 2020 CKD-EPI EQUATION. THE FOLLOWING CATEGORIES FOR GRADING RENAL FUNCTION ARE RECOMMENDED BY THE INTERNATIONAL SOCIETY OF NEPHROLOGY (KDIGO 2012 CLINICAL PRACTICE GUIDELINE). G1,NORMAL OR HIGH: >89 ml/min/1.73 m2 G2,MILDLY DECREASED: 60-89 ml/min/1.73 m2 G3A,MILDLY TO MODERATELY DECREASED: 45-59 ml/min/1.73 m2 G3B,MODERATELY TO SEVERELY DECREASED: 30-44 ml/min/1.73 m2 G4,SEVERELY DECREASED: 15-29 ml/min/1.73 m2 G5,KIDNEY FAILURE: <15 ml/min/1.73 m2 01/20/2024 11:5 4 AM CYBER REVERSE ENGINEER Melissa Regan MD LABORATORY Final Result [facility] [address] [place] [address], * LIPID PANEL (12/13/2023 11:10 AM CDT) CHOLESTEROL 141 MG/DL 12/14/2023 12:55 PM CDT [facility] Comment:DESIRABLE: <200 TRIGLYCERIDES 316 MG/DL 12/14/2023 12:55 PM CDT [facility] Comment:200-499 HIGH HDL 53 >49 MG/DL 12/14/2023 12:55 PM CDT [facility] LDL-C 25 MG/DL 12/14/2023 12:55 PM CDT [facility] Comment:<100 OPTIMAL VLDL CALCULATION 63 MG/DL 12/14/19 12:55 PM CDT [facility] Comment:REFERENCE RANGE NOT ESTABLISHED CHOL/HDL RATIO 2.7 12/14/2023 12:55 PM CDT [facility] Comment:REFERENCE RANGE NOT ESTABLISHED LDL/HDL 0.5 12/14/2023 12:55 PM CDT [facility] Comment:REFERENCE RANGE NOT ESTABLISHED NON HDL CHOLESTEROL 88 MG/DL 12/14/2023 12:55 PM CDT [facility] Comment:REFERENCE RANGE NOT ESTABLISHED 12/13/2023 11:1 0 AM CDT Melissa Regan MD LABORATORY Final Result [facility] [address] [place] [address], [id number] * (ABNORMAL) HEMOGLOBIN, GLYCOSYLATED (09/01/2016 4:36 AM CDT) HGB A1C 6.5(H) 4.5 - 6.0 % 09/01/2016 4:01 AM CDT [facility] ESTIMATED AVG GLUCOSE 140 MG/DL 09/01/2016 4:01 AM CDT [facility] 09/01/2016 4:36 AM CDT 09/01/2016 3:37 AM CDT us Generic Conversion Md [facility] Final R esult [facility] [address] [place] [address], [id number] from Last 3 Months or Most Recently Relevant to Health Maintenance Insurance [facility] MEDICAID Advance Directives * Full Code (Latest Code Status on File) Date Activated Date Inactivated Comments 11/06/2019 3:30 PM 11/06/2019 8:35 PM Care Teams Insurance Healthcare Representative Relationship Specialty Start Date End Date Rei Alcaraz MD [address] [place] [address] PCP - General FAMILY PRACTICE 08/25/16 Dominguez Locke PA-C [address] [place] [address] PHYSICIAN FIRE PREVENTION FORESTER 05/27/22 Melissa Regan MD [address] [place] [address] Consulting Physician CARDIOVASCULAR DISEASE 09/04/23
== END 2024-04-19 12:47 | disposition home or self-care (01) ==
PROVIDERS: PCP Family Medicine; Visit Provider Family Medicine
DX: Z12.31 Encounter for screening mammogram for malignant neoplasm of breast (principal); Z78.0 Asymptomatic menopausal state; M81.0 Age-related osteoporosis without current pathological fracture; M85.88 Other specified disorders of bone density and structure, other site
CPT/HCPCS: 77063; 77067; 77080

== ENCOUNTER 2024-05-19 11:31 | Emergency (ER) | payer MEDICARE, MEDICAID, SELFPAY ==
--- NOTE | ~2024-05-19 | CT_ITS ---
Non-contrast Head CT History: Head injury Technique: Axial non-contrast imaging of the brain was performed. Dose reduction technique was used on this scan by utilizing automated exposure control and iterative reconstruction technique. The dose -length product (DLP) was 605.33 mGy-cm. Findings: There is no evidence of intracranial hemorrhage, mass lesion, or acute infarct. Brain par enchyma appears normal. The ventricles and subarachnoid spaces are normal in size. The calvarium ap pears normal. The visualized paranasal sinuses and mastoid air cells are clear. Impression: No significant abnormality seen. Reviewed, dictated and finalized at location . Impression: No significant abnormality seen.
--- NOTE | ~2024-05-19 | XR_ITS ---
AP and oblique views of the right ribs, and PA and lateral chest radiographs Clinical History: Pain Findings: No rib fracture is seen. Osseous alignment is anatomic. Lungs are clear, without focal cons olidation or pleural effusion. Cardiomediastinal contour is within normal limits, with pacemaker lilly ce. Soft tissues are unremarkable. Impression: Clear lungs. No rib fracture is seen. Reviewed, dictated and finalized at location . Impression: Clear lungs. No rib fracture is seen.
--- OUTSIDE RECORDS SUMMARY | 2024-05-19 11:32 | XMS_ITS | Encounter Summary ---
Author Organization [facility] Address [facility] [place] [address] Care Team Providers Care Cake Knocker Name Role Phone Rei Alcaraz MD Primary Care Provider [phone] Edgar Schilling MD Unavailable UnavailJim Zuniga MD Unavailable Unavailable Dominguez Locke PA-C Unavailable [phone] Consuelo Boland MD Unavailable Encounter Details Date Type Department Care Team (Late st Contact Info) Description 01/11/2018 Abstract [facility] [address] [place] [phone] Abstract, Doc [facility] Social History Tobacco Use Types Packs/Day Years Used Date Smoking Tobacco: Every Day Cigarettes 0.5 44.2 Started: 1980 Smokeless Tobacco: Never Alcohol Use Standard Drinks/Week Comments Yes 0 (1 standard drink = 0.6 oz pur e alcohol) Comments Unknown Sex and Gender Information Value Date Recorded Sex Assigned at Female 03/30/2024 9:49 AM ENFORCEMENT MANAGER Legal Sex Female 1:02 PM CDT Gender Identity Not on file Sexual Orientation Not on file 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 [address] [place] [address] Carlos Wright MD [address] [address] 09/04/2024 12:30 PM CDT Appointment [address] [place] [address] Consuelo Boland MD [address] [place] [address] 09/10/2024 11:45 AM CDT Office Visit [facility] [place] [address] Consuelo Boland MD [address] [place] [address] 10/17/2024 1:30 AM CDT Allied Health/Nurse Visit [facility] [address] [place] [address] Carlos Wright MD [address] [address] documented as of this encounter Procedures Procedure [...] documented as of this encounter Care Teams Cake Knocker Relationship Specialty Start Date End Date Rei Alcaraz MD [address] [place] [address] PCP - General FAMILY PRACTICE 08/25/16 Edgar Schilling MD [address] [place] [address] [place] Ornithology Teacher CARDIOVASCULAR DISEASE 08/25/16 09/03/23 Jim Lugo MD [address] [place] [address] Consulting Physician CLINICAL CARDIAC ELECTROPHYSIOLOGY 05/27/22 09/03/23 Dominguez Locke PA-C [address] [place] [address] PHYSICIAN LINE APPLIANCE ASSEMBLER 05/27/22 Consuelo Boland MD [address] [place] [address] Consulting Physician CARDIOVASCULAR DISEASE 09/04/23 documented as of this encounter
--- OUTSIDE RECORDS SUMMARY | 2024-05-19 11:32 | XMS_ITS | Encounter Summary ---
Author Organization [facility] Address [facility] [place] [address] Care Team Providers Care Operations Research Manager Name Role Phone Rei Alcaraz MD Primary Care Provider [phone] Edgar Schilling MD Unavailable Unavailabl Jim Morales MD Unavailable Unavailable Dominguez Locke PA-C Unavailable [phone] Consuelo Boland MD Unavailable Encounter Details Date Type Department Care Team (Late st Contact Info) Description 12/29/2017 Abstract [facility] [address] [place] [phone] Edgar Schilling MD Social History Tobacco Use Types Packs/Day Years Used Date Smoking Tobacco: Every Day Cigarettes 0.5 44.2 Started: 1980 Smokeless Tobacco: Never Alcohol Use Standard Drinks/Week Comments Yes 0 (1 standard drink = 0.6 oz pur e alcohol) Comments Unknown Sex and Gender Information Value Date Recorded Sex Assigned at Female 03/30/2024 9:49 AM ASSISTANT MANAGER QUALITY MANAGEMENT Legal Sex Female 1:02 PM CDT Gender Identity Not on file Sexual Orientation Not on file 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 Not on file documented as of this encounter Plan of Treatment Upcoming Encounters Date Type Department Care Team (Latest Contact Info) Description 07/13/2024 11:00 AM CDT [facility] [address] [place] [address] Carlos Wright MD [address] [place] [address] 07/13/2024 11:00 AM CDT Allied Health/Nurse Visit [facility] [address] [place] [address] Carlos Wright MD [address] [address] 09/04/2024 12:30 PM CDT Appointment [facility] [address] [place] [address] Consuelo Boland MD [address] [place] [address] 09/10/2024 11:45 AM CDT [facility] [address] [place] [address] Consuelo Boland MD [address] [place] [address] 10/17/2024 1:30 AM CDT Allied Health/Nurse Visit [facility] [address] [place] [address] Carlos Wright MD [address] [place] [address] documented as of this encounter Procedures Procedure Name Priority Date/Time Associated Diagnosis Comments PROTHROMBIN TIME, VENOUS Routine 12/28/2017 BASIC METABOLIC PANEL Routine 12/28/2017 documented in this encounter Results * PROTIME/INR, VENOUS (12/28/2017) PROTIME WHOLE BLOOD 18.7 INR WHOLE BLOOD 1.70 12/28/2017 us Doc [facility] Abstract LABORATORY Final Result * (ABNORMAL) BASIC METABOLIC PANEL (12/28/2017) Pathologist [facility] SODIUM S/P/B 139 POTASSIUM S/P/B 4.4 CO2 [...] documented as of this encounter Care Teams Operations Research Manager Relationship Specialty Start Date End Date Rei Alcaraz MD [address] [place] [phone] PCP - General FAMILY PRACTICE 08/25/16 Edgar Schilling MD [address] [phone] [place] Geography Instructor CARDIOVASCULAR DISEASE 08/25/16 09/03/23 Jim Lugo MD [address] [place] [address] Consulting Physician CLINICAL CARDIAC ELECTROPHYSIOLOGY 05/27/22 09/03/23 Dominguez Locke PA-C [address] [place] [phone] PHYSICIAN CLINICAL STATISTICAL PROGRAMMER 05/27/22 Consuelo Boland MD [address] [place] [address] Consulting Physician CARDIOVASCULAR DISEASE 09/04/23 documented as of this encounter
--- OUTSIDE RECORDS SUMMARY | 2024-05-19 11:32 | XMS_ITS | Encounter Summary ---
Author Organization [facility] Address [facility] [place] [address] Care Team Providers Care Clinical Case Manager Name Role Phone Rei Alcaraz MD Primary Care Provider [phone] Edgar Schilling MD Unavailable Unavailabl Jim Morales MD Unavailable Unavailable Dominguez Locke PA-C Unavailable [phone] Consuelo Boland MD Unavailable Encounter Details Date Type Department Care Team (Late st Contact Info) Description 04/28/2017 Abstract [facility] [address] [place] [phone] Edgar Schilling MD Social History Tobacco Use Types Packs/Day Years Used Date Smoking Tobacco: Every Day Cigarettes 0.5 44.2 Started: 1980 Smokeless Tobacco: Never Alcohol Use Standard Drinks/Week Comments Yes 0 (1 standard drink = 0.6 oz pur e alcohol) Comments Unknown Sex and Gender Information Value Date Recorded Sex Assigned at Female 03/30/2024 9:49 AM LABORER PRESTRESSED CONCRETE Legal Sex Female 1:02 PM CDT Gender Identity Not on file Sexual Orientation Not on file 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 [address] [place] [address] Carlos Wright MD [address] [place] [address] 07/13/2024 11:00 AM CDT Allied Health/Nurse Visit [facility] [address] [place] [address] Carlos Wright MD [address] [address] 09/04/2024 12:30 PM CDT Appointment [facility] [address] [facility] [place] [place] [address] Consuelo Boland MD [address] [place] [address] 09/10/2024 11:45 AM CDT [facility] [address] [facility] [place] [place] [address] Consuelo Boland MD [address] [place] [address] 10/17/2024 1:30 AM CDT Allied Health/Nurse Visit [facility] [address] [place] [address] Carlos Wright MD [address] [place] [address] documented as of this encounter Procedures Procedure [...] documented as of this encounter Care Teams Clinical Case Manager Relationship Specialty Start Date End Date Rei Alcaraz MD [address] [place] [address] PCP - General FAMILY PRACTICE 08/25/16 Edgar Schilling MD 4 [place] [address] [place] Associate Professor Of Automation CARDIOVASCULAR DISEASE 08/25/16 09/03/23 Jim Lugo MD 4 [place] [address] Consulting Physician CLINICAL CARDIAC ELECTROPHYSIOLOGY 05/27/22 09/03/23 Dominguez Locke PA-C [address] [place] [address] PHYSICIAN CONSULAR OFFICER 05/27/22 Consuelo Boland MD [address] [place] [address] Consulting Physician CARDIOVASCULAR DISEASE 09/04/23 documented as of this encounter
[2024-05-19 11:33] VITALS: BP 118/76; PULSE 73; RESP 20; TEMP 36.9; O2SAT 100
--- OUTSIDE RECORDS SUMMARY | 2024-05-19 11:33 | XMS_ITS | Encounter Summary ---
Author Organization [facility] Address [facility] [place] [address] Care Team Providers Care National Van Truck Driver Name Role Phone Rei Alcaraz MD Primary Care Provider [phone] Edgar Schilling MD Unavailable Unavailabl Jim Morales MD Unavailable Unavailable Dominguez Locke PA-C Unavailable [phone] Consuelo Boland MD Unavailable Encounter Details Date Type Department Care Team (Late st Contact Info) Description 09/24/2016 [facility] [address] [place] [address] Edgar Schilling MD Social History Tobacco Use Types Packs/Day Years Used Date Smoking Tobacco: Every Day Comments Unknown Sex and Gender Information Value Date Recorded Sex Assigned at Female 03/30/2024 9:49 AM 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 Legal Sex Female 1:02 PM CDT Gender Identity Not on file Sexual Orientation Not on file documented as of this encounter Plan of Treatment Upcoming Encounters Date Type Department Care Team (Latest Contact Info) Description 07/13/2024 11:00 AM CDT [facility] [address] [place] [address] Carlos Wright MD 619 [facility] [address] [address] 07/13/2024 11:00 AM CDT Allied Health/Nurse Visit [facility] [address] [place] [address] Carlos Wright MD [address] [address] 09/04/2024 12:30 PM CDT Appointment [address] [place] [address] Consuelo Boland MD [address] [place] [address] 09/10/2024 11:45 AM CDT Office Visit [facility] [place] [address] Consuelo Boland MD [address] [place] [address] 10/17/2024 1:30 AM CDT Allied Health/Nurse Visit [facility] [address] [place] [address] Carlos Wright MD [address] [address] documented as of this encounter Visit Diagnoses Not on filedocumented in this encounter Additional Health Concerns Infection Onset Date Last Indicated Resolved Time COVID-19 Rule Out 11/03/2019 11/03/2019 11/04/2019 3:36 PM CDT documented as of this encounter Care Teams National Van Truck Driver Relationship Specialty Start Date End Date Rei Alcaraz MD [address] [place] [address] PCP - General FAMILY PRACTICE 08/25/16 Edgar Schilling MD [address] [place] [address] Chunky Claims Processor CARDIOVASCULAR DISEASE 08/25/16 09/03/23 Jim Lugo MD [address] [place] [address] Consulting Physician CLINICAL CARDIAC ELECTROPHYSIOLOGY 05/27/22 09/03/23 Dominguez Locke PA-C [address] [place] [address] PHYSICIAN TUMBLING BARREL PAINTER 05/27/22 Consuelo Boland MD [address] [place] [address] Consulting Physician CARDIOVASCULAR DISEASE 09/04/23 documented as of this encounter
--- OUTSIDE RECORDS SUMMARY | 2024-05-19 11:33 | XMS_ITS | Data Portability ---
Author Organization [facility], [address] [place] [address] ([place]) Address [address] [place] [address] [address] [place] [address] Care Team Providers Care Work Checker Name Role Phone YULI MONTEZ Scientific Research Associate [phone] CAESAR FLORIAN Primary Care Provider [phone] Assessment Encounter Date Assessment Date Assessment LastModified [...] Details Appointments Establish ed Patient 15.EST 2024 01:15P M Yamile Mckeon Not available Not available Not available Lab None recorded. Referral None recorded. Procedures None recorded. Surgeries None recorded. Imaging None recorded. Medication Orders None recorded. Patient TargetsNo targets recorded. Patient InstructionsNo instructions recorded. Reason for Referral None Reported. Results Created Date Observation Date Name Description Value Unit Range Abnormal Flag Note LastModifiedBy Organization Detail LastModifiedTime 02/20/2002/20/2024 CBC CBC Not Available [facility] [address], [address], 02/20/2024 17:13:57 02/20/20 24 02/20/2024 CBC WBC 8.2 K/uL 3.8-11 .2 Not Available [facility] [address], [address], 02/20/2024 17:13:57 02/20/20 24 02/20/2024 CBC RBC 5.22 M/uL 3.92-5 .10 high Not Available [facility] [address] [place] [address], [address], 02/20/2024 17:13:57 02/20/20 24 02/20/2024 CBC HGB 15.5 g/dL 11.8-1 5.3 high Not Available [facility] [address] [place] [address], [address], 02/20/2024 17:13:57 02/20/20 24 02/20/2024 CBC HCT 45.9 % 36.5-4 4.8 high Not Available [facility] [address] [place] [address], [address], 02/20/2024 17:13:57 02/20/20 24 02/20/2024 CBC MCV 87.9 fL 80.0-9 9.0 Not Available [facility] [address] [place] [address], [address], 02/20/2024 17:13:57 02/20/20 24 02/20/2024 CBC MCH 29.7 pg 25.5-3 3.6 Not Available [facility] [address] [place] [address], [address], 02/20/2024 17:13:57 02/20/20 24 02/20/2024 CBC MCHC 33.8 g/dL 32.0-3 6.0 Not Available [facility] [address] [place] [address], [address], 02/20/2024 17:13:57 02/20/20 24 02/20/2024 CBC RDW-SD 41.9 fL 35.1 - 46.3 Not Available [facility] [address] [place] [address], [address], 02/20/2024 17:13:57 02/20/20 24 02/20/2024 CBC plt 264 K/uL 130-40 0 Not Available [facility] [address] [place] [address], [address], 02/20/2024 17:13:57 02/20/20 24 02/20/2024 CBC MPV 10.7 fL 9.3-12 .8 Not Available [facility] [address] [place] [address], [address], 02/20/2024 17:13:57 02/20/20 24 02/20/2024 urina lysis , compl ete urinalysis, complete LOW LEVEL S OF HEMOG LOBIN IN ABSEN CE OF HEMAT URIA MAY NOT BE CLINI LUIS SIGNI FICAN T. Not Available [facility] [address] [place] [address], [address], 02/20/2024 17:23:09 02/20/20 24 02/20/2024 urina lysis , compl ete color YELLOW Not Available [facility] [address] [place] [address], [address], 02/20/2024 17:23:09 02/20/20 24 02/20/2024 urina lysis , compl ete clarity CLEAR Not Available [facility] [address] [place] [address], [address], 02/20/2024 17:23:09 02/20/20 24 02/20/2024 urina lysis , compl ete pH 5.5 5.0-7. 5 Not Available [facility] [address] [place] [address], [address], 02/20/2024 17:23:09 02/20/20 24 02/20/2024 urina lysis , compl ete specific gravity 1.019 1.000- 1.030 Not Available [facility] [address] [place] [address], [address], 02/20/2024 17:23:09 02/20/20 24 02/20/2024 urina lysis , compl ete blood NEGATI VE negati ve Not Available [facility] [address] [place] [address], [address], 02/20/2024 17:23:09 02/20/20 24 02/20/2024 urina lysis , compl ete bilirubin NEGATI VE negati ve Not Available [facility] [address] [place] [address], [address], 02/20/2024 17:23:09 02/20/20 24 02/20/2024 urina lysis , compl ete urobilinogen 0.2 0.2-1. 0 Not Available [facility] [address] [place] [address], 314[address], 02/20/2024 17:23:09 02/20/20 24 02/20/2024 urina lysis , compl ete ketone NEGATI VE negati ve Not Available [facility] [address] [place] [address], 7[address], 02/20/2024 17:23:09 02/20/20 24 02/20/2024 urina lysis , compl ete glucose 3+ negati ve abnormal Not Available [facility] [address] [place] [address], 6[address], 02/20/2024 17:23:09 02/20/20 24 02/20/2024 urina lysis , compl ete protein TRACE negati ve abnormal Not Available [facility] [address] [place] [address], [address], 02/20/2024 17:23:09 02/20/20 24 02/20/2024 urina lysis , compl ete nitrite NEGATI VE negati ve Not Available [facility] [address] [place] [address], 6[address], 02/20/2024 17:23:09 02/20/20 24 02/20/2024 urina lysis , compl ete leukocytes NEGATI VE negati ve Not Available [facility] [address] [place] [address], 9[address], 02/20/2024 17:23:09 02/20/20 24 02/20/2024 urina lysis , compl ete RBC 0-2 0-2/hp f Not Available [facility] [address] [place] [address], [address], 02/20/2024 17:23:09 02/20/20 24 02/20/2024 urina lysis , compl ete WBC 0-5 0-5/hp f Not Available [facility] [address] [place] [address], 89[address], 02/20/2024 17:23:09 02/20/20 24 02/20/2024 urina lysis , compl ete squamous epithelial 0-2 0-10/h pf Not Available [facility] [address] [place] [address], 07[address], 02/20/2024 17:23:09 02/20/20 24 02/20/2024 urina lysis , compl ete bacteria NONE SEEN none Not Available [facility] [address] [place] [address], [address], 02/20/2024 17:23:09 02/20/20 24 02/20/2024 urina lysis , compl ete hyaline cast 0-2 0-2/lp f Not Available [facility] [address] [place] [address], [address], 02/20/2024 17:23:09 02/20/20 24 02/20/2024 renal funct ion panel , serum renal function panel Not Available [facility] [address] [place] [address], [address], 02/20/2024 18:05:49 02/20/20 24 02/20/2024 renal funct ion panel , serum sodium 136 mmol/ L 136-14 6 Not Available [facility] [address] [place] [address], [address], 02/20/2024 18:05:49 02/20/20 24 02/20/2024 renal funct ion panel , serum potassium 4.2 mmol/ L 3.5-5. 1 Not Available [facility] [address] [place] [address], 39609, 02/20/2024 18:05:49 02/20/20 24 02/20/2024 renal funct ion panel , serum chloride 101 mmol/ L 98-110 Not Available [facility] [address] [place] [address], 520[address], 02/20/2024 18:05:49 02/20/20 24 02/20/2024 renal funct ion panel , serum CO2 29 mEq/L 20-32 Not Available [facility] [address] [place] [address], [address], 02/20/2024 18:05:49 02/20/20 24 02/20/2024 renal funct ion panel , serum anion gap 10 mmol/ L 10-22 Not Available [facility] [address] [place] [address], 411[address], 02/20/2024 18:05:49 02/20/20 24 02/20/2024 renal funct ion panel , serum glucose 294 mg/dL 70-100 high Not Available [facility] [address] [place] [address], [address], 02/20/2024 18:05:49 02/20/20 24 02/20/2024 renal funct ion panel , serum calcium 10.1 mg/dL 8.4-10 .4 Not Available [facility] [address] [place] [address], 10[address], 02/20/2024 18:05:49 02/20/20 24 02/20/2024 renal funct ion panel , serum albumin 4.9 g/dL 3.5-5. 3 Not Available [facility] [address] [place] [address], 17468, 02/20/2024 18:05:49 12/16/20 24 02/20/2024 renal funct ion panel , serum phosphorus 3.4 mg/dL 2.7-4. 5 Not Available [facility] [address] [place] [address], [address], 02/20/2024 18:05:49 02/20/20 24 02/20/2024 renal funct ion panel , serum BUN 30 mg/dL 7-21 high Not Available [facility] [address] [place] [address], 35[address], 02/20/2024 18:05:49 02/20/20 24 02/20/2024 renal funct ion panel , serum creatinine 1.9 mg/dL 0.7-1. 3 high Not Available [facility] [address] [place] [address], 18[address], 02/20/2024 18:05:49 02/20/20 24 02/20/2024 renal funct ion panel , serum GFR(non-afri can irish) 29 Not Available [facility] [address] [place] [address], 609[address], 02/20/2024 18:05:49 02/20/20 24 02/20/2024 renal funct ion panel , serum GFR() 35 (PRIMER EXPEDITOR AND DRIER DARIA KIDNE Y DISEA SE HAS A GFR LESS THAN 60 ML/TX N/1.7 3 MM FOR A PERIO D OF THREE MONTH S OR MORE. ) Not Available [facility] [address] [place] [address], [address], 02/20/2024 18:05:49 02/20/20 24 02/20/2024 micro album in, urine microalbumin ,random panel Not Available [facility] [address] [place] [address], [address], 02/20/2024 18:26:56 02/20/20 24 02/20/2024 micro album in, urine microalbumin random 5.1 mg/dL Not Available [facility] [address] [place] [address], 7[address], 02/20/2024 18:26:56 02/20/20 24 02/20/2024 micro album in, urine creatinine, urine random 30 mg/dL Refer ence range not estab lishe d for other than 24 hour colle ction . Not Available [facility] [address] [place] [address], 7[address], 02/20/2024 18:26:56 02/20/20 24 02/20/2024 micro album [...] in or Creat inine .) Not Available [facility] [address] [place] [address], [address], 02/20/2024 18:26:56 02/20/20 24 02/21/2024 C3 (comp lemen t), serum or plasm a complement C3 173 mg/dL 82-167 high Not Available [facility] [address] [place] [address], [address], 02/21/2024 07:40:50 02/20/20 24 02/21/2024 C4 (comp lemen t), serum or plasm a complement C4 28 mg/dL 12-38 Not Available [facility] [address] [place] [address], 85050, 02/21/2024 07:40:51 02/20/20 24 02/22/2024 immun ofixa tion, serum immunofixati on, serum No monoc lonal ity detec christina. Not Available [facility] [address] [place] [address], [address], 02/22/2024 15:38:07 02/20/20 24 02/22/2024 immun ofixa tion, serum IgG quantitative 1473 mg/dL 586-16 02 Not Available [facility] [address] [place] [address], 76786, 02/22/2024 15:38:07 02/20/20 24 02/22/2024 immun ofixa tion, serum IgA quantitative 252 mg/dL 87-352 Not Available [facility] [address] [place] [address], 72964, 02/22/2024 15:38:07 02/20/20 24 02/22/2024 immun ofixa tion, serum IgM quantitative 65 mg/dL 26-217 Not Available [facility] [address] [place] [address], 27016, 02/22/2024 15:38:07 02/20/20 24 02/22/2024 anca panel , serum anca, complete Not Available [facility] [address] [place] [address], [address], 02/22/2024 19:37:12 02/20/20 24 02/22/2024 anca panel , serum myeloperoxid ase Ab <0.2 units 0.0-0. 9 Not Available [facility] [address] [place] [address], 82466, 02/22/2024 19:37:12 02/20/20 24 02/22/2024 anca panel , serum proteinase-3 Ab, anca <0.2 units 0.0-0. 9 Not Available [facility] [address] [place] [address], 16565, 02/22/2024 19:37:12 02/20/20 24 02/22/2024 anca panel , serum C-anca titer <1:20 titer neg:<1 :20 Not Available [facility] [address] [place] [address], 16[address], 02/22/2024 19:37:12 02/20/20 24 02/22/2024 anca panel [...] ng of posit justina sera with both MD-3 and MPO-A NCA enzym e immun oassa ys. As many as 5% serum sampl es are posit justina only by EIA. Ref. AM J Clin Patho l 1999; 111:5 07-51 3. Not Available [facility] [address] [place] [address], 97678, 02/22/2024 19:37:12 02/20/20 24 02/22/2024 anca panel , serum atypical P anca titer <1:20 titer neg:<1 :20 The atypi sandra pANCA patte rn has been obser reyna in a signi fican t perce ntage of patie nts with ulcer ative colit is, prima ry scler osing chola ngiti s and autoi mmune hepat itis. Not Available [facility] [address] [place] [address], [address], 02/22/2024 19:37:12 02/20/20 24 02/23/2024 CHACHA (anti nucle ar antib odies ) scree n, serum CHACHA screen POSITI VE negati ve abnormal Titer to follo w Perfo rmed by Bio-R ad enzym e immun oassa y Not Available [facility] [address], [address], 02/23/2024 12:03:06 02/20/20 24 02/23/2024 CHACHA (anti [...] rosa using HEp-2 cell line Not Available [facility] [address] [place] [address], 30[address], 02/23/2024 15:30:51 02/20/20 24 02/20/2024 UE urine eosinophils NEGATI VE Not Available [facility] - [facility] [address] [facility], [place], [address], 02/20/2024 23:05:20 03/09/19 25 03/06/2024 US, gisele y No observ ation record ed. [email or web address] Not Available 2024 13:05:28 Result Notes None recorded. Problems Name Problem SNOMED Code Status Onset Date Resolution Date Notes Provider Name and Address Organization Details Recorded Time Chronic kidney disease stage 4 525132369 Active 2023 Yisel castillo, [facility] 4 16:12:35 Coronary arteriosclero sis 26495854 Active 2023 Yisel castillo, [facility] 4 16:13:14 Chronic systolic heart failure 604444443 Active 2023 Yisel castillo, [facility] 4 16:13:49 Chronic obstructive pulmonary disease 47263443 Active 2023 Yisel Flavio [facility] 4 16:14:05 Benign essential hypertension 0988817 Active 2023 Yisel Muniz [facility] 4 16:14:12 Hyperkalemia 19264363 Active 2023 Yisel Muniz [facility] 4 16:14:21 Type 2 diabetes mellitus 00510770 Active 2023 Yisel Muniz [facility] 4 16:15:09 History of pulmonary embolus 185590924 Active 2023 Yisel Muniz [facility] 4 16:15:55 Proteinuria 46156736 Active 2023 Ana Cristina Griffith [facility] 14:57:56 Urinary incontinence 855908826 Active 2024 Yisel Muniz [facility] 5 13:03:26 Problem Notes None recorded. Procedures Surgical History None recorded. Imaging Results Imaging Date Name Status LastModified by Organiz ation Details LastModified Time 03/06/2024 US, kidney completed [email or web address] Information no t available 03/12/2024 13:05:28 Procedure [...] Relief 50 mcg/actuati on nasal spray,suspe nsion [place] 1 spray every day by intranasa l [...] Address Organization Details Last Updated DateTime 02/20/2024 37957.66 g 140 mm[Hg] 86 mm[Hg] Ana Cristina Griffith [facility] 02/20/2024 10:32:57 Social History Question Answer Notes LastModified by Organizat ion Details LastModified Time Tobacco Smoking Status Current Every Day Smoker Yisel castillo, [facility] 02/13/2024 16:29:11 Do You Use Any Illicit Or Recreational Drugs? No [email or web address] Information not available 02/13/2024 Sex: Unknown Functional Status None recorded. Mental Status None recorded. Family History Nothing Reported. Medical History Condition Response Anemia N Cancer N Gynecological HistoryNo gynecological history recorded. Obstetrics History GPAL:G 0 P 0 0 0 0 Past Encounters Encounter ID Performer Location Encounter Start Date Encounter Closed Date Diagnosis/Indication Diagnosis SNOMED-CT Code Diagnosis ICD10 Code Diagnosis Note [id number] Yuli Montez MD [facility] ([place]) [address] [place] [address] 02/20/2024 10:16:52 02/20/2024 11:24:02 Chronic kidney disease stage 4 029474133 N18.4 Benign ess ential hypertension 1993907 I10 Hyperkalemia 58098030 E8 7.5 Health Concerns Section Related Observation LastModified by Organization Detai ls LastModified Time None Recorded Concern Status LastModified by Organization Details LastModified Time None Recorded Advance Directives Directive None Recorded Payers Encounter Date Sequence Insurance Name Policy Number Policy Mclean Covered Member ID Mclean Member ID Guarantor Name 02/20/[address] [facility] (MEDICARE REPLACEMENT/A DVANTAGE - PPO) [id number] Maria Alejandra Hein [id number] Maria Alejandra Hein Notes Date Note Type [...] extremity edema Yuli Montez MD [address] [place] [address], [id number], [facility] 02/20/2024 11:36:34 OBGyn Episode No OBEpisode recorded.
--- OUTSIDE RECORDS SUMMARY | 2024-05-19 11:33 | XMS_ITS | Encounter Summary ---
Author Organization [facility] Address [facility] [place] [address] Care Team Providers Care Assistant Dean Of Students Name Role Phone Rei Alcaraz MD Primary Care Provider [phone] Edgar Schilling MD Unavailable Unavailabl Jim Morales MD Unavailable Unavailable Dominguez Locke PA-C Unavailable [phone] Consuelo Boland MD Unavailable Encounter Details Date Type Department Care Team (Late st Contact Info) Description 09/22/2017 Abstract [facility] [address] [place] [phone] Edgar Schilling MD Social History Tobacco Use Types Packs/Day Years Used Date Smoking Tobacco: Every Day Cigarettes 0.5 44.2 Started: 1980 Smokeless Tobacco: Never Alcohol Use Standard Drinks/Week Comments Yes 0 (1 standard drink = 0.6 oz pur e alcohol) Comments Unknown Sex and Gender Information Value Date Recorded Sex Assigned at Female 03/30/2024 9:49 AM SENIOR COBOL DEVELOPER Legal Sex Female 1:02 PM CDT Gender Identity Not on file Sexual Orientation Not on file 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 Not on file documented as of this encounter Plan of Treatment Upcoming Encounters Date Type Department Care Team (Latest Contact Info) Description 07/13/2024 11:00 AM CDT [facility] [address] [place] [address] Carlos Wright MD [address] [place] [address] 07/13/2024 11:00 AM CDT Allied Health/Nurse Visit [facility] [address] [place] [address] Carlos Wright MD [address] [place] [address] 09/04/2024 12:30 PM CDT Appointment [facility] [address] [place] [address] Consuelo Boland MD [address] [place] [address] 09/10/2024 11:45 AM CDT [facility] [address] [place] [address] Consuelo Boland MD [address] [place] [address] 10/17/2024 1:30 AM CDT Allied Health/Nurse Visit [address] [address] Carlos Wright MD [address] [place] [address] documented as of this encounter Procedures Procedure [...] documented as of this encounter Care Teams Assistant Dean Of Students Relationship Specialty Start Date End Date Rei Alcaraz MD [address] [place] [address] PCP - General FAMILY PRACTICE 08/25/16 Edgar Schilling MD [address] [place] [id number] [place] Senior Manufacturing Engineer CARDIOVASCULAR DISEASE 08/25/16 09/03/23 Jim Lugo MD [address] [place] [address] Consulting Physician CLINICAL CARDIAC ELECTROPHYSIOLOGY 05/27/22 09/03/23 Dominguez Locke PA-C [address] [place] [address] PHYSICIAN OPTOMETRIC TECHNICIAN 05/27/22 Consuelo Boland MD [address] [place] [address] Consulting Physician CARDIOVASCULAR DISEASE 09/04/23 documented as of this encounter
--- OUTSIDE RECORDS SUMMARY | 2024-05-19 11:33 | XMS_ITS | Encounter Summary ---
Author Organization [facility] Address [facility] [place] [address] Care Team Providers Care Handbell Choir Director Name Role Phone Rei Alcaraz MD Primary Care Provider [phone] Edgar Schilling MD Unavailable Unavailabl Jim Morales MD Unavailable Unavailable Dominguez Locke PA-C Unavailable [phone] Consuelo Boland MD Unavailable Encounter Details Date Type Department Care Team (Late st Contact Info) Description 10/19/2017 Abstract [facility] [address] [place] [phone] Edgar Schilling MD Social History Tobacco Use Types Packs/Day Years Used Date Smoking Tobacco: Every Day Cigarettes 0.5 44.2 Started: 1980 Smokeless Tobacco: Never Alcohol Use Standard Drinks/Week Comments Yes 0 (1 standard drink = 0.6 oz pur e alcohol) Comments Unknown Sex and Gender Information Value Date Recorded Sex Assigned at Female 03/30/2024 9:49 AM ADULT NEUROLOGIST Legal Sex Female 1:02 PM CDT Gender Identity Not on file Sexual Orientation Not on file 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 [address] [place] [address] Carlos Wright MD [address] [place] [address] 09/04/2024 12:30 PM CDT Appointment [facility] [address] [facility] [place] [address] Consuelo Boland MD [address] [place] [address] 09/10/2024 11:45 AM CDT [facility] [address] [facility] [place] [address] Consuelo Boland MD [address] [place] [address] 10/17/2024 1:30 AM CDT Allied Health/Nurse Visit [address] [address] Carlos Wright MD [address] [place] [address] documented as of this encounter Procedures Procedure [...] documented as of this encounter Care Teams Handbell Choir Director Relationship Specialty Start Date End Date Rei Alcaraz MD [address] [place] [address] PCP - General FAMILY PRACTICE 08/25/16 Edgar Schilling MD [address] [id number] [place] Zyglo Inspector CARDIOVASCULAR DISEASE 08/25/16 09/03/23 Jim Lugo MD [address] [place] [address] Consulting Physician CLINICAL CARDIAC ELECTROPHYSIOLOGY 05/27/22 09/03/23 Dominguez Locke PA-C [address] [place] [address] PHYSICIAN GEOLOGICAL TECHNICIAN 05/27/22 Consuelo Boland MD [address] [place] [address] Consulting Physician CARDIOVASCULAR DISEASE 09/04/23 documented as of this encounter
--- OUTSIDE RECORDS SUMMARY | 2024-05-19 11:33 | XMS_ITS | Encounter Summary ---
Author Organization [facility] Address [facility] [place] [address] Care Team Providers Care Rn Radiation Oncology Name Role Phone Rei Alcaraz MD Primary Care Provider [phone] Edgar Schilling MD Unavailable Unavailabl Jim Morales MD Unavailable Unavailable Dominguez Locke PA-C Unavailable [phone] Consuelo Boland MD Unavailable Encounter Details Date Type Department Care Team (Late st Contact Info) Description 10/04/2016 Abstract [facility] [address] [place] [phone] Edgar Schilling MD Social History Tobacco Use Types Packs/Day Years Used Date Smoking Tobacco: Every Day Cigarettes 0.5 44.2 Started: 1980 Comments Unknown Sex and Gender Information Value Date Recorded Sex Assigned at Female 03/30/2024 9:49 AM TAX ACCOUNTING MANAGER Legal Sex Female 1:02 PM CDT Gender Identity Not on file Sexual Orientation Not on file documented as of this encounter Plan of Treatment Upcoming Encounters Date Type Department Care Team (Latest Contact Info) Description 07/13/2024 11:00 AM CDT [facility] [address] [place] [address] Carlos Wright MD 619 [facility] [address] [address] 07/13/2024 11:00 AM CDT Allied Health/Nurse Visit [facility] [address] [place] [address] Carlos Wright MD [address] [address] 09/04/2024 12:30 PM CDT Appointment [address] [place] [address] Consuelo Boland MD [address] [place] [address] 09/10/2024 11:45 AM CDT Office Visit [facility] [place] [address] Consuelo Boland MD [address] [place] [address] 10/17/2024 1:30 AM CDT Allied Health/Nurse Visit [facility] [address] [place] [phone] Carlos Wright MD [address] [address] documented as of this encounter Visit Diagnoses Not on filedocumented in this encounter Additional Health Concerns Infection Onset Date Last Indicated Resolved Time COVID-19 Rule Out 11/03/2019 11/03/2019 11/04/2019 3:36 PM CDT documented as of this encounter Care Teams Rn Radiation Oncology Relationship Specialty Start Date End Date Rei Alcaraz MD [address] [place] [address] PCP - General FAMILY PRACTICE 08/25/16 Edgar Schilling MD [address] [place] [address] Daisy Sizer Machine CARDIOVASCULAR DISEASE 08/25/16 09/03/23 Jim Lugo MD [address] [place] [address] Consulting Physician CLINICAL CARDIAC ELECTROPHYSIOLOGY 05/27/22 09/03/23 Dominguez Locke PA-C [address] [place] [address] PHYSICIAN ROASTER OPERATOR 05/27/22 Consuelo Boland MD [address] [place] [address] Consulting Physician CARDIOVASCULAR DISEASE 09/04/23 documented as of this encounter
--- OUTSIDE RECORDS SUMMARY | 2024-05-19 11:33 | XMS_ITS | Encounter Summary ---
Author Organization [facility] Address [facility] [place] [address] Care Team Providers Care Project Scientist Name Role Phone Rei Alcaraz MD Primary Care Provider [phone] Edgar Schilling MD Unavailable Unavailabl Jim Morales MD Unavailable Unavailable Dominguez Locke PA-C Unavailable [phone] Consuelo Boland MD Unavailable Encounter Details Date Type Department Care Team (Late st Contact Info) Description 11/08/2017 Abstract [facility] [address] [place] [address] Sahra Bradley APRN, EARTH SCIENCE LABORATORY TECHNICIAN-C [address] [facility] [address] [place] [address] Social History Tobacco Use Types Packs/Day Years Used Date Smoking Tobacco: Every Day Cigarettes 0.5 44.2 Started: 1980 Smokeless Tobacco: Never Alcohol Use Standard Drinks/Week Comments Yes 0 (1 standard drink = 0.6 oz pur e alcohol) Comments Unknown Sex and Gender Information Value Date Recorded Sex Assigned at Female 03/30/2024 9:49 AM CABLE BRAIDER Legal Sex Female 1:02 PM CDT Gender Identity Not on file Sexual Orientation Not on file 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 Not on file documented as of this encounter Plan of Treatment Upcoming Encounters Date Type Department Care Team (Latest Contact Info) Description 07/13/2024 11:00 AM CDT Office Visit [facility] [address] [place] [address] Carlos Wright MD [address] [address] 07/13/2024 11:00 AM CDT Allied Health/Nurse Visit [facility] [address] [place] [address] Carlos Wright MD [address] [place] [address] 09/04/2024 12:30 PM CDT Appointment [facility] [address] [place] [address] Consuelo Boland MD [address] [place] [address] 09/10/2024 11:45 AM CDT [facility] [address] [place] [address] Consuelo Boland MD [address] [place] [address] 10/17/2024 1:30 AM CDT Allied Health/Nurse Visit [facility] [address] [place] [address] Carlos Wright MD [address] [place] [address] documented as of this encounter Procedures Procedure [...] documented as of this encounter Care Teams Project Scientist Relationship Specialty Start Date End Date Rei Alcaraz MD [address] [place] [address] PCP - General FAMILY PRACTICE 08/25/16 Edgar Schilling MD [address] [place] [phone] [employer] Tutor CARDIOVASCULAR DISEASE 08/25/16 09/03/23 Jim Lugo MD [address] [place] [address] Consulting Physician CLINICAL CARDIAC ELECTROPHYSIOLOGY 05/27/22 09/03/23 Dominguez Locke PA-C [address] [place] [phone] PHYSICIAN PLANT PATHOLOGY TEACHER 05/27/22 Consuelo Boland MD 9 [place] [address] Consulting Physician CARDIOVASCULAR DISEASE 09/04/23 documented as of this encounter
--- OUTSIDE RECORDS SUMMARY | 2024-05-19 11:33 | XMS_ITS | Encounter Summary ---
Author Organization [facility] Address [facility] [place] [address] Care Team Providers Care Crop Quantitative Geneticist Name Role Phone Rei Alcaraz MD Primary Care Provider [phone] Edgar Schilling MD Unavailable Unavailabl Jim Morales MD Unavailable Unavailable Dominguez Locke PA-C Unavailable [phone] Consuelo Boland MD Unavailable Encounter Details Date Type Department Care Team (Late st Contact Info) Description 09/24/2016 [facility] [address] [place] [address] Edgar Schilling MD Social History Tobacco Use Types Packs/Day Years Used Date Smoking Tobacco: Every Day Comments Unknown Sex and Gender Information Value Date Recorded Sex Assigned at Female 03/30/2024 9:49 AM RIP AND GROOVE MACHINE 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 Legal Sex Female 1:02 PM CDT Gender Identity Not on file Sexual Orientation Not on file documented as of this encounter Plan of Treatment Upcoming Encounters Date Type Department Care Team (Latest Contact Info) Description 07/13/2024 11:00 AM CDT [facility] [address] [place] [address] Carlos Wright MD 619 [facility] [address] [address] 07/13/2024 11:00 AM CDT Allied Health/Nurse Visit [facility] [address] [place] [address] Carlos Wright MD [address] [address] 09/04/2024 12:30 PM CDT Appointment [address] [place] [address] Consuelo Boland MD [address] [place] [address] 09/10/2024 11:45 AM CDT Office Visit [facility] [place] [address] Consuelo Boland MD [address] [place] [address] 10/17/2024 1:30 AM CDT Allied Health/Nurse Visit [facility] [address] [place] [address] Carlos Wright MD [address] [address] documented as of this encounter Visit Diagnoses Not on filedocumented in this encounter Additional Health Concerns Infection Onset Date Last Indicated Resolved Time COVID-19 Rule Out 11/03/2019 11/03/2019 11/04/2019 3:36 PM CDT documented as of this encounter Care Teams Crop Quantitative Geneticist Relationship Specialty Start Date End Date Rei Alcaraz MD [address] [place] [address] PCP - General FAMILY PRACTICE 08/25/16 Edgar Schilling MD [address] [place] [address] [employer] Hand CARDIOVASCULAR DISEASE 08/25/16 09/03/23 Jim Lugo MD [address] [place] [address] Consulting Physician CLINICAL CARDIAC ELECTROPHYSIOLOGY 05/27/22 09/03/23 Dominguez Locke PA-C [address] [place] [address] PHYSICIAN HIGH DENSITY FINISHING OPERATOR 05/27/22 Consuelo Boland MD [address] [place] [address] Consulting Physician CARDIOVASCULAR DISEASE 09/04/23 documented as of this encounter
--- OUTSIDE RECORDS SUMMARY | 2024-05-19 11:33 | XMS_ITS | Clinical Summary ---
Author Organization [facility] Address [address] [place] [address] Care Team Providers Care Gauge Controller Name Role Phone Rei Alcaraz MD Primary Care Provider [phone] Dominguez Locke PA-C Unavailable [phone] Melissa Regan MD Unavailable Allergies No known active allergies Medications magnesium oxide 400 MG tablet Take 1 tablet (400 mg total) by mouth daily. Active aspirin EC (ECOTRIN) 81 MG tablet Take 1 tablet (81 mg total) by mouth daily. Active Co-Enzyme Q-10 100 MG Cap Take 100 mg by mouth daily. 90 capsule 3 9 Active albuterol sulfate HFA 108 (90 Base) MCG/ACT inhaler Inhale 2 puffs into the lungs every 6 (six) hours as needed. 0 Active ARNUITY ELLIPTA 100 MCG/ACT AEROSOL POWDER, BREATH ACTIVATED Inhale 1 puff into the lungs daily. 0 Active allopurinol (ZYLOPRIM) 100 MG tablet Take 1 tablet (100 mg total) by mouth daily. 3 Active rOPINIRole (REQUIP) 0.25 MG tablet Take 2 tablets (0.5 mg total) by mouth nightly at bedtime. 3 Active Krill Oil 1000 MG Cap Active warfarin (COUMADIN) 2.5 MG tablet see administration instructions. 4 Active furosemide (LASIX) 40 MG tablet Take 1 tablet (40 mg total) by mouth daily. Active rosuvastatin (CRESTOR) 40 MG tablet Take 1 tablet (40 mg total) by mouth nightly at bedtime. 90 tablet 3 4 Active metoprolol succinate ER (TOPROL-XL) 50 MG 24 hr tablet TAKE 1 TABLET BY MOUTH TWICE DAILY 200 tablet 2 4 Active tirzepatide (MOUNJARO) 10 MG/0.5ML injection Active nitroglycerin (NITROSTAT) 0.4 MG SL tabletIndicati ons:Coronary artery disease involving manchester coronary artery of manchester heart without angina pectoris Place 1 tablet (0.4 mg total) under the tongue every 5 (five) minutes as needed for Chest Pain. 25 tablet 5 Active Active Problems Problem Noted Date Diagnosed Date Presence of cardioverter defibrillator 4 Contusion of right ankle 08/05/2021 Mixed hyperlipidemia 09/21/2019 Ischemic cardiomyopathy 02/20/2017 Other pulmonary embolism wit hout acute cor pulmonale ([facility]) 02/20/2017 LV dysfunction 01/26/2017 Pulmonary hypertension ([facility]) 017 LV (left ventricular) mural thrombus without MO ([facility]) Dyspnea Tobacco abuse Chronic systolic heart failure ([facility]) COPD (chronic obstructive pu lmonary disease) ([facility]) Diabetes ([facility]) CAD (coronary artery disease) Encounters Date Type Department Care Team Description 05/09/2024 1:30 AM PRISON KEEPER [facility] [address] [place] [address] Carlos Wright MD 03/30/2024 10:15 AM PRISON KEEPER Office Visit [facility] [address] [place] [address] Melissa Regan MD Heart Problem 03/30/2024 9:49 AM PRISON KEEPER - 03/30/2024 11:59 PM PRISON KEEPER Hospital Encounter [facility] [address] [place] [address] Melissa Regan MD Discharge Disposition: Home or Self Care (Routine Discharge) 03/30/2024 Travel 03/28/2024 Orders Only [facility] [address] [place] [address] Melissa Regan MD 02/28/2024 9:23 AM PRISON KEEPER - 02/28/2024 11:59 PM PRISON KEEPER Hospital Encounter [facility] [address] [place] [address] Yuli Lin MD Discharge Disposition: Home or Self Care (Routine Discharge) 02/28/2024 Travel from Last 3 Months Family History Medical History Relation Comments Hypertension Brother Miscarriages / Stillbirths Daughter Cancer Father Prostate,skin Heart Disease Father Hypertension Father [place] Father Heart Disease Maternal Aunt Heart Disease Maternal Grandfather Arthritis Maternal Grandmother In her hand s Heart Disease Maternal Uncle Stroke Maternal Uncle Heart Disease Mother Hypertension Mother MO Mother Heart Disease Paternal Grandfather Heart Disease Paternal Grandmother Atherosclerosis Sister Heart Disease Sister Hypertension Sister Relation Status Comments Brother Daughter Father Maternal Aunt Maternal Grandfather Maternal Grandmother Maternal Uncle Mother Paternal Grandfather Paternal Grandmother Sister Alive Social History Tobacco Use Types Packs/Day Years Used Date Smoking Tobacco: Every Day Cigarettes 1 44.2 Started: 1980 Smokeless Tobacco: Never Comments:Smoked since 1980 Alcohol Use Standard Drinks/Week Comments Not Currently 0 (1 standard drink = 0.6 oz pur e alcohol) Comments Unknown Sex and Gender Information Value Date Recorded Sex Assigned at Female 03/30/2024 9:49 AM PRISON KEEPER Legal Sex Female 1:02 PM CDT Gender Identity Not on file Sexual Orientation Not on file 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 Not on file Last Filed Vital Signs Vital Sign Reading Time Taken Comments Blood Pressure 114/64 03/30/2024 1:49 PM PRISON KEEPER Pulse 74 03/30/2024 1:49 PM PRISON KEEPER Temperature 36.2 C (97.2 F) 11/06/2019 11:00 AM CDT Respiratory Rate 20 03/30/2024 1:49 PM PRISON KEEPER Oxygen Saturation 97% 03/30/2024 1:49 PM PRISON KEEPER Inhaled Oxygen Concentration - - Weight 87.1 kg (192 lb) 03/30/2024 1:49 PM PRISON KEEPER Height 157.5 cm (5' 2 ) 03/30/2024 1:49 PM PRISON KEEPER Body Mass Index 35.12 03/30/2024 1:49 PM PRISON KEEPER Plan of Treatment Upcoming Encounters Date Type Department Care Team (Latest Contact Info) Description 07/13/2024 11:00 AM CDT Office Visit [facility] [address] [place] [address] [phone] Carlos Wright MD [address] [address] 07/13/2024 11:00 AM CDT Allied Health/Nurse Visit [facility] [address] [place] [phone] Carlos Wright MD [address] [address] 09/04/2024 12:30 PM CDT Appointment [facility] [address] [place] [address] Melissa Regan MD [address] [place] [address] 09/10/2024 11:45 AM CDT [facility] [address] [place] [phone] Melissa Regan MD [address] [place] [address] 10/17/2024 1:30 AM CDT Allied Health/Nurse Visit [facility] [address] [place] [phone] Carlos Wright MD [address] [address] Health Maintenance Due Date Last Done Comments [...] Adult (#1) 2023 Lipid Panel 12/12/2024 12/13/2023, 07/06, 05/11/2021, Additional history exists Meningococcal B Vaccine Aged Out No l onger eligible based on patient's age to complete this topic Meningococcal Vaccine Aged Out No ying rosalino eligible based on patient's age to complete this topic RSV Immunizations Under 20 Months Aged Out No longer eligible based on patient's age to complete this topic Medical Devices Implanted Type Area Business Unit Leader Device Identifier Shelf Expiration Date Model / Serial / Lot Ep-Sjm Ellipse Vr Icd-11/06/2019 Implanted:Qt y: 1 on 11/06/2019 by Jim Lugo MD ICD [facility] 04/06/2021 [id number] / [id number] / Description:SJM Ellipse VR I CD Ep-Optisure Icd Lead- 0 Implanted:Qt y: 1 on 11/06/2019 by Jim Lugo MD Lead Implant Right: Ventricle [facility] 07/04/2021 [id number] / [id number] / Description:SJM Optisure 58c m Lead Procedures Procedure Name Priority Date/Time Associated Diagnosis Comments ECG 12-LEAD Routine 03/30/2024 10:01 AM PRISON KEEPER Coronary artery disease involving manchester coronary artery of man[place] heart without angina pectoris US RETROPERITONEAL COMP Routine 02/28/20 10:15 AM PRISON KEEPER CKD (chronic kidney disease) stage 4, GFR 15-29 ml/min ([facility]) LIPID PANEL Routine 12/13/2023 11:10 AM CDT Hyperlipidemia, mixed Essential (primary) hypertension HEMOGLOBIN, GLYCOSYLATED TIMED 09/01/2016 4:36 AM CDT from Last 3 Months or Most Recently Relevant to Health Maintenance Results * ECG 12 lead (HOSPITAL PERFORMED ONLY) (03/30/2024 10:01 AM PRISON KEEPER) 03/30/2024 10:0 1 AM PRISON KEEPER Narrative [facility] - 03/30/2024 6:24 PM PRISON KEEPER [address] 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 [address] Test Date: 2024-03-30 Pat Name: MIKE ESCOBAR Department: 3 Room: Gender: Female Drywall Hanger Framer: : 1960 Requested By: MELISSA REGAN Order Number: [id number] Reading MD: Melissa Regan Measurements Intervals Prewitt Rate: 73 P: 46 SD: 146 QRS: 105 QRSD: 93 T: 100 QT: 393 QTc: 435 Interpretive Statements SINUS RHYTHM LOW QRS VOLTAGE IN PRECORDIAL LEADS [QRS DEFLECTION < 1.0 mV IN CHESTLEADS] LATERAL MYOCARDIAL INFARCTION , OF INDETERMINATE AGE [40+ ms Q WAVEAND/OR ST/T ABNORMALITY IN I/aVL/V5/V6] ON KEEPER us Melissa Regan MD ECG ORDERABLES Final Result [facility] * US RETROPERITONEAL COMP (02/28/2024 10:15 AM PRISON KEEPER) Anatomical Region Laterality Modality Abdomen Ultrasound 02/28/2024 3:55 PM PRISON KEEPER Impressions 02/28/2024 3:58 PM PRISON KEEPER IMPRESSION: 1. Unremarkable sonographic appearance of each kidney and urinary bladder. 2. 3.3 cm left adnexal cyst most likely of left ovarian origin. Ordered By: YULI LIN Interpreted By: Bull Brady MD, 02/28/2024 3:55 PM Narrative 02/28/2024 3:58 PM PRISON KEEPER [address] [place] [address] Examination: US RETROPERITONEAL COMP Exam time: 02/28/2024 [...] 6-8 weeks to evaluate stability. Procedure Note Long, Bull D, MD - 02/28/[address] [place] [address] Examination: US RETROPERITONEAL COMP Exam time: 02/28/2024 9:30 AM Clinical history: Chronic kidney disease Comparison: No prior exam Findings: Right kidney measures 9.2 cm in length and the left asyeccba83.7 cm. No evidence of focal renal parenchymal [...] Lin MD ULTRASOUND Final Resu lt * LIPID PANEL (12/13/2023 11:10 AM CDT) CHOLESTEROL 141 MG/DL 12/14/2023 12:55 PM CDT [facility] Comment:DESIRABLE: <200 TRIGLYCERIDES 316 MG/DL 12/14/2023 12:55 PM CDT [facility] Comment:200-499 HIGH HDL 53 >49 MG/DL 12/14/2023 12:55 PM CDT [facility] LDL-C 25 MG/DL 12/14/2023 12:55 PM CDT [facility] Comment:<100 OPTIMAL VLDL CALCULATION 63 MG/DL 12/14/19 12:55 PM CDT [facility] Comment:REFERENCE RANGE NOT ESTABLISHED CHOL/HDL RATIO 2.7 12/14/2023 12:55 PM CDT [facility] Comment:REFERENCE RANGE NOT ESTABLISHED LDL/HDL 0.5 12/14/2023 12:55 PM CDT [facility] Comment:REFERENCE RANGE NOT ESTABLISHED NON HDL CHOLESTEROL 88 MG/DL 12/14/2023 12:55 PM CDT [facility] Comment:REFERENCE RANGE NOT ESTABLISHED 12/13/2023 11:1 0 AM CDT Melissa Regan MD LABORATORY Final Result Performing Organization Address [facility] Co de Phone Number [facility] [address] [place] [address], [phone] * (ABNORMAL) HEMOGLOBIN, GLYCOSYLATED (09/01/2016 4:36 AM CDT) HGB A1C 6.5(H) 4.5 - 6.0 % 09/01/2016 4:01 AM CDT [facility] ESTIMATED AVG GLUCOSE 140 MG/DL 09/01/2016 4:01 AM CDT [facility] 09/01/2016 4:36 AM CDT 09/01/2016 3:37 AM CDT Kandace Mcfarland Md, MD LABORATORY Final R esult Performing Organization Address [facility] Co de Phone Number [facility] [address] [place] [address], [place] [phone] from Last 3 Months or Most Recently Relevant to Health Maintenance Insurance [facility] MEDICAID Advance Directives * Full Code (Latest Code Status on File) Date Activated Date Inactivated Comments 11/06/2019 3:30 PM 11/06/2019 8:35 PM Care Teams Gauge Controller Relationship Specialty Start Date End Date Rei Alcaraz MD [address] [place] [address] PCP - General FAMILY PRACTICE 08/25/16 Dominguez Locke PA-C [address] [place] [phone] PHYSICIAN LENDING MANAGER 05/27/22 Melissa Regan MD [address] [place] [address] Consulting Physician CARDIOVASCULAR DISEASE 09/04/23
--- OUTSIDE RECORDS SUMMARY | 2024-05-19 11:33 | XMS_ITS | Encounter Summary ---
Author Organization [facility] Address [facility] [place] [address] Care Team Providers Care Government Minister Name Role Phone Rei Alcaraz MD Primary Care Provider [phone] Edgar Schilling MD Unavailable Unavailabl Jim Morales MD Unavailable Unavailable Dominguez Locke PA-C Unavailable [phone] Consuelo Boland MD Unavailable Encounter Details Date Type Department Care Team (Late st Contact Info) Description 09/03/2016 Abstract [facility] [address] [place] [address] Edgar Schilling MD Social History Tobacco Use Types Packs/Day Years Used Date Smoking Tobacco: Every Day Comments Unknown Sex and Gender Information Value Date Recorded Sex Assigned at Female 03/30/2024 9:49 AM BLENDING TANK TENDER Legal Sex Female 1:02 PM CDT Gender Identity Not on file Sexual Orientation Not on file documented as of this encounter Plan of Treatment Upcoming Encounters Date Type Department Care Team (Latest Contact Info) Description 07/13/2024 11:00 AM CDT [facility] [address] [place] [address] Carlos Wright MD 619 [facility] [address] [address] 07/13/2024 11:00 AM CDT Allied Health/Nurse Visit [facility] [address] [place] [address] Carlos Wright MD [address] [address] 09/04/2024 12:30 PM CDT Appointment [facility] [address] [place] [address] Consuelo Boland MD [address] [place] [address] 09/10/2024 11:45 AM CDT [facility] [address] [place] [address] Consuelo Boland MD [address] [place] [address] 10/17/2024 1:30 AM CDT Allied Health/Nurse Visit [facility] [address] [place] [address] Carlos Wright MD [address] [address] documented as of this encounter Procedures Procedure [...] documented as of this encounter Care Teams Government Minister Relationship Specialty Start Date End Date Rei Alcaraz MD [address] [place] [address] PCP - General FAMILY PRACTICE 08/25/16 Edgar Schilling MD [address] [place] [address] [place] Glass Vial Filler CARDIOVASCULAR DISEASE 08/25/16 09/03/23 Jim Lugo MD [address] [place] [address] Consulting Physician CLINICAL CARDIAC ELECTROPHYSIOLOGY 05/27/22 09/03/23 Dominguez Locke PA-C [address] [place] [address] PHYSICIAN ERCO MACHINE OPERATOR 05/27/22 Consuelo Boland MD 619 [place] [address] Consulting Physician CARDIOVASCULAR DISEASE 09/04/23 documented as of this encounter
--- NOTE | 2024-05-19 11:38 | ED_ITS ---
HPI - Fall General Chief Complaint: Fall Stated Complaint: fall Time Seen by Provider: 05/19/24 11:32 History of Present Illness HPI Narrative: 63-year-old woman with CHF, COPD, diabetes, history of VTE on warfarin presents after falling down 2-3 stairs. She reports that she allowed her her grandson to pass her on the stairs and when she turned back around she missed the railing and fell forward onto her right side. She landed primarily on her right ribs however she did hit the back of her head. She states that she hit her head hard however she was not knocked unconscious. She is complaining of right chest wall pain. She does not have any head pain. She denies any pain in her arms legs her shoulders. She denies substernal chest pain or shortness of breath. Related Data Home Medications ?Medication ?Instructions ?Recorded ?Confirmed ?Last Taken ?Type albuterol sulfate 90 mcg/actuation 2 inh inhalation BID-TID PRN 10/04/20 12/29/23 Unknown History aerosol inhaler Shortness Of Breath aspirin 81 mg chewable tablet 81 mg PO DAILY 10/04/20 12/29/23 Unknown History fluticasone furoate 100 1 mcg inhalation DAILY 10/04/20 12/29/23 Unknown History mcg/actuation blister powder for inhalation (Arnuity Ellipta) magnesium oxide 400 mg PO BID 10/04/20 12/29/23 Unknown History metoprolol succinate 50 mg 50 mg PO BID 10/04/20 12/29/23 Unknown History tablet,extended release 24 hr nitroglycerin 0.4 mg sublingual See Rx Instructions .Route .COMPLEX 10/04/20 12/29/23 Unknown History tablet omega 7-rbg-ayo-fish oil 1,000 mg 1 cap PO DAILY 10/04/20 12/29/23 Unknown History (120 mg-180 mg) capsule (Fish Oil) allopurinol 100 mg tablet 100 mg PO DAILY 12/29/23 12/29/23 Unknown History ropinirole 0.25 mg tablet 0.25 mg PO DAILY 12/29/23 12/29/23 Unknown History rosuvastatin 40 mg tablet 40 mg PO DAILY 12/29/23 12/29/23 Unknown History warfarin 3 mg tablet 3 mg PO DAILY 12/29/23 12/29/23 Unknown History coenzyme Q10 200 mg capsule (Co 200 mg PO DAILY 05/19/24 Unknown History Q-10) empagliflozin 25 mg tablet 25 mg PO DAILY 05/19/24 Unknown History (Jardiance) fluticasone propionate 50 1 spray intranasal ONCE 05/19/24 Unknown History mcg/actuation nasal spray,suspension (Flonase Allergy Relief) furosemide 40 mg tablet 40 mg PO DAILY 05/19/24 Unknown History insulin glargine 100 unit/mL (3 10 unit subcut QPM 05/19/24 Unknown History mL) subcutaneous pen (Lantus Solostar U-100 Insulin) oxybutynin chloride 5 mg tablet 5 mg PO DAILY 05/19/24 Unknown History pioglitazone 15 mg tablet (Actos) 15 mg PO DAILY 05/19/24 Unknown History tirzepatide 10 mg/0.5 mL 10 mg subcut WEEKLY 05/19/24 Unknown History subcutaneous pen injector (Mounjaro) Allergies Allergy/AdvReac Type Severity Reaction Status Date / Time No Known Allergies Allergy Verified 05/19/24 11:50 [facility] Past Medical History Medical History Cardiac defibrillator in place COPD (chronic obstructive pulmonary disease) Diabetes DVT (deep vein thrombosis) in HTN (hypertension) Hyperlipidemia Mixed hyperlipidemia Surgical History Surgical History H/O: hysterectomy Family History Family History Father Heart disease Hypertension Mother Hypertension Heart disease Social History Social History Smoking packs per day: 0.75 Smoking cigarettes per day: 15.0 Smoking status: Current every day smoker Tobacco type: cigarettes Alcohol intake: never Substance use: never Gender identity (if verbalized by the patient): Female Sexual Orientation (if Verbalized by the Patient): Straight or Heterosexual Exam Narrative: GEN: Awake, alert, and appropriate to situation. All appears uncomfortable HEENT: No rhinorrhea noted, mucous membranes moist. No scleral icterus or conjunctival injection. CV: Normal rate, regular rhythm, S1S2 no M/G/R. No peripheral edema noted. implantable device in left superior chest consistent with a implantable defibrillator PULM: Non-labored respiration. Clear to auscultation bilaterally. No wheezes, rales, rhonchi. tenderness over right lateral chest wall in distribution of ribs 4 through 8. GI: Abdomen soft, non -tender to palpation. No rigidity, distention or guarding.? NEURO: Normal speech. No lateralizing or focal deficits noted. Head - no hematomas or lacerations noted, neck, back, chest, abdomen, pelvis, extremities all grossly atraumatic without any sign of injury or deformity. MDM - Fall MDM Narrative Medical decision making narrative: Patient was placed in Room #:? One Independent Historian: the patient and her External Source Review: medical records Differential diagnosis includes but not limited to:? bruised ribs, fractured ribs, intracranial bleeding Medications were Reviewed: home medications Independently Interpreted by me: Medications, treatment, ED course: patient received a 1000 mg of Tylenol. chest x-ray and rib series did not show any rib fractures. CT head was negative for intracranial process including bleeding. Patient's vital signs remained stable for the duration of her time in emergency department. Social situation impacting patients care: patient lives independently in the community with her Shared decision making:? patient is amenable to discharge home with strict return precaution Accepting physician: none DISCHARGE DIAGNOSIS: bruised ribs without injury to any underlying structure or fracture DISPOSITION: home with self-care CONDITION AT DISCHARGE:? stable Discharge Plan Discharge Clinical Impression: Bruised ribs Patient Disposition: Home, Self-Care Condition: Stable Instructions: Antibiotic Form Additional Instructions: he do not appear to have any fractures to ribs. I do suspect that she bruised her ribs. Given your history of COPD it is important that you continue to practice breathing deeply even if it is uncomfortable. To assist you with this I am sending home with an incentive spirometer. I want you to use this device every 2 hours while you are awake. Please call your primary care doctor 1st thing Tuesday morning to make a follow-up appointment I would like for him to see you within the next 5-7 days if at all possible. You can take 1000 mg of Tylenol up to 3 times a day to help with her pain. Please return to the emergency department immediately if you develop any shortness of breath or chest pain below her breast bone. Return to the emergency department or call 911 if? you develop high fever, shaking chills, or are unable to tolerate food or? fluids, have decreased urination, or are too sick to get out of bed. Patient Language: Mexican Prescriptions: No Action allopurinol 100 mg tablet 100 mg PO DAILY warfarin 3 mg tablet 3 mg PO DAILY ropinirole 0.25 mg tablet 0.25 mg PO DAILY rosuvastatin 40 mg tablet 40 mg PO DAILY furosemide 40 mg tablet 40 mg PO DAILY Jardiance 25 mg tablet 25 mg PO DAILY coenzyme Q10 [Co Q-10] 200 mg capsule 200 mg PO DAILY fluticasone propionate [Flonase Allergy Relief] 50 mcg/actuation spray,suspension 1 spray intranasal ONCE Rx Instructions: administer into each nostril Mounjaro 10 mg/0.5 mL pen injector 10 mg subcut WEEKLY oxybutynin chloride 5 mg tablet 5 mg PO DAILY insulin glargine [Lantus Solostar U-100 Insulin] 100 unit/mL (3 mL) insulin pen 10 unit subcut QPM pioglitazone [Actos] 15 mg tablet 15 mg PO DAILY metoprolol succinate 50 mg tablet extended release 24 hr 50 mg PO BID nitroglycerin 0.4 mg tablet, sublingual See Rx Instructions .ROUTE .COMPLEX Rx Instructions: 1 TAB EVERY 5 MINS TIMES 3 aspirin [Baby Aspirin] 81 mg Tablet,Chewable 81 mg PO DAILY albuterol sulfate 90 mcg/actuation HFA aerosol inhaler 2 inh INHALATION BID-TID PRN (Reason: Shortness Of Breath) omega 6-rjn-afl-fish oil [Fish Oil] 1,000 mg (120 mg-180 mg) Capsule 1 cap PO DAILY magnesium oxide 400 mg magnesium Capsule 400 mg PO BID Arnuity Ellipta 100 mcg/actuation blister with device 1 mcg INHALATION DAILY Follow-up/Referrals: UNKNOWN,DOCTOR [Non-Staff] - Time of Disposition: 12:45
[2024-05-19] MEDS: ACETAMINOPHEN 500 MG TABLET 1000 MG PO (12:06)
--- OUTSIDE RECORDS SUMMARY | 2024-05-19 12:52 | XMS_ITS | Encounter Summary ---
Author Organization [facility] Address [facility] [place] [address] Care Team Providers Care Feeder Worker Power Unit Operator Name Role Phone Rei Alcaraz MD Primary Care Provider [phone] Edgar Schilling MD Unavailable Unavailabl Jim Morales MD Unavailable Unavailable Dominguez Locke PA-C Unavailable [phone] Consuelo Boland MD Unavailable Encounter Details Date Type Department Care Team (Late st Contact Info) Description 11/08/2017 Abstract [facility] AT [facility] [address] [place] [address] Sahra Bradley APRN, PLASTIC AND RECONSTRUCTIVE SURGEON-C [address] [facility] [address] [place] [address] Social History Tobacco Use Types Packs/Day Years Used Date Smoking Tobacco: Every Day Cigarettes 0.5 44.2 Started: 1978 Smokeless Tobacco: Never Alcohol Use Standard Drinks/Week Comments Yes 0 (1 standard drink = 0.6 oz pur e alcohol) Comments Unknown Sex and Gender Information Value Date Recorded Sex Assigned at Female 03/30/2024 9:49 AM FOOD AND BEVERAGE ANALYST Legal Sex Female 1:02 PM CDT Gender Identity Not on file Sexual Orientation Not on file 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 [address] [place] [address] Carlos Wright MD [address] [address] 07/13/2024 11:00 AM CDT Allied Health/Nurse Visit [facility] [address] [place] [address] Carlos Wright MD [address] [place] [address] 09/04/2024 12:30 PM CDT Appointment [facility] [address] [place] [address] Consuelo Boland MD [address] [place] [address] 09/10/2024 11:45 AM CDT [facility] [address] [place] [address] Consuelo Boland MD [address] [place] [address] 10/17/2024 1:30 AM CDT Allied Health/Nurse Visit [facility] [address] [place] [address] Carlos Wright MD [address] [place] [address] documented as of this encounter Procedures Procedure [...] documented as of this encounter Care Teams Feeder Worker Power Unit Operator Relationship Specialty Start Date End Date Rei Alcaraz MD [address] [place] [address] PCP - General FAMILY PRACTICE 08/25/16 Edgar Schilling MD [address] [place] [id number] [place] [employer] Systems Designer CARDIOVASCULAR DISEASE 08/25/16 09/03/23 Jim Lugo MD [address] [place] [address] Consulting Physician CLINICAL CARDIAC ELECTROPHYSIOLOGY 05/27/22 09/03/23 Dominguez Locke PA-C [address] [place] [address] PHYSICIAN CARE PROGRAM RESIDENT 05/27/22 Consuelo Boland MD [address] [place] [address] Consulting Physician CARDIOVASCULAR DISEASE 09/04/23 documented as of this encounter
--- OUTSIDE RECORDS SUMMARY | 2024-05-19 12:52 | XMS_ITS | Encounter Summary ---
Author Organization [facility] Address [facility] [place] [address] Care Team Providers Care Terrazzo Layer Helper Name Role Phone Rei Alacraz MD Primary Care Provider [phone] Edgar Schilling MD Unavailable Unavailabl Jim Morales MD Unavailable Unavailable Dominguez Locke PA-C Unavailable [phone] Consuelo Boland MD Unavailable Encounter Details Date Type Department Care Team (Late st Contact Info) Description 09/03/[address] [facility] [address] [place] [address] Edgar Schilling MD Social History Tobacco Use Types Packs/Day Years Used Date Smoking Tobacco: Every Day Comments Unknown Sex and Gender Information Value Date Recorded Sex Assigned at Female 03/30/2024 9:49 AM MICROFILMER Legal Sex Female 1:02 PM CDT Gender Identity Not on file Sexual Orientation Not on file documented as of this encounter Plan of Treatment Upcoming Encounters Date Type Department Care Team (Latest Contact Info) Description 07/13/2024 11:00 AM CDT [facility] [address] [place] [address] Carlos Wright MD 619 [facility] [address] [address] 07/13/2024 11:00 AM CDT Allied Health/Nurse Visit [facility] [address] [place] [address] Carlos Wright MD [address] [address] 09/04/2024 12:30 PM CDT Appointment [facility] [address] [place] [address] Consuelo Boland MD [address] [place] [address] 09/10/2024 11:45 AM CDT [facility] [address] [place] [address] Consuelo Boland MD [address] [place] [address] 10/17/2024 1:30 AM CDT Allied Health/Nurse Visit [facility] [address] [place] [address] Carlos Wright MD [address] [address] documented as of this encounter Procedures Procedure [...] documented as of this encounter Care Teams Terrazzo Layer Helper Relationship Specialty Start Date End Date Rei Alcaraz MD [address] [place] [address] PCP - General FAMILY PRACTICE 08/25/16 Edgar Schilling MD [address] [place] [address] [place] Regulatory Coordinator CARDIOVASCULAR DISEASE 08/25/16 09/03/23 Jim Lugo MD [address] [place] [address] Consulting Physician CLINICAL CARDIAC ELECTROPHYSIOLOGY 05/27/22 09/03/23 Dominguez Locke PA-C [address] [place] [address] PHYSICIAN COMPLIANCE REVIEW SPECIALIST 05/27/22 Consuelo Boland MD 619 [place] [address] Consulting Physician CARDIOVASCULAR DISEASE 09/04/23 documented as of this encounter
--- OUTSIDE RECORDS SUMMARY | 2024-05-19 12:52 | XMS_ITS | Encounter Summary ---
Author Organization [facility] Address [facility] [place] [address] Care Team Providers Care Senior Payroll Specialist Name Role Phone Rei Alcaraz MD Primary Care Provider [phone] Edgar Schilling MD Unavailable Unavailabl Jim Morales MD Unavailable Unavailable Dominguez Locke PA-C Unavailable [phone] Consuelo Boland MD Unavailable Encounter Details Date Type Department Care Team (Late st Contact Info) Description 09/24/2016 Abstract [facility] [address] [place] [address] Edgar Schilling MD Social History Tobacco Use Types Packs/Day Years Used Date Smoking Tobacco: Every Day Comments Unknown Sex and Gender Information Value Date Recorded Sex Assigned at Female 03/30/2024 9:49 AM PHOTO PRODUCER Legal Sex Female 1:02 PM CDT Gender Identity Not on file Sexual Orientation Not on file documented as of this encounter Plan of Treatment Upcoming Encounters Date Type Department Care Team (Latest Contact Info) Description 07/13/2024 11:00 AM CDT [facility] [address] [place] [address] Carlos Wright MD 619 [facility] [address] [address] 07/13/2024 11:00 AM CDT Allied Health/Nurse Visit [facility] [address] [place] [address] Carlos Wright MD [address] [address] 09/04/2024 12:30 PM CDT Appointment [address] [place] [address] Consuelo Boland MD [address] [place] [address] 09/10/2024 11:45 AM CDT Office Visit [facility] [place] [address] Consuelo Boland MD [address] [place] [address] 10/17/2024 1:30 AM CDT Allied Health/Nurse Visit [facility] [address] [place] [address] Carlos Wright MD [address] [address] documented as of this encounter Visit Diagnoses Not on filedocumented in this encounter Additional Health Concerns Infection Onset Date Last Indicated Resolved Time COVID-19 Rule Out 11/03/2019 11/03/2019 11/04/2019 3:36 PM CDT documented as of this encounter Care Teams Senior Payroll Specialist Relationship Specialty Start Date End Date Rei Alcaraz MD [address] [place] [address] PCP - General FAMILY PRACTICE 08/25/16 Edgar Schilling MD [address] [place] [address] [place] Resaw Operator CARDIOVASCULAR DISEASE 08/25/16 09/03/23 Jim Lugo MD [address] [place] [address] Consulting Physician CLINICAL CARDIAC ELECTROPHYSIOLOGY 05/27/22 09/03/23 Dominguez Locke PA-C [address] [place] [address] PHYSICIAN THREAD INSPECTOR 05/27/22 Consuelo Boland MD [address] [place] [address] Consulting Physician CARDIOVASCULAR DISEASE 09/04/23 documented as of this encounter
--- OUTSIDE RECORDS SUMMARY | 2024-05-19 12:52 | XMS_ITS | Encounter Summary ---
Author Organization [facility] Address [facility] [place] [address] Care Team Providers Care Brake Press Operator Name Role Phone Rei Alcaraz MD Primary Care Provider [phone] Edgar Schilling MD Unavailable Unavailabl Jim Morales MD Unavailable Unavailable Dominguez Locke PA-C Unavailable [phone] Consuelo Boland MD Unavailable Encounter Details Date Type Department Care Team (Late st Contact Info) Description 10/04/2016 Abstract [facility] [address] [place] [address] Edgar Schilling MD Social History Tobacco Use Types Packs/Day Years Used Date Smoking Tobacco: Every Day Cigarettes 0.5 44.2 Started: 1980 Comments Unknown Sex and Gender Information Value Date Recorded Sex Assigned at Female 03/30/2024 9:49 AM INSURANCE BILLING SPECIALIST Legal Sex Female 1:02 PM CDT Gender Identity Not on file Sexual Orientation Not on file documented as of this encounter Plan of Treatment Upcoming Encounters Date Type Department Care Team (Latest Contact Info) Description 07/13/2024 11:00 AM CDT [facility] [address] [place] [address] Carlos Wright MD [address]19 [facility] [address] [address] 07/13/2024 11:00 AM CDT Allied Health/Nurse Visit [facility] 6[address] [place] [address] Carlos Wright MD [address] [address] 09/04/2024 12:30 PM CDT Appointment [address] [place] [address] Consuelo Boland MD [address] [place] [address] 09/10/2024 11:45 AM CDT Office Visit [facility] [place] [address] Consuelo Boland MD [address] [place] [address] 10/17/2024 1:30 AM CDT Allied Health/Nurse Visit [facility] [address] [place] [address] Carlos Wright MD [address] [address] documented as of this encounter Visit Diagnoses Not on filedocumented in this encounter Additional Health Concerns Infection Onset Date Last Indicated Resolved Time COVID-19 Rule Out 11/03/2019 11/03/2019 11/04/2019 3:36 PM CDT documented as of this encounter Care Teams Brake Press Operator Relationship Specialty Start Date End Date Rei Alcaraz MD [address] [place] [address] PCP - General FAMILY PRACTICE 08/25/16 Edgar Schilling MD [address] [place] [address] [place] [employer] Rivet Machine Operator CARDIOVASCULAR DISEASE 08/25/16 09/03/23 Jim Lugo MD [address] [place] [address] Consulting Physician CLINICAL CARDIAC ELECTROPHYSIOLOGY 05/27/22 09/03/23 Dominguez Locke PA-C [address] [place] [address] PHYSICIAN MANAGER AIR 05/27/22 Consuelo Boland MD [address] [place] [address] Consulting Physician CARDIOVASCULAR DISEASE 09/04/23 documented as of this encounter
--- OUTSIDE RECORDS SUMMARY | 2024-05-19 12:52 | XMS_ITS | Encounter Summary ---
Author Organization [facility] Address [facility] [place] [address] Care Team Providers Care Tractor Trailer Moving Van Driver Name Role Phone Rei Alcaraz MD Primary Care Provider [phone] Edgar Schilling MD Unavailable Unavailabl Jim Morales MD Unavailable Unavailable Dominguez Locke PA-C Unavailable [phone] Consuelo Boland MD Unavailable Encounter Details Date Type Department Care Team (Late st Contact Info) Description 04/28/2017 Abstract [facility] [address] [place] [phone] Edgar Schilling MD Social History Tobacco Use Types Packs/Day Years Used Date Smoking Tobacco: Every Day Cigarettes 0.5 44.2 Started: 1980 Smokeless Tobacco: Never Alcohol Use Standard Drinks/Week Comments Yes 0 (1 standard drink = 0.6 oz pur e alcohol) Comments Unknown Sex and Gender Information Value Date Recorded Sex Assigned at Female 03/30/2024 9:49 AM MOLDER OPERATOR Legal Sex Female 1:02 PM CDT Gender Identity Not on file Sexual Orientation Not on file 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 Not on file documented as of this encounter Plan of Treatment Upcoming Encounters Date Type Department Care Team (Latest Contact Info) Description 07/13/2024 11:00 AM CDT [facility] [address] [place] [address] Carlos Wright MD [address] [place] [address] 07/13/2024 11:00 AM CDT Allied Health/Nurse Visit [facility] [address] [place] [address] Carlos Wright MD [address] [address] 09/04/2024 12:30 PM CDT Appointment [facility] [address] [facility] [place] [facility] [place] [address] Consuelo Boland MD [address] [place] [address] 09/10/2024 11:45 AM CDT [facility] [address] [facility] [place] [phone] Consuelo Boland MD [address] [place] [address] 10/17/2024 1:30 AM CDT Allied Health/Nurse Visit [facility] [address] [place] [address] Carlos Wright MD [address] [place] [address] documented as of this encounter Procedures Procedure [...] documented as of this encounter Care Teams Tractor Trailer Moving Van Driver Relationship Specialty Start Date End Date Rei Alcaraz MD [address] [place] [address] PCP - General FAMILY PRACTICE 08/25/16 Edgar Schilling MD 4 [place] [address] [place] Manager Helpdesk CARDIOVASCULAR DISEASE 08/25/16 09/03/23 Jim Lugo MD 4 [place] [address] Consulting Physician CLINICAL CARDIAC ELECTROPHYSIOLOGY 05/27/22 09/03/23 Dominguez Locke PA-C [address] [place] [address] PHYSICIAN PROCUREMENT MANAGER 05/27/22 Consuelo Boland MD [address] [place] [address] Consulting Physician CARDIOVASCULAR DISEASE 09/04/23 documented as of this encounter
--- OUTSIDE RECORDS SUMMARY | 2024-05-19 12:52 | XMS_ITS | Encounter Summary ---
Author Organization [facility] Address [facility] [place] [address] Care Team Providers Care Executive Chef Assistant Name Role Phone Rei Alcaraz MD Primary Care Provider [phone] Edgar Schilling MD Unavailable UnavailJim Zuniga MD Unavailable Unavailable Dominguez Locke PA-C Unavailable [phone] Consuelo Boland MD Unavailable Encounter Details Date Type Department Care Team (Late st Contact Info) Description 01/11/2018 Abstract [facility] [address] [place] [phone] Abstract, Doc [facility] Social History Tobacco Use Types Packs/Day Years Used Date Smoking Tobacco: Every Day Cigarettes 0.5 44.2 Started: 1980 Smokeless Tobacco: Never Alcohol Use Standard Drinks/Week Comments Yes 0 (1 standard drink = 0.6 oz pur e alcohol) Comments Unknown Sex and Gender Information Value Date Recorded Sex Assigned at Female 03/30/2024 9:49 AM SCRUBBER SYSTEM ATTENDANT Legal Sex Female 1:02 PM CDT Gender Identity Not on file Sexual Orientation Not on file 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 [address] [place] [phone] Carlos Wright MD [address] [address] 07/13/2024 11:00 AM CDT Allied Health/Nurse Visit [facility] [address] [place] [address] Carlos Wright MD [address] [address] 09/04/2024 12:30 PM CDT Appointment [address] [place] [address] Consuelo Boland MD [address] [place] [address] 09/10/2024 11:45 AM CDT Office Visit [facility] [place] [address] Consuelo Boland MD [address] [place] [address] 10/17/2024 1:30 AM CDT Allied Health/Nurse Visit [facility] [address] [place] [address] Carlos Wright MD [address] [address] documented as of this encounter Procedures Procedure [...] documented as of this encounter Care Teams Executive Chef Assistant Relationship Specialty Start Date End Date Rei Alcaraz MD [address] [place] [address] PCP - General FAMILY PRACTICE 08/25/16 Edgar Schilling MD 4 [place] [address] [place] [employer] Warden CARDIOVASCULAR DISEASE 08/25/16 09/03/23 Jim Lugo MD [address] [place] [address] Consulting Physician CLINICAL CARDIAC ELECTROPHYSIOLOGY 05/27/22 09/03/23 Dominguez Locke PA-C 9 [place] [address] PHYSICIAN ABSORBER OPERATOR 05/27/22 Consuelo Boland MD [address] [place] [address] Consulting Physician CARDIOVASCULAR DISEASE 09/04/23 documented as of this encounter
--- OUTSIDE RECORDS SUMMARY | 2024-05-19 12:52 | XMS_ITS | Encounter Summary ---
Author Organization [facility] Address [facility] [place] [address] Care Team Providers Care Garbage Collector Supervisor Name Role Phone Rei Alcaraz MD Primary Care Provider [phone] Edgar Schilling MD Unavailable Unavailabl Jim Morales MD Unavailable Unavailable Dominguez Locke PA-C Unavailable [phone] Consuelo Boland MD Unavailable Encounter Details Date Type Department Care Team (Late st Contact Info) Description 09/22/2017 Abstract [facility] [address] [place] [phone] Edgar Schilling MD Social History Tobacco Use Types Packs/Day Years Used Date Smoking Tobacco: Every Day Cigarettes 0.5 44.2 Started: 1980 Smokeless Tobacco: Never Alcohol Use Standard Drinks/Week Comments Yes 0 (1 standard drink = 0.6 oz pur e alcohol) Comments Unknown Sex and Gender Information Value Date Recorded Sex Assigned at Female 03/30/2024 9:49 AM PROVIDER NETWORK MANAGER Legal Sex Female 1:02 PM CDT Gender Identity Not on file Sexual Orientation Not on file 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 Not on file documented as of this encounter Plan of Treatment Upcoming Encounters Date Type Department Care Team (Latest Contact Info) Description 07/13/2024 11:00 AM CDT [facility] [address] [place] [address] Carlos Wright MD [address] [place] [address] 07/13/2024 11:00 AM CDT Allied Health/Nurse Visit [facility] [address] [place] [address] Carlos Wright MD [address] [place] [address] 09/04/2024 12:30 PM CDT Appointment [facility] [address] [facility] [place] [address] Consuelo Boland MD [address] [place] [address] 09/10/2024 11:45 AM CDT Office [facility] [address] [facility] [place] [address] Consuelo Boland MD [address] [place] [address] 10/17/2024 1:30 AM CDT Allied Health/Nurse Visit [address] [address] Carlos Wright MD [address] [place] [address] documented as of this encounter Procedures Procedure [...] documented as of this encounter Care Teams Garbage Collector Supervisor Relationship Specialty Start Date End Date Rei Alcaraz MD [address] [place] [address] PCP - General FAMILY PRACTICE 08/25/16 Edgar Schilling MD [address] [place] [phone] [place] Visual Basic Programmer CARDIOVASCULAR DISEASE 08/25/16 09/03/23 Jim Lugo MD 4 [place] [address] Consulting Physician CLINICAL CARDIAC ELECTROPHYSIOLOGY 05/27/22 09/03/23 Dominguez Locke PA-C 9 [place] [address] PHYSICIAN MULTI PUNCH OPERATOR 05/27/22 Consuelo Boland MD 9 [place] [address] Consulting Physician CARDIOVASCULAR DISEASE 09/04/23 documented as of this encounter
--- OUTSIDE RECORDS SUMMARY | 2024-05-19 12:52 | XMS_ITS | Encounter Summary ---
Author Organization [facility] Address [facility] [place] [address] Care Team Providers Care Floor Grinder Name Role Phone Rei Alcaraz MD Primary Care Provider [phone] Edgar Schilling MD Unavailable Unavailabl Jim Morales MD Unavailable Unavailable Dominguez Locke PA-C Unavailable [phone] Consuelo Boland MD Unavailable Encounter Details Date Type Department Care Team (Late st Contact Info) Description 12/29/2017 Abstract [facility] [address] [place] [phone] Edgar Schilling MD Social History Tobacco Use Types Packs/Day Years Used Date Smoking Tobacco: Every Day Cigarettes 0.5 44.2 Started: 1980 Smokeless Tobacco: Never Alcohol Use Standard Drinks/Week Comments Yes 0 (1 standard drink = 0.6 oz pur e alcohol) Comments Unknown Sex and Gender Information Value Date Recorded Sex Assigned at Female 03/30/2024 9:49 AM HEARING HEALTHCARE PRACTITIONER Legal Sex Female 1:02 PM CDT Gender Identity Not on file Sexual Orientation Not on file 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 Not on file documented as of this encounter Plan of Treatment Upcoming Encounters Date Type Department Care Team (Latest Contact Info) Description 07/13/2024 11:00 AM CDT [facility] [address] [place] [address] Carlos Wright MD [address] [place] [address] 07/13/2024 11:00 AM CDT Allied Health/Nurse Visit [facility] [address] [place] [address] Carlos Wright MD [address] [address] 09/04/2024 12:30 PM CDT Appointment [facility] [address] [place] [address] Consuelo Boland MD [address] [place] [address] 09/10/2024 11:45 AM CDT [facility] [address] [place] [address] Consuelo Boland MD [address] [place] [address] 10/17/2024 1:30 AM CDT Allied Health/Nurse Visit [facility] [address] [place] [address] Carlos Wright MD [address] [place] [address] documented as of this encounter Procedures Procedure Name Priority Date/Time Associated Diagnosis Comments PROTHROMBIN TIME, VENOUS Routine 12/28/2017 BASIC METABOLIC PANEL Routine 12/28/2017 documented in this encounter Results * PROTIME/INR, VENOUS (12/28/2017) PROTIME WHOLE BLOOD 18.7 INR WHOLE BLOOD 1.70 12/28/2017 us Doc [facility] Abstract LABORATORY Final Result * (ABNORMAL) BASIC METABOLIC PANEL (12/28/2017) Pathologist [facility] SODIUM S/P/B 139 POTASSIUM S/P/B 4.4 CO2 [...] documented as of this encounter Care Teams Floor Grinder Relationship Specialty Start Date End Date Rei Alcaraz MD [address] [place] [phone] PCP - General FAMILY PRACTICE 08/25/16 Edgar Schilling MD [address] [place] [phone] [place] Metal Wire Technician CARDIOVASCULAR DISEASE 08/25/16 09/03/23 Jim Lugo MD 4 [place] [address] Consulting Physician CLINICAL CARDIAC ELECTROPHYSIOLOGY 05/27/22 09/03/23 Dominguez Locke PA-C [address] [place] [phone] PHYSICIAN WATER FABRICATOR OPERATOR 05/27/22 Consuelo Boland MD [address] [place] [address] Consulting Physician CARDIOVASCULAR DISEASE 09/04/23 documented as of this encounter
--- OUTSIDE RECORDS SUMMARY | 2024-05-19 12:52 | XMS_ITS | Encounter Summary ---
Author Organization [facility] Address [facility] [place] [address] Care Team Providers Care Trail Construction Worker Name Role Phone Rei Alcaraz MD Primary Care Provider [phone] Edgar Schilling MD Unavailable Unavailabl Jim Morales MD Unavailable Unavailable Dominguez Lcoke PA-C Unavailable [phone] Consuelo Boland MD Unavailable Encounter Details Date Type Department Care Team (Late st Contact Info) Description 09/24/2016 [facility] [address] [place] [address] Edgar Schilling MD Social History Tobacco Use Types Packs/Day Years Used Date Smoking Tobacco: Every Day Comments Unknown Sex and Gender Information Value Date Recorded Sex Assigned at Female 03/30/2024 9:49 AM ELECTRIC DRILL OPERATOR Legal Sex Female 1:02 PM CDT Gender Identity Not on file Sexual Orientation Not on file documented as of this encounter Plan of Treatment Upcoming Encounters Date Type Department Care Team (Latest Contact Info) Description 07/13/2024 11:00 AM CDT [facility] [address] [place] [address] Carlos Wright MD [address] [facility] [address] [address] 07/13/2024 11:00 AM CDT Allied Health/Nurse Visit [facility] [address] [place] [address] Carlos Wright MD [address] [address] 09/04/2024 12:30 PM CDT Appointment [address] [place] [address] Consuelo Boland MD [address] [place] [address] 09/10/2024 11:45 AM CDT Office Visit [facility] [place] [address] Consuelo Boland MD [address] [place] [address] 10/17/2024 1:30 AM CDT Allied Health/Nurse Visit [facility] [address] [place] [address] Carlos Wright MD [address] [address] documented as of this encounter Visit Diagnoses Not on filedocumented in this encounter Additional Health Concerns Infection Onset Date Last Indicated Resolved Time COVID-19 Rule Out 11/03/2019 11/03/2019 11/04/2019 3:36 PM CDT documented as of this encounter Care Teams Trail Construction Worker Relationship Specialty Start Date End Date Rei Alcaraz MD [address] [place] [address] PCP - General FAMILY PRACTICE 08/25/16 Edgar Schilling MD [address] [place] [address] [place] [employer] Worker CARDIOVASCULAR DISEASE 08/25/16 09/03/23 Jim Lugo MD [address] [place] [address] Consulting Physician CLINICAL CARDIAC ELECTROPHYSIOLOGY 05/27/22 09/03/23 Dominguez Locke PA-C [address] [place] [address] PHYSICIAN BEEF CATTLE FARMER 05/27/22 Consuelo Boland MD [address] [place] [address] Consulting Physician CARDIOVASCULAR DISEASE 09/04/23 documented as of this encounter
--- OUTSIDE RECORDS SUMMARY | 2024-05-19 12:52 | XMS_ITS | Clinical Summary ---
Author Organization [facility] Address [address] [place] [address] Care Team Providers Care Watch Commander Name Role Phone Rei Alcaraz MD Primary Care Provider [phone] Dominguez Locke PA-C Unavailable [phone] Melissa Regan MD Unavailable Allergies No [...] MG SL tabletIndicati ons:Coronary artery disease involving beaver coronary artery of beaver heart without angina pectoris Place 1 tablet (0.4 mg total) under the tongue every 5 (five) minutes as needed for Chest Pain. 25 tablet 5 Active Active Problems Problem Noted Date Diagnosed Date Presence of cardioverter defibrillator 4 Contusion of right ankle 08/05/2021 Mixed hyperlipidemia 09/21/2019 Ischemic cardiomyopathy 02/20/2017 Other pulmonary embolism wit hout acute cor pulmonale ([facility]) 02/20/2017 LV dysfunction 01/26/2017 Pulmonary hypertension ([facility]) 017 LV (left ventricular) mural thrombus without WA ([facility]) Dyspnea Tobacco abuse Chronic systolic heart failure ([facility]) COPD (chronic obstructive pu lmonary disease) ([facility]) Diabetes ([facility]) CAD (coronary artery disease) Encounters Date Type Department Care Team Description 05/09/2024 1:30 AM PLATE DRILLER Allied Health[facility] [address] [place] [address] Carlos Wright MD 03/30/2024 10:15 AM PLATE DRILLER Office Visit [facility] [address] [place] [address] Melissa Regan MD Heart Problem 03/30/2024 9:49 AM PLATE DRILLER - 03/30/2024 11:59 PM PLATE DRILLER Hospital Encounter [facility] [address] [place] [address] Melissa Regan MD Discharge Disposition: Home or Self Care (Routine Discharge) 03/30/2024 Travel 03/28/2024 Orders Only [facility] [address] [place] [address] Melissa Regan MD 02/28/2024 9:23 AM PLATE DRILLER - 02/28/2024 11:59 PM PLATE DRILLER Hospital Encounter [facility] [address] [place] [address] Yuli Lin MD Discharge Disposition: Home or Self Care (Routine Discharge) 02/28/2024 Travel from Last 3 Months Family History Medical History Relation Comments Hypertension Brother Miscarriages / Stillbirths Daughter Cancer Father Prostate,skin Heart Disease Father Hypertension Father [place] Father Heart Disease Maternal Aunt Heart Disease Maternal Grandfather Arthritis Maternal Grandmother In her hand s Heart Disease Maternal Uncle Stroke Maternal Uncle Heart Disease Mother Hypertension Mother [place] Mother Heart Disease Paternal Grandfather Heart Disease [...] Sex Assigned at Female 03/30/2024 9:49 AM PLATE DRILLER Legal Sex Female 1:02 PM CDT Gender Identity Not on file Sexual Orientation Not on file 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 Not on file Last Filed Vital Signs Vital Sign Reading Time Taken Comments Blood Pressure 114/64 03/30/2024 1:49 PM PLATE DRILLER Pulse 74 03/30/2024 1:49 PM PLATE DRILLER Temperature 36.2 C (97.2 F) 11/06/2019 11:00 AM CDT Respiratory Rate 20 03/30/2024 1:49 PM PLATE DRILLER Oxygen Saturation 97% 03/30/2024 1:49 PM PLATE DRILLER Inhaled Oxygen Concentration - - Weight 87.1 kg (192 lb) 03/30/2024 1:49 PM PLATE DRILLER Height 157.5 cm (5' 2 ) 03/30/2024 1:49 PM PLATE DRILLER Body Mass Index 35.12 03/30/2024 1:49 PM PLATE DRILLER Plan of Treatment Upcoming Encounters Date Type Department Care Team (Latest Contact Info) Description 07/13/2024 11:00 AM CDT Office Visit [facility] [address] [place] [address] [phone] Carlos Wright MD [address] [address] 07/13/2024 11:00 AM CDT Allied Health/Nurse Visit [facility] [address] [place] [phone] Carlos Wright MD [address] [address] 09/04/2024 12:30 PM CDT Appointment [facility] [address] [place] [address] Melissa Regan MD [address] [place] [address] 09/10/2024 11:45 AM CDT [facility] [address] [place] [address] Melissa Regan MD [address] [place] [address] 10/17/2024 1:30 AM CDT Allied Health/Nurse Visit [facility] [address] [place] [phone] Carlos Wright MD [address] [address] Health Maintenance Due Date Last Done Comments [...] this topic Medical Devices Implanted Type Area Plastic Fixture Builder Device Identifier Shelf Expiration Date Model / Serial / Lot Ep-Sjm Ellipse Vr Icd-11/06/2019 Implanted:Qt y: 1 on 11/06/2019 by Jim Lugo MD ICD [facility] [facility] 04/06/2021 [id number] / [id number] / Description:SJM Ellipse VR I CD Ep-Optisure Icd Lead- 0 Implanted:Qt y: 1 on 11/06/2019 by Jim Lugo MD Lead Implant Right: Ventricle [facility] [employer] [facility] 07/04/2021 [id number] / [id number] / Description:SJM Optisure 58c m Lead Procedures Procedure Name Priority Date/Time Associated Diagnosis Comments ECG 12-LEAD Routine 03/30/2024 10:01 AM PLATE DRILLER Coronary artery disease involving beaver coronary artery of beaver heart without angina pectoris US RETROPERITONEAL COMP Routine 02/28/20 10:15 AM PLATE DRILLER CKD (chronic kidney disease) stage 4, GFR 15-29 ml/min ([facility]) LIPID PANEL Routine 12/13/2023 11:10 AM CDT Hyperlipidemia, mixed Essential (primary) hypertension HEMOGLOBIN, GLYCOSYLATED TIMED 09/01/2016 4:36 AM CDT from Last 3 Months or Most Recently Relevant to Health Maintenance Results * ECG 12 lead (HOSPITAL PERFORMED ONLY) (03/30/2024 10:01 AM PLATE DRILLER) 03/30/2024 10:0 1 AM PLATE DRILLER Narrative [facility] - 03/30/2024 6:24 PM PLATE DRILLER [address] [place] [address] Test Date: 2024-03-30 Pat Name: MIKE ESCOBAR Department: 3 Room: Gender: Female Vegetable Canner: : 1960 Requested By: MELISSA REGAN Order Number: [id number] Reading MD: Melissa Regan Measurements Intervals Crane Rate: 73 P: 46 [place]: 146 QRS: 105 QRSD: 93 T: 100 QT: 393 QTc: 435 Interpretive Statements SINUS RHYTHM LOW QRS VOLTAGE IN PRECORDIAL LEADS [QRS DEFLECTION < 1.0 mV IN CHEST LEADS] LATERAL MYOCARDIAL INFARCTION , OF INDETERMINATE AGE [40+ ms Q WAVE AND/OR ST/T ABNORMALITY IN I/aVL/V5/V6] E DRILLER Procedure Note Melissa Regan MD - 03/30/[address] [place] [address] Test Date: 2024-03-30 Pat Name: MIKE ESCOBAR Department: 3 Room: Gender: Female Vegetable Canner: : 1960 Requested By: MELISSA REGAN Order Number: [id number] Reading MD: Melissa Regan Measurements Intervals Crane Rate: 73 P: 46 [place]: 146 QRS: 105 QRSD: 93 T: 100 QT: 393 QTc: 435 Interpretive Statements SINUS RHYTHM LOW QRS VOLTAGE IN PRECORDIAL LEADS [QRS DEFLECTION < 1.0 mV IN CHESTLEADS] LATERAL MYOCARDIAL INFARCTION , OF INDETERMINATE AGE [40+ ms Q WAVEAND/OR ST/T ABNORMALITY IN I/aVL/V5/V6] E DRILLER us Melissa Regna MD ECG ORDERABLES Final Result [facility] * US RETROPERITONEAL COMP (02/28/2024 10:15 AM PLATE DRILLER) Anatomical Region Laterality Modality Abdomen Ultrasound 02/28/2024 3:55 PM PLATE DRILLER Impressions 02/28/2024 3:58 PM PLATE DRILLER IMPRESSION: 1. Unremarkable sonographic appearance of each kidney and urinary bladder. 2. 3.3 cm left adnexal cyst most likely of left ovarian origin. Ordered By: YULI LIN Interpreted By: Bull Brady MD, 02/28/2024 3:55 PM Narrative 02/28/2024 3:58 PM PLATE DRILLER [address] [place] [address] Examination: US RETROPERITONEAL COMP Exam time: 02/28/2024 [...] Note Long, Bull D, MD - 02/28/[address] [place] [address] Examination: US RETROPERITONEAL COMP Exam time: 02/28/2024 9:30 AM Clinical history: Chronic kidney disease Comparison: No prior exam Findings: Right kidney measures 9.2 cm in length and the left wpevudnw76.7 cm. No evidence of focal renal parenchymal [...] CHOLESTEROL 141 MG/DL 12/14/2023 12:[address] [facility] Comment:DESIRABLE: <200 TRIGLYCERIDES 316 MG/DL 12/14/2023 12:[address] [facility] Comment:200-499 HIGH HDL 53 >49 MG/DL 12/14/2023 12:[address] [facility] LDL-C 25 MG/DL 12/14/2023 12:[address] [facility] Comment:<100 OPTIMAL VLDL CALCULATION 63 MG/DL 12/14/19 12:[address] [facility] Comment:REFERENCE RANGE NOT ESTABLISHED CHOL/HDL RATIO 2.7 12/14/2023 12:[address] [facility] Comment:REFERENCE RANGE NOT ESTABLISHED LDL/HDL 0.5 12/14/2023 12:[address] [facility] Comment:REFERENCE RANGE NOT ESTABLISHED NON HDL CHOLESTEROL 88 MG/DL 12/14/2023 12:[address] [facility] Comment:REFERENCE RANGE NOT ESTABLISHED 12/13/2023 11:1 0 AM CDT Melissa Regan MD LABORATORY Final Result Performing Organization Address [facility] Co de Phone Number [facility] [address] [place] [address], [phone] * (ABNORMAL) HEMOGLOBIN, GLYCOSYLATED (09/01/2016 4:36 AM CDT) HGB A1C 6.5(H) 4.5 - 6.0 % 09/01/2016 4:[address] [facility] ESTIMATED AVG GLUCOSE 140 MG/DL 09/01/2016 4:[address] [facility] 09/01/2016 4:36 AM CDT 09/01/2016 3:37 AM CDT Kandace Mcfarland Md, MD LABORATORY Final R esult Performing Organization Address [facility] Co de Phone Number [facility] [address] [place] [address], [place] [phone] from Last 3 Months or Most Recently Relevant to Health Maintenance Insurance [facility] MEDICAID Advance Directives * Full Code (Latest Code Status on File) Date Activated Date Inactivated Comments 11/06/2019 3:30 PM 11/06/2019 8:35 PM Care Teams Watch Commander Relationship Specialty Start Date End Date Rei Alcaraz MD [address] [place] [address] PCP - General FAMILY PRACTICE 08/25/16 Dominguez Locke PA-C [address] [place] [phone] PHYSICIAN PROCESS MAINTENANCE TECHNICIAN 05/27/22 Melissa Regan MD [address] [place] [address] Consulting Physician CARDIOVASCULAR DISEASE 09/04/23
--- OUTSIDE RECORDS SUMMARY | 2024-05-19 12:52 | XMS_ITS | Encounter Summary ---
Author Organization [facility] Address [facility] [place] [address] Care Team Providers Care Border Measurer Name Role Phone Rei Alcaraz MD Primary Care Provider [phone] Edgar Schilling MD Unavailable Unavailabl Jim Morales MD Unavailable Unavailable Dominguez Locke PA-C Unavailable [phone] Consuelo Boland MD Unavailable Encounter Details Date Type Department Care Team (Late st Contact Info) Description 10/19/2017 Abstract [facility] [address] [place] [phone] Edgar Schilling MD Social History Tobacco Use Types Packs/Day Years Used Date Smoking Tobacco: Every Day Cigarettes 0.5 44.2 Started: 1978 Smokeless Tobacco: Never Alcohol Use Standard Drinks/Week Comments Yes 0 (1 standard drink = 0.6 oz pur e alcohol) Comments Unknown Sex and Gender Information Value Date Recorded Sex Assigned at Female 03/30/2024 9:49 AM PARI MUTUAL TICKET CHECKER Legal Sex Female 1:02 PM CDT Gender [...] Health [facility] eld [address] [place] [address] Carlos Wright MD [address] [place] [address] 07/13/2024 11:00 AM CDT Allied Health/Nurse Visit [facility] [address] [place] [address] Carlos Wright MD [address] [place] [address] 09/04/2024 12:30 PM CDT Appointment [facility] [address] [facility] [place] [address] Consuelo Boland MD [address] [place] [address] 09/10/2024 11:45 AM CDT [facility] [address] [facility] [place] [address] Consuelo Boland MD [address] [place] [address] 10/17/2024 1:30 AM CDT Allied Health/Nurse Visit [address] [address] Carlos Wright MD [address] [place] [address] documented as of this encounter Procedures Procedure [...] documented as of this encounter Care Teams Border Measurer Relationship Specialty Start Date End Date Rei Alcaraz MD [address] [place] [address] PCP - General FAMILY PRACTICE 08/25/16 Edgar Schilling MD [address] [place] [phone] [place] CARDIOVASCULAR DISEASE 08/25/16 09/03/23 Jim Lugo MD [address] [place] [address] Consulting Physician CLINICAL CARDIAC ELECTROPHYSIOLOGY 05/27/22 09/03/23 Dominguez Locke PA-C [address] [place] [address] PHYSICIAN BRUSH PAINTER 05/27/22 Consuelo Boland MD [address] [place] [address] Consulting Physician CARDIOVASCULAR DISEASE 09/04/23 documented as of this encounter
[2024-05-19 12:54] VITALS: BP 100/66; PULSE 96; RESP 20; TEMP 36.6; O2SAT 100
== END 2024-05-19 12:56 | disposition home or self-care (01) ==
PROVIDERS: Emergency Provider Family Medicine; PCP Family Medicine
DX: S20.211A Contusion of right front wall of thorax, initial encounter (principal); I11.0 Hypertensive heart disease with heart failure; I50.9 Heart failure, unspecified; E11.9 Type 2 diabetes mellitus without complications; E78.2 Mixed hyperlipidemia; J44.9 Chronic obstructive pulmonary disease, unspecified; F17.210 Nicotine dependence, cigarettes, uncomplicated; Z86.718 Personal history of other venous thrombosis and embolism; Z79.01 Long term (current) use of anticoagulants; W10.9XXA Fall (on) (from) unspecified stairs and steps, initial encounter
CPT/HCPCS: 70450; 71046; 71100; 99284

== ENCOUNTER 2024-05-25 08:48 | Outpatient (RCR) | payer MEDICARE, MEDICAID, SELFPAY ==
[2024-03-19 13:31] LABS: INR 3.2; Prothrombin Time 31.9 Seconds (9.50-12.1)
[2024-04-04 11:00] LABS: INR 2.9; Prothrombin Time 29.3 Seconds (9.50-12.1)
[2024-05-01 09:42] LABS: INR 1.6; Prothrombin Time 16.8 Seconds (9.50-12.1)
[2024-05-18 10:57] LABS: INR 1.8; Prothrombin Time 18.6 Seconds (9.50-12.1)
[2024-05-25 09:23] LABS: INR 2.9; Prothrombin Time 28.8 Seconds (9.50-12.1)
== END 2024-06-17 23:59 | disposition home or self-care (01) ==
LOC: CHSLAB 08:48
PROVIDERS: PCP Family Medicine; Visit Provider Family Medicine
DX: Z79.01 Long term (current) use of anticoagulants (principal)
CPT/HCPCS: 36415; 85610

== ENCOUNTER 2024-07-02 07:37 | Outpatient (CLI) | payer MEDICARE, MEDICAID, SELFPAY ==
--- OUTSIDE RECORDS SUMMARY | 2024-07-02 07:41 | XMS_ITS | Encounter Summary ---
Author Organization [facility] Address [facility] [place] [address] Care Team Providers Care Security System Engineer Name Role Phone Rei Alcaraz MD Primary Care Provider [phone] Edgar Schilling MD Unavailable [phone] Jim Lugo MD Unavailable Unavailable Dominguez Locke PA-C Unavailable [phone] Consuelo Boland MD Unavailable Encounter Details Date Type Department Care Team (Late st Contact Info) Description 10/19/2017 Abstract [facility] [address] [place] [address] Edgar Schilling MD [address] [place] [address] Social History Tobacco Use Types Packs/Day Years Used Date Smoking Tobacco: Every Day Cigarettes 0.5 44.3 Started: 1980 Smokeless Tobacco: Never Alcohol Use Standard Drinks/Week Comments Yes 0 (1 standard drink = 0.6 oz pur e alcohol) Comments Unknown Sex and Gender Information Value Date Recorded Sex Assigned at Female 03/30/2024 9:49 AM RESEARCH GREENHOUSE SUPERVISOR Legal Sex Female 1:02 PM CDT Gender Identity Not on file Sexual Orientation Not on file 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 [address] [place] [address] Consuelo Boland MD [address] [place] [address] 09/10/2024 11:45 AM CDT Office Visit [facility] [address] [place] [address] Consuelo Boland MD [address] [place] [address] 10/17/2024 1:30 AM CDT Allied Health/Nurse Visit [facility] [address] [place] [address] Carlos Wright MD [address] [place] [address] documented as of this encounter Procedures Procedure [...] documented as of this encounter Care Teams Security System Engineer Relationship Specialty Start Date End Date Rei Alcaraz MD [address] [place], [place] [phone] PCP - General FAMILY PRACTICE 08/25/16 Edgar Schilling MD [address] [place] [phone] [place] Chair Trimmer CARDIOVASCULAR DISEASE 08/25/16 09/03/23 Jim Lugo MD [address] [place] [address] Consulting Physician CLINICAL CARDIAC ELECTROPHYSIOLOGY 05/27/22 09/03/23 Dominguez Locke PA-C [address] [place] [address] PHYSICIAN GLUER AND SLICER HAND 05/27/22 Consuelo Boland MD [address] [place] [address] Consulting Physician CARDIOVASCULAR DISEASE 09/04/23 documented as of this encounter
--- OUTSIDE RECORDS SUMMARY | 2024-07-02 07:41 | XMS_ITS | Encounter Summary ---
Author Organization [facility] Address [facility] [place] [address] Care Team Providers Care Forest Firefighter Name Role Phone Rei Alcaraz MD Primary Care Provider [phone] Edgar Schilling MD Unavailable [phone] Jim Lugo MD Unavailable Unavailable Dominguez Locke PA-C Unavailable [phone] Consuelo Boland MD Unavailable Encounter Details Date Type Department Care Team (Late st Contact Info) Description 09/03/2016 Abstract [facility] [address] [place] [address] Edgar Schilling MD [address] [place] [address] Social History Tobacco Use Types Packs/Day Years Used Date Smoking Tobacco: Every Day Comments Unknown Sex and Gender Information Value Date Recorded Sex Assigned at Female 03/30/2024 9:49 AM EDGE WORKER Legal Sex Female 1:02 PM CDT Gender Identity Not on file Sexual Orientation Not on file documented as of this encounter Plan of Treatment Upcoming Encounters Date Type Department Care Team (Latest Contact Info) Description 07/13/2024 11:00 AM CDT Office Visit [facility] [address] [place] [address] AhmaCarlos yin MD [address] [place] [address] 07/13/2024 11:00 AM CDT Allied Health/Nurse Visit [facility] [address] [place] [address] Carlos Wright MD [address] [place] [address] 09/04/2024 12:30 PM CDT Appointment [facility] [address] [place] [address] [place] [address] Consuelo Boland MD [address] [place] [address] 09/10/2024 11:45 AM CDT Office Visit [facility] [address] [place] [address] Consuelo Boland MD [address] [place] [address] 10/17/2024 1:30 AM CDT Allied Health/Nurse Visit [facility] [address] [place] [address] Carlos Wright MD [address] [place] [address] documented as of this encounter Procedures Procedure [...] documented as of this encounter Care Teams Forest Firefighter Relationship Specialty Start Date End Date Rei Alcaraz MD [address] [place] [address] PCP - General FAMILY PRACTICE 08/25/16 Edgar Schilling MD [address] [place] [phone] [place] Shipwright Supervisor CARDIOVASCULAR DISEASE 08/25/16 09/03/23 Jim Lugo MD [address] [place] [address] Consulting Physician CLINICAL CARDIAC ELECTROPHYSIOLOGY 05/27/22 09/03/23 Dominguez Locke PA-C [address] [place] [address] PHYSICIAN ELECTRIC MOTOR MECHANIC 05/27/22 Consuelo Boland MD [address] [place] [address] Consulting Physician CARDIOVASCULAR DISEASE 09/04/23 documented as of this encounter
--- OUTSIDE RECORDS SUMMARY | 2024-07-02 07:41 | XMS_ITS | Encounter Summary ---
Author Organization [facility] Address [facility] [place] [address] Care Team Providers Care Watch Crystal Cutter Name Role Phone Rei Alcaraz MD Primary Care Provider [phone] Edgar Schilling MD Unavailable [phone] Jim Lugo MD Unavailable Unavailable Dominguez Locke PA-C Unavailable [phone] Consuelo Boland MD Unavailable Encounter Details Date Type Department Care Team (Late st Contact Info) Description 04/28/2017 Abstract [facility] [address] [place] [address] Edgar Schilling MD [address] [place] [address] Social History Tobacco Use Types Packs/Day Years Used Date Smoking Tobacco: Every Day Cigarettes 0.5 44.3 Started: 1978 Smokeless Tobacco: Never Alcohol Use Standard Drinks/Week Comments Yes 0 (1 standard drink = 0.6 oz pur e alcohol) Comments Unknown Sex and Gender Information Value Date Recorded Sex Assigned at Female 03/30/2024 9:49 AM RADIO FREQUENCY TECHNICIAN Legal Sex Female 1:02 PM CDT Gender Identity Not on file Sexual Orientation Not on file 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 [address] [place] [address] Consuelo Boland MD [address] [place] [address] 09/10/2024 11:45 AM CDT Office Visit [facility] [address] [place] [address] Consuelo Boland MD [address] [place] [address] 10/17/2024 1:30 AM CDT Allied Health/Nurse Visit [facility] [address] [place] [address] Carlos Wright MD [address] [place] [address] documented as of this encounter Procedures Procedure [...] documented as of this encounter Care Teams Watch Crystal Cutter Relationship Specialty Start Date End Date Rei Alcaraz MD [address] [place] [address] PCP - General FAMILY PRACTICE 08/25/16 Edgar Schilling MD [address] [place] [address] [place] Property Assistant CARDIOVASCULAR DISEASE 08/25/16 09/03/23 Jim Lugo MD [address] [place] [address] Consulting Physician CLINICAL CARDIAC ELECTROPHYSIOLOGY 05/27/22 09/03/23 Dominguez Locke PA-C [address] [place] [address] PHYSICIAN SPECIAL EDUCATION TEACHERS 05/27/22 Consuelo Boland MD [address] [place] [address] Consulting Physician CARDIOVASCULAR DISEASE 09/04/23 documented as of this encounter
--- OUTSIDE RECORDS SUMMARY | 2024-07-02 07:41 | XMS_ITS | Encounter Summary ---
Author Organization [facility] Address [facility] [place] [address] Care Team Providers Care Entry Level Accounting Clerk Name Role Phone Rei Alcaraz MD Primary Care Provider [phone] Edgar Schilling MD Unavailable [phone] Jim Lugo MD Unavailable Unavailable Dominguez Locke PA-C Unavailable [phone] Consuelo Boland MD Unavailable Encounter Details Date Type Department Care Team (Late st Contact Info) Description 12/29/2017 Abstract [facility] [address] [place] [address] Edgar Schilling MD [address] [place] [address] Social History Tobacco Use Types Packs/Day Years Used Date Smoking Tobacco: Every Day Cigarettes 0.5 44.3 Started: 1980 Smokeless Tobacco: Never Alcohol Use Standard Drinks/Week Comments Yes 0 (1 standard drink = 0.6 oz pur e alcohol) Comments Unknown Sex and Gender Information Value Date Recorded Sex Assigned at Female 03/30/2024 9:49 AM DRY CELL BATTERY ASSEMBLER Legal Sex Female 1:02 PM CDT Gender Identity Not on file Sexual Orientation Not on file 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 Not on file documented as of this encounter Plan of Treatment Upcoming Encounters Date Type Department Care Team (Latest Contact Info) Description 07/13/2024 11:00 AM CDT Office Visit [facility] [address] [place] [address] Carlos Wright MD [address] [place] [address] 07/13/2024 11:00 AM CDT Allied Health/Nurse Visit [facility] [address] [place] [address] Carlos Wright MD [address] [place] [address] 09/04/2024 12:30 PM CDT Appointment [facility] [address] [address] Consuelo Boland MD [address] [place] [address] 09/10/2024 11:45 AM CDT Office Visit [facility] [address] [place] [address] Consuelo Boland MD [address] [place] [address] 10/17/2024 1:30 AM CDT Allied Health/Nurse Visit [facility] [address] [place] [address] Carlos Wright MD [address] [place] [address] documented as of this encounter Procedures Procedure Name Priority Date/Time Associated Diagnosis Comments PROTHROMBIN TIME, VENOUS Routine 12/28/2017 BASIC METABOLIC PANEL Routine 12/28/2017 documented in this encounter Results * PROTIME/INR, VENOUS (12/28/2017) PROTIME WHOLE BLOOD 18.7 INR WHOLE BLOOD 1.70 12/28/2017 us Doc [facility] LABORATORY Final Result * (ABNORMAL) BASIC METABOLIC PANEL (12/28/2017) SODIUM S/P/B 139 POTASSIUM S/P/B 4.4 CO2 [...] documented as of this encounter Care Teams Entry Level Accounting Clerk Relationship Specialty Start Date End Date Rei Alcaraz MD [address] [place] [address] PCP - General FAMILY PRACTICE 08/25/16 Edgar Schilling MD [address] [place] [phone] [place] Case Filler CARDIOVASCULAR DISEASE 08/25/16 09/03/23 Jim Lugo MD 9 [place] [address] Consulting Physician CLINICAL CARDIAC ELECTROPHYSIOLOGY 05/27/22 09/03/23 Dominguez Locke PA-C 9 [place] [phone] PHYSICIAN WALKING DRAGLINE OILER 05/27/22 Consuelo Boland MD [address] [place] [address] Consulting Physician CARDIOVASCULAR DISEASE 09/04/23 documented as of this encounter
--- OUTSIDE RECORDS SUMMARY | 2024-07-02 07:41 | XMS_ITS | Encounter Summary ---
Author Organization [facility] Address [facility] [place] [address] Care Team Providers Care Surgical Coordinator Name Role Phone Rei Alcaraz MD Primary Care Provider [phone] Edgar Schilling MD Unavailable [phone] Jim Lugo MD Unavailable Unavailable Dominguez Locke PA-C Unavailable [phone] Consuelo Boland MD Unavailable Encounter Details Date Type Department Care Team (Late st Contact Info) Description 09/24/2016 Abstract [facility] [address] [place] [address] Edgar Schilling MD [address] [place] [address] Social History Tobacco Use Types Packs/Day Years Used Date Smoking Tobacco: Every Day Comments Unknown Sex and Gender Information Value Date Recorded Sex Assigned at Female 03/30/2024 9:49 AM DONOR RELATIONS COORDINATOR Legal Sex Female 1:02 PM CDT Gender Identity Not on file Sexual Orientation Not on file documented as of this encounter Plan of Treatment Upcoming Encounters Date Type Department Care Team (Latest Contact Info) Description 07/13/2024 11:00 AM CDT Office Visit [facility] [address] [place] [address] AhmaCarlos yin MD [address] [address] 07/13/2024 11:00 AM CDT Allied Health/Nurse Visit [facility] [address] [place] [address] Carlos Wright MD [address] [address] 09/04/2024 12:30 PM CDT Appointment [address] [place] [address] Consuelo Boland MD [address] [place] [address] 09/10/2024 11:45 AM CDT Office Visit [facility] [place] [address] Consuelo Boland MD [address] [place] [address] 10/17/2024 1:30 AM CDT Allied Health/Nurse Visit [facility] [address] [place] [address] Carlos Wright MD [address] [place] [address] documented as of this encounter Visit Diagnoses Not on filedocumented in this encounter Additional Health Concerns Infection Onset Date Last Indicated Resolved Time COVID-19 Rule Out 11/03/2019 11/03/2019 11/04/2019 3:36 PM CDT documented as of this encounter Care Teams Surgical Coordinator Relationship Specialty Start Date End Date Rei Alcaraz MD [address] [place] [address] PCP - General FAMILY PRACTICE 08/25/16 Edgar Schilling MD [address] [place] [phone] [place] International Trade Manager CARDIOVASCULAR DISEASE 08/25/16 09/03/23 Jim Lugo MD [address] [place] [address] Consulting Physician CLINICAL CARDIAC ELECTROPHYSIOLOGY 05/27/22 09/03/23 Dominguez Locke PA-C [address] [place] [phone] PHYSICIAN LOAD BUILDER 05/27/22 Consuelo Boland MD [address] [place] [address] Consulting Physician CARDIOVASCULAR DISEASE 09/04/23 documented as of this encounter
--- OUTSIDE RECORDS SUMMARY | 2024-07-02 07:41 | XMS_ITS | Encounter Summary ---
Author Organization [facility] Address [facility] [place] [address] Care Team Providers Care Adobe Layer Name Role Phone Rei Alcaraz MD Primary Care Provider [phone] Edgar Schilling MD Unavailable [phone] Jim Lugo MD Unavailable Unavailable Dominguez Locke PA-C Unavailable [phone] Consuelo Boland MD Unavailable Encounter Details Date Type Department Care Team (Late st Contact Info) Description 10/04/2016 Abstract [facility] [address] [place] [address] Edgar Schilling MD [address] [place] [address] Social History Tobacco Use Types Packs/Day Years Used Date Smoking Tobacco: Every Day Cigarettes 0.5 44.3 Started: 1980 Comments Unknown Sex and Gender Information Value Date Recorded Sex Assigned at Female 03/30/2024 9:49 AM FINE GRADE OPERATOR Legal Sex Female 1:02 PM CDT Gender Identity Not on file Sexual Orientation Not on file documented as of this encounter Plan of Treatment Upcoming Encounters Date Type Department Care Team (Latest Contact Info) Description 07/13/2024 11:00 AM CDT Office Visit [facility] [address] [place] [address] Carlos Wright MD [address] [address] 07/13/2024 11:00 AM CDT Allied Health/Nurse Visit [facility] [address] [place] [address] Carlos Wright MD [address] [address] 09/04/2024 12:30 PM CDT Appointment [address] [place] [address] Consuelo Boland MD [address] [place] [address] 09/10/2024 11:45 AM CDT Office Visit [facility] [place] [address] Consuelo Boland MD [address] [place] [address] 10/17/2024 1:30 AM CDT Allied Health/Nurse Visit [facility] [address] [place] [phone] Carlos Wright MD [address] [address] documented as of this encounter Visit Diagnoses Not on filedocumented in this encounter Additional Health Concerns Infection Onset Date Last Indicated Resolved Time COVID-19 Rule Out 11/03/2019 11/03/2019 11/04/2019 3:36 PM CDT documented as of this encounter Care Teams Adobe Layer Relationship Specialty Start Date End Date Rei Alcaraz MD [address] [place] [address] PCP - General FAMILY PRACTICE 08/25/16 Edgar Schilling MD [address] [place] [phone] Sal[place] Flat Lock Operator CARDIOVASCULAR DISEASE 08/25/16 09/03/23 Jim Lugo MD [address] [place] [phone] Consulting Physician CLINICAL CARDIAC ELECTROPHYSIOLOGY 05/27/22 09/03/23 Dominguez Locke PA-C [address] [place] [phone] PHYSICIAN SHEET PILE DRIVER OPERATOR 05/27/22 Consuelo Boland MD [address] [place] [address] Consulting Physician CARDIOVASCULAR DISEASE 09/04/23 documented as of this encounter
--- OUTSIDE RECORDS SUMMARY | 2024-07-02 07:41 | XMS_ITS | Clinical Summary ---
Author Organization [facility] Address [address] [place] [address] Care Team Providers Care Senior Professional Services Consultant Name Role Phone Rei Alcaraz MD Primary Care Provider [phone] Dominguez Locke PA-C Unavailable [phone] Consuelo Boland MD Unavailable Allergies No known active allergies [...] MG SL tabletIndicati ons:Coronary artery disease involving rincon coronary artery of rincon heart without angina pectoris Place 1 tablet (0.4 mg total) under the tongue every 5 (five) minutes as needed for Chest Pain. 25 tablet 5 Active Active Problems Problem Noted Date Diagnosed Date Presence of cardioverter defibrillator 4 Contusion of right ankle 08/05/2021 Mixed hyperlipidemia 09/21/2019 Ischemic cardiomyopathy 02/20/2017 Other pulmonary embolism wit hout acute cor pulmonale ([facility]) 02/20/2017 LV dysfunction 01/26/2017 Pulmonary hypertension ([facility]) 017 LV (left ventricular) mural thrombus without RI ([facility]) Dyspnea Tobacco abuse Chronic systolic heart failure ([facility]) COPD (chronic obstructive pu lmonary disease) ([facility]) Diabetes ([facility]) CAD (coronary artery disease) Encounters Date Type Department Care Team Description 05/09/2024 1:30 AM LEAD MINER BLASTING Allied [facility] [address] [place] [address] Carlos Wright MD from Last 3 Months Family History Medical History Relation Comments Hypertension Brother Miscarriages / Stillbirths Daughter Cancer Father Prostate,skin Heart Disease Father Hypertension Father RI Father Heart Disease Maternal Aunt Heart Disease Maternal Grandfather Arthritis Maternal Grandmother In her hand s Heart Disease Maternal Uncle Stroke Maternal Uncle Heart Disease Mother Hypertension Mother RI Mother Heart Disease Paternal Grandfather Heart Disease Paternal Grandmother Atherosclerosis Sister Heart Disease Sister Hypertension Sister Relation Status Comments Brother Daughter Father Maternal Aunt Maternal Grandfather Maternal Grandmother Maternal Uncle Mother Paternal Grandfather Paternal Grandmother Sister Alive Social History Tobacco Use Types Packs/Day Years Used Date Smoking Tobacco: Every Day Cigarettes 1 44.3 Started: 1980 Smokeless Tobacco: Never Comments:Smoked since 1980 Alcohol Use Standard Drinks/Week Comments Not Currently 0 (1 standard drink = 0.6 oz pur e alcohol) Comments Unknown Sex and Gender Information Value Date Recorded Sex Assigned at Female 03/30/2024 9:49 AM LEAD MINER BLASTING Legal Sex Female 1:02 PM CDT Gender Identity Not on file Sexual Orientation Not on file 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 Not on file Last Filed Vital Signs Vital Sign Reading Time Taken Comments Blood Pressure 114/64 03/30/2024 1:49 PM LEAD MINER BLASTING Pulse 74 03/30/2024 1:49 PM LEAD MINER BLASTING Temperature 36.2 C (97.2 F) 11/06/2019 11:00 AM CDT Respiratory Rate 20 03/30/2024 1:49 PM LEAD MINER BLASTING Oxygen Saturation 97% 03/30/2024 1:49 PM LEAD MINER BLASTING Inhaled Oxygen Concentration - - Weight 87.1 kg (192 lb) 03/30/2024 1:49 PM LEAD MINER BLASTING Height 157.5 cm (5' 2 ) 03/30/2024 1:49 PM LEAD MINER BLASTING Body Mass Index 35.12 03/30/2024 1:49 PM LEAD MINER BLASTING Plan of Treatment Upcoming Encounters Date Type Department Care Team (Latest Contact Info) Description 07/13/2024 11:00 AM CDT Office Visit [facility] [address] [place] [phone] Carlos Wright MD [address] [place] [address] 07/13/2024 11:00 AM CDT Allied Health/Nurse Visit [facility] [address] [place] [phone] Carlos Wright MD [address] [place] [address] 09/04/2024 12:30 PM CDT Appointment [facility] [address] [place] [address] [place] [address] Consuelo Boland MD [address] [place] [address] 09/10/2024 11:45 AM CDT Office Visit [facility] [place] [address] Consuelo Boland MD [address] [place] [address] 10/17/2024 1:30 AM CDT [facility] [address] [place] [phone] Carlos Wright MD [address] [place] [address] [phone] Health Maintenance Due Date Last Done Comments Colorectal Cancer Screening Colonoscopy (10 Years) 1962 Kidney Health Evaluation 1962 Annual Physical 1965 Diabetes: Retinopathy Eye Exam 1980 Hepatitis C 1980 DTaP, Tdap and Td Vaccines (1 - Tdap) 1981 Pneumococcal Vaccine: 50+ Years (1 of 2 - PCV) 1981 Mammogram Screening 2002 Lung Cancer Screening 2012 Zoster Vaccines (1 of 2) 2012 Hemoglobin A1C 03/03/2017 09/01/2016 RSV Immunization or 60+ Years (1 - Risk 60-74 years 1-dose series) 2022 COVID-19 Vaccine ( - season) 2023 Lipid Panel 12/12/2024 12/13/2023, 07/06, 05/11/2021, [...] this topic Medical Devices Implanted Type Area System Planning Engineer Device Identifier Shelf Expiration Date Model / Serial / Lot Ep-Sjm Ellipse Vr Icd-11/06/2019 Implanted:Qt y: 1 on 11/06/2019 by Jim Lugo MD ICD [facility] 04/06/2021 [id number] / [id number] / Description:VIVIEN Rodriguez VR I CD Ep-Optisure Icd Lead- 0 Implanted:Qt y: 1 on 11/06/2019 by Jim Lugo MD Lead Implant Right: Ventricle [facility] 07/04/2021 [id number] / [id number] / Description:SJM Optisure 58c m Lead Procedures Procedure Name Priority Date/Time Associated Diagnosis Comments LIPID PANEL Routine 12/13/2023 11:10 AM CDT Hyperlipidemia, mixed Essential (primary) hypertension HEMOGLOBIN, GLYCOSYLATED TIMED 09/01/2016 4:36 AM CDT from Last 3 Months or Most Recently Relevant to Health Maintenance Results * LIPID PANEL (12/13/2023 11:10 AM CDT) CHOLESTEROL 141 MG/DL 12/14/2023 12:55 PM CDT [facility] Comment:DESIRABLE: <200 TRIGLYCERIDES 316 MG/DL 12/14/2023 12:55 PM CDT [facility] Comment:200-499 HIGH HDL 53 >49 MG/DL 12/14/2023 12:55 PM CDT [facility] LDL-C 25 MG/DL 12/14/2023 12:55 PM CDT [facility] Comment:<100 OPTIMAL VLDL CALCULATION 63 MG/DL 12/14/19 12:55 PM CDT [facility] Comment:REFERENCE RANGE NOT ESTABLISHED CHOL/HDL RATIO 2.7 12/14/2023 12:55 PM CDT [facility] Comment:REFERENCE RANGE NOT ESTABLISHED LDL/HDL 0.5 12/14/2023 12:55 PM CDT [facility] Comment:REFERENCE RANGE NOT ESTABLISHED NON HDL CHOLESTEROL 88 MG/DL 12/14/2023 12:55 PM CDT [facility] Comment:REFERENCE RANGE NOT ESTABLISHED 12/13/2023 11:1 0 AM CDT Consuelo Boland MD LABORATORY Final Result Performing Organization Address [facility] de Phone Number [facility] [address] [place] [address], [phone] * (ABNORMAL) HEMOGLOBIN, GLYCOSYLATED (09/01/2016 4:36 AM CDT) HGB A1C 6.5(H) 4.5 - 6.0 % 09/01/2016 4:01 AM CDT [facility] ESTIMATED AVG GLUCOSE 140 MG/DL 09/01/2016 4:01 AM CDT [facility] 09/01/2016 4:36 AM CDT 09/01/2016 3:37 AM CDT Kandace Mcfarland Md, MD LABORATORY Final R esult Performing Organization Address [facility] de Phone Number [facility] [address] [place] [address], [phone] from Last 3 Months or Most Recently Relevant to Health Maintenance Insurance [facility] MEDICAID Advance Directives * Full Code (Latest Code Status on File) Date Activated Date Inactivated Comments 11/06/2019 3:30 PM 11/06/2019 8:35 PM Care Teams Senior Professional Services Consultant Relationship Specialty Start Date End Date Rei Alcaraz MD [address] [place] [address] PCP - General FAMILY PRACTICE 08/25/16 Dominguez Locke PA-C [address] [place] [address] PHYSICIAN EYELET PUNCH OPERATOR 05/27/22 Consuelo Boland MD [address] [place] [address] Consulting Physician CARDIOVASCULAR DISEASE 09/04/23
--- OUTSIDE RECORDS SUMMARY | 2024-07-02 07:41 | XMS_ITS | Encounter Summary ---
Author Organization [facility] Address [facility] [place] [address] Care Team Providers Care Harness Preparer Name Role Phone Rei Alcaraz MD Primary Care Provider [phone] Edgar Schilling MD Unavailable [phone] Jim Lugo MD Unavailable Unavailable Dominguez Locke PA-C Unavailable [phone] Consuelo Boland MD Unavailable Encounter Details Date Type Department Care Team (Late st Contact Info) Description 11/08/2017 Abstract [facility] [address] [place] [address] Sahra Bradley, ANA, EQUIPMENT MONITOR PHOTOTYPESETTING-C [address] [facility] [address] [place] [phone] Social History Tobacco Use Types Packs/Day Years Used Date Smoking Tobacco: Every Day Cigarettes 0.5 44.3 Started: 1980 Smokeless Tobacco: Never Alcohol Use Standard Drinks/Week Comments Yes 0 (1 standard drink = 0.6 oz pur e alcohol) Comments Unknown Sex and Gender Information Value Date Recorded Sex Assigned at Female 03/30/2024 9:49 AM STACKER DRIVER Legal Sex Female 1:02 PM CDT Gender Identity Not on file Sexual Orientation Not on file 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 Not on file documented as of this encounter Plan of Treatment Upcoming Encounters Date Type Department Care Team (Latest Contact Info) Description 07/13/2024 11:00 AM CDT Office Visit [facility] [address] [place] [address] [phone] Carlos Wright MD [address] [place] [address] 07/13/2024 11:00 AM CDT Allied Health/Nurse Visit [facility] [address] [place] [address] Carlos Wright MD [address] [place] [address] 09/04/2024 12:30 PM CD[place] [phone] [facility] [address] Consuelo Boland MD [address] [place] [address] 09/10/2024 11:45 AM CDT Office Visit [facility] [address] [place] [address] Consuelo Boland MD [address] [place] [address] 10/17/2024 1:30 AM CDT Allied Health/Nurse Visit [facility] [address] [place] [address] Carlos Wright MD [address] [place] [address] documented as of this encounter Procedures Procedure [...] documented as of this encounter Care Teams Harness Preparer Relationship Specialty Start Date End Date Rei Alcaraz MD [address] [place] [address] PCP - General FAMILY PRACTICE 08/25/16 Edgar Schilling MD [address] [place] [phone] [place]zier Hollow Tile Partition Erector CARDIOVASCULAR DISEASE 08/25/16 09/03/23 Jim Lugo MD [address] [place] [address] Consulting Physician CLINICAL CARDIAC ELECTROPHYSIOLOGY 05/27/22 09/03/23 Dominguez Locke PA-C [address] [place] [phone] PHYSICIAN DIE SINKER APPRENTICE 05/27/22 Consuelo Boland MD [address] [place] [address] Consulting Physician CARDIOVASCULAR DISEASE 09/04/23 documented as of this encounter
--- OUTSIDE RECORDS SUMMARY | 2024-07-02 07:41 | XMS_ITS | Data Portability ---
Author Organization [facility], [address] [place] [address] [place] ([place]) Address [address] [place] [address] [address] [place] [address] Care Team Providers Care Coremaker Name Role Phone YULI LIN Honey Grader And Blender CAESAR FLORIAN Primary Care Provider Assessment Encounter [...] appropriate GFR james Not available 02/20/2024 11:35:19 05/25/2024 05/25/2024 Ms. 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 -Chronic kidney disease stage IV with a baseline serum creatinine ranging between 1.7-2.0 likely secondary to chronic NSAID usage Serum creatinine trend 10 10/07/2023 serum creatinine level of 2.0 12/22/2023 serum creatinine level of 1.79 01/20/2024 serum creatinine level of 2.0 Patient's most recent serum creatinine in February 2024 was noted to be 1.9 with a GFR of 29. Serologies were negative. Fluid and electrolyte balance were adequate. Patient's microalbumin/creat inine ratio was noted to be 170. Patient is currently on Jardiance 25 mg daily. Patient will get microalbumin today and if not improving would consider the possibility of an KELLY or ARB. Continue to monitor renal function panel at regular intervals. Patient will get lab work done today. Discussed about KDIGO recommendations to prevent CKD progression -Advised [...] prescribe bisphosphonate treatment in people with GFR o30 ml/min/1.73 m2 (GFR categories G4-G5) without a strong clinical rationale. -Individualize Hba1c target goal of 6.5 to 8 % based on underlying comorbidities -Cessation of tobacco -Avoid Nephrotoxic agents -such as NSAIDS renal dosage of all medications to the appropriate GFR -Reduce albuminuria with use of KELLY inhibitor or ARB -initiation of SGLT-2 Inhibitors if appropriate indication. -CKD/MBD-calcium and phosphorus levels Will be checked today -Hypertension Pressure is good here in the office. Patient will continue with her current med regimen and continue to follow a low-sodium diet. Anemia of chronic disease Patient's hemoglobin is stable with no indication for CARRI. Type 2 diabetes mellitus Target hemoglobin A1c is 7.0 below. Patient will continue to follow with PCP/endocrinology for ongoing diabetes management. The patient had the opportunity to ask and have questions answered. The patient voiced an understanding of the diagnosis and of the care plan and intent to comply with it. [email or web address] Not available 05/25/2024 16:45:58 Plan of Treatment Reminders Order Date Submit Date Provider Last Modified By Organization Details Last Modified Time Details Appointments Bere burns Patient 15.EST 2024 10:00A M Dr. Yuli Lin Not available Not available Not available Lab None recorde d. Referral None recorde d. Procedures None recorde d. Surgeries None recorde d. Imaging None recorde d. Medication Orders None recorde d. Patient TargetsNo targets recorded. Patient InstructionsNo instructions recorded. Reason for Referral None Reported. Results Created Date Observation Date Name Description Value Unit Range Abnormal Flag Note LastModifiedBy Organization Detail LastModifiedTime 02/20/20 24 02/20/2024 CBC CBC Not Available [facility] [address] [place] [address], [id number], 02/20/2024 17:13:57 02/20/20 24 02/20/2024 CBC WBC 8.2 K/uL 3.8-11 .2 Not Available [facility] [address] [place] [address], [id number], 02/20/2024 17:13:57 02/20/20 24 02/20/2024 CBC RBC 5.22 M/uL 3.92-5 .10 high Not Available [facility] [address] [place] [address], [id number], 02/20/2024 17:13:57 02/20/20 24 02/20/2024 CBC HGB 15.5 g/dL 11.8-1 5.3 high Not Available [facility] [address] [place] [address], [id number], 02/20/2024 17:13:57 02/20/20 24 02/20/2024 CBC HCT 45.9 % 36.5-4 4.8 high Not Available [facility] [address] [place] [address], [id number], 02/20/2024 17:13:57 02/20/20 24 02/20/2024 CBC MCV 87.9 fL 80.0-9 9.0 Not Available [facility] [address] [place] [address], [id number], 02/20/2024 17:13:57 02/20/20 24 02/20/2024 CBC MCH 29.7 pg 25.5-3 3.6 Not Available [facility] [address] [place] [address], [id number], 02/20/2024 17:13:57 02/20/20 24 02/20/2024 CBC MCHC 33.8 g/dL 32.0-3 6.0 Not Available [facility] [address] [place] [address], [id number], 02/20/2024 17:13:57 02/20/20 24 02/20/2024 CBC RDW-SD 41.9 fL 35.1 - 46.3 Not Available [facility] [address] [place] [address], [id number], 02/20/2024 17:13:57 02/20/20 24 02/20/2024 CBC plt 264 K/uL 130-40 0 Not Available [facility] [address] [place] [address], [id number], 02/20/2024 17:13:57 02/20/20 24 02/20/2024 CBC MPV 10.7 fL 9.3-12 .8 Not Available [facility] [address] [place] [address], [id number], 02/20/2024 17:13:57 02/20/20 24 02/20/2024 urina lysis , compl ete urinalysis, complete LOW LEVEL S OF HEMOG LOBIN IN ABSEN CE OF HEMAT URIA MAY NOT BE CLINI LUIS SIGNI FICAN T. Not Available [facility] [address] [place] [address], [id number], 02/20/2024 17:23:09 02/20/20 24 02/20/2024 urina lysis , compl ete color YELLOW Not Available [facility] [address] [place] [address], [id number], 02/20/2024 17:23:09 02/20/20 24 02/20/2024 urina lysis , compl ete clarity CLEAR Not Available [facility] [address] [place] [address], [id number], 02/20/2024 17:23:09 02/20/20 24 02/20/2024 urina lysis , compl ete pH 5.5 5.0-7. 5 Not Available [facility] [address] [place] [address], [id number], 02/20/2024 17:23:09 02/20/20 24 02/20/2024 urina lysis , compl ete specific gravity 1.019 1.000- 1.030 Not Available [facility] [address] [place] [address], [id number], 02/20/2024 17:23:09 02/20/20 24 02/20/2024 urina lysis , compl ete blood NEGATI VE negati ve Not Available [facility] [address] [place] [address], [id number], 02/20/2024 17:23:09 02/20/20 24 02/20/2024 urina lysis , compl ete bilirubin NEGATI VE negati ve Not Available [facility] [address] [place] [address], [id number], 02/20/2024 17:23:09 02/20/20 24 02/20/2024 urina lysis , compl ete urobilinogen 0.2 0.2-1. 0 Not Available [facility] [address] [place] [address], [id number], 02/20/2024 17:23:09 02/20/20 24 02/20/2024 urina lysis , compl ete ketone NEGATI VE negati ve Not Available [facility] [address] [place] [address], [id number], 02/20/2024 17:23:09 02/20/20 24 02/20/2024 urina lysis , compl ete glucose 3+ negati ve abnormal Not Available [facility] [address] [place] [address], [id number], 02/20/2024 17:23:09 02/20/20 24 02/20/2024 urina lysis , compl ete protein TRACE negati ve abnormal Not Available [facility] [address] [place] [address], [id number], 02/20/2024 17:23:09 02/20/20 24 02/20/2024 urina lysis , compl ete nitrite NEGATI VE negati ve Not Available [facility] [address] [place] [address], [id number], 02/20/2024 17:23:09 02/20/20 24 02/20/2024 urina lysis , compl ete leukocytes NEGATI VE negati ve Not Available [facility] [address] [place] [address], 16464, 02/20/2024 17:23:09 02/20/20 24 02/20/2024 urina lysis , compl ete RBC 0-2 0-2/hp f Not Available [facility] [address] [place] [address], [id number], 02/20/2024 17:23:09 02/20/20 24 02/20/2024 urina lysis , compl ete WBC 0-5 0-5/hp f Not Available [facility] [address] [place] [address], 35940, 02/20/2024 17:23:09 02/20/20 24 02/20/2024 urina lysis , compl ete squamous epithelial 0-2 0-10/h pf Not Available [facility] [address] [place] [address], [id number], 02/20/2024 17:23:09 02/20/20 24 02/20/2024 urina lysis , compl ete bacteria NONE SEEN none Not Available [facility] [address] [place] [address], [id number], 02/20/2024 17:23:09 02/20/20 24 02/20/2024 urina lysis , compl ete hyaline cast 0-2 0-2/lp f Not Available [facility] [address] [place] [address], [id number], 02/20/2024 17:23:09 02/20/20 24 02/20/2024 renal funct ion panel , serum renal function panel Not Available [facility] [address] [place] [address], 05649, 02/20/2024 18:05:49 02/20/20 24 02/20/2024 renal funct ion panel , serum sodium 136 mmol/ L 136-14 6 Not Available [facility] [address] [place] [address], 77423, 02/20/2024 18:05:49 02/20/20 24 02/20/2024 renal funct ion panel , serum potassium 4.2 mmol/ L 3.5-5. 1 Not Available [facility] [address] [place] [address], 98368, 02/20/2024 18:05:49 02/20/20 24 02/20/2024 renal funct ion panel , serum chloride 101 mmol/ L 98-110 Not Available [facility] [address] [place] [address], [id number], 02/20/2024 18:05:49 02/20/20 24 02/20/2024 renal funct ion panel , serum CO2 29 mEq/L 20-32 Not Available [facility] [address] [place] [address], [id number], 02/20/2024 18:05:49 02/20/20 24 02/20/2024 renal funct ion panel , serum anion gap 10 mmol/ L 10-22 Not Available [facility] [address] [place] [address], 50489, 02/20/2024 18:05:49 02/20/20 24 02/20/2024 renal funct ion panel , serum glucose 294 mg/dL 70-100 high Not Available [facility] [address] [place] [address], 11448, 02/20/2024 18:05:49 02/20/20 24 02/20/2024 renal funct ion panel , serum calcium 10.1 mg/dL 8.4-10 .4 Not Available [facility] [address] [place] [address], 07942, 02/20/2024 18:05:49 02/20/20 24 02/20/2024 renal funct ion panel , serum albumin 4.9 g/dL 3.5-5. 3 Not Available [facility] [address] [place] [address], 33906, 02/20/2024 18:05:49 02/20/20 24 02/20/2024 renal funct ion panel , serum phosphorus 3.4 mg/dL 2.7-4. 5 Not Available [facility] [address] [place] [address], 66858, 02/20/2024 18:05:49 02/20/20 24 02/20/2024 renal funct ion panel , serum BUN 30 mg/dL 7-21 high Not Available [facility] [address] [place] [address], 91774, 02/20/2024 18:05:49 02/20/20 24 02/20/2024 renal funct ion panel , serum creatinine 1.9 mg/dL 0.7-1. 3 high Not Available [facility] [address] [place] [address], 82692, 02/20/2024 18:05:49 02/20/20 24 02/20/2024 renal funct ion panel , serum GFR(non-afri can nepalese) 29 Not Available [facility] [address] [place] [address], 25885, 02/20/2024 18:05:49 02/20/20 24 02/20/2024 renal funct ion panel , serum GFR() 35 ([employer] DENYS KIDNE Y DISEA SE HAS A GFR LESS THAN 60 ML/FL N/1.7 3 MM FOR A PERIO D OF THREE MONTH S OR MORE. ) Not Available [facility] [address] [place] [address], [id number], 02/20/2024 18:05:49 02/20/20 24 02/20/2024 micro album in, urine microalbumin ,random panel Not Available [facility] [address] [place] [address], [id number], 02/20/2024 18:26:56 02/20/20 24 02/20/2024 micro album in, urine microalbumin random 5.1 mg/dL Not Available [facility] [address] [place] [address], [id number], 02/20/2024 18:26:56 02/20/20 24 02/20/2024 micro album in, urine creatinine, urine random 30 mg/dL Refer ence range not estab lishe d for other than 24 hour colle ction . Not Available [facility] [address] [place] [address], 21605, 02/20/2024 18:26:56 02/20/20 24 02/20/2024 micro album [...] in or Creat inine .) Not Available [facility] [address] [place] [address], 04545, 02/20/2024 18:26:56 02/20/20 24 02/21/2024 C3 (comp lemen t), serum or plasm a complement C3 173 mg/dL 82-167 high Not Available [facility] [address] [place] [address], 74411, 02/21/2024 07:40:50 02/20/20 24 02/21/2024 C4 (comp lemen t), serum or plasm a complement C4 28 mg/dL 12-38 Not Available [facility] [address] [place] [address], 07574, 02/21/2024 07:40:51 02/20/20 24 02/22/2024 immun ofixa tion, serum immunofixati on, serum No monoc lonal ity detec christina. Not Available [facility] [address] [place] [address], 17553, 02/22/2024 15:38:07 02/20/20 24 02/22/2024 immun ofixa tion, serum IgG quantitative 1473 mg/dL 586-16 02 Not Available [facility] [address] [place] [address], 95755, 02/22/2024 15:38:07 02/20/20 24 02/22/2024 immun ofixa tion, serum IgA quantitative 252 mg/dL 87-352 Not Available [facility] [address] [place] [address], 50886, 02/22/2024 15:38:07 02/20/20 24 02/22/2024 immun ofixa tion, serum IgM quantitative 65 mg/dL 26-217 Not Available [facility] [address] [place] [address], [id number], 02/22/2024 15:38:07 02/20/20 24 02/22/2024 anca panel , serum anca, complete Not Available [facility] [address] [place] [address], 37020, 02/22/2024 19:37:12 02/20/20 24 02/22/2024 anca panel , serum myeloperoxid ase Ab <0.2 units 0.0-0. 9 Not Available [facility] [address] [place] [address], 02927, 02/22/2024 19:37:12 02/20/20 24 02/22/2024 anca panel , serum proteinase-3 Ab, anca <0.2 units 0.0-0. 9 Not Available [facility] [address] [place] [address], 14511, 02/22/2024 19:37:12 02/20/20 24 02/22/2024 anca panel , serum C-anca titer <1:20 titer neg:<1 :20 Not Available [facility] [address] [place] [address], [id number], 02/22/2024 19:37:12 02/20/20 24 02/22/2024 anca panel [...] ng of posit justina sera with both MO-3 and MPO-A NCA enzym e immun oassa ys. As many as 5% serum sampl es are posit justina only by EIA. Ref. AM J Clin Patho l 1999; 111:5 07-51 3. Not Available [facility] [address] [place] [address], [id number], 02/22/2024 19:37:12 02/20/20 24 02/22/2024 anca panel , serum atypical P anca titer <1:20 titer neg:<1 :20 The atypi sandra pANCA patte rn has been obser reyna in a signi fican t perce ntage of patie nts with ulcer ative colit is, prima ry scler osing chola ngiti s and autoi mmune hepat itis. Not Available [facility] [address] [place] [address], [id number], 02/22/2024 19:37:12 02/20/20 24 02/23/2024 CHACHA (anti nucle ar antib odies ) scree n, serum CHACHA screen POSITI VE negati ve abnormal Titer to follo w Perfo rmed by Bio-R ad enzym e immun oassa y Not Available [facility] [address] [place] [address], [id number], 02/23/2024 12:03:06 02/20/20 24 02/23/2024 CHACHA (anti [...] rosa using HEp-2 cell line Not Available [facility] [address] [place] [address], 12476, 02/23/2024 15:30:51 02/20/20 24 02/20/2024 UE urine eosinophils NEGATI VE Not Available [facility] - [facility] [address], [place], [address], 02/20/2024 23:05:20 05/26/19 25 05/25/2024 CBC CBC Not Available [facility] [address] [place] [address], 77689, 05/25/2024 17:14:02 05/26/19 25 05/25/2024 CBC WBC 7.9 K/uL 3.8-11 .2 Not Available [facility] [address] [place] [address], 05083, 05/25/2024 17:14:02 05/26/19 25 05/25/2024 CBC RBC 4.74 M/uL 3.92-5 .10 Not Available [facility] [address] [place] [address], 88005, 05/25/2024 17:14:02 05/26/19 25 05/25/2024 CBC HGB 13.8 g/dL 11.8-1 5.3 Not Available [facility] [address] [place] [address], 84020, 05/25/2024 17:14:02 05/26/19 25 05/25/2024 CBC HCT 42.3 % 36.5-4 4.8 Not Available [facility] [address] [place] [address], 75603, 05/25/2024 17:14:02 05/26/19 25 05/25/2024 CBC MCV 89.2 fL 80.0-9 9.0 Not Available [facility] [address] [place] [address], 34620, 05/25/2024 17:14:02 05/26/19 25 05/25/2024 CBC MCH 29.1 pg 25.5-3 3.6 Not Available [facility] [address] [place] [address], 51610, 05/25/2024 17:14:02 05/26/19 25 05/25/2024 CBC MCHC 32.6 g/dL 32.0-3 6.0 Not Available [facility] [address] [place] [address], 53733, 05/25/2024 17:14:02 05/26/19 25 05/25/2024 CBC RDW-SD 49.7 fL 35.1 - 46.3 high Not Available [facility] [address] [place] [address], 12401, 05/25/2024 17:14:02 05/26/19 25 05/25/2024 CBC plt 238 K/uL 130-40 0 Not Available [facility] [address] [place] [address], 84900, 05/25/2024 17:14:02 05/26/19 25 05/25/2024 CBC MPV 10.3 fL 9.3-12 .8 Not Available [facility] [address] [place] [address], 88829, 05/25/2024 17:14:02 05/26/19 25 05/25/2024 urina lysis , compl ete urinalysis, complete LOW LEVEL S OF HEMOG LOBIN IN ABSEN CE OF HEMAT URIA MAY NOT BE CLINI LUIS SIGNI FICAN T. Not Available [facility] - [facility] [address] [place] [address], [id number], 05/25/2024 17:23:00 05/26/19 25 05/25/2024 urina lysis , compl ete color YELLOW Not Available [facility] - [facility] [address] [place] [address], 44600, 05/25/2024 17:23:00 05/26/19 25 05/25/2024 urina lysis , compl ete clarity CLEAR Not Available [facility] [address] [place] [address], [id number], 05/25/2024 17:23:00 05/26/19 25 05/25/2024 urina lysis , compl ete pH 6.0 5.0-7. 5 Not Available [facility] [address] [place] [address], 84005, 05/25/2024 17:23:00 05/26/19 25 05/25/2024 urina lysis , compl ete specific gravity 1.013 1.000- 1.030 Not Available [facility] [address] [place] [address], 11623, 05/25/2024 17:23:00 05/26/19 25 05/25/2024 urina lysis , compl ete blood NEGATI VE negati ve Not Available [facility] [address] [place] [address], 23002, 05/25/2024 17:23:00 05/26/19 25 05/25/2024 urina lysis , compl ete bilirubin NEGATI VE negati ve Not Available [facility] [address] [place] [address], 35016, 05/25/2024 17:23:00 05/26/19 25 05/25/2024 urina lysis , compl ete urobilinogen 0.2 0.2-1. 0 Not Available [facility] [address] [place] [address], [id number], 05/25/2024 17:23:00 05/26/19 25 05/25/2024 urina lysis , compl ete ketone NEGATI VE negati ve Not Available [facility] [address] [place] [address], 82053, 05/25/2024 17:23:00 05/26/19 25 05/25/2024 urina lysis , compl ete glucose 3+ negati ve abnormal Not Available [facility] [address] [place] [address], 89066, 05/25/2024 17:23:00 05/26/19 25 05/25/2024 urina lysis , compl ete protein NEGATI VE negati ve Not Available [facility] [address] [place] [address], 51400, 05/25/2024 17:23:00 05/26/19 25 05/25/2024 urina lysis , compl ete nitrite NEGATI VE negati ve Not Available [facility] [address] [place] [address], 27402, 05/25/2024 17:23:00 05/26/19 25 05/25/2024 urina lysis , compl ete leukocytes NEGATI VE negati ve Not Available [facility] [address] [place] [address], 67468, 05/25/2024 17:23:00 05/26/19 25 05/25/2024 urina lysis , compl ete RBC 0-2 0-2/hp f Not Available [facility] [address] [place] [address], 46393, 05/25/2024 17:23:00 05/26/19 25 05/25/2024 urina lysis , compl ete WBC 0-5 0-5/hp f Not Available [facility] [address] [place] [address], [id number], 05/25/2024 17:23:00 05/26/19 25 05/25/2024 urina lysis , compl ete squamous epithelial 0-2 0-10/h pf Not Available [facility] [address] [place] [address], 67475, 05/25/2024 17:23:00 05/26/19 25 05/25/2024 urina lysis , compl ete bacteria NONE SEEN none Not Available [facility] [address] [place] [address], 95751, 05/25/2024 17:23:00 05/26/19 25 05/25/2024 urina lysis , compl ete hyaline cast 0-2 0-2/lp f Not Available [facility] [address] [place] [address], 61117, 05/25/2024 17:23:00 05/26/19 25 05/25/2024 renal funct ion panel , serum renal function panel Not Available [facility] [address] [place] [address], 46607, 05/25/2024 18:29:52 03/21/20 25 05/25/2024 renal funct ion panel , serum sodium 137 mmol/ L 136-14 6 Not Available [facility] [address] [place] [address], 77492, 05/25/2024 18:29:52 05/26/19 25 05/25/2024 renal funct ion panel , serum potassium 4.4 mmol/ L 3.5-5. 1 Not Available [facility] [address] [place] [address], 10063, 05/25/2024 18:29:52 05/26/19 25 05/25/2024 renal funct ion panel , serum chloride 103 mmol/ L 98-110 Not Available [facility] [address] [place] [address], 38253, 05/25/2024 18:29:52 05/26/19 25 05/25/2024 renal funct ion panel , serum CO2 28 mEq/L 20-32 Not Available [facility] [address] [place] [address], 73272, 05/25/2024 18:29:52 05/26/19 25 05/25/2024 renal funct ion panel , serum anion gap 10 mmol/ L 10-22 Not Available [facility] [address] [place] [address], 84769, 05/25/2024 18:29:52 05/26/19 25 05/25/2024 renal funct ion panel , serum glucose 130 mg/dL 70-100 high Not Available [facility] [address] [place] [address], 89951, 05/25/2024 18:29:52 05/26/19 25 05/25/2024 renal funct ion panel , serum calcium 9.8 mg/dL 8.4-10 .4 Not Available [facility] [address] [place] [address], 50561, 05/25/2024 18:29:52 05/26/19 25 05/25/2024 renal funct ion panel , serum albumin 4.7 g/dL 3.5-5. 3 Not Available [facility] [address] [place] [address], 79264, 05/25/2024 18:29:52 05/26/19 25 05/25/2024 renal funct ion panel , serum phosphorus 3.4 mg/dL 2.7-4. 5 Not Available [facility] [address] [place] [address], 30309, 05/25/2024 18:29:52 05/26/19 25 05/25/2024 renal funct ion panel , serum BUN 28 mg/dL 7-21 high Not Available [facility] [address] [place] [address], 18788, 05/25/2024 18:29:52 05/26/19 25 05/25/2024 renal funct ion panel , serum creatinine 1.5 mg/dL 0.7-1. 3 high Not Available [facility] [address] [place] [address], 84892, 05/25/2024 18:29:52 05/26/19 25 05/25/2024 renal funct ion panel , serum CKD-epi GFR 39 low eGFR was calcu lated using the 2020 CKD-E PI equat ion. (Control Cabinet Assembler denys Kidne y Disea se has an eGFR less than 60 mL/mi n/1.7 3mm for a perio d of three month s or more. ) This calcu latio n has not been valid ated for patie nt ages <18 or >90 years old. Not Available [facility] - [facility] [address] [place] [address], [id number], 05/25/2024 18:29:52 05/26/19 25 05/27/2024 cultu re + sensi tivit y, urine urine culture and sens. MARGA L URINE After overn ight incub ation 1,000 CFU/m L Shruti l uroge nital asa isola christina. No addit ional growt h after two night s incub ation . Not Available [facility] - [facility] [address] [place] [address], [id number], 05/27/2024 12:10:15 05/26/19 25 05/26/2024 cultu re + sensi tivit y, urine urine culture and sens. PREL IM URINE After overn ight incub ation 1,000 CFU/m L Shruti l uroge nital asa isola christina. Not Available [facility] - [facility] [address] [place] [address], [id number], 05/26/2024 15:32:39 03/09/19 25 03/06/2024 , gisele y No observ ation record ed. [email or web address] Not Available 2024 13:05:28 Result Notes None recorded. Problems Name Problem SNOMED Code Status Onset Date Resolution Date Notes Provider Name and Address Organization Details Recorded Time Chronic kidney disease stage 4 782825045 Active 2023 Yisel Muniz [facility] 4 16:12:35 Coronary arteriosclero sis 79988989 Active 2023 Yisel Muniz [facility] 4 16:13:14 Chronic systolic heart failure 730571316 Active 2023 Yisel Muniz [facility] 4 16:13:49 Chronic obstructive pulmonary disease 43845425 Active 2023 Yisel Muniz [facility] 4 16:14:05 Benign essential hypertension 9571575 Active 2023 Yisel Muniz [facility] 4 16:14:12 Hyperkalemia 08644174 Active 2023 Y[facility] [facility] 16:14:21 Type 2 diabetes mellitus 15299558 Active 2023 Yisel Muniz [facility] 4 16:15:09 History of pulmonary embolus 030212966 Active 2023 Yisel Muniz [facility] 4 16:15:55 Proteinuria 10774630 Active 2023 Ana Cristina Griffith [facility] 4 14:57:56 Urinary incontinence 285503189 Active 2024 Yisel Muniz [facility] 5 13:03:26 Problem Notes None recorded. Procedures Surgical History None recorded. Imaging Results Imaging Date Name Status LastModified by Organiz ation Details LastModified Time 03/06/2024 US, kidney completed [email or web address] Information no t available 03/12/2024 13:05:28 Procedure [...] 5 mg tablet,exte nded release 24 hr TAKE ONE TABLET BY MOUTH DAILY 2024 active Not Available Not Available Not [...] 1 tablet every day by oral route. 05/25 completed Not Available Not Available Not Available Jardiance 25 mg tablet TAKE ONE TABLET BY MOUTH DAILY 2024 active Not Available Not Available Not Avai lable Arnuity Ellipta 100 mcg/actuati on powder for inhalation Inhale 1 puff every day by inhalatio n route. active Not Available Not Available No t Available Flonase Allergy Relief 50 mcg/actuati on nasal spray,suspe nsion [place] 1 spray every day by intranasa l [...] Address Organization Details Last Updated DateTime 02/20/2024 89222.66 g 140 mm[Hg] 86 mm[Hg] Ana Cristina Griffith [facility] 02/20/2024 10:32:57 Date Recorded Body weight Heart rate Systolic blood pressure Diastolic blood pressure Provider Name and Address Organization Details Last Updated DateTime 05/25/2024 06858.18 g 85 /min 114 mm[Hg] 62 mm[Hg] Scotty Baker [facility] 05/25/2024 14:23:33 Social History Question Answer Notes LastModified by Organizat ion Details LastModified Time Tobacco Smoking Status Current Every Day [facility]/13/2024 16:29:11 Do You Use Any Illicit Or Recreational Drugs? No [email or web address] Information not available 02/13/2024 Sex: Unknown Functional Status None recorded. Mental Status None recorded. Family History Nothing Reported. Medical History Condition Response Cancer N Anemia N Gynecological HistoryNo gynecological history recorded. Obstetrics History GPAL:G 0 P 0 0 0 0 Past Encounters Encounter ID Performer Location Encounter Start Date Encounter Closed Date Diagnosis/Indication Diagnosis SNOMED-CT Code Diagnosis ICD10 Code Diagnosis Note [id number] Yuli Lin MD [facility] ([place]) [address] [place] [address] 02/20/2024 10:16:52 02/20/2024 11:24:02 Chronic kidney disease stage 4 884384705 N18.4 Benign ess ential hypertension 9246457 I10 Hyperkalemia 51871569 E8 7.5 [id number] Yamile Mckeon PA-C [facility] ([place]) [address] [place] [address] 05/25/2024 13:59:05 05/25/2024 14:44:27 Chronic kidney disease stage 4 513719953 N18.4 Benign ess ential hypertension 9574780 I10 Hyperkalemia 69187705 E8 7.5 Health Concerns Section Related Observation LastModified by Organization Detai ls LastModified Time None Recorded Concern Status LastModified by Organization Details LastModified Time None Recorded Advance Directives Directive None Recorded Payers Encounter Date Sequence Insurance Name Policy Number Policy Mclean Covered Member ID Mclean Member ID Guarantor Name 02/20/2024 1 [facility] (MEDICARE REPLACEMENT/A DVANTAGE - PPO) [id number] MariaA lejandra Hein [id number] Maria Alejandra Hein 05/25/2024 1 [facility] (MEDICARE REPLACEMENT/A DVANTAGE - PPO) [id number] Maria Alejandra Hein [id number] Maria Alejandra Hein Notes Date Note Type Note Provider Name and Address Organization Details Recorded Time 02/20/2024 text/html 63-year-old fema le with a past medical history significant for [...] dizziness no worsening lower extremity edema Yuli Lin MD [address] [place] [address], [phone], [facility] 02/20/2024 11:36:34 05/25/2024 text/html Ms. 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 Patient denies any fever, chills, or sweats.She denies any chest pain or shortness of breath.She continues to hydrate well and to avoid NSAIDs. Yamile Mckeon PA-C [address] [facility], [place], [address], [facility] 05/25/2024 16:48:28 OBGyn Episode No OBEpisode recorded.
--- OUTSIDE RECORDS SUMMARY | 2024-07-02 07:41 | XMS_ITS | Encounter Summary ---
Author Organization [facility] Address [address] [place] [address] Care Team Providers Care Push Button Switch Assembler Name Role Phone Rei Alcaraz MD Primary Care Provider [phone] Edgar Schilling MD Unavailable [phone] Jim Lugo MD Unavailable Unavailable Dominguez Locke PA-C Unavailable [phone] Consuelo Boland MD Unavailable Encounter Details Date Type Department Care Team (Late st Contact Info) Description 01/11/2018 Abstract [facility] [address] [place] [address] Abstract, Doc [facility] Social History Tobacco Use Types Packs/Day Years Used Date Smoking Tobacco: Every Day Cigarettes 0.5 44.3 Started: 1980 Smokeless Tobacco: Never Alcohol Use Standard Drinks/Week Comments Yes 0 (1 standard drink = 0.6 oz pur e alcohol) Comments Unknown Sex and Gender Information Value Date Recorded Sex Assigned at Female 03/30/2024 9:49 AM PARTY PLAN SALES UNIT SALES LEADER Legal Sex Female 1:02 PM CDT Gender Identity Not on file Sexual Orientation Not on file 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 Not on file documented as of this encounter Plan of Treatment Upcoming Encounters Date Type Department Care Team (Latest Contact Info) Description 07/13/2024 11:00 AM CDT [facility] [address] [place] [phone] Carlos Wright MD [address] [place] [address] 07/13/2024 11:00 AM CDT Allied Health/Nurse Visit [facility] [address] [place] [address] Carlos Wright MD [address] [address] 09/04/2024 12:30 PM CDT Appointment [facility] [address] [place] [address] Consuelo Boland MD [address] [place] [address] 09/10/2024 11:45 AM CDT [facility] [address] [place] [address] Consuelo Boland MD [address] [place] [address] 10/17/2024 1:30 AM CDT Allied Health/Nurse Visit [facility] [address] [place] [address] Carlos Wright MD [address] [place] [address] documented as of this encounter Procedures Procedure [...] documented as of this encounter Care Teams Push Button Switch Assembler Relationship Specialty Start Date End Date Rei Alcaraz MD [address] [place] [address] PCP - General FAMILY PRACTICE 08/25/16 Edgar Schilling MD [address] [place] [phone] [place] [employer] Controls Designer CARDIOVASCULAR DISEASE 08/25/16 09/03/23 Jim Lugo MD [address] [place] [address] Consulting Physician CLINICAL CARDIAC ELECTROPHYSIOLOGY 05/27/22 09/03/23 Dominguez Locke PA-C [address] [place] [phone] PHYSICIAN CONTINUOUS DRYOUT OPERATOR 05/27/22 Consuelo Boland MD [address] [place] [address] Consulting Physician CARDIOVASCULAR DISEASE 09/04/23 documented as of this encounter
--- OUTSIDE RECORDS SUMMARY | 2024-07-02 07:41 | XMS_ITS | Encounter Summary ---
Author Organization [facility] Address [facility] [place] [address] Care Team Providers Care Customer Service Manager Name Role Phone Rei Alcaraz MD Primary Care Provider [phone] Edgar Schilling MD Unavailable [phone] Jim Lugo MD Unavailable Unavailable Dominguez Locke PA-C Unavailable [phone] Consuelo Boland MD Unavailable Encounter Details Date Type Department Care Team (Late st Contact Info) Description 09/24/2016 Abstract [facility] [address] [place] [address] Edgar Schilling MD [address] [place] [address] Social History Tobacco Use Types Packs/Day Years Used Date Smoking Tobacco: Every Day Comments Unknown Sex and Gender Information Value Date Recorded Sex Assigned at Female 03/30/2024 9:49 AM AUTO SERVICE ADVISOR Legal Sex Female 1:02 PM CDT Gender Identity Not on file Sexual Orientation Not on file documented as of this encounter Plan of Treatment Upcoming Encounters Date Type Department Care Team (Latest Contact Info) Description 07/13/2024 11:00 AM CDT Office Visit [facility] [address] [place] [address] AhmaCarlos yin MD [address] [address] 07/13/2024 11:00 AM CDT Allied Health/Nurse Visit [facility] [address] [place] [address] Carlos Wright MD [address] [address] 09/04/2024 12:30 PM CDT Appointment [address] [place] [address] Consuelo Boland MD [address] [place] [address] 09/10/2024 11:45 AM CDT Office Visit [facility] [place] [address] Consuelo Boland MD [address] [place] [address] 10/17/2024 1:30 AM CDT Allied Health/Nurse Visit [facility] [address] [place] [address] Carlos Wright MD [address] [place] [address] documented as of this encounter Visit Diagnoses Not on filedocumented in this encounter Additional Health Concerns Infection Onset Date Last Indicated Resolved Time COVID-19 Rule Out 11/03/2019 11/03/2019 11/04/2019 3:36 PM CDT documented as of this encounter Care Teams Customer Service Manager Relationship Specialty Start Date End Date Rei Alcaraz MD [address] [place] [address] PCP - General FAMILY PRACTICE 08/25/16 Edgar Schilling MD [address] [place] [phone] [place] Mixed Animal Veterinarian CARDIOVASCULAR DISEASE 08/25/16 09/03/23 Jim Lugo MD [address] [place] [phone] Consulting Physician CLINICAL CARDIAC ELECTROPHYSIOLOGY 05/27/22 09/03/23 Dominguez Locke PA-C [address] [place] [phone] PHYSICIAN ELECTROSLAG WELDING MACHINE OPERATOR 05/27/22 Consuelo Boland MD [address] [place] [address] Consulting Physician CARDIOVASCULAR DISEASE 09/04/23 documented as of this encounter
--- OUTSIDE RECORDS SUMMARY | 2024-07-02 07:41 | XMS_ITS | Encounter Summary ---
Author Organization [facility] Address [facility] [place] [address] Care Team Providers Care Dance Coach Name Role Phone Rei Alcaraz MD Primary Care Provider [phone] Edgar Schilling MD Unavailable [phone] Jim Lugo MD Unavailable Unavailable Dominguez Locke PA-C Unavailable [phone] Consuelo Boland MD Unavailable Encounter Details Date Type Department Care Team (Late st Contact Info) Description 09/22/2017 Abstract [facility] [address] [place] [address] Edgar Schilling MD [address] [place] [address] Social History Tobacco Use Types Packs/Day Years Used Date Smoking Tobacco: Every Day Cigarettes 0.5 44.3 Started: 1980 Smokeless Tobacco: Never Alcohol Use Standard Drinks/Week Comments Yes 0 (1 standard drink = 0.6 oz pur e alcohol) Comments Unknown Sex and Gender Information Value Date Recorded Sex Assigned at Female 03/30/2024 9:49 AM WEB PRESS ROLL TENDER Legal Sex Female 1:02 PM CDT Gender Identity Not on file Sexual Orientation Not on file 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 Not on file documented as of this encounter Plan of Treatment Upcoming Encounters Date Type Department Care Team (Latest Contact Info) Description 07/13/2024 11:00 AM CDT Office Visit [facility] [address] [place] [address] Carlos Wright MD [address] [place] [address] 07/13/2024 11:00 AM CDT Allied Health/Nurse Visit [facility] [address] [place] [address] Carlos Wright MD [address] [place] [address] 09/04/2024 12:30 PM CDT [facility] [address] [place] [address] Consuelo Boland MD [address] [place] [address] 09/10/2024 11:45 AM CDT Office Visit [facility] [address] [place] [address] Consuelo Boland MD [address] [place] [address] 10/17/2024 1:30 AM CDT Allied Health/Nurse Visit [facility] [address] [place] [address] Carlos Wright MD [address] [place] [address] documented as of this encounter Procedures Procedure [...] documented as of this encounter Care Teams Dance Coach Relationship Specialty Start Date End Date Rei Alcaraz MD [address] [place] [address] PCP - General FAMILY PRACTICE 08/25/16 Edgar Schilling MD [address] [place] [address] [place] Line Maintenance Supervisor CARDIOVASCULAR DISEASE 08/25/16 09/03/23 Jim Lugo MD [address] [place] [address] Consulting Physician CLINICAL CARDIAC ELECTROPHYSIOLOGY 05/27/22 09/03/23 Dominguez Locke PA-C [address] [place] [phone] PHYSICIAN ETHICS INSTRUCTOR 05/27/22 Consuelo Boland MD [address] [place] [address] Consulting Physician CARDIOVASCULAR DISEASE 09/04/23 documented as of this encounter
[2024-07-02 07:50] LABS: Basophils Absolute Auto 0.07 K/mm3 (0.00-0.10); Basophils Percent Auto 0.9 % (0.0-1.0); Eosinophils Absolute Auto 0.19 K/mm3 (0.02-0.50); Eosinophils Percent Auto 2.5 % (1.0-6.0); Hematocrit 43.3 % (35.0-49.0); Hemoglobin 13.8 g/dL (12.0-15.0); Immature Granulocyte Absolute 0.02 K/mm3 (0.00-0.00); Immature Granulocyte Percent A 0.3 % (0.0-0.0); Lymphocytes Absolute Auto 2.43 K/mm3 (1.10-4.50); Lymphocytes Percent Auto 32.1 % (18.0-42.0); Mean Corpuscular HGB Conc 31.9 g/dL (32-36); Mean Corpuscular Hemoglobin 29.4 pg (27.0-31.0); Mean Corpuscular Volume 92.1 fL (78.0-102.0); Mean Platelet Volume 9.9 fl (9.2-11.8); Monocytes Absolute Auto 0.53 K/mm3 (0.10-0.90); Neutrophils Absolute Auto 4.33 K/mm3 (1.70-7.20); Neutrophils Percent Auto 57.2 % (50.0-70.0); Platelet Count Result 231 K/mm3 (150-420); Red Cell Distribution Width 15.4 % (11.6-14.4); White Blood Count 7.6 K/mm3 (4.8-10.8)
[2024-07-02 08:49] LABS: Alanine Aminotransferase 19 U/L (14-59); Albumin Level 3.7 g/dL (3.4-5.0); Alkaline Phosphatase 105 U/L (46-116); Anion Gap 7 mmol/L (4-12); Aspartate Amino Transferase 13 U/L (15-37); Bilirubin,Total 0.5 mg/dL (0.00-1.00); Blood Urea Nitrogen 27 mg/dL (7-18); Calcium 9.1 mg/dL (8.5-10.1); Carbon Dioxide 29 mmol/L (21-32); Chloride 105 mmol/L (98-108); Estimated Glomerular Filt Rate 29; Glucose 127 mg/dL (70-99); Osmolality Calculated 299 mOsm/kg (285-295); Potassium 3.6 mmol/L (3.5-5.1); Sodium 141 mmol/L (136-145); Thyroid Stimulating Hormone 1.64 uIU/mL (0.36-3.74); Total Protein 7.1 g/dL (6.4-8.2)
[2024-07-02 10:41] LABS: Creatinine Urine 134.07 mg/dL (40-278)
[2024-07-02 10:43] LABS: MALB Creatinine Ratio 97.1 mg/g (0-30); Microalbumin Urine Random 130.3 mg/L
== END 2024-07-02 07:38 | disposition home or self-care (01) ==
LOC: CHSLAB 07:38
PROVIDERS: PCP Family Medicine; Visit Provider Family Medicine
DX: E11.9 Type 2 diabetes mellitus without complications (principal)
CPT/HCPCS: 36415; 80053; 82043; 83036; 84443; 85025

== ENCOUNTER 2024-08-30 14:13 | Outpatient (RCR) | payer MEDICARE, MEDICAID, SELFPAY ==
[2024-06-22 11:22] LABS: INR 2.6; Prothrombin Time 26.5 Seconds (9.50-12.1)
[2024-07-27 11:13] LABS: INR 2.2; Prothrombin Time 22.6 Seconds (9.50-12.1)
[2024-08-30 14:47] LABS: INR 2.0; Prothrombin Time 20.3 Seconds (9.50-12.1)
== END 2024-09-20 23:59 | disposition home or self-care (01) ==
LOC: CHSLAB 14:13
PROVIDERS: PCP Family Medicine; Visit Provider Family Medicine
DX: Z79.01 Long term (current) use of anticoagulants (principal)
CPT/HCPCS: 36415; 85610

== ENCOUNTER 2024-10-09 06:59 | Outpatient (CLI) | payer MEDICARE, MEDICAID, SELFPAY ==
--- OUTSIDE RECORDS SUMMARY | 2024-10-09 07:04 | XMS_ITS | Encounter Summary ---
Author Organization [facility] Address [facility] [place] [address] Care Team Providers Care Agricultural Service Technician Name Role Phone Rei Alcaraz MD Primary Care Provider [phone] Edgar Schilling MD Unavailable [phone] Jim Lugo MD Unavailable Unavailable Dominguez Locke PA-C Unavailable [phone] Consuelo Boland MD Unavailable Encounter Details Date Type Department Care Team (Late st Contact Info) Description 01/11/2018 Abstract [facility] [address] [place] [phone] Abstract, Doc [facility] Social History Tobacco Use Types Packs/Day Years Used Date Smoking Tobacco: Every Day Cigarettes 0.5 44.6 Started: 1980 Smokeless Tobacco: Never Alcohol Use Standard Drinks/Week Comments Yes 0 (1 standard drink = 0.6 oz pur e alcohol) Comments Unknown Sex and Gender Information Value Date Recorded Sex Assigned at Female 03/30/2024 9:49 AM FEDERAL AIR MARSHAL Legal Sex Female 1:02 PM CDT Gender Identity Not on file Sexual Orientation Not on file 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 Not on file documented as of this encounter Plan of Treatment Upcoming Encounters Date Type Department Care Team (Latest Contact Info) Description 10/17/2024 1:30 AM CDT [facility] [address] [place] [address] Carlos Wright MD 9 [facility] [address] [place] [address] 09/10/2025 1:00 PM CDT Appointment [address] [place] [address] Consuelo Boland MD [address] [place] [address] 09/16/2025 11:45 AM CDT Office Visit [facility] [place] [address] Consuelo Boland MD [address] [place] [phone] documented as of this encounter Procedures Procedure [...] documented as of this encounter Care Teams Agricultural Service Technician Relationship Specialty Start Date End Date Rei Alcaraz MD [address] [place] [address] PCP - General FAMILY PRACTICE 08/25/16 Edgar Schilling MD [address] [place] [phone] [place] Dye Box Operator CARDIOVASCULAR DISEASE 08/25/16 09/03/23 Jim Lugo MD [address] [place] [address] Consulting Physician CLINICAL CARDIAC ELECTROPHYSIOLOGY 05/27/22 09/03/23 Dominguez Locke PA-C [address] [place] [address] PHYSICIAN MANAGER ACTIVITIES 05/27/22 Consuelo Boland MD [address] [place] [address] Consulting Physician CARDIOVASCULAR DISEASE 09/04/23 documented as of this encounter
--- OUTSIDE RECORDS SUMMARY | 2024-10-09 07:05 | XMS_ITS | Encounter Summary ---
Author Organization [facility] Address [facility] [place] [address] Care Team Providers Care Auto Suspension And Steering Mechanic Name Role Phone Rei Alcaraz MD Primary Care Provider [phone] Edgar Schilling MD Unavailable [phone] Jim Lugo MD Unavailable Unavailable Dominguez Locke PA-C Unavailable [phone] Consuelo Boland MD Unavailable Encounter Details Date Type Department Care Team (Late st Contact Info) Description 04/28/2017 Abstract [facility] [address] [place] [address] Edgar Schilling MD [address] [place] [address] Social History Tobacco Use Types Packs/Day Years Used Date Smoking Tobacco: Every Day Cigarettes 0.5 44.6 Started: 1980 Smokeless Tobacco: Never Alcohol Use Standard Drinks/Week Comments Yes 0 (1 standard drink = 0.6 oz pur e alcohol) Comments Unknown Sex and Gender Information Value Date Recorded Sex Assigned at Female 03/30/2024 9:49 AM DIESEL ENGINE II PIPE FITTER Legal Sex Female 1:02 PM CDT Gender Identity Not on file Sexual Orientation Not on file 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 [address] [place] [address] 09/10/2025 1:00 PM CDT Appointment [address] [place] [address] Consuelo Boland MD [address] [place] [address] 09/16/2025 11:45 AM CDT Office Visit [facility] [place] [address] Consuelo Boland MD [address] [place] [address] documented as of this encounter Procedures Procedure [...] documented as of this encounter Care Teams Auto Suspension And Steering Mechanic Relationship Specialty Start Date End Date Rei Alcaraz MD [address] [place] [address] PCP - General FAMILY PRACTICE 08/25/16 Edgar Schilling MD [address] [place] [address] [place] Director Staffing CARDIOVASCULAR DISEASE 08/25/16 09/03/23 Jim Lugo MD [address] [place] [address] Consulting Physician CLINICAL CARDIAC ELECTROPHYSIOLOGY 05/27/22 09/03/23 Dominguez Locke PA-C [address] [place] [address] PHYSICIAN ASSOCIATE SCIENTIST 05/27/22 Consuelo Boland MD [address] [place] [address] Consulting Physician CARDIOVASCULAR DISEASE 09/04/23 documented as of this encounter
--- OUTSIDE RECORDS SUMMARY | 2024-10-09 07:05 | XMS_ITS | Encounter Summary ---
Author Organization [facility] Address [facility] [place] [address] Care Team Providers Care Staff Mechanical Engineer Name Role Phone Rei Alcaraz MD Primary Care Provider [phone] Edgar Schilling MD Unavailable [phone] Jim Lugo MD Unavailable Unavailable Dominguez Locke PA-C Unavailable [phone] Consuelo Boland MD Unavailable Encounter Details Date Type Department Care Team (Late st Contact Info) Description 11/08/2017 Abstract [facility] [address] [place] [address] Sahra Bradley, ANA, FARM MACHINERY MECHANIC-C [address] [facility] [address] [place] [address] Social History Tobacco Use Types Packs/Day Years Used Date Smoking Tobacco: Every Day Cigarettes 0.5 44.6 Started: 1980 Smokeless Tobacco: Never Alcohol Use Standard Drinks/Week Comments Yes 0 (1 standard drink = 0.6 oz pur e alcohol) Comments Unknown Sex and Gender Information Value Date Recorded Sex Assigned at Female 03/30/2024 9:49 AM WATER TESTER Legal Sex Female 1:02 PM CDT Gender Identity Not on file Sexual Orientation Not on file 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 Not on file documented as of this encounter Plan of Treatment Upcoming Encounters Date Type Department Care Team (Latest Contact Info) Description 10/17/2024 1:30 AM CDT Allied Health/Nurse Visit [facility] [address] [place] [address] Carlos Wright MD [address] [facility] [address] [place] [address] 09/10/2025 1:00 PM CDT Appointment [facility] [address] [place] [address] [place] [address] Consuelo Boland MD [address] [place] [address] 09/16/2025 11:45 AM CDT Office Visit [facility] [address] [place] [address] Consuelo Boland MD [address] [place] [address] documented as of this encounter Procedures Procedure [...] documented as of this encounter Care Teams Staff Mechanical Engineer Relationship Specialty Start Date End Date Rei Alcaraz MD [address] [place] [address] PCP - General FAMILY PRACTICE 08/25/16 Edgar Schilling MD [address] [place] [phone] [place] Access Director CARDIOVASCULAR DISEASE 08/25/16 09/03/23 Jim Lugo MD [address] [place] [phone] Consulting Physician CLINICAL CARDIAC ELECTROPHYSIOLOGY 05/27/22 09/03/23 Dominguez Locke PA-C [address] [place] [address] PHYSICIAN PROJECT PLANNER 05/27/22 Consuelo Boland MD 9 [place] [address] Consulting Physician CARDIOVASCULAR DISEASE 09/04/23 documented as of this encounter
--- OUTSIDE RECORDS SUMMARY | 2024-10-09 07:05 | XMS_ITS | Encounter Summary ---
Author Organization [facility] Address [facility] [place] [address] Care Team Providers Care Vessel Engineer Name Role Phone Rei Alcaraz MD Primary Care Provider [phone] Edgar Schilling MD Unavailable [phone] Jim Lugo MD Unavailable Unavailable Dominguez Locke PA-C Unavailable [phone] Consuelo Boland MD Unavailable Encounter Details Date Type Department Care Team (Late st Contact Info) Description 12/29/2017 Abstract [facility] [address] [place] [address] Edgar Schilling MD [address] [place] [address] Social History Tobacco Use Types Packs/Day Years Used Date Smoking Tobacco: Every Day Cigarettes 0.5 44.6 Started: 1980 Smokeless Tobacco: Never Alcohol Use Standard Drinks/Week Comments Yes 0 (1 standard drink = 0.6 oz pur e alcohol) Comments Unknown Sex and Gender Information Value Date Recorded Sex Assigned at Female 03/30/2024 9:49 AM FUEL CONVERSION TECHNICIAN Legal Sex Female 1:02 PM CDT Gender Identity Not on file Sexual Orientation Not on file 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 Not on file documented as of this encounter Plan of Treatment Upcoming Encounters Date Type Department Care Team (Latest Contact Info) Description 10/17/2024 1:30 AM CDT Allied Health/Nurse Visit [facility] eld [address] [place] [address] Carlos Wright MD [address] [facility] [address] [place] [address] 09/10/2025 1:00 PM CDT Appointment [facility] [address] [place] [address] [place] [address] Consuelo Boland MD [address] [place] [address] 09/16/2025 11:45 AM CDT Office Visit [facility] [address] [address] [place] [address] Consuelo Boland MD [address] [place] [address] documented as of this encounter Procedures Procedure Name Priority Date/Time Associated Diagnosis Comments PROTHROMBIN TIME, VENOUS Routine 12/28/2017 BASIC METABOLIC PANEL Routine 12/28/2017 documented in this encounter Results * PROTIME/INR, VENOUS (12/28/2017) Pathologist [facility] [place] PROTIME WHOLE BLOOD 18.7 INR WHOLE BLOOD 1.70 12/28/2017 us Doc [facility]ORATORY Final Result * (ABNORMAL) BASIC METABOLIC PANEL (12/28/2017) Pathologist [facility] SODIUM S/P/B 139 POTASSIUM S/P/B 4.4 CO2 [...] documented as of this encounter Care Teams Vessel Engineer Relationship Specialty Start Date End Date Rei Alcaraz MD [address] [place] [address] PCP - General FAMILY PRACTICE 08/25/16 Edgar Schilling MD [address] [place] [phone] [employer] CARDIOVASCULAR DISEASE 08/25/16 09/03/23 Jim Lugo MD [address] [place] [phone] Consulting Physician CLINICAL CARDIAC ELECTROPHYSIOLOGY 05/27/22 09/03/23 Dominguez Locke PA-C [address] [place] [phone] PHYSICIAN BRIDAL SALES CONSULTANT 05/27/22 Consuelo Boland MD [address] [place] [id number] Consulting Physician CARDIOVASCULAR DISEASE 09/04/23 documented as of this encounter
--- OUTSIDE RECORDS SUMMARY | 2024-10-09 07:06 | XMS_ITS | Clinical Summary ---
Author Organization [facility] Address [address] [place] [address] Care Team Providers Care Rerolling Machine Operator Name Role Phone Rei Alcaraz MD Primary Care Provider Dominguez Locke PA-C Unavailable [phone] Melissa Regan MD Unavailable Allergies No [...] tablet see administration instructions. 04/30/19 24 Active metoprolol succinate ER (TOPROL-XL) 50 MG 24 hr tablet TAKE 1 TABLET BY MOUTH TWICE DAILY 200 tablet 2 02/13/20 24 Active tirzepatide (MOUNJARO) 10 MG/0.5ML injection Active JARDIANCE 25 MG tablet Take 1 tablet (25 mg total) by mouth daily. 02/24/20 24 Active oxybutynin XL (DITROPAN-XL) 5 MG 24 hr tablet Take 1 tablet (5 mg total) by mouth daily. 03/12/19 25 Active pioglitazone (ACTOS) 15 MG tablet Take 1 tablet (15 mg total) by mouth daily. Active FLONASE ALLERGY RELIEF 50 MCG/ACT nasal spray 1 spray by Nasal route daily. 03/07/19 25 Active insulin glargine (LANTUS SOLOSTAR) 100 UNIT/ML injection (PEN) Inject into the skin nightly at bedtime. 04/16/19 25 Active furosemide (LASIX) 40 MG tablet Take 1 tablet (40 mg total) by mouth daily. 90 tablet 3 07/20/19 25 Active rosuvastatin (CRESTOR) 40 MG tablet TAKE 1 TABLET BY MOUTH EVERY NIGHT AT BEDTIME 100 tablet 2 08/23/19 25 Active nitroglycerin (NITROSTAT) 0.4 MG SL tabletIndicati ons:Coronary artery disease involving skokomish coronary artery of skokomish heart without angina pectoris Place 1 tablet (0.4 mg total) under the tongue every 5 (five) minutes as needed for Chest Pain. 25 tablet 3 09/11/19 25 Active nitroglycerin (NITROSTAT) 0.4 MG SL tabletIndicati ons:Coronary artery disease involving skokomish coronary artery of skokomish heart without angina pectoris Place 1 tablet (0.4 mg total) under the tongue every 5 (five) minutes as needed for Chest Pain. 25 tablet 03/30/19 25 025 Discontin ued(Reord er) Active Problems Problem Noted Date Diagnosed Date ICD (implantable cardioverter-defibrillator) in place 04/07/2023 Contusion of right ankle 08/05/2021 Mixed hyperlipidemia 09/21/2019 Ischemic cardiomyopathy 02/20/2017 Other pulmonary embolism wit hout acute cor pulmonale ([facility]) 02/20/2017 LV dysfunction 01/26/2017 Pulmonary hypertension ([facility]) 017 LV (left ventricular) mural thrombus without NE ([facility]) Dyspnea Tobacco abuse Chronic systolic heart failure ([facility]) COPD (chronic obstructive pu lmonary disease) ([facility]) Diabetes ([facility]) CAD (coronary artery disease) Encounters Date Type Department Care Team Description 09/18/2024 Telephone [facility] [address] [place] [address] Carlos Wright MD Results 09/10/2024 11:45 AM CDT Office Visit [facility] [id number] [place] [address] Melissa Regan MD Heart Problem 09/10/2024 11:08 AM CDT - 09/10/2024 11:59 PM CDT Hospital Encounter [facility] [address] [place] [address] Melissa Regan MD Discharge Disposition: Home or Self Care (Routine Discharge) 09/10/2024 Travel 09/06/2024 Telephone [facility] [address] [place] [address] Melissa Regan MD Appointment Reminder 09/04/2024 12:11 PM CDT - 09/04/2024 11:59 PM CDT Hospital Encounter [facility] [address] [place] [address] Melissa Regan MD Discharge Disposition: Home or Self Care (Routine Discharge) 09/04/2024 12:10 PM CDT Hospital Encounter [facility] [address] [place] [address] Yuli Lin MD Discharge Disposition: Home or Self Care (Routine Discharge) 09/04/2024 Orders [place] [address] Yuli Lin MD 09/04/2024 Travel 09/04/2024 Orders Only [facility] [address] [place] [address] Melissa Regan MD 07/27/2024 8:45 AM CDT Telephone [facility] [address] [place] [address] Carlos Wright MD Holter Monitor 07/19/2024 Telephone [facility] [address] [place] [address] Melissa Regan MD Medication Request 07/13/2024 11:00 AM CDT Allied Health/Nurse Visit [facility] [address] [place] [address] Carlos Wright MD In Clinic Device Check 07/13/2024 11:00 AM CDT Office Visit [facility] [address] [place] [address] Carlos Wright MD Heart Problem; Follow Up 07/13/2024 Telephone [facility] [address] [place] [address] Carlos Wright MD Schedule Test 07/13/2024 Travel 07/12/2024 Orders Only [facility] [address] [place] [address] Carlos Wright MD from Last 3 Months Family History Medical History Relation Comments Hypertension Brother Miscarriages / Stillbirths Daughter Cancer Father Prostate,skin Heart Disease Father Hypertension Father NE Father Heart Disease Maternal Aunt Heart Disease Maternal Grandfather Arthritis Maternal Grandmother In her hand s Heart Disease Maternal Uncle Stroke Maternal Uncle Heart Disease Mother Hypertension Mother NE Mother Heart Disease Paternal Grandfather Heart Disease Paternal Grandmother Atherosclerosis Sister Heart Disease Sister Hypertension Sister Relation Status Comments Brother Daughter Father Maternal Aunt Maternal Grandfather Maternal Grandmother Maternal Uncle Mother Paternal Grandfather Paternal Grandmother Sister Alive Social History Tobacco Use Types Packs/Day Years Used Date Smoking Tobacco: Every Day Cigarettes 1 44.6 Started: 1980 Smokeless Tobacco: Never Comments:Smoked since 1980 Alcohol Use Standard Drinks/Week Comments Not Currently 0 (1 standard drink = 0.6 oz pur e alcohol) Comments Unknown Sex and Gender Information Value Date Recorded Sex Assigned at Female 03/30/2024 9:49 AM 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 Legal Sex Female 1:02 PM CDT Gender Identity Not on file Sexual Orientation Not on file 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 Not on file Last Filed Vital Signs Vital Sign Reading Time Taken Comments Blood Pressure 96/62 09/10/2024 12:05 PM CDT Pulse 64 09/10/2024 12:05 PM CDT Temperature 36.2 C (97.2 F) 11/06/2019 11:00 AM CDT Respiratory Rate 16 09/10/2024 12:05 PM CDT Oxygen Saturation 100% 09/10/2024 12:05 PM CDT Inhaled Oxygen Concentration - - Weight 76.7 kg (169 lb) 09/10/2024 12:05 PM CDT Height 157.5 cm (5' 2) 09/10/2024 12:05 PM CDT Body Mass Index 30.91 09/10/2024 12:05 PM CDT Plan of Treatment Upcoming Encounters Date Type Department Care Team (Latest Contact Info) Description 10/17/2024 1:30 AM CDT [facility] [address] [place] [address] Carlos Wright MD [address] [place] [address] 09/10/2025 1:00 PM CDT Appointment [facility] [address] [place] [address] Melissa Regan MD [address] [place] [address] 09/16/2025 11:45 AM CDT [facility] [address] [place] [phone] Melissa Regan MD [address] [place], [place] [id number] Health Maintenance Due Date Last Done Comments Colorectal Cancer Screening Colonoscopy (10 Years) 1960 Annual Physical 1965 Diabetes: Retinopathy Eye Exam 1980 Hepatitis C 1980 Mammogram Screening 2002 Lung Cancer Screening 2012 Zoster Vaccines (1 of 2) 2012 Hemoglobin A1C 03/03/2017 09/01/2016 Pneumococcal Vaccine: 50+ Years (2 of 2 - PCV) 11/29/2020 11/30/2019 RSV Immunization or 60+ Years (1 - Risk 60-74 years 1-dose series) 2022 COVID-19 Vaccine ( - season) 2023 01/22/2021, 06/13/2020, 05/14/2020 Lipid Panel 12/12/2024 12/13/2023, 07/06, 05/11/2021, Additional history exists Kidney Health Evaluation 09/04/2025 09/04/2024 DTaP, Tdap and Td Vaccines (2 - Td or Tdap) 12/28/2033 12/29/2023 Meningococcal B Vaccine Aged Out No l onger eligible based on patient's age to complete this topic Meningococcal Vaccine Aged Out No ying rosalino eligible based on patient's age to complete this topic RSV Immunizations Under 20 Months Aged Out No longer eligible based on patient's age to complete this topic Medical Devices Implanted Type Area Vice President Risk Management Device Identifier Shelf Expiration Date Model / Serial / Lot Ep-Sjm Ellipse Vr Icd-11/06/2019 Implanted:Qt y: 1 on 11/06/2019 by Jim Lugo MD ICD [facility] 04/06/2021 [id number] / [id number] / Description:SJM Ellipse VR I CD Ep-Optisure Icd Lead- 0 Implanted:Qt y: 1 on 11/06/2019 by Jim Lugo MD Lead Implant Right: Ventricle [facility] 07/04/2021 [id number] / [id number] / Description:SJM Optisure 58c m Lead Procedures Procedure Name Priority Date/Time Associated Diagnosis Comments ECG 12-LEAD Routine 09/10/2024 11:17 AM CDT Palpitations CBC W/DIFF AUTOMATED Routine 09/04/2024 1:53 PM CDT Chronic kidney disease, stage 4 (severe) ([facility]HCC) RENAL FUNCTION PANEL Routine 09/04/2024 1:53 PM CDT Chronic kidney disease, stage 4 (severe) ([facility] HHS/HCC) ALBUMIN URINE RANDOM W/CREATININE Routine 09/04/2024 1:48 PM CDT Chronic kidney disease, stage 4 (severe) ([facility] H[facility]/HCC) USE ECHOCARDIOGRAM Routine 09/04/2024 1: 26 PM CDT Ischemic cardiomyopathy MOBILE CONTINUOUS TELEMETRY Routine 08/30/2024 3:58 PM CDT Palpitations Atrial fibrillation, unspecified type ([facility] HHS/HCC) ELECTROCARDIOGRAM (NON MIDMARK ACQUIRED) Routine 07/13/2024 11:28 AM CDT LV dysfunction LIPID PANEL Routine 12/13/2023 11:10 AM CDT Hyperlipidemia, mixed Essential (primary) hypertension HEMOGLOBIN, GLYCOSYLATED TIMED 017 4:36 AM CDT from Last 3 Months or Most Recently Relevant to Health Maintenance Results * ECG 12 lead (HOSPITAL PERFORMED ONLY) (09/10/2024 11:17 AM CDT) 09/10/2024 11:1 7 AM CDT Narrative [facility] - 09/11/2024 6:09 AM CDT [place] [id number] [facility] [place] [address] Test Date: 2024-09-10 Pat Name: MIKE KHANNAS Department: 3 Room: Gender: Female Saddle And Harness Maker: : 1960 Requested By: MELISSA REGAN Order Number: [id number] Reading MD: Melissa Regan Measurements Intervals Orange Rate: 65 P: 69 DC: 153 QRS: 102 QRSD: 94 T: 90 QT: 424 QTc: 441 Interpretive Statements SINUS RHYTHM POSSIBLE RIGHT VENTRICULAR HYPERTROPHY ANTEROLATERAL MYOCARDIAL INFARCTION , PROBABLY OLD Procedure Note Mleissa Regan MD - 09/11/[address] [place] [address] Test Date: 2024-09-10 Pat Name: MIKE ESCOBAR Department: 3 Room: Gender: Female Saddle And Harness Maker: : 1960 Requested By: MELISSA REGAN Order Number: [id number] Reading MD: Melissa Regan Measurements Intervals Orange Rate: 65 P: 69 DC: 153 QRS: 102 QRSD: 94 T: 90 QT: 424 QTc: 441 Interpretive Statements SINUS RHYTHM POSSIBLE RIGHT VENTRICULAR HYPERTROPHY ANTEROLATERAL MYOCARDIAL INFARCTION , PROBABLY OLD us Melissa Regan MD ECG ORDERABLES Final Result [facility] * (ABNORMAL) RENAL FUNCTION PANEL (09/04/2024 1:53 PM CDT) SODIUM S/P/B 142 136 - 145 MMOL/L 09/04/2024 2:51 PM CDT [facility] POTASSIUM S/P/B 4.0 3.5 - 5.1 MMOL/L 09/04/2024 2:51 PM CDT [facility] CHLORIDE S/P/B 103 98 - 107 MMOL/L 09/04/2024 2:51 PM CDT [facility] CO2 28.6 21.0 - 32.0 MMOL/L 09/04/2024 2:51 PM CDT [facility] GLUCOSE 97 70 - 99 MG/DL 09/04/2024 2:51 PM CDT [facility] Comment: FASTING GLUCOSE 100 TO 125 MG/DL IS CONSISTENT WITH IMPAIRED FASTING GLUCOSE. FASTING GLUCOSE >125 MG/DL IS CONSISTENT WITH DIABETES. RANDOM GLUCOSE >200 MG/DL WITH HYPERGLYCEMIC SYMPTOMS IS CONSISTENT WITH DIABETES. PER ADA GUIDELINES BUN 35(H) 6 - 24 MG/DL 09/04/2024 2:51 PM CDT [facility] CREATININE S/P/B 1.77(H) 0.55 - 1.02 MG/DL 09/04/2024 2:51 PM CDT [facility] CALCIUM S/P/B 9.6 8.4 - 10.5 MG/DL 09/04/2024 2:51 PM CDT [facility] ALBUMIN S/P/B 3.9 3.4 - 5.0 G/DL 09/04/2024 2:51 PM CDT [facility] PHOSPHORUS 3.4 2.6 - 4.7 MG/DL 09/04/2024 2:51 PM T [facility] ANION GAP 10.4 5.0 - 15.0 MMOL/L 09/04/2024 2:51 PM T [facility] OSMOLALITY (CALC) 302 MOSM/KG 025 2:51 PM T [facility] Comment:REFERENCE RANGE NOT ESTABLISHED GFR ESTIMATE 32(L) >89 ML/MIN/1. 73 M2 09/04/2024 2:51 PM T [facility] GFR NOTES GFR REFERENCE S: 09/04/2024 2:51 PM T [facility] Comment: THE ESTIMATED GFR IS [...] ml/min/1.73 m2 G5,KIDNEY FAILURE: <15 ml/min/1.73 m2 09/04/2024 1:53 PM CDT us Yuli Lin MD LABORATORY Final Resu lt [facility] [address] [place] [address], * (ABNORMAL) CBC W/DIFF AUTOMATED (09/04/2024 1:53 PM CDT) WBC 7.01 4.00 - 10.80 x10'3/uL 09/04/2024 1:59 PM CDT [facility] RBC 4.71 4.10 - 5.40 x10'6/uL 09/04/2024 1:59 PM CDT [facility] HGB 14.1 12.0 - 16.0 G/DL 09/04/2024 1:59 PM CDT [facility] HCT 43.1 36.0 - 47.0 % 09/04/2024 1:59 PM CDT [facility] MCV 91.5 78.0 - 100.0 FL 09/04/2024 1:59 PM CDT [facility] MCH 29.9 27.0 - 31.0 PG 09/04/2024 1:59 PM CDT [facility] MCHC 32.7(L) 33.0 - 36.0 G/DL 09/04/2024 1:59 PM CDT [facility] RDW 14.7(H) 11.5 - 14.5 % 09/04/2024 1:59 PM CDT [facility] PLT 225 150 - 350 x10'3/uL 09/04/2024 1:59 PM CDT [facility] MPV 10.2 7.4 - 10.4 FL 09/04/2024 1:59 PM CDT [facility] CBC COMMENT NORMAL REFERENCE RANGE NOT ESTABLISHED FOR THE PROPORTIONAL LEUKOCYTE DIFFERENTIAL. 09/04/2024 1:59 PM CDT [facility] NEUTROPHILS % 47.9 % 09/04/2024 1:59 PM CDT [facility] LYMPHOCYTES % 42.2 % 09/04/2024 1:59 PM CDT [facility] MONOCYTES % 7.1 % 09/04/2024 1:59 PM CDT [facility] EOSINOPHILS % 1.7 % 09/04/2024 1:59 PM CDT [facility] BASOPHILS % 1.0 % 09/04/2024 1:59 PM CDT [facility] IMMATURE GRANS % 0.1 % 09/05/19 1:59 PM CDT [facility] NRBC % 0.0 % 09/04/2024 1:59 PM CDT [facility] ABS. NEUTROPHILS 3.35 1.60 - 8.30 x10'3/uL 09/04/2024 1:59 PM CDT [facility] ABS. LYMPHOCYTES 2.96 0.80 - 4.70 x10'3/uL 09/04/2024 1:59 PM CDT [facility] ABS. MONOCYTES 0.50 0.00 - 1.50 x10'3/uL 09/04/2024 1:59 PM CDT [facility] ABS. EOSINOPHILS 0.12 0.00 - 0.40 x10'3/uL 09/04/2024 1:59 PM CDT [facility] ABS. BASOPHILS 0.07 0.00 - 0.20 x10'3/uL 09/04/2024 1:59 PM CDT [facility] ABS. IMMATURE GRANULOCYTES 0.01 0.00 - 0.03 x10'3/uL 09/04/2024 1:59 PM CDT [facility] ABS. NUCLEATED RBC'S 0.00 0.00 - 0.01 x10'3/uL 09/04/2024 1:59 PM CDT [facility] 09/04/2024 1:53 PM CDT us Yuli Lin MD LABORATORY Final Resu lt [facility] [address] [place] [address], [place] [phone] * ALBUMIN CREATININE URINE RANDOM (09/04/2024 1:48 PM CDT) ALBUMIN (U) 1.1 MG/DL 09/04/2024 2:33 PM CDT [facility] Comment:REFERENCE RANGE NOT ESTABLISHED CREATININE RANDOM (U) <13.0 MG/DL 09/04/2024 2:33 PM CDT [facility] Comment:REFERENCE RANGE NOT ESTABLISHED ALBUMIN/CREAT RATIO UNABLE TO CALCULATE <30 MG/G 09/04/2024 2:33 PM CDT [facility] Comment: NORMAL TO MILDLY INCREASED ALBUMINURIA: <30 MG/G MODERATELY INCREASED ALBUMINURIA: 30 TO 300 MG/G SEVERELY INCREASED ALBUMINURIA: >300 MG/G PER KDIGO URINE SPECIMEN / Unknown 09/04/2024 1:48 PM CDT Yuli Lin MD URINE ORDERABLES Final Res ult [facility] [place] [address], [place] [phone] * USE ECHOCARDIOGRAM (09/04/2024 1:26 PM CDT) Anatomical Region Laterality Modality Cardiac Ultrasound 09/04/2024 12:5 7 PM CDT Narrative 09/06/2024 6:50 AM CDT Echocardiography Report Pat.Name: Mike Escobar Pat.ID: [id number] .Date: 09/04/2024 Refer.MD: Bhumika, [facility] Exam Time: 12:57:00 PM Study Type:OUTREACH Height: 61 in Weight: 175 lb BSA: 1.78 m2 Age: 6 1960,64Y Sex: F Sonogrphr: Am Pat. Stat.:Outpatient Reason for Study:Ischemic cardiomyopathy Procedures: 2D, M-mode, Doppler, Color Flow, Study performed at [place], [place] and interpreted by [facility]. ++++++++++++++++++++++++++++++++++++ SUMMARY: ++++++++++++++++++++++++++++++++++++ The left ventricular size is normal. Estimated left ventricular ejection fraction is 35-40%. Right ventricular systolic function is normal. Right ventricular systolic pressure is 25 mmHg. Trace mitral regurgitation. Trace tricuspid regurgitation. ++++++++++++++++++++++++++++++++++++ FINDINGS: ++++++++++++++++++++++++++++++++++++ LV: The left ventricular size is normal. The left ventricular systolic function is moderately depressed. Estimated left ventricular ejection fraction is 35-40%. RV: The right ventricular size is normal. Right ventricular systolic function is normal. Right ventricular systolic pressure is 25 mmHg. A pacemaker wire is visualized in the right ventricle. LA: Left atrial size is normal. RA: A pacemaker wire is visualized in the right atrium. TOM: No evidence of pericardial effusion. AO: Aorta is normal. PA: Estimated right atrial pressure of 3 mmHg. SVn: Inferior vena cava is normal. AV: The aortic valve is trileaflet. There is no aortic stenosis. There is no evidence of aortic regurgitation. MV: The mitral valve is structurally normal. Trace mitral regurgitation. PV: The pulmonic valve is normal There is trace pulmonic regurgitation TV: The tricuspid valve appears structurally normal. Trace tricuspid regurgitation. <Electronic Signature> 09/06/2024 06:50 AM Melissa Regan M.D. Procedure Note Melissa Regan MD - 09/06/2024 Echocardiography Report Pat.Name: Mike Escobar Pat.ID: [id number] .Date: 09/04/2024 Refer.MD: Bhumika, [facility] Exam Time: 12:57:00 PM Study Type:OUTREACH Height: 61 in Weight: 175 lb BSA: 1.78 m2 Age: 6 1960,64Y Sex: F Sonogrphr: Francisca Pat. Stat.:Outpatient Reason for Study:Ischemic cardiomyopathy Procedures: 2D, M-mode, Doppler, Color Flow, Study performed at [place], [place] and interpreted by [facility]. ++++++++++++++++++++++++++++++++++++ SUMMARY: ++++++++++++++++++++++++++++++++++++ The left ventricular size is normal. Estimated left ventricular ejection fraction is 35-40%. Right ventricular systolic function is normal. Right ventricular systolic pressure is 25 mmHg. Trace mitral regurgitation. Trace tricuspid regurgitation. ++++++++++++++++++++++++++++++++++++ FINDINGS: ++++++++++++++++++++++++++++++++++++ LV: The left ventricular size is normal. The left ventricular systolic function is moderately depressed. Estimated left ventricular ejection fraction is 35-40%. RV: The right ventricular size is normal. Right ventricular systolic function is normal. Right ventricular systolic pressure is 25 mmHg. A pacemaker wire is visualized in the right ventricle. LA: Left atrial size is normal. RA: A pacemaker wire is visualized in the right atrium. TMO: No evidence of pericardial effusion. AO: Aorta is normal. PA: Estimated right atrial pressure of 3 mmHg. SVn: Inferior vena cava is normal. AV: The aortic valve is trileaflet. There is no aortic stenosis. There is no evidence of aortic regurgitation. MV: The mitral valve is structurally normal. Trace mitral regurgitation. PV: The pulmonic valve is normal There is trace pulmonic regurgitation TV: The tricuspid valve appears structurally normal. Trace tricuspid regurgitation. <Electronic Signature> 09/06/2024 06:50 AM Melissa Regan M.D. Melissa Regan MD ECHO Final Result * [facility] - [id number] [facility] - Today (08/30/2024 3:58 PM CDT) Narrative [facility] - 08/30/2024 3:58 PM CDT [facility] Ambulatory Windows Phone Developer Report Patient Name: Mike Escobar : 1960 [facility]: [id number] Date of Testin07/29/24 - 08/24/24 Date of Report: 09/06/2024 Type of Cardiac Ambulatory Monitor: Mobile Cardiac Telemetry Ordering Provider: CARLOS WRIGHT MD Indication: Palpitations FINDINGS: The patient underwent cardiac monitoring for a total of 23 days, 10 hours and 53 minutes. Baseline Rhythm * The baseline rhythm was Sinus Rhythm with heart rates ranged between 56 and 115 beats per minute, with average rate of 76 beats per minute. A-V Conduction * No Second Degree AV Block Type II. * No Third Degree AV Block. * No Pauses. Supraventricular Arrhythmia * There were 1,311 Supraventricular Ectopic beats with a burden of <1%. * 2 Supraventricular Tachycardia events - the longest episode was 2.8s on 08/20 01:44, and the fastest episode was 145 BPM on 08/20 01:44. These were consistent with asymptomatic, non-sustained atrial tachycardia. Ventricular Arrhythmia * There were 495 Ventricular Ectopic beats with a burden of <1%. * No Ventricular Tachycardia. Atrial Fibrillation * No Atrial Fibrillation. Patient Triggered Events * No patient triggered events, and no symptoms. SUMMARY: - Sinus node function was normal. - No second degree type 2 or third degree AV block noted. - There were no significant abnormalities noted. Signed CARLOS WRIGHT MD 09/06/2024 us Carlos Wright MD CV VASCULAR ORDERABLES F inal Result [facility] * ELECTROCARDIOGRAM (07/13/2024 11:28 AM CDT) 07/13/2024 11:2 8 AM CDT Narrative [facility] - 07/15/2024 5:35 PM CDT [facility] [place] [address] Test Date: 2024-07-13 Pat Name: MIKE ESCOBAR Department: 105 Room: Gender: Female Saddle And Harness Maker: pepper : 1960 Requested By: CARLOS WRIGHT Order Number: [id number] Reading MD: Carlos Wright Measurements Intervals Orange Rate: 70 P: 73 DC: 152 QRS: 104 QRSD: 88 T: 101 QT: 411 QTc: 446 Interpretive Statements SINUS RHYTHM ANTEROLATERAL MYOCARDIAL INFARCTION, OLD Procedure Note Carlos Wright MD - 07/15/2024 [facility], [place] [address] [place] [address] Test Date: 2024-07-13 Pat Name: MIKE [place] Department: 105 Room: Gender: Female Saddle And Harness Maker: pepper : 1960 Requested By: CARLOS WRIGHT Order Number: [id number] Reading MD: Carlos Wright Measurements Intervals Orange Rate: 70 P: 73 DC: 152 QRS: 104 QRSD: 88 T: 101 QT: 411 QTc: 446 Interpretive Statements SINUS RHYTHM ANTEROLATERAL MYOCARDIAL INFARCTION, OLD us Carlos Wright MD PROCEDURES-ORDERABLE NO CHARGE Final Result [facility] * LIPID PANEL (12/13/2023 11:10 AM CDT) CHOLESTEROL 141 MG/DL 12/14/2023 12:55 PM CDT [facility] Comment:DESIRABLE: <200 TRIGLYCERIDES 316 MG/DL 12/14/2023 12:55 PM CDT [facility] Comment:200-499 HIGH HDL 53 >49 MG/DL 12/14/2023 12:55 PM CDT [facility] LDL-C 25 MG/DL 12/14/2023 12:55 PM CDT [facility] Comment:<100 OPTIMAL VLDL CALCULATION 63 MG/DL 12/14/19 12:55 PM CDT [facility] Comment:REFERENCE RANGE NOT ESTABLISHED CHOL/HDL RATIO 2.7 12/14/2023 12:55 PM CDT [facility] Comment:REFERENCE RANGE NOT ESTABLISHED LDL/HDL 0.5 12/14/2023 12:55 PM CDT [facility] Comment:REFERENCE RANGE NOT ESTABLISHED NON HDL CHOLESTEROL 88 MG/DL 12/14/2023 12:55 PM CDT [facility] Comment:REFERENCE RANGE NOT ESTABLISHED 12/13/2023 11:1 0 AM CDT Melissa Regan MD LABORATORY Final Result Performing Organization Address [facility] de Phone Number [facility] [address] [place] [address], [id number] * (ABNORMAL) HEMOGLOBIN, GLYCOSYLATED (09/01/2016 4:36 AM CDT) HGB A1C 6.5(H) 4.5 - 6.0 % 09/01/2016 4:01 AM CDT [facility] ESTIMATED AVG GLUCOSE 140 MG/DL 09/01/2016 4:01 AM CDT [facility] 09/01/2016 4:36 AM CDT 09/01/2016 3:37 AM CDT Kandace Mcfarland Md, MD LABORATORY Final R esult Performing Organization Address [facility] Co de Phone Number [facility] [address] [place] [address], [phone] from Last 3 Months or Most Recently Relevant to Health Maintenance Insurance [facility] MEDICAID Advance Directives * Full Code (Latest Code Status on File) Date Activated Date Inactivated Comments 11/06/2019 3:30 PM 11/06/2019 8:35 PM Care Teams Rerolling Machine Operator Relationship Specialty Start Date End Date Rei Alcaraz MD [address] [place] [address] PCP - General FAMILY PRACTICE 08/25/16 Dominguez Locke PA-C [address] [place] [address] PHYSICIAN COLLECTIONS PROFESSIONAL 05/27/22 Melissa Regan MD [address] [place] [address] Consulting Physician CARDIOVASCULAR DISEASE 09/04/23
--- OUTSIDE RECORDS SUMMARY | 2024-10-09 07:06 | XMS_ITS | Encounter Summary ---
Author Organization [facility] Address [facility] [place] [address] Care Team Providers Care Client Experience Consultant Name Role Phone Rei Alcaraz MD Primary Care Provider [phone] Edgar Schilling MD Unavailable [phone] Jim Lugo MD Unavailable Unavailable Dominguez Locke PA-C Unavailable [phone] Consuelo Boland MD Unavailable Encounter Details Date Type Department Care Team (Late st Contact Info) Description 10/19/2017 Abstract [facility] [address] [place] [address] Edgar Schilling MD [address] [place] [address] Social History Tobacco Use Types Packs/Day Years Used Date Smoking Tobacco: Every Day Cigarettes 0.5 44.6 Started: 1978 Smokeless Tobacco: Never Alcohol Use Standard Drinks/Week Comments Yes 0 (1 standard drink = 0.6 oz pur e alcohol) Comments Unknown Sex and Gender Information Value Date Recorded Sex Assigned at Female 03/30/2024 9:49 AM 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 Legal Sex Female 1:02 PM CDT Gender Identity Not on file Sexual Orientation Not on file 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 Not on file documented as of this encounter Plan of Treatment Upcoming Encounters Date Type Department Care Team (Latest Contact Info) Description 10/17/2024 1:30 AM CDT Allied Health/Nurse Visit [facility] [address] [place] [address] Carlos Wright MD [address] [facility] [address] [place] [address] 09/10/2025 1:00 PM CDT Appointment [facility] [address] [place] [address] [place] [address] Consuelo Boland MD [address] [place] [address] 09/16/2025 11:45 AM CDT Office Visit [facility] [address] [place] [address] Consuelo Boland MD [address] [place] [address] documented as of this encounter Procedures Procedure [...] documented as of this encounter Care Teams Client Experience Consultant Relationship Specialty Start Date End Date Rei Alcaraz MD [address] [place] [address] PCP - General FAMILY PRACTICE 08/25/16 Edgar Schilling MD [address] [place] [phone] [place] Flag Signalman CARDIOVASCULAR DISEASE 08/25/16 09/03/23 Jim Lugo MD [address] [place] [phone] Consulting Physician CLINICAL CARDIAC ELECTROPHYSIOLOGY 05/27/22 09/03/23 Dominguez Locke PA-C [address] [place] [phone] PHYSICIAN FIELD LIABILITY GENERALIST 05/27/22 Consuelo Boland MD [address] [place] [address] Consulting Physician CARDIOVASCULAR DISEASE 09/04/23 documented as of this encounter
--- OUTSIDE RECORDS SUMMARY | 2024-10-09 07:06 | XMS_ITS | Encounter Summary ---
Author Organization [facility] Address [facility], [address] [place] [address] Care Team Providers Care Didactic Program In Dietetics Director Name Role Phone Rei Alcaraz MD Primary Care Provider [phone] Edgar Schilling MD Unavailable [phone] Jim Lugo MD Unavailable Unavailable Dominguez Locke PA-C Unavailable [phone] Consuelo Boland MD Unavailable Encounter Details Date Type Department Care Team (Late st Contact Info) Description 09/24/2016 Abstract [facility] [address] [place] [address] Edgar Schilling MD [address] [place] [address] Social History Tobacco Use Types Packs/Day Years Used Date Smoking Tobacco: Every Day Comments Unknown Sex and Gender Information Value Date Recorded Sex Assigned at Female 03/30/2024 9:49 AM CLOTHES PRESSER Legal Sex Female 1:02 PM CDT Gender Identity Not on file Sexual Orientation Not on file documented as of this encounter Plan of Treatment Upcoming Encounters Date Type Department Care Team (Latest Contact Info) Description 10/17/2024 1:30 AM CDT Allied Health/Nurse Visit [facility] [address] [place] [address] Carlos Wright MD [address] [facility] [address] [place] [address] 09/10/2025 1:00 PM CDT Appointment [address] [place] [address] Consuelo Boland MD [address] [place] [address] 09/16/2025 11:45 AM CDT Office Visit [facility] [place] [phone] Consuelo Boland MD [address] [place] [address] documented as of this encounter Visit Diagnoses Not on filedocumented in this encounter Additional Health Concerns Infection Onset Date Last Indicated Resolved Time COVID-19 Rule Out 11/03/2019 11/03/2019 11/04/2019 3:36 PM CDT documented as of this encounter Care Teams Didactic Program In Dietetics Director Relationship Specialty Start Date End Date Rei Alcaraz MD [address] [place] [address] PCP - General FAMILY PRACTICE 08/25/16 Edgar Schilling MD [address] [place] [phone] [place] Bariatric Coordinator CARDIOVASCULAR DISEASE 08/25/16 09/03/23 Jim Lugo MD [address] [place] [phone] Consulting Physician CLINICAL CARDIAC ELECTROPHYSIOLOGY 05/27/22 09/03/23 Dominguez Locke PA-C [address] [place] [phone] PHYSICIAN CONDUIT BENDER 05/27/22 Consuelo Boland MD [address] [place] [address] Consulting Physician CARDIOVASCULAR DISEASE 09/04/23 documented as of this encounter
--- OUTSIDE RECORDS SUMMARY | 2024-10-09 07:06 | XMS_ITS | Encounter Summary ---
Author Organization [facility] Address [facility]6 [place] [address] Care Team Providers Care Accounting Office Manager Name Role Phone Rei Alcaraz MD Primary Care Provider [phone] Edgar Schilling MD Unavailable [phone] Jim Lugo MD Unavailable Unavailable Dominguez Locke PA-C Unavailable [phone] Consuelo Boland MD Unavailable Encounter Details Date Type Department Care Team (Late st Contact Info) Description 09/24/2016 Abstract [facility] [address] [place] [address] Edgar Schilling MD [address] [place] [address] Social History Tobacco Use Types Packs/Day Years Used Date Smoking Tobacco: Every Day Comments Unknown Sex and Gender Information Value Date Recorded Sex Assigned at Female 03/30/2024 9: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 Legal Sex Female 1:02 PM CDT Gender Identity Not on file Sexual Orientation Not on file documented as of this encounter Plan of Treatment Upcoming Encounters Date Type Department Care Team (Latest Contact Info) Description 10/17/2024 1:30 AM CDT Allied Health/Nurse Visit [facility] [address] [place] [address] Carlos Wright MD [address] [facility] [address] [place] [address] 09/10/2025 1:00 PM CDT Appointment [address] [place] [address] Consuelo Boland MD [address] [place] [address] 09/16/2025 11:45 AM CDT Office Visit [facility] [place] [phone] Consuelo Boland MD [address] [place] [address] documented as of this encounter Visit Diagnoses Not on filedocumented in this encounter Additional Health Concerns Infection Onset Date Last Indicated Resolved Time COVID-19 Rule Out 11/03/2019 11/03/2019 11/04/2019 3:36 PM CDT documented as of this encounter Care Teams Accounting Office Manager Relationship Specialty Start Date End Date Rei Alcaraz MD [address] [place] [address] PCP - General FAMILY PRACTICE 08/25/16 Edgar Schilling MD [address] [place] [phone] [place] Product Handler CARDIOVASCULAR DISEASE 08/25/16 09/03/23 Jim Lugo MD [address] [place] [phone] Consulting Physician CLINICAL CARDIAC ELECTROPHYSIOLOGY 05/27/22 09/03/23 Dominguez Locke PA-C [address] [place] [phone] PHYSICIAN FORKLIFT MECHANIC 05/27/22 Consuelo Boland MD [address] [place] [address] Consulting Physician CARDIOVASCULAR DISEASE 09/04/23 documented as of this encounter
--- OUTSIDE RECORDS SUMMARY | 2024-10-09 07:06 | XMS_ITS | Encounter Summary ---
Author Organization [facility] Address [facility] [place] [address] Care Team Providers Care Equipment Operat0R Name Role Phone Rei Alcaraz MD Primary Care Provider [phone] Edgar Schilling MD Unavailable [phone] Jim Lugo MD Unavailable Unavailable Dominguez Locke PA-C Unavailable [phone] Consuelo Boland MD Unavailable Encounter Details Date Type Department Care Team (Late st Contact Info) Description 09/22/2017 Abstract [facility] [address] [place] [address] Edgar Schilling MD [address] [place] [address] Social History Tobacco Use Types Packs/Day Years Used Date Smoking Tobacco: Every Day Cigarettes 0.5 44.6 Started: 1978 Smokeless Tobacco: Never Alcohol Use Standard Drinks/Week Comments Yes 0 (1 standard drink = 0.6 oz pur e alcohol) Comments Unknown Sex and Gender Information Value Date Recorded Sex Assigned at Female 03/30/2024 9:49 AM SHIP 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 Legal Sex Female 1:02 PM CDT Gender Identity Not on file Sexual Orientation Not on file 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 Not on file documented as of this encounter Plan of Treatment Upcoming Encounters Date Type Department Care Team (Latest Contact Info) Description 10/17/2024 1:30 AM CDT Allied Health/Nurse Visit [facility] eld [address] [place] [address] Carlos Wright MD [address] [facility] [address] [place] [address] 09/10/2025 1:00 PM CDT Appointment [facility] [address] [place] [address] [place] [address] Consuelo Boland MD [address] [place] [address] 09/16/2025 11:45 AM CDT Office Visit [facility] [address] [place] [address] Consuelo Boland MD [address] [place] [address] documented as of this encounter Procedures Procedure [...] documented as of this encounter Care Teams Equipment Operat0R Relationship Specialty Start Date End Date Rei Alcaraz MD [address] [place] [address] PCP - General FAMILY PRACTICE 08/25/16 Edgar Schilling MD [address] [place] [phone] [place] [employer] Applications Programmer Analyst CARDIOVASCULAR DISEASE 08/25/16 09/03/23 Jim Lugo MD [address] [place] [phone] Consulting Physician CLINICAL CARDIAC ELECTROPHYSIOLOGY 05/27/22 09/03/23 Dominguez Locke PA-C [address] [place] [phone] PHYSICIAN VET ASSISTANT 05/27/22 Consuelo Boland MD [address] [place] [address] Consulting Physician CARDIOVASCULAR DISEASE 09/04/23 documented as of this encounter
--- OUTSIDE RECORDS SUMMARY | 2024-10-09 07:07 | XMS_ITS | Encounter Summary ---
Author Organization [facility] Address [facility]6 [place] [address] Care Team Providers Care Ore Feeder Name Role Phone Rei Alcaraz MD Primary Care Provider [phone] Edgar Schilling MD Unavailable [phone] Jim Lugo MD Unavailable Unavailable Dominguez Locke PA-C Unavailable [phone] Consuelo Boland MD Unavailable Encounter Details Date Type Department Care Team (Late st Contact Info) Description 10/04/2016 Abstract [facility] [address] [place] [address] Edgar Schilling MD [address] [place] [address] Social History Tobacco Use Types Packs/Day Years Used Date Smoking Tobacco: Every Day Cigarettes 0.5 44.6 Started: 1980 Comments Unknown Sex and Gender Information Value Date Recorded Sex Assigned at Female 03/30/2024 9:49 AM MITER 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 Legal Sex Female 1:02 PM CDT Gender Identity Not on file Sexual Orientation Not on file documented as of this encounter Plan of Treatment Upcoming Encounters Date Type Department Care Team (Latest Contact Info) Description 10/17/2024 1:30 AM CDT Allied Health/Nurse Visit [facility] [address] [place] [address] Carlos Wright MD [address] [facility] [address] [place] [address] 09/10/2025 1:00 PM CDT Appointment [address] [place] [address] Consuelo Boland MD 9 [place] [address] 09/16/2025 11:45 AM CDT Office Visit [facility] [place] [phone] Consuelo Boland MD [address] [place] [address] documented as of this encounter Visit Diagnoses Not on filedocumented in this encounter Additional Health Concerns Infection Onset Date Last Indicated Resolved Time COVID-19 Rule Out 11/03/2019 11/03/2019 11/04/2019 3:36 PM CDT documented as of this encounter Care Teams Ore Feeder Relationship Specialty Start Date End Date Rei Alcaraz MD [address] [place] [address] PCP - General FAMILY PRACTICE 08/25/16 Edgar Schilling MD [address] [place] [phone] [place] Technician'S Helper CARDIOVASCULAR DISEASE 08/25/16 09/03/23 Jim Lugo MD [address] [place] [phone] Consulting Physician CLINICAL CARDIAC ELECTROPHYSIOLOGY 05/27/22 09/03/23 Dominguez Locke PA-C [address] [place] [phone] PHYSICIAN BONE DRIER 05/27/22 Consuelo Boland MD [address] [place] [address] Consulting Physician CARDIOVASCULAR DISEASE 09/04/23 documented as of this encounter
--- OUTSIDE RECORDS SUMMARY | 2024-10-09 07:07 | XMS_ITS | Encounter Summary ---
Author Organization [facility] Address [facility] [place] [address] Care Team Providers Care Senior Web Analyst Name Role Phone Rei Alcaraz MD Primary Care Provider [phone] Edgar Schilling MD Unavailable [phone] Jim Lugo MD Unavailable Unavailable Dominguez Locke PA-C Unavailable [phone] Consuelo Boland MD Unavailable Encounter Details Date Type Department Care Team (Late st Contact Info) Description 09/03/2016 Abstract [facility] [address] [place] [address] Edgar Schilling MD [address] [place] [address] Social History Tobacco Use Types Packs/Day Years Used Date Smoking Tobacco: Every Day Comments Unknown Sex and Gender Information Value Date Recorded Sex Assigned at Female 03/30/2024 9:49 AM LINE CLEANER Legal Sex Female 1:02 PM CDT Gender Identity Not on file Sexual Orientation Not on file documented as of this encounter Plan of Treatment Upcoming Encounters Date Type Department Care Team (Latest Contact Info) Description 10/17/2024 1:30 AM CDT Allied Health/Nurse Visit [facility] [address] [place] [address] Carlos Wright MD [address] [facility] [address] [place] [address] 09/10/2025 1:00 PM CDT Appointment [address] [place] [address] Consuelo Boland MD [address] [place], [place] [address] 09/16/2025 11:45 AM CDT Office Visit [facility] [place] [phone] Consuelo Boland MD [address] [place] [address] documented as of this encounter Procedures Procedure [...] as of this encounter Care Teams Senior Web Analyst Relationship Specialty Start Date End Date Rei Alcaraz MD [address] [place] [address] PCP - General FAMILY PRACTICE 08/25/16 Edgar Schilling MD [address] [place] [address] [place] Parking Meter Collector CARDIOVASCULAR DISEASE 08/25/16 09/03/23 Jim Lugo MD [address] [place] [address] Consulting Physician CLINICAL CARDIAC ELECTROPHYSIOLOGY 05/27/22 09/03/23 Dominguez Locke PA-C [address] [place] [phone] PHYSICIAN LEAD ADVISOR 05/27/22 Consuelo Boland MD [address] [place] [address] Consulting Physician CARDIOVASCULAR DISEASE 09/04/23 documented as of this encounter
[2024-10-09 07:17] LABS: Hematocrit 43.7 % (35.0-49.0); Hemoglobin 14.0 g/dL (12.0-15.0); Immature Granulocyte Percent A 0.4 % (0.0-0.0); Lymphocytes Absolute Auto 2.49 K/mm3 (1.10-4.50); Mean Corpuscular HGB Conc 32.0 g/dL (32-36); Mean Corpuscular Hemoglobin 29.5 pg (27.0-31.0); Mean Corpuscular Volume 92.2 fL (78.0-102.0); Nucleated Red Blood Cells Absolute Auto 0.00 K/mm3 (0.00-0.00); Nucleated Red Blood Cells Perc 0.0 % (0-0.0); Platelet Count Result 221 K/mm3 (150-420); Red Blood Count 4.74 M/mm3 (4.20-5.40); White Blood Count 8.1 K/mm3 (4.8-10.8)
[2024-10-09 07:32] LABS: INR 1.6; Prothrombin Time 17.2 Seconds (9.50-12.1)
[2024-10-09 07:36] LABS: Hemoglobin A1C 6.6 % (<5.7)
[2024-10-09 07:38] LABS: MALB Creatinine Ratio 31.1 mg/g (0-30)
[2024-10-09 07:51] LABS: Anion Gap 6 mmol/L (4-12); Blood Urea Nitrogen 44 mg/dL (7-17); Calcium 9.5 mg/dL (8.4-10.2); Carbon Dioxide 27 mmol/L (22-30); Chloride 106 mmol/L (98-107); Cholesterol 143 mg/dL (0-200); Estimated Glomerular Filt Rate 31; Glucose 114 mg/dL (65-110); HDL Direct 51 mg/dL; Osmolality Calculated 300 mOsm/kg (285-295); Potassium 4.1 mmol/L (3.4-5.0); Sodium 139 mmol/L (137-145); Triglycerides 150 mg/dL (<150)
== END 2024-10-09 07:00 | disposition home or self-care (01) ==
LOC: CHSLAB 07:02
PROVIDERS: PCP Family Medicine; Visit Provider Family Medicine
DX: Z79.01 Long term (current) use of anticoagulants (principal); E11.9 Type 2 diabetes mellitus without complications; E78.2 Mixed hyperlipidemia
CPT/HCPCS: 36415; 80048; 80061; 82043; 83036; 85025; 85610

== ENCOUNTER 2025-01-08 08:48 | Outpatient (RCR) | payer MEDICARE, MEDICAID, SELFPAY ==
[2024-10-23 09:10] LABS: INR 2.3; Prothrombin Time 23.8 Seconds (9.50-12.1)
[2024-11-22 08:13] LABS: INR 2.2; Prothrombin Time 22.3 Seconds (9.50-12.1)
[2024-12-24 12:21] LABS: INR 3.3; Prothrombin Time 32.4 Seconds (9.50-12.1)
[2025-01-08 09:33] LABS: INR 1.9; Prothrombin Time 20.1 Seconds (9.50-12.1)
== END 2025-01-21 23:59 | disposition home or self-care (01) ==
LOC: CHSLAB 08:48
PROVIDERS: PCP Family Medicine; Visit Provider Family Medicine
DX: Z51.81 Encounter for therapeutic drug level monitoring (principal); Z79.01 Long term (current) use of anticoagulants
CPT/HCPCS: 36415; 85610

== ENCOUNTER 2025-01-21 08:38 | Outpatient (CLI) | payer MEDICARE, MEDICAID, SELFPAY ==
[2025-01-21 09:05] LABS: Hematocrit 45.0 % (35.0-49.0); Hemoglobin 14.5 g/dL (12.0-15.0); Immature Granulocyte Percent A 0.3 % (0.0-0.0); Lymphocytes Absolute Auto 2.39 K/mm3 (1.10-4.50); Mean Corpuscular HGB Conc 32.2 g/dL (32-36); Mean Corpuscular Hemoglobin 29.4 pg (27.0-31.0); Mean Corpuscular Volume 91.1 fL (78.0-102.0); Nucleated Red Blood Cells Absolute Auto 0.00 K/mm3 (0.00-0.00); Nucleated Red Blood Cells Perc 0.0 % (0-0.0); Platelet Count Result 232 K/mm3 (150-420); Red Blood Count 4.94 M/mm3 (4.20-5.40); White Blood Count 7.0 K/mm3 (4.8-10.8)
[2025-01-21 09:22] LABS: INR 2.6; Prothrombin Time 25.9 Seconds (9.50-12.1)
[2025-01-21 09:24] LABS: Hemoglobin A1C 6.4 % (<5.7)
[2025-01-21 09:36] LABS: Alanine Aminotransferase 23 U/L (6-35); Albumin Level 4.8 g/dL (3.5-5.1); Alkaline Phosphatase 86 U/L (38-126); Anion Gap 11 mmol/L (4-12); Aspartate Amino Transferase 28 U/L (14-36); Blood Urea Nitrogen 30 mg/dL (7-17); Calcium 9.3 mg/dL (8.4-10.2); Carbon Dioxide 27 mmol/L (22-30); Chloride 104 mmol/L (98-107); Estimated Glomerular Filt Rate 37; Glucose 124 mg/dL (65-110); Osmolality Calculated 301 mOsm/kg (285-295); Potassium 3.8 mmol/L (3.4-5.0); Sodium 142 mmol/L (137-145); Total Protein 7.8 g/dL (6.3-8.2)
[2025-01-21 10:07] LABS: Thyroid Stimulating Hormone 1.060 uIU/mL (0.465-4.680)
[2025-01-21 17:34] LABS: Bilirubin,Total 0.2 mg/dL (0.2-1.3)
== END 2025-01-21 08:39 | disposition home or self-care (01) ==
LOC: CHSLAB 08:40
PROVIDERS: PCP Family Medicine; Visit Provider Family Medicine
DX: Z79.01 Long term (current) use of anticoagulants (principal); E11.9 Type 2 diabetes mellitus without complications; E80.7 Disorder of bilirubin metabolism, unspecified
CPT/HCPCS: 36415; 80053; 82248; 83036; 84443; 85025; 85610